=== PATIENT | female | born 1985 | race Caucasian/White ===

== ENCOUNTER 2021-10-07 12:15 | Inpatient (IN) | payer MEDICAID, SELFPAY ==
--- NOTE | ~2021-10-07 | CT_ITS ---
EXAMINATION: CT HEAD WITHOUT CONTRAST CLINICAL INFORMATION: Bilateral lower extremity weakness and paresthesias. COMPARISON: No relevant prior imaging. TECHNIQUE: Contiguous axial imaging was performed from the skull base to vertex without intravenous administration of contrast. This CT examination was performed using dose optimization techniques as appropriate, variously including the following: *Automated exposure control *Adjustment of mA and/or kV according to patient size (this includes techniques or standardized protocols for targeted exams where dose is matched to indication/reason for exam; i.e. extremities or head) *Use of iterative reconstruction technique DLP: 616 mGy-cm FINDINGS: There is no acute intracranial hemorrhage or abnormal extra-axial collection. No intracranial mass effect or midline shift. Lateral and third ventricles are normal. No hydrocephalus. Benson-white matter differentiation is preserved and there is no evidence of acute territorial infarct. The calvarium and skull base are intact. Mastoid air cells and middle ear cavities are well aerated. No active paranasal sinus disease. CT/CT head/brain wo con IMPRESSION: Normal CT scan of the head.
--- NOTE | ~2021-10-07 | MR_ITS ---
MR CERVICAL SPINE WITHOUT AND WITH CONTRAST CLINICAL INFORMATION: Paresthesia/weakness of the lower extremities. COMPARISON: None available. TECHNIQUE: Multiplanar multisequence MR imaging of the cervical spine obtained following the administration of 6.5 mL of Gadavist intravenous contrast without complication. FINDINGS: Partially imaged leftward convex scoliotic curvature of the thoracic spine. Straightening of the cervical lordosis. There is no bone marrow edema. There are no acute fractures. The craniocervical junction is unremarkable. Cervical arterial flow voids are maintained. There are no significant extraspinal soft tissue findings. No cord signal changes accounting for artifact. No enhancing cervical cord lesions. No enhancing intraosseous lesions. No pathologic intrathecal enhancement. C2-C3: Disc osteophyte without central canal stenosis. Bilateral facet arthropathy. No foraminal stenosis. C3-C4: Disc osteophyte without central canal stenosis. Bilateral facet arthropathy. No foraminal stenosis. C4-C5: Slight annular disc bulge and bilateral facet arthropathy. No central canal stenosis and no foraminal stenosis. C5-C6: There is a shallow central disc protrusion that results in mild central canal stenosis. No significant foraminal stenosis. C6-C7: Slight annular disc bulge without central canal stenosis. C7-T1: Bilateral facet arthropathy resulting in mild bilateral foraminal encroachment. No central canal stenosis. MR/MR cervical spine wo/w con IMPRESSION: Mild cervical spondylosis, greatest at C5-C6 where a shallow central disc protrusion mildly narrows the central canal. There is no severe central canal stenosis and there is no severe foraminal stenosis within the cervical spine. No pathologic enhancement.
--- NOTE | ~2021-10-07 | MR_ITS ---
EXAMINATION: MR BRAIN WITHOUT AND WITH CONTRAST CLINICAL INFORMATION: Paresthesia. Weakness. Demyelinating disease. COMPARISON: CT head from 10/07/2021. TECHNIQUE: MRI of the brain was obtained using routine sequences without and following the administration of 6.5 mL of Gadavist intravenous contrast. FINDINGS: No focal restricted diffusion is demonstrated to suggest acute or subacute cerebral ischemia. No evidence of acute or chronic hemorrhagic products on heme-sensitive imaging. Normal parenchymal signal characteristics. The ventricles are normal in morphology and size. No abnormal mass effect. No midline shift. Normal appearance of the pituitary gland. The suprasellar cistern remains widely patent. Normal positioning of the cerebellar tonsils. This Normal arterial and venous vascular flow voids are present. No abnormal contrast enhancement. Normal, homogeneous marrow signal. Mild mucosal thickening of the paranasal sinuses. Mild rightward nasal septal deviation. No signal abnormalities within the mastoids. MR/MR head/brain wo/w con IMPRESSION: 1. No acute intracranial abnormalities. No abnormal intracranial enhancement. 2. No MRI abnormalities to explain the patient's symptoms.
[2021-10-07 13:28] VITALS: BP 138/92; PULSE 105; RESP 18; TEMP 36.6; O2SAT 98; BMI 24.0
[2021-10-07 13:48] LABS: MANUAL DIFF FLAG NO
[2021-10-07 13:51] LABS: Basophils Percent Auto 0.5 % (0-2); Eosinophils Percent Auto 0.4 % (0-4); Hematocrit 39.6 % (37.0-47.0); Hemoglobin 13.9 g/dl (12.0-16.0); Imm Gran Abs Auto 0.03 X10*3/uL (0.00-0.03); Imm Gran Pct Auto 0.4 % (0.0-0.4); Lymphocytes Absolute Auto 2.8 X10*3/uL (1.2-4.9); Lymphocytes Percent Auto 34.2 % (20-40); Mean Corpuscular HGB Conc 35.1 g/dl (31.0-35.0); Mean Corpuscular Hemoglobin 36.6 pg (27.0-33.0); Mean Corpuscular Volume 104.2 fL (80.0-98.0); Mean Platelet Volume 10.5 fL (9.4-12.3); Monocytes Absolute Auto 0.8 X10*3/uL (0.1-1.2); Monocytes Percent Auto 9.2 % (2-11); Neutrophils Absolute Auto 4.6 x10*3/uL (2.0-8.3); Neutrophils Percent Auto 55.3 % (45-73); Platelet Count 281 X10*3/uL (160-400); White Blood Count 8.3 X10*3/uL (4.8-10.8)
[2021-10-07 14:10] LABS: Appearance Urine CLOUDY; Color Urine YELLOW; Glucose Urine UA NEG (NEG); Leukocyte Esterase Urine 2+ (NEG); Nitrite Urine POS (NEG); PH 5.5 (5.0-8.0); Specific Gravity - Urine >= 1.030 (1.005-1.025); UACC Culture Trigger YES; Urine Blood NEG (NEG); Urine Ketones 5 MG/DL (NEG); Urine Protein 1+ MG/DL (NEG-TRACE)
[2021-10-07 14:12] LABS: UPreg QC Valid YES; Urine Pregnancy NEGATIVE (NEGATIVE)
[2021-10-07 14:12] LABS: Alanine Aminotransferase 58 U/L (0-31); Albumin Level 3.3 g/dL (3.5-5.0); Alkaline Phosphatase 197 U/L (39-117); Anion Gap 17 (12-20); Aspartate Amino Transferase 86 U/L (5-31); Blood Urea Nitrogen 5 mg/dL (9-16); Calcium 9.7 mg/dL (8.4-10.2); Carbon Dioxide 34 mmol/L (22-29); Chloride 89 mmol/L (96-108); Creatinine Clr Calc Pharmacy 90.4; Estimated Glomerular Filt Rate > 60; Glucose Random 106 mg/dL (60-115); Potassium 4.1 mmol/L (3.3-5.1); Sodium 136 mmol/L (135-145); Total Protein 6.8 g/dL (6.5-8.0)
[2021-10-07 14:34] LABS: WBC Urine 50-75 /HPF (0-4)
[2021-10-07 14:35] LABS: Bacteria Urine 1+ /LPF; Squamous Epithelial Cell Urine 2+ /LPF
[2021-10-07 15:48] VITALS: BP 139/101; PULSE 98; RESP 16; TEMP 37.1; O2SAT 99
--- NOTE | 2021-10-07 16:02 | ED_ITS ---
HPI - General Adult General Chief complaint: General Medical Stated complaint: Vomiting/Numbness in legs Time Seen by Provider: 10/07/21 15:33 Source: patient Mode of arrival: ambulatory Limitations: no limitations History of Present Illness HPI narrative: Patient comes to the emergency room with multiple complaints including numbness and tingling in her hands and feet for a few days decreased p.o. tolerance over last 2-3 weeks, weight loss over the last few months, occasional lightheadedness. Patient's main concern today is the numbness and tingling in her hand and feet. Patient states the numbness and tingling started approximately 3 days ago, started on her feet and now it is up to her hips. Patient states that today she started having numbness and tingling in the fingertips of both hands. Patient states that her legs feel weaker than usual. Patient states that she has not had any viral infections over the last 2-3 weeks, patient states that she has multiple GI issues over several years, howev er it seems that the nausea/vomiting has gradually been getting worse over the last few weeks. Patient denies diarrhea. Denies fever chills Related Data Allergies Allergy/AdvReac Type Severity Reaction Status Date / Time amoxicillin [AMOXICILLIN] Allergy Unknown UNKNWON Unverified 05/10/20 15:36 Review of Systems Review of Systems: Constitutional : Complaining of 10 lb weight loss over 2 months, No Fever, No Chills, No Night Sweats, No Fatigue, No Malaise ENT/Mouth : No Hearing loss, No Ear Pain, No Nasal Congestion, No Sinus Pain, No Hoarseness, No sore throat, No Rhinorrhea, No Swallowing Difficulty Eyes: No Eye Pain, No Swelling, No Redness, No Foreign Body, No Discharge, No Vision Changes Cardiovascular : No Chest Pain, No SOB, No Dyspnea on Exertion, No Orthopnea, No Edema, No Palpitations Respiratory : No Cough, No Sputum, No Wheezing, No Smoke Exposure, No Dyspnea Gastrointestinal : Complaining of chronic GI issues including nausea vomiting and occasional diarrhea Genitourinary : no irregular bleeding, No Dysuria, No Urinary Frequency, No Hematuria, No Urinary Incontinence, No Urgency, No Flank Pain, No Urinary Flow Changes, No Hesitancy Musculoskeletal : Complaining of paresthesias in feet and palms, complaining of bilateral leg weakness Skin : No Skin Lesions, No rash Neuro : No Weakness, No Numbness, No Paresthesias, No Loss of Consciousness, No Dizziness, No Headache Psych : No Anxiety/Panic, No Depression, No SI/HI/AH/VH, No Social Issues, Heme/Lymph: No Bruising, No Bleeding,No Lymphadenopathy Endocrine : No Polyuria, No Polydipsia, No Temperature Intolerance [facility] Social History Social History Alcohol intake: unknown Patient Tobacco Use Status: Never used Tobacco Use of substances other than those prescribed or required for medical reasons: Unknown Advance Directives: No Advance Directives Information Provided: No Patient : No Physical Exam ED Vital Signs: Vital Signs - 24 hr 10/07/21 13:28 10/07/21 15:48 10/07/21 17:48 Temperature 97.8 F 98.8 F Pulse Rate 105 H 98 71 Respiratory Rate 18 16 16 Blood Pressure 138/92 H 139/101 H 123/77 Pulse Oximetry 98 99 96 10/07/21 20:10 Temperature 98.7 F Pulse Rate 91 Respiratory Rate 16 Blood Pressure 115/81 Pulse Oximetry 97 BMI result Body Mass Index 24.0 Const Other: Appearance: Alert. Oriented X3. No acute distress. Anxious Eyes: Pupils equal, round and reactive to light. ENT: Pharynx normal. Neck: Normal inspection. Neck supple. No lymph nodes noted. No crepitus CVS: Normal heart rate and rhythm. Pulses normal. Normal S1 and S2 Respiratory: No respiratory distress. Breath sounds normal. No Wheezing. No rales Abdomen: Soft and nontender. No rigidity. No distention. Skin: Skin warm and dry. Extremities: No lower extremity edema. absent patellar reflexes bilaterally, patient is ambulatory but her gate is unstable, complains of weakness Neuro: Oriented X 3. No motor deficit. No sensory deficit. Moving all extermities. No slurred speech. Course Course Course Narrative: I discussed with the patient that her history of having numbness and tingling in the feet traveling upwards and now having numbness and tingling in both hands is concerning for [place]. Patient is agreeable to have a lumbar puncture. Patient signed the consent, now in patient's chart. Head CT shows no acute abnormalities I discussed with the patient her MCV level and her LFTs elevations. Patient admits that she drinks quite a bit/binge drinks. Is possible that patient may have paresthesias secondary to folate/B12 deficiency. Also, this could be alcoholic neurophathy/myopathy. CSF within normal limits. Patient's gait is abnormal, patient needs to hold on to both sides of her th ighs, states that she feels that her legs feel very weak and about to give up. I discussed the patient with Dr. Mariscal, patient being admitted Medical Decision Making Lab Data Result diagrams: 10/07/21 13:41 10/07/21 13:41 Labs: Lab Results 10/07/21 10/07/21 10/07/21 Range/Units 13:41 13:41 13:57 WBC 8.3 (4.8-10.8) X10*3/uL RBC 3.80 L (4.20-5.50) X10*6/uL Hgb 13.9 (12.0-16.0) g/dl Hct 39.6 (37.0-47.0) % MCV 104.2 H (80.0-98.0) fL MCH 36.6 H (27.0-33.0) pg MCHC 35.1 H (31.0-35.0) g/dl RDW 12.0 (11.0-16.0) % Plt Count 281 (160-400) X10*3/uL MPV 10.5 (9.4-12.3) fL Immature Gran % (Auto) 0.4 (0.0-0.4) % Neut % (Auto) 55.3 (45-73) % Lymph % (Auto) 34.2 (20-40) % [place] % (Auto) 9.2 (2-11) % Eos % (Auto) 0.4 (0-4) % Baso % (Auto) 0.5 (0-2) % Lymph # (Auto) 2.8 (1.2-4.9) X10*3/uL [place] # (Auto) 0.8 (0.1-1.2) X10*3/uL Eos # (Auto) 0.0 (0.0-0.4) X10*3/uL Baso # (Auto) 0.0 (0.0-0.2) X10*3/uL Abs Immat Gran (auto) 0.03 (0.00-0.03) X10*3/uL Absolute Neuts (auto) 4.6 (2.0-8.3) x10*3/uL Absolute Nucleated RBC 0.000 (0.0-0.012) X10*3/uL Nucleated RBC % (auto) 0.0 (0.0-0.2) /100WBC Sodium 136 (135-145) mmol/L Potassium 4.1 (3.3-5.1) mmol/L Chloride 89 L (96-108) mmol/L Carbon Dioxide 34 H (22-29) mmol/L Anion Gap 17 (12-20) BUN 5 L (9-16) mg/dL Creatinine 0.75 (0.5-1.4) mg/dL Estim Creat Clear Calc 90.4 Estimated GFR > 60 Random Glucose 106 (60-115) mg/dL Calcium 9.7 (8.4-10.2) mg/dL Magnesium 2.1 (1.6-2.6) mg/dL Total Bilirubin 1.0 (0.0-1.0) mg/dL AST 86 H (5-31) U/L ALT 58 H (0-31) U/L Alkaline Phosphatase 197 H (39-117) U/L Total Protein 6.8 (6.5-8.0) g/dL Albumin 3.3 L (3.5-5.0) g/dL Urine Color YELLOW Urine Appearance CLOUDY Urine pH 5.5 (5.0-8.0) Ur Specific [place] >= 1.030 H (1.005-1.025) Urine Protein 1+ H (NEG-TRACE) MG/DL Urine Glucose (UA) NEG (NEG) MG/DL Urine Ketones 5 (NEG) MG/DL Urine Blood NEG (NEG) Urine Nitrite POS H (NEG) Ur Leukocyte Esterase 2+ H (NEG) Urine RBC 1-4 (0) /HPF Urine WBC 50-75 H (0-4) /HPF Ur Squamous Epith Cells 2+ /LPF Urine Bacteria 1+ /LPF Urine Test (NEGATIVE) CSF Tube Number CSF Volume ML CSF Appearance CSF Color CSF WBC MM*3 CSF RBC MM*3 CSF Neutrophils % CSF Lymphocytes % CSF Monocytes % % CSF Appearance (b) CSF Glucose mg/dL CSF Total Protein (15-45) mg/dL 10/07/21 10/07/21 10/07/21 Range/Units 13:57 18:00 18:00 WBC (4.8-10.8) X10*3/uL RBC (4.20-5.50) X10*6/uL Hgb (12.0-16.0) g/dl Hct (37.0-47.0) % MCV (80.0-98.0) fL MCH (27.0-33.0) pg MCHC (31.0-35.0) g/dl RDW (11.0-16.0) % Plt Count (160-400) X10*3/uL MPV (9.4-12.3) fL Immature Gran % (Auto) (0.0-0.4) % Neut % (Auto) (45-73) % Lymph % (Auto) (20-40) % [place] % (Auto) (2-11) % Eos % (Auto) (0-4) % Baso % (Auto) (0-2) % Lymph # (Auto) (1.2-4.9) X10*3/uL [place] # (Auto) (0.1-1.2) X10*3/uL Eos # (Auto) (0.0-0.4) X10*3/uL Baso # (Auto) (0.0-0.2) X10*3/uL Abs Immat Gran (auto) (0.00-0.03) X10*3/uL Absolute Neuts (auto) (2.0-8.3) x10*3/uL Absolute Nucleated RBC (0.0-0.012) X10*3/uL Nucleated RBC % (auto) (0.0-0.2) /100WBC Sodium (135-145) mmol/L Potassium (3.3-5.1) mmol/L Chloride (96-108) mmol/L Carbon Dioxide (22-29) mmol/L Anion Gap (12-20) BUN (9-16) mg/dL Creatinine (0.5-1.4) mg/dL Estim Creat Clear Calc Estimated GFR Random Glucose (60-115) mg/dL Calcium (8.4-10.2) mg/dL Magnesium (1.6-2.6) mg/dL Total Bilirubin (0.0-1.0) mg/dL AST (5-31) U/L ALT (0-31) U/L Alkaline Phosphatase (39-117) U/L Total Protein (6.5-8.0) g/dL Albumin (3.5-5.0) g/dL Urine Color Urine Appearance Urine pH (5.0-8.0) Ur Specific [place] (1.005-1.025) Urine Protein (NEG-TRACE) MG/DL Urine Glucose (UA) (NEG) MG/DL Urine Ketones (NEG) MG/DL Urine Blood (NEG) Urine Nitrite (NEG) Ur Leukocyte Esterase (NEG) Urine RBC (0) /HPF Urine WBC (0-4) /HPF Ur Squamous Epith Cells /LPF Urine Bacteria /LPF Urine Test NEGATIVE (NEGATIVE) CSF Tube Number 2 4 CSF Volume 1.5 ML CSF Appearance CLEAR CSF Color COLORLESS CSF WBC 0 MM*3 CSF RBC 1 MM*3 CSF Neutrophils 0 % CSF Lymphocytes 0 % CSF Monocytes % 0 % CSF Appearance (b) Clear, Colorless CSF Glucose 79 mg/dL CSF Total Protein 25.2 (15-45) mg/dL Imaging Data CT scan - head: Radiologist's impression: FINDINGS: There is no acute intracranial hemorrhage or abnormal extra-axial collection. No intracranial mass effect or midline shift. Lateral and third ventricles are normal. No hydrocephalus. Benson-white matter differentiation is preserved and there is no evidence of acute territorial infarct. The calvarium and skull base are intact. Mastoid air cells and middle ear cavities are well aerated. No active paranasal sinus disease. ? CT/CT head/brain wo con IMPRESSION: Normal CT scan of the head. Discharge Plan Discharge Clinical Impression: Paresthesias, Bilateral leg weakness Patient Disposition: Admitted As Inpatient
[2021-10-07 16:51] LABS: Magnesium 2.1 mg/dL (1.6-2.6)
--- NOTE | 2021-10-07 17:44 | PC.NURSE ---
iv established, right ac. currently getting lp
[2021-10-07 17:48] VITALS: BP 123/77; PULSE 71; RESP 16; O2SAT 96
[2021-10-07 18:06] LABS: CSF Appearance Clear, Colorless; CSF Tube # 2
[2021-10-07 18:29] LABS: Glucose CSF 79 mg/dL; Total Protein CSF 25.2 mg/dL (15-45)
[2021-10-07 19:20] LABS: Appearance CSF CLEAR
[2021-10-07 19:21] LABS: CSF Monos 0 %; CSF Tube # 4; CSF Volume 1.5 ML; Color CSF COLORLESS; Lymphocytes CSF 0 %; Neutrophils CSF 0 %; Red Blood Cell CSF 1 MM*3; White Blood Cell CSF 0 MM*3
[2021-10-07 20:10] VITALS: BP 115/81; PULSE 91; RESP 16; TEMP 37.1; O2SAT 97
--- NOTE | 2021-10-07 20:14 | PC.NURSE ---
This real estate underwriter assumed care of this patient from IWONA Winters at [id number].
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
[2021-10-07] MEDS: Cyanocobalamin (Vitamin B-12) 1,000 MCG TABLET 1000 MCG PO (20:48)
[2021-10-07] MEDS: Folic Acid 1 MG TABLET PO (20:48)
[2021-10-07] MEDS: Enoxaparin Sodium 40 MG/0.4 ML SYRINGE SUBCUT (20:50)
[2021-10-07] MEDS: 0.9 % Sodium Chloride 1,000 ML 999 ML IVCONT (20:50)
--- NOTE | 2021-10-07 20:54 | PHA.MEDREC ---
Pharmacy Consult ? Medication Reconciliation Pharmacy has completed the medication reconciliation.
[2021-10-07 21:25] LABS: Lactic Acid 4.4 mmol/L (0.5-2.0)
[2021-10-07 21:25] LABS: C Reactive Protein 0.19 mg/dL (< or = 0.50)
[2021-10-07] MEDS: levoFLOXacin/D5W 500 MG/100 ML PIGGYBACK 100 MG IV (21:38)
[2021-10-07 21:50] LABS: Erythrocyte Sedimentation Rate 16 MM/HR (0-20)
[2021-10-07 22:00] LABS: Folate 2.6 ng/mL (> or = 4.0); Vitamin B12 1533 pg/mL (200-900)
[2021-10-07 22:31] LABS: COVID-19 Test Negative (Negative); IDNOW Serial# 9DD0AD1C
[2021-10-07 23:07] LABS: Reflex Lactate? Lactic Acid Added
[2021-10-08 00:34] LABS: Amphetamine Screen Urine Not Detected (Not Detect); Barbiturates, Urine Not Detected (Not Detect); Benzodiazepines Screen Urine Not Detected (Not Detect); Cannabinoid Screen Urine POSITIVE (Not Detect); Cocaine Screen Urine Not Detected (Not Detect); Fentanyl, urine Not Detected (Not Detect); Opiate Screen Urine Not Detected (Not Detect); Phencyclidine Screen Urine Not Detected (Not Detect)
[2021-10-08 00:43] LABS: ~Lactic Acid-LAB USE ONLY 2.2 mmol/L (0.5-2.0)
[2021-10-08 00:47] VITALS: BP 120/81; PULSE 88; RESP 15; O2SAT 97
[2021-10-08 02:19] LABS: Reflex Lactate? 2 Y
[2021-10-08 02:44] LABS: ~Lactic Acid-LAB USE ONLY 3.9 mmol/L (0.5-2.0)
[2021-10-08] MEDS: Dextrose 5 % and 0.45 % NaCl 1,000 ML 100 ML IVCONT ×2 (04:39→15:26)
[2021-10-08 05:54] VITALS: BP 120/83; PULSE 70; RESP 13; O2SAT 97
--- NOTE | 2021-10-08 06:28 | PC.NURSE ---
IWONA Nguyen relayed to this RN that patient's Lactic Acid was elevated. Hospitalist made aware
[2021-10-08 07:06] LABS: MANUAL DIFF FLAG NO
[2021-10-08 07:09] LABS: Basophils Absolute Auto 0.1 X10*3/uL (0.0-0.2); Basophils Percent Auto 0.7 % (0-2); Eosinophils Absolute Auto 0.1 X10*3/uL (0.0-0.4); Hematocrit 36.2 % (37.0-47.0); Hemoglobin 12.3 g/dl (12.0-16.0); Imm Gran Abs Auto 0.02 X10*3/uL (0.00-0.03); Imm Gran Pct Auto 0.3 % (0.0-0.4); Lymphocytes Absolute Auto 2.9 X10*3/uL (1.2-4.9); Lymphocytes Percent Auto 42.7 % (20-40); Mean Corpuscular Hemoglobin 36.3 pg (27.0-33.0); Mean Corpuscular Volume 106.8 fL (80.0-98.0); Mean Platelet Volume 10.8 fL (9.4-12.3); Monocytes Absolute Auto 0.7 X10*3/uL (0.1-1.2); Monocytes Percent Auto 10.1 % (2-11); Neutrophils Percent Auto 45.2 % (45-73); Platelet Count 235 X10*3/uL (160-400); Red Blood Count 3.39 X10*6/uL (4.20-5.50); Red Cell Distribution Width 11.9 % (11.0-16.0); White Blood Count 6.7 X10*3/uL (4.8-10.8)
[2021-10-08 07:35] VITALS: BP 118/91; PULSE 91; RESP 12; TEMP 36.4; O2SAT 96
[2021-10-08 07:35] LABS: Anion Gap 13 (12-20); Blood Urea Nitrogen 3 mg/dL (9-16); Calcium 8.7 mg/dL (8.4-10.2); Carbon Dioxide 32 mmol/L (22-29); Chloride 96 mmol/L (96-108); Creatinine Clr Calc Pharmacy 92.8; Estimated Glomerular Filt Rate > 60; Glucose Random 98 mg/dL (60-115); Potassium 3.7 mmol/L (3.3-5.1); Sodium 137 mmol/L (135-145)
[2021-10-08 07:50] LABS: Thyroid Stimulating Hormone 1.36 uIU/mL (0.32-4.0)
[2021-10-08 07:56] LABS: Phosphorus 3.7 mg/dL (2.7-4.5)
[2021-10-08 08:29] LABS: Vitamin D 25-OH Total 11.8 ng/mL (>30)
--- NOTE | 2021-10-08 09:24 | MHC.CM.PN ---
PT REPORTS SHE LIVES AT HOME WITH HER PARENTS AND IS INDEPENDENT WITH CARE [PT HAS NO SERVICES AND NO DME PT HAS NO PCP, IMPORTANCE OF OBTAINING ONE DISCUSSED. PT COMPLETED A HCP TODAY NAMING HER MOTHER, JACQUELINE WIGGINS, HER AGENT. PT IS NOT VACCINATED AGAINST COVID-19 CURRENT DC PLAN IS HOME WITH NO SERVICES PT TO ARRANGE TRANSPORT
[2021-10-08] MEDS: Ibuprofen 600 MG TABLET PO (11:09)
--- NOTE | 2021-10-08 14:17 | HO.PM.IMPN ---
Subjective Subjective Date of Service: 10/08/21 Interval History: No acute issues....no changes overnight Review of Systems DeniesCP Denies SOB Denies N/V/D Physical Exam Vital Signs: Vital Signs: Last Vital Signs Temp 97.6 F 10/08/21 07:35 Pulse 91 10/08/21 07:35 Resp 12 10/08/21 07:35 BP 118/91 H 10/08/21 07:35 Pulse Ox 96 10/08/21 07:35 BMI result Body Mass Index 24.0 Const: Other: No acute distress Resp: Other: clear A/P ..no R/R/W Cardio: Other: -S4 +S1/S2 -S3 MRG Extrem: Other: no edema Objective Data Active Medications Enoxaparin Sodium (Enoxaparin Sodium 40 Mg/0.4 Ml Syringe) 40 mg SUBCUT Q24H [facility] Last Admin: 10/07/21 20:50 Dose: 40 mg Documented by: NAZARIO Dextrose/Sodium Chloride (D51/2ns) 1,000 mls @ 100 mls/hr IVCONT .Q10H [facility] Last Admin: 10/08/21 04:39 Dose: 100 mls/hr Documented by: CHARLES Ibuprofen (Ibuprofen 600 Mg Tablet) 600 mg PO Q6H PRN PRN Reason: Pain, Mild (Pain Scale 1-3) Last Admin: 10/08/21 11:09 Dose: 600 mg Documented by: DEMETRI Melatonin (Melatonin 3 Mg Tablet) 6 mg PO BEDTIME PRN PRN Reason: Insomnia Oxycodone HCl (Oxycodone Hcl Immed Release 5 Mg Tablet) 5 mg PO Q4H PRN PRN Reason: Pain, Moderate (Pain Scale 4-6 Senna (Sennosides 8.6 Mg Tablet) 17.2 mg PO BEDTIME PRN PRN Reason: Constipation Sodium Chloride (0.9 % Sodium Chloride Flush 3 Ml Syringe) 3 ml IVFLUSH QSHIFT [facility] Last Admin: 10/08/21 09:17 Dose: Not Given Documented by: DEMETRI Non-Admin Reason: Patient Refused Labs CBC & Chem 7: 10/08/21 06:59 10/08/21 06:59 Labs: Laboratory Results - last 24 hr 10/07/21 10/07/2122 13:41 13:57 13:57 MCV MCH MCHC RDW Plt Count MPV Immature Gran % (Auto) Neut % (Auto) Lymph % (Auto) [place] % (Auto) Eos % (Auto) Baso % (Auto) Lymph # (Auto) [place] # (Auto) Eos # (Auto) Baso # (Auto) Abs Immat Gran (auto) Absolute Neuts (auto) Absolute Nucleated RBC Nucleated RBC % (auto) ESR Anion Gap Estim Creat Clear Calc Estimated GFR Random Glucose Lactic Acid Lactic Acid F/U @ 2Hr Lactic Acid F/U @ 4Hr Calcium Phosphorus Magnesium 2.1 Total Creatine Kinase 26 C-Reactive Protein Vitamin B12 25-OH Vitamin D Total Folate TSH Urine RBC 1-4 Urine WBC 50-75 H Ur Squamous Epith Cells 2+ Urine Bacteria 1+ CSF Tube Number CSF Volume CSF Appearance CSF Color CSF WBC CSF RBC CSF Neutrophils CSF Lymphocytes CSF Monocytes % CSF Appearance (b) CSF Glucose CSF Total Protein Urine Opiates Screen Not Detected Urine Fentanyl Screen Not Detected Ur Barbiturates Screen Not Detected Ur Phencyclidine Scrn Not Detected Ur Amphetamines Screen Not Detected U Benzodiazepines Scrn Not Detected Urine Cocaine Screen Not Detected U Marijuana (THC) Screen POSITIVE H COVID-19 (JODI) COVID-19 Clin Com 10/07/21 10/07/21 10/07/21 18:00 18:00 21:03 MCV MCH MCHC RDW Plt Count MPV Immature Gran % (Auto) Neut % (Auto) Lymph % (Auto) [place] % (Auto) Eos % (Auto) Baso % (Auto) Lymph # (Auto) [place] # (Auto) Eos # (Auto) Baso # (Auto) Abs Immat Gran (auto) Absolute Neuts (auto) Absolute Nucleated RBC Nucleated RBC % (auto) ESR Anion Gap Estim Creat Clear Calc Estimated GFR Random Glucose Lactic Acid 4.4 H* Lactic Acid F/U @ 2Hr Lactic Acid F/U @ 4Hr Calcium Phosphorus Magnesium Total Creatine Kinase C-Reactive Protein Vitamin B12 25-OH Vitamin D Total Folate TSH Urine RBC Urine WBC Ur Squamous Epith Cells Urine Bacteria CSF Tube Number 2 4 CSF Volume 1.5 CSF Appearance CLEAR CSF Color COLORLESS CSF WBC 0 CSF RBC 1 CSF Neutrophils 0 CSF Lymphocytes 0 CSF Monocytes % 0 CSF Appearance (b) Clear, Colorless CSF Glucose 79 CSF Total Protein 25.2 Urine Opiates Screen Urine Fentanyl Screen Ur Barbiturates Screen Ur Phencyclidine Scrn Ur Amphetamines Screen U Benzodiazepines Scrn Urine Cocaine Screen U Marijuana (THC) Screen COVID-19 (JODI) COVID-19 [employer] 10/07/21 10/07/21 10/07/21 21:03 21:03 21:04 MCV MCH MCHC RDW Plt Count MPV Immature Gran % (Auto) Neut % (Auto) Lymph % (Auto) [place] % (Auto) Eos % (Auto) Baso % (Auto) Lymph # (Auto) [place] # (Auto) Eos # (Auto) Baso # (Auto) Abs Immat Gran (auto) Absolute Neuts (auto) Absolute Nucleated RBC Nucleated RBC % (auto) ESR 16 Anion Gap Estim Creat Clear Calc Estimated GFR Random Glucose Lactic Acid Lactic Acid F/U @ 2Hr Lactic Acid F/U @ 4Hr Calcium Phosphorus Magnesium Total Creatine Kinase C-Reactive Protein 0.19 Vitamin B12 1533 H 25-OH Vitamin D Total Folate 2.6 L TSH Urine RBC Urine WBC Ur Squamous Epith Cells Urine Bacteria CSF Tube Number CSF Volume CSF Appearance CSF Color CSF WBC CSF RBC CSF Neutrophils CSF Lymphocytes CSF Monocytes % CSF Appearance (b) CSF Glucose CSF Total Protein Urine Opiates Screen Urine Fentanyl Screen Ur Barbiturates Screen Ur Phencyclidine Scrn Ur Amphetamines Screen U Benzodiazepines Scrn Urine Cocaine Screen U Marijuana (THC) Screen COVID-19 (JODI) COVID-19 [employer] 10/07/21 10/08/21 10/08/21 22:09 00:16 02:21 MCV MCH MCHC RDW Plt Count MPV Immature Gran % (Auto) Neut % (Auto) Lymph % (Auto) [place] % (Auto) Eos % (Auto) Baso % (Auto) Lymph # (Auto) [place] # (Auto) Eos # (Auto) Baso # (Auto) Abs Immat Gran (auto) Absolute Neuts (auto) Absolute Nucleated RBC Nucleated RBC % (auto) ESR Anion Gap Estim Creat Clear Calc Estimated GFR Random Glucose Lactic Acid Lactic Acid F/U @ 2Hr 2.2 H* Lactic Acid F/U @ 4Hr 3.9 H* Calcium Phosphorus Magnesium Total Creatine Kinase C-Reactive Protein Vitamin B12 25-OH Vitamin D Total Folate TSH Urine RBC Urine WBC Ur Squamous Epith Cells Urine Bacteria CSF Tube Number CSF Volume CSF Appearance CSF Color CSF WBC CSF RBC CSF Neutrophils CSF Lymphocytes CSF Monocytes % CSF Appearance (b) CSF Glucose CSF Total Protein Urine Opiates Screen Urine Fentanyl Screen Ur Barbiturates Screen Ur Phencyclidine Scrn Ur Amphetamines Screen U Benzodiazepines Scrn Urine Cocaine Screen U Marijuana (THC) Screen COVID-19 (JODI) Negative COVID-19 Clin Com See Note 10/08/21 10/08/21 10/08/21 06:59 06:59 06:59 MCV 106.8 H MCH 36.3 H MCHC 34.0 RDW 11.9 Plt Count 235 MPV 10.8 Immature Gran % (Auto) 0.3 Neut % (Auto) 45.2 Lymph % (Auto) 42.7 H [place] % (Auto) 10.1 Eos % (Auto) 1.0 Baso % (Auto) 0.7 Lymph # (Auto) 2.9 [place] # (Auto) 0.7 Eos # (Auto) 0.1 Baso # (Auto) 0.1 Abs Immat Gran (auto) 0.02 Absolute Neuts (auto) 3.0 Absolute Nucleated RBC 0.000 Nucleated RBC % (auto) 0.0 ESR Anion Gap 13 Estim Creat Clear Calc 92.8 Estimated GFR > 60 Random Glucose 98 Lactic Acid Lactic Acid F/U @ 2Hr Lactic Acid F/U @ 4Hr Calcium 8.7 D Phosphorus 3.7 Magnesium Total Creatine Kinase C-Reactive Protein Vitamin B12 25-OH Vitamin D Total 11.8 Folate TSH 1.36 Urine RBC Urine WBC Ur Squamous Epith Cells Urine Bacteria CSF Tube Number CSF Volume CSF Appearance CSF Color CSF WBC CSF RBC CSF Neutrophils CSF Lymphocytes CSF Monocytes % CSF Appearance (b) CSF Glucose CSF Total Protein Urine Opiates Screen Urine Fentanyl Screen Ur Barbiturates Screen Ur Phencyclidine Scrn Ur Amphetamines Screen U Benzodiazepines Scrn Urine Cocaine Screen U Marijuana (THC) Screen COVID-19 (JODI) COVID-19 Clin Com Microbiology Microbiology Results: Microbiology 10/07/21 Unknown Urine Culture - Preliminary Urine clean catch - Urine medina top Gram negative chencho 10/07/21 18:00 Gram Stain - Final Cerebrospinal Fluid CSF Examination - Final Fluid Description - Final CSF Culture - Preliminary No growth. Assessment and Plan (1) Paresthesias: Status: Acute Plan 36-year-old female with no significant past medical history except for alcohol use presented to the hospital today with a chief complaint of bilateral lower extremity numbness/tingling/weakness and upper extremity hands tingling bilaterally.? 1.Parasthesia - Vit D 25-OH added... low @ 11.5. Will repleat and follow clinical response -check MRI r/out plaques -await Neuro input 2. UTI - empirical ABTX pending cultures Lovenox Full Code Quality Stroke Does the patient have a stroke diagnosis?: No VTE Prior VTE?: No VTE Risk Level:: Medical - moderate - high VTE Device Contraindication: Treatment Not Indicated VTE Drug Contraindication: N/A - Med Ordered
[2021-10-08] MEDS: oxyCODONE HCl Immed Release 5 MG TABLET PO ×2 (14:26→20:24)
[2021-10-08] MEDS: Ergocalciferol (Vitamin D2) 1,250 MCG CAPSULE 1250 MCG PO (14:49)
[2021-10-08 19:57] VITALS: BP 120/69; PULSE 88; RESP 14; TEMP 36.9; O2SAT 100
[2021-10-08 20:00] VITALS: BP 125/91; PULSE 88; RESP 18; TEMP 36.5; O2SAT 99
[2021-10-08] MEDS: Enoxaparin Sodium 40 MG/0.4 ML SYRINGE SUBCUT (20:25)
[2021-10-08] MEDS: Melatonin 3 MG TABLET 6 MG PO (20:25)
[2021-10-08 23:31] VITALS: BP 124/91; PULSE 93; RESP 16; TEMP 35.7; O2SAT 99
[2021-10-09] VITALS (7 sets, daily range): BP systolic 112–152; BP diastolic 60–97; PULSE 69–89; RESP 14–20; TEMP 35.9–36.8; O2SAT 96–100
[2021-10-09] MEDS: Dextrose 5 % and 0.45 % NaCl 1,000 ML 100 ML IVCONT (03:58)
[2021-10-09] MEDS: Folic Acid 1 MG TABLET PO (09:06)
[2021-10-09] MEDS: cefTRIAXone sodium 1 GM in 0.9 % Sodium Chloride 50 ML IV (09:06)
[2021-10-09] MEDS: oxyCODONE HCl Immed Release 5 MG TABLET PO ×2 (09:14→22:07)
--- NOTE | 2021-10-09 09:35 | P.CNNE_ITS ---
History of Present Illness Data of Consult Service Date: 10/09/21 Primary Care Provider: None Physician HPI Reason for consult: Paresthesias 36 years old woman who reported long heavy use of alcohol until about 2 weeks ago. She said that she was paying attention to her nutrition. About 6-10 days ago she noted that her feet were numb and tingly. In next few days this feeling started to come up to involve her for legs and then legs and then yesterday it involved her hands bringing her to hospital. There was no breathing or language difficulty but she had difficulty with balancing. She was having some stomach issue but no recent diarrhea cold or flu-like illness. Review of Systems Review of Systems: As in [facility] Social History Social History Household Members: Spouse, Family and Children Housing: House Unable to assess alcohol history related to: Unknown Alcohol intake: unknown Patient Tobacco Use Status: Never used Tobacco Substance Use Type: Marijuana service: No Current occupational status: unemployed Meds Allergies Allergy/AdvReac Type Severity Reaction Status Date / Time amoxicillin [AMOXICILLIN] Allergy Unknown UNKNWON Verified 10/07/21 23:14 Active Medications: Current Medications Enoxaparin Sodium (Enoxaparin Sodium 40 Mg/0.4 Ml Syringe) 40 mg SUBCUT Q24H [facility] Last Admin: 10/08/21 20:25 Dose: 40 mg Documented by: Folic Acid (Folic Acid 1 Mg Tablet) 1 mg PO DAILY [facility] Last Admin: 10/09/21 09:06 Dose: 1 mg Documented by: Ceftriaxone Sodium 1 gm/ (Sodium Chloride) 50 mls @ 100 mls/hr IV Q24H [facility] Last Admin: 10/09/21 09:06 Dose: 100 mls/hr Documented by: Ibuprofen (Ibuprofen 600 Mg Tablet) 600 mg PO Q6H PRN PRN Reason: Pain, Mild (Pain Scale 1-3) Last Admin: 10/08/21 11:09 Dose: 600 mg Documented by: Melatonin (Melatonin 3 Mg Tablet) 6 mg PO BEDTIME PRN PRN Reason: Insomnia Last Admin: 10/08/21 20:25 Dose: 6 mg Documented by: Oxycodone HCl (Oxycodone Hcl Immed Release 5 Mg Tablet) 5 mg PO Q4H PRN PRN Reason: Pain, Moderate (Pain Scale 4-6 Last Admin: 10/09/21 09:14 Dose: 5 mg Documented by: Senna (Sennosides 8.6 Mg Tablet) 17.2 mg PO BEDTIME PRN PRN Reason: Constipation Sodium Chloride (0.9 % Sodium Chloride Flush 3 Ml Syringe) 3 ml IVFLUSH QSHIFT [facility] Last Admin: 10/09/21 09:04 Dose: Not Given Documented by: Home Medications Medication Instructions Recorded Confirmed Last Taken Type No Known Home Meds 10/07/21 10/07/21 Unknown History Physical Exam Vital Signs: Vital Signs: Last Vital Signs Temp 97.1 F 10/09/21 08:00 Pulse 84 10/09/21 08:00 Resp 20 10/09/21 08:00 BP 144/95 H 10/09/21 08:00 Pulse Ox 100 10/09/21 08:00 BMI result Body Mass Index 24.0 Neuro: Other: She is alert and awake with normal spontaneity of speech fluency comprehension and affect. There is no sign of distress. Face is symmetrical. There is no facial weakness. Deep tendon reflexes are absent with flexor plantars. Tone is diminished. Pyfqhv-ns-eggy testing revealed mild ataxia bilaterally. She is able to get up on her own with some difficulty but could not stand on heels and toes. Speech was normal. Results Labs CBC & Chem 7: 10/08/21 06:59 10/08/21 06:59 Labs: Noncontrast head CT revealed [id number] cerebellar atrophy but no acute lesion. MRI of brain similarly did not reveal any new lesion or acute lesion. Microbiology Microbiology Results: Microbiology 10/07/21 Unknown Urine clean catch - Urine medina top Urine Culture - Final Escherichia coli 10/07/21 21:03 Blood - Venous Blood Culture - Preliminary No growth after 24 hours. 10/07/21 21:03 Blood - Venous Blood Culture - Preliminary No growth after 24 hours. 10/07/21 18:00 Cerebrospinal Fluid Gram Stain - Final 10/07/21 18:00 Cerebrospinal Fluid CSF Examination - Final 10/07/21 18:00 Cerebrospinal Fluid Fluid Description - Final 10/07/21 18:00 Cerebrospinal Fluid CSF Culture - Preliminary No growth after 1 day Assessment and Plan (1) Paresthesias: Status: Acute (2) Bilateral leg weakness: Status: Acute (3) Peripheral neuropathy: Status: Acute 36 years old woman with alcoholism who said that she stop drinking couple of weeks ago. During last few days she started to have numbness and tingling in her feet that extended to involve her for legs and then legs and then hands. She was also feeling weak and unsteady. There was no associated cold or flu- like illness. Her examination revealed findings of neuropathy and cerebellar dysfunction. Her head imaging revealed cerebellar atrophy related to alcohol use. As far as neuropathy is concerned, which is commonly seen in chronic alcoholism, it has flavor of acute nature during last few days. This would raise possibility of acute demyelinating polyneuropathy. At this time recommendations are to give her thiamine and folate and B complex vitamin supplementation, and obtain a lumbar puncture to see if we could corroborate diagnosis of AIDP. Any EMG nerve conduction study can also help but it could be difficult to interpret because of underlying alcoholic neuropathy. I would recommend ordering that test to. 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 I recommend starting her on IVIG on top of vitamins. IVIG dose is 400 milligram/kg per day for 5 days per Procedures Date of Service Date of Service: 10/09/21
[2021-10-09 11:42] LABS: HIV AB/AG Nonreactive (Nonreactive)
[2021-10-09 11:44] LABS: Syphilis Screen Nonreactive (Nonreactive)
--- NOTE | 2021-10-09 13:28 | P.PNIM_ITS ---
Subjective Subjective Date of Service: 10/09/21 Interval History: Ongoing foot and hand numbness/paresthesias and leg weakness. Denies recent viral infection or flu vaccination. Review of Systems Review of Systems: Yes all other systems are reviewed and are negative Physical Exam Vital Signs: Vital Signs: Last Vital Signs Temp 97.1 F 10/09/21 08:00 Pulse 84 10/09/21 08:00 Resp 20 10/09/21 08:00 BP 144/95 H 10/09/21 08:00 Pulse Ox 100 10/09/21 08:00 BMI result Body Mass Index 24.0 Gen: in no acute distress HEENT: sclera anicteric, moist mucus membranes Neck: supple Lungs: clear to auscultation bilaterally Heart: regular rate and rhythm, no murmurs Abd: soft, non-tender, non-distended Ext: no edema Skin: warm/well-perfused Neuro: decreased sensation to light touch bilateral legs, symmetric bilateral leg weakness Psych: appropriate affect Objective Data Active Medications Enoxaparin Sodium (Enoxaparin Sodium 40 Mg/0.4 Ml Syringe) 40 mg SUBCUT Q24H [facility] Last Admin: 10/08/21 20:25 Dose: 40 mg Documented by: CHARLES Folic Acid (Folic Acid 1 Mg Tablet) 1 mg PO DAILY [facility] Last Admin: 10/09/21 09:06 Dose: 1 mg Documented by: DUYEN Ceftriaxone Sodium 1 gm/ (Sodium Chloride) 50 mls @ 100 mls/hr IV Q24H [facility] Last Infusion: 10/09/21 09:41 Dose: 100 mls/hr Documented by: DUYEN Ibuprofen (Ibuprofen 600 Mg Tablet) 600 mg PO Q6H PRN PRN Reason: Pain, Mild (Pain Scale 1-3) Last Admin: 10/08/21 11:09 Dose: 600 mg Documented by: DEMETRI Melatonin (Melatonin 3 Mg Tablet) 6 mg PO BEDTIME PRN PRN Reason: Insomnia Last Admin: 10/08/21 20:25 Dose: 6 mg Documented by: CHARLES Multivitamins/Vitamin C (Multivitamin Tablet) 1 tab PO DAILY [facility] Oxycodone HCl (Oxycodone Hcl Immed Release 5 Mg Tablet) 5 mg PO Q4H PRN PRN Reason: Pain, Moderate (Pain Scale 4-6 Last Admin: 10/09/21 09:14 Dose: 5 mg Documented by: DUYEN Senna (Sennosides 8.6 Mg Tablet) 17.2 mg PO BEDTIME PRN PRN Reason: Constipation Sodium Chloride (0.9 % Sodium Chloride Flush 3 Ml Syringe) 3 ml IVFLUSH QSHIFT [facility] Last Admin: 10/09/21 09:04 Dose: Not Given Documented by: DUYEN Non-Admin Reason: IV Running Thiamine HCl (Thiamine Hcl 100 Mg Tablet) 100 mg PO DAILY [facility] Labs CBC & Chem 7: 10/08/21 06:59 10/08/21 06:59 Labs: Laboratory Results - last 24 hr 10/09/21 10/09/21 10:55 10:55 T.pallidum Ab (EIA) Nonreactive HIV 1&2 Ab/P24 Ag 4thGn Nonreactive Impressions Brain MRI 10/08/21 18:25 IMPRESSION: 1. No acute intracranial abnormalities. No abnormal intracranial enhancement. 2. No MRI abnormalities to explain the patient's symptoms. Microbiology Microbiology Results: Microbiology 10/07/21 18:00 Gram Stain - Final Cerebrospinal Fluid CSF Examination - Final Fluid Description - Final CSF Culture - Preliminary No growth after 2 days 10/07/21 Unknown Urine Culture - Final Urine clean catch - Urine medina top Escherichia coli 10/07/21 21:03 Blood Culture - Preliminary Blood - Venous No growth after 24 hours. 10/07/21 21:03 Blood Culture - Preliminary Blood - Venous No growth after 24 hours. 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
--- NOTE | 2021-10-09 13:39 | MHC.CM.PN ---
per rounds pt will be hre for 5 day treatment for guillian yesica
[2021-10-09] MEDS: Multivitamin TABLET 1 TAB PO (14:01)
[2021-10-09] MEDS: Thiamine HCL 100 MG TABLET PO (14:01)
[2021-10-09] MEDS: Acetaminophen 325 MG TABLET 650 MG PO (15:48)
[2021-10-09] MEDS: diphenhydrAMINE HCL 50 MG/ML VIAL 25 MG IVPUSH (15:50)
[2021-10-09] MEDS: 0.9 % Sodium Chloride 500 ML IV (16:17)
[2021-10-09] MEDS: 0.9 % Sodium Chloride Flush 3 ML SYRINGE IVFLUSH (16:17)
[2021-10-09] MEDS: Immun Glob G(IgG)/Gly/IGA Ov50 200 ML IV (19:00)
--- NOTE | 2021-10-09 20:31 | PC.RT ---
FVC 4.45L, NIF greater then -60cm, good effort
[2021-10-09] MEDS: Enoxaparin Sodium 40 MG/0.4 ML SYRINGE SUBCUT (22:08)
[2021-10-10] VITALS (8 sets, daily range): BP systolic 122–144; BP diastolic 55–104; PULSE 17–96; RESP 14–20; TEMP 36.1–36.8; O2SAT 98–100
--- NOTE | 2021-10-10 | EMG_ITS ---
Bilateral tibial and peroneal motor studies were performed, bilateral sural and superficial peroneal studies were performed, tibial H reflexes were obtained. In left upper extremity, ulnar and median motor and sensory studies were performed. Radial sensory study was performed and paraspinal muscles were tested with a needle. Bilateral lumbar paraspinals were also tested with a needle. IMPRESSION: Ewim-pz-waprgeje sensory motor chronic axonal type peripheral neuropathy with no evidence of demyelinating type polyneuropathy. There was also evidence of chronic bilateral lower lumbar radiculopathy. MD DENITA Mai/BRANDON / [phone]
--- NOTE | 2021-10-10 00:20 | PC.RT ---
VC 4.6 L, NIF greater then -60
[2021-10-10] MEDS: Multivitamin TABLET 1 TAB PO (08:43)
[2021-10-10] MEDS: Thiamine HCL 100 MG TABLET PO (08:43)
[2021-10-10] MEDS: Folic Acid 1 MG TABLET PO (08:43)
[2021-10-10] MEDS: 0.9 % Sodium Chloride Flush 3 ML SYRINGE IVFLUSH ×2 (08:44→15:32)
[2021-10-10] MEDS: oxyCODONE HCl Immed Release 5 MG TABLET PO ×3 (08:47→22:09)
--- NOTE | 2021-10-10 11:14 | P.CNNE_ITS ---
History of Present Illness Data of Consult Service Date: 10/10/21 Primary Care Provider: None Physician HPI Reason for consult: Neuropathy 36 years old woman with previous history of alcohol abuse presented with sub acute symptoms of bilateral leg numbness and weakness starting in feet and in few days extending up to involve her legs and then hands. 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 Her overall complaints have not much changed. Review of Systems Review of Systems: No breathing or swallowing difficulty or no speech changes. [facility] Social History Social History Household Members: Spouse, Family and Children Housing: House Unable to assess alcohol history related to: Unknown Alcohol intake: unknown Patient Tobacco Use Status: Never used Tobacco Substance Use Type: Marijuana service: No Current occupational status: unemployed Meds Allergies Allergy/AdvReac Type Severity Reaction Status Date / Time amoxicillin [AMOXICILLIN] Allergy Unknown UNKNWON Verified 10/07/21 23:14 Active Medications: Current Medications Acetaminophen (Acetaminophen 325 Mg Tablet) 650 mg PO DAILY@1530 [facility] Stop: 10/13/21 15:31 Last Admin: 10/09/21 15:48 Dose: 650 mg Documented by: Cefuroxime Axetil (Cefuroxime Axetil 500 Mg Tablet) 500 mg PO Q12H [facility] Stop: 10/14/21 20:01 Last Admin: 10/10/21 08:44 Dose: 500 mg Documented by: Diphenhydramine HCl (Diphenhydramine Hcl 50 Mg/Ml Vial) 25 mg IVPUSH DAILY@1530 [facility] Stop: 10/13/21 15:31 Last Admin: 10/09/21 15:50 Dose: 25 mg Documented by: Enoxaparin Sodium (Enoxaparin Sodium 40 Mg/0.4 Ml Syringe) 40 mg SUBCUT Q24H [facility] Last Admin: 10/09/21 22:08 Dose: 40 mg Documented by: Folic Acid (Folic Acid 1 Mg Tablet) 1 mg PO DAILY [facility] Last Admin: 10/10/21 08:43 Dose: 1 mg Documented by: Immune Globulin (Gammagard 10%) 50 mls @ 32 mls/hr IV DAILY@1600 [facility] Stop: 10/13/21 17:34 Last Infusion: 10/09/21 19:13 Dose: Infused Documented by: Immune Globulin (Gammagard 10%) 200 mls @ 32 mls/hr IV DAILY@1735 [facility] Stop: 10/13/21 23:49 Last Infusion: 10/10/21 01:24 Dose: Infused Documented by: Sodium Chloride (Ns) 500 mls @ 500 mls/hr IV DAILY@1500 [facility] Stop: 10/13/21 15:59 Last Infusion: 10/09/21 17:34 Dose: Infused Documented by: Ibuprofen (Ibuprofen 600 Mg Tablet) 600 mg PO Q6H PRN PRN Reason: Pain, Mild (Pain Scale 1-3) Last Admin: 10/08/21 11:09 Dose: 600 mg Documented by: Melatonin (Melatonin 3 Mg Tablet) 6 mg PO BEDTIME PRN PRN Reason: Insomnia Last Admin: 10/08/21 20:25 Dose: 6 mg Documented by: Multivitamins/Vitamin C (Multivitamin Tablet) 1 tab PO DAILY [facility] Last Admin: 10/10/21 08:43 Dose: 1 tab Documented by: Oxycodone HCl (Oxycodone Hcl Immed Release 5 Mg Tablet) 5 mg PO Q4H PRN PRN Reason: Pain, Moderate (Pain Scale 4-6 Last Admin: 10/10/21 08:47 Dose: 5 mg Documented by: Senna (Sennosides 8.6 Mg Tablet) 17.2 mg PO BEDTIME PRN PRN Reason: Constipation Sodium Chloride (0.9 % Sodium Chloride Flush 3 Ml Syringe) 3 ml IVFLUSH QSHIFT [facility] Last Admin: 10/10/21 08:44 Dose: 3 ml Documented by: Thiamine HCl (Thiamine Hcl 100 Mg Tablet) 100 mg PO DAILY [facility] Last Admin: 10/10/21 08:43 Dose: 100 mg Documented by: Home Medications Medication Instructions Recorded Confirmed Last Taken Type No Known Home Meds 10/07/21 10/07/21 Unknown History Physical Exam Vital Signs: Vital Signs: Last Vital Signs Temp 97.5 F 10/10/21 07:50 Pulse 89 10/10/21 07:50 Resp 20 10/10/21 07:50 BP 135/85 10/10/21 07:50 Pulse Ox 100 10/10/21 07:50 BMI result Body Mass Index 24.0 Neuro: Other: A reflexia of arms and legs with flat plantars. She was able to get up and take few steps. Speech was normal. Face was symmetrical Results Labs CBC & Chem 7: 10/08/21 06:59 10/08/21 06:59 Labs: EMG nerve conduction study of legs revealed [id number] Aczone type sensory motor peripheral neuropathy while left upper extremity study was normal. Late responses were normal. Spinal fluid analysis is not reveal any significant abnormality. Folate level was low. Microbiology Microbiology Results: Microbiology 10/07/21 18:00 Cerebrospinal Fluid Gram Stain - Final 10/07/21 18:00 Cerebrospinal Fluid CSF Examination - Final 10/07/21 18:00 Cerebrospinal Fluid Fluid Description - Final 10/07/21 18:00 Cerebrospinal Fluid CSF Culture - Final No growth after 3 days. 10/07/21 21:03 Blood - Venous Blood Culture - Preliminary No growth after 48 hours. 10/07/21 21:03 Blood - Venous Blood Culture - Preliminary No growth after 48 hours. 10/07/21 Unknown Urine clean catch - Urine medina top Urine Culture - Final Escherichia coli Assessment and Plan (1) Guillain-Encampment syndrome: Status: Acute I recommend finishing the course of IVIG. Because of atypical nature of the case I would also recommend obtaining a cervical spine MRI to rule out unlikely possibility of a spinal cord pathology causing her symptoms. Otherwise we should finish course of IVIG involve PT OT supplement folate level and planned discharge in next few days. (2) Alcoholism: Status: Acute (3) Folate deficiency: Status: Acute Procedures Date of Service Date of Service: 10/10/21
--- NOTE | 2021-10-10 13:13 | HO.PM.IMPN ---
Subjective Subjective Date of Service: 10/10/21 Interval History: No change in leg paresthesias or weakness. Review of Systems Review of Systems: Yes all other systems are reviewed and are negative Physical Exam Vital Signs: Vital Signs: Last Vital Signs Temp 97.8 F 10/10/21 12:00 Pulse 78 10/10/21 12:00 Resp 20 10/10/21 12:00 BP 130/55 L 10/10/21 12:00 Pulse Ox 100 10/10/21 12:00 BMI result Body Mass Index 24.0 Gen: in no acute distress HEENT: sclera anicteric, moist mucus membranes Neck: supple Lungs: clear to auscultation bilaterally Heart: regular rate and rhythm, no murmurs Abd: soft, non-tender, non-distended Ext: no edema Skin: warm/well-perfused Neuro: decreased sensation to light touch bilateral legs, symmetric bilateral leg weakness, patellar areflexia Psych: appropriate affect Objective Data Active Medications Acetaminophen (Acetaminophen 325 Mg Tablet) 650 mg PO DAILY@1530 [facility] Stop: 10/13/21 15:31 Last Admin: 10/09/21 15:48 Dose: 650 mg Documented by: WILLIS Cefuroxime Axetil (Cefuroxime Axetil 500 Mg Tablet) 500 mg PO Q12H [facility] Stop: 10/14/21 20:01 Last Admin: 10/10/21 08:44 Dose: 500 mg Documented by: DUYEN Diphenhydramine HCl (Diphenhydramine Hcl 50 Mg/Ml Vial) 25 mg IVPUSH DAILY@1530 [facility] Stop: 10/13/21 15:31 Last Admin: 10/09/21 15:50 Dose: 25 mg Documented by: WILLIS Enoxaparin Sodium (Enoxaparin Sodium 40 Mg/0.4 Ml Syringe) 40 mg SUBCUT Q24H [facility] Last Admin: 10/09/21 22:08 Dose: 40 mg Documented by: ASYA Folic Acid (Folic Acid 1 Mg Tablet) 1 mg PO DAILY [facility] Last Admin: 10/10/21 08:43 Dose: 1 mg Documented by: DUYEN Immune Globulin (Gammagard 10%) 50 mls @ 32 mls/hr IV DAILY@1600 [facility] Stop: 10/13/21 17:34 Last Infusion: 10/09/21 19:13 Dose: 0 mls/hr Documented by: ASYA Immune Globulin (Gammagard 10%) 200 mls @ 32 mls/hr IV DAILY@1735 [facility] Stop: 10/13/21 23:49 Last Infusion: 10/10/21 01:24 Dose: 0 mls/hr Documented by: ASYA Sodium Chloride (Ns) 500 mls @ 500 mls/hr IV DAILY@1500 [facility] Stop: 10/13/21 15:59 Last Infusion: 10/09/21 17:34 Dose: 0 mls/hr Documented by: WILLIS Ibuprofen (Ibuprofen 600 Mg Tablet) 600 mg PO Q6H PRN PRN Reason: Pain, Mild (Pain Scale 1-3) Last Admin: 10/08/21 11:09 Dose: 600 mg Documented by: DEMETRI Melatonin (Melatonin 3 Mg Tablet) 6 mg PO BEDTIME PRN PRN Reason: Insomnia Last Admin: 10/08/21 20:25 Dose: 6 mg Documented by: CHARLES Multivitamins/Vitamin C (Multivitamin Tablet) 1 tab PO DAILY [facility] Last Admin: 10/10/21 08:43 Dose: 1 tab Documented by: DUYEN Oxycodone HCl (Oxycodone Hcl Immed Release 5 Mg Tablet) 5 mg PO Q4H PRN PRN Reason: Pain, Moderate (Pain Scale 4-6 Last Admin: 10/10/21 08:47 Dose: 5 mg Documented by: DUYEN Senna (Sennosides 8.6 Mg Tablet) 17.2 mg PO BEDTIME PRN PRN Reason: Constipation Sodium Chloride (0.9 % Sodium Chloride Flush 3 Ml Syringe) 3 ml IVFLUSH QSHIFT [facility] Last Admin: 10/10/21 08:44 Dose: 3 ml Documented by: DUYEN Thiamine HCl (Thiamine Hcl 100 Mg Tablet) 100 mg PO DAILY [facility] Last Admin: 10/10/21 08:43 Dose: 100 mg Documented by: DUYEN Labs CBC & Chem 7: 10/08/21 06:59 10/08/21 06:59 Labs: NCS (10/10/21) [id number] sensory motor chronic axonal type peripheral neuropathy with no evidence of demyelinating type polyneuropathy.? There was also evidence of chronic bilateral lower lumbar radiculopathy. ? Microbiology Microbiology Results: Microbiology 10/07/21 18:00 Gram Stain - Final Cerebrospinal Fluid CSF Examination - Final Fluid Description - Final CSF Culture - Final No growth after 3 days. 10/07/21 21:03 Blood Culture - Preliminary Blood - Venous No growth after 48 hours. 10/07/21 21:03 Blood Culture - Preliminary Blood - Venous No growth after 48 hours. 10/07/21 Unknown Urine Culture - Final Urine clean catch - Urine medina top Escherichia coli Assessment and Plan (1) Paresthesias: Status: Acute Plan hospital d#4 36yo F with hx EtOH abuse presenting with bilateral leg weakness and paresthesias, concerning for GBS/AIDP # GBS/AIDP - still most likely dx per Neuro despite normal CSF + normal CSF. on d#2 of IVIg 400 mg/kg daily. Cervical spine MRI to r/o cord lesion though unlikeliy. - likely background of EtOH neuropathy- give B vitamin supplementation - PT/OT # UTI - laura-sensitive E.coli, ceftriaxone -> cefuroxime d#10/28 # VTE ppx - LMWH Quality Stroke Does the patient have a stroke diagnosis?: No VTE Prior VTE?: No VTE Risk Level:: Medical - moderate - high VTE Device Contraindication: Treatment Not Indicated VTE Drug Contraindication: N/A - Med Ordered
[2021-10-10 13:47] LABS: Anti Nuclear Antibody Screen NEGATIVE (NEGATIVE)
[2021-10-10] MEDS: 0.9 % Sodium Chloride 500 ML IV (15:24)
[2021-10-10] MEDS: diphenhydrAMINE HCL 50 MG/ML VIAL 25 MG IVPUSH (15:26)
[2021-10-10] MEDS: Acetaminophen 325 MG TABLET 650 MG PO (15:28)
[2021-10-10] MEDS: Immun Glob G(IgG)/Gly/IGA Ov50 200 ML IV (18:34)
[2021-10-10] MEDS: Enoxaparin Sodium 40 MG/0.4 ML SYRINGE SUBCUT (20:50)
[2021-10-11] VITALS (8 sets, daily range): BP systolic 137–149; BP diastolic 84–97; PULSE 70–89; RESP 16–18; TEMP 36.2–36.8; O2SAT 98–100
[2021-10-11 02:01] LABS: Lyme Abs Screen <0.90 index
--- NOTE | 2021-10-11 08:35 | PC.RT ---
NIF > -60 VC 4.05 Freat effort
[2021-10-11] MEDS: oxyCODONE HCl Immed Release 5 MG TABLET PO ×3 (08:49→21:05)
[2021-10-11] MEDS: Folic Acid 1 MG TABLET PO (08:49)
[2021-10-11] MEDS: Multivitamin TABLET 1 TAB PO (08:49)
[2021-10-11] MEDS: 0.9 % Sodium Chloride Flush 3 ML SYRINGE IVFLUSH (08:50)
[2021-10-11] MEDS: Thiamine HCL 100 MG TABLET PO (08:50)
[2021-10-11] MEDS: methylPREDNISolone Sod Succ 40 MG/ML VIAL IVPUSH (10:54)
--- NOTE | 2021-10-11 12:06 | P.PNIM_ITS ---
Subjective Subjective Date of Service: 10/11/21 Interval History: mild headache after IVIg yesterday ongoing lower extremity paresthesias, hand paresthesias improved leg weakness stable Review of Systems Review of Systems: Yes all other systems are reviewed and are negative Physical Exam 2 Vital Signs: Vital Signs: Last Vital Signs Temp 97.9 F 10/11/21 11:12 Pulse 83 10/11/21 11:12 Resp 18 10/11/21 11:12 BP 137/93 H 10/11/21 11:12 Pulse Ox 100 10/11/21 11:12 BMI result Body Mass Index 24.0 Gen: in no acute distress HEENT: sclera anicteric, moist mucus membranes Neck: supple Lungs: clear to auscultation bilaterally Heart: regular rate and rhythm, no murmurs Abd: soft, non-tender, non-distended Ext: no edema Skin: warm/well-perfused Neuro: decreased sensation to light touch bilateral legs, symmetric bilateral leg weakness, patellar areflexia Psych: appropriate affect Objective Data Active Medications Acetaminophen (Acetaminophen 325 Mg Tablet) 650 mg PO DAILY@1530 [facility] Stop: 10/13/21 15:31 Last Admin: 10/10/21 15:28 Dose: 650 mg Documented by: KELLY Cefuroxime Axetil (Cefuroxime Axetil 500 Mg Tablet) 500 mg PO Q12H [facility] Stop: 10/14/21 20:01 Last Admin: 10/11/21 08:50 Dose: 500 mg Documented by: DUYEN Diphenhydramine HCl (Diphenhydramine Hcl 50 Mg/Ml Vial) 25 mg IVPUSH DAILY@1530 [facility] Stop: 10/13/21 15:31 Last Admin: 10/10/21 15:26 Dose: 25 mg Documented by: KELLY Enoxaparin Sodium (Enoxaparin Sodium 40 Mg/0.4 Ml Syringe) 40 mg SUBCUT Q24H [facility] Last Admin: 10/10/21 20:50 Dose: 40 mg Documented by: KELLY Folic Acid (Folic Acid 1 Mg Tablet) 1 mg PO DAILY [facility] Last Admin: 10/11/21 08:49 Dose: 1 mg Documented by: DUYEN Immune Globulin (Gammagard 10%) 50 mls @ 32 mls/hr IV DAILY@1600 [facility] Stop: 10/13/21 17:34 Last Infusion: 10/10/21 18:34 Dose: 0 mls/hr Documented by: KELLY Immune Globulin (Gammagard 10%) 200 mls @ 32 mls/hr IV DAILY@1735 [facility] Stop: 10/13/21 23:49 Last Infusion: 10/11/21 00:52 Dose: 0 mls/hr Documented by: STEPHANIE Sodium Chloride (Ns) 500 mls @ 500 mls/hr IV DAILY@1500 [facility] Stop: 10/13/21 15:59 Last Infusion: 10/10/21 17:08 Dose: 0 mls/hr Documented by: KELLY Ibuprofen (Ibuprofen 600 Mg Tablet) 600 mg PO Q6H PRN PRN Reason: Pain, Mild (Pain Scale 1-3) Last Admin: 10/08/21 11:09 Dose: 600 mg Documented by: DEMETRI Melatonin (Melatonin 3 Mg Tablet) 6 mg PO BEDTIME PRN PRN Reason: Insomnia Last Admin: 10/08/21 20:25 Dose: 6 mg Documented by: CHARLES Methylprednisolone Sodium Succinate (Methylprednisolone Sod Succ 40 Mg/Ml Vial) 40 mg IVPUSH Q24H [facility] Stop: 10/13/21 15:31 Multivitamins/Vitamin C (Multivitamin Tablet) 1 tab PO DAILY [facility] Last Admin: 10/11/21 08:49 Dose: 1 tab Documented by: DUYEN Oxycodone HCl (Oxycodone Hcl Immed Release 5 Mg Tablet) 5 mg PO Q4H PRN PRN Reason: Pain, Moderate (Pain Scale 4-6 Last Admin: 10/11/21 08:49 Dose: 5 mg Documented by: DUYEN Senna (Sennosides 8.6 Mg Tablet) 17.2 mg PO BEDTIME PRN PRN Reason: Constipation Sodium Chloride (0.9 % Sodium Chloride Flush 3 Ml Syringe) 3 ml IVFLUSH QSHIFT [facility] Last Admin: 10/11/21 08:50 Dose: 3 ml Documented by: DUYEN Thiamine HCl (Thiamine Hcl 100 Mg Tablet) 100 mg PO DAILY [facility] Last Admin: 10/11/21 08:50 Dose: 100 mg Documented by: DUYEN Labs CBC & Chem 7: 10/08/21 06:59 10/08/21 06:59 Labs: Laboratory Results - last 24 hr 02/15/22 02/16/22 06:59 08:18 KIARRA Screen NEGATIVE Lyme Screen IgG & IgM <0.90 Impressions Cervical Spine MRI 10/10/21 13:36 IMPRESSION: Mild cervical spondylosis, greatest at C5-C6 where a shallow central disc protrusion mildly narrows the central canal. There is no severe central canal stenosis and there is no severe foraminal stenosis within the cervical spine. No pathologic enhancement. Microbiology Microbiology Results: Microbiology 10/07/21 18:00 Gram Stain - Final Cerebrospinal Fluid CSF Examination - Final Fluid Description - Final CSF Culture - Final No growth after 3 days. Assessment and Plan (1) Paresthesias: Status: Acute Plan hospital d#5 36yo F with hx EtOH abuse presenting with bilateral leg weakness and paresthesias, concerning for GBS/AIDP # GBS/AIDP - still most likely dx per Neuro despite normal CSF + normal CSF. on d#3/5 of IVIg 400 mg/kg daily; will premediacte with methylprednisolone - likely background of EtOH neuropathy- give B vitamin supplementation - continue PT/OT # UTI - laura-sensitive E.coli, ceftriaxone -> cefuroxime d#4/ # VTE ppx - LMWH # dispo - plan AIR Quality Stroke Does the patient have a stroke diagnosis?: No VTE Prior VTE?: No VTE Risk Level:: Medical - moderate - high VTE Device Contraindication: Treatment Not Indicated VTE Drug Contraindication: N/A - Med Ordered
--- NOTE | 2021-10-11 13:04 | MHC.CM.PN ---
PT is recommending acute rehab. per MD, pt willl be ready to DC by Thursday. Referrals made to all three area acute rehabs
[2021-10-11] MEDS: 0.9 % Sodium Chloride 500 ML IV (15:45)
[2021-10-11] MEDS: diphenhydrAMINE HCL 50 MG/ML VIAL 25 MG IVPUSH (16:51)
[2021-10-11] MEDS: Acetaminophen 325 MG TABLET 650 MG PO (16:53)
[2021-10-11] MEDS: Immun Glob G(IgG)/Gly/IGA Ov50 200 ML IV (18:38)
[2021-10-11] MEDS: Ibuprofen 600 MG TABLET PO (19:04)
[2021-10-11] MEDS: Melatonin 3 MG TABLET 6 MG PO (21:04)
[2021-10-11] MEDS: Enoxaparin Sodium 40 MG/0.4 ML SYRINGE SUBCUT (21:06)
[2021-10-12] MEDS: oxyCODONE HCl Immed Release 5 MG TABLET PO ×4 (01:17→20:22)
[2021-10-12 03:19] VITALS: BP 139/94; PULSE 89; RESP 17; TEMP 36.6; O2SAT 100
[2021-10-12 07:17] VITALS: BP 139/107; PULSE 93; O2SAT 99
[2021-10-12 08:00] VITALS: BP 139/107; PULSE 106; RESP 18; TEMP 36; O2SAT 99
--- NOTE | 2021-10-12 08:01 | PC.NURSE ---
Addendum entered by Kenzie Hunt 10/12/21 15:50: pt visited again at 15:50. fvc 5.0l, and nif >-60. pt very pleasant, family at bedside. Addendum entered by Kenzie Hunt 10/12/21 15:46: pt seen again at 11:45 am, pt sitting up in recliner. again, great effert and technique with FVC, and NIF. Fvt 4.8l, and >-60 on nif Original Note: pt seen at 08:00 this am, FVC done X 2, values on 4.6l, and 4.8 l. nif X 2 , values of >-55, >-60. pt church great effert,, and technique.
[2021-10-12] MEDS: Multivitamin TABLET 1 TAB PO (08:44)
[2021-10-12] MEDS: Folic Acid 1 MG TABLET PO (08:44)
[2021-10-12] MEDS: 0.9 % Sodium Chloride Flush 3 ML SYRINGE IVFLUSH ×2 (08:44→16:01)
[2021-10-12] MEDS: Thiamine HCL 100 MG TABLET PO (08:44)
[2021-10-12 12:00] VITALS: BP 143/88; PULSE 91; RESP 20; TEMP 36.1; O2SAT 97
--- NOTE | 2021-10-12 12:02 | P.PNIM_ITS ---
Subjective Subjective Date of Service: 10/12/21 Interval History: No change in weakness or numbness of legs; numbness in R hand improved. No headache after yesterday's IVIg Review of Systems Review of Systems: Yes all other systems are reviewed and are negative Physical Exam Vital Signs: Vital Signs: Last Vital Signs Temp 96.8 F 10/12/21 08:00 Pulse 106 H 10/12/21 08:00 Resp 18 10/12/21 08:00 BP 139/107 H 10/12/21 08:00 Pulse Ox 99 10/12/21 08:00 BMI result Body Mass Index 24.0 Gen: in no acute distress HEENT: sclera anicteric, moist mucus membranes Neck: supple Lungs: clear to auscultation bilaterally Heart: regular rate and rhythm, no murmurs Abd: soft, non-tender, non-distended Ext: no edema Skin: warm/well-perfused Neuro: decreased sensation to light touch bilateral legs, symmetric bilateral leg weakness, patellar areflexia Psych: appropriate affect Objective Data Active Medications Acetaminophen (Acetaminophen 325 Mg Tablet) 650 mg PO DAILY@1530 [facility] Stop: 10/13/21 15:31 Last Admin: 10/11/21 16:53 Dose: 650 mg Documented by: DUYEN Cefuroxime Axetil (Cefuroxime Axetil 500 Mg Tablet) 500 mg PO Q12H [facility] Stop: 10/14/21 20:01 Last Admin: 10/12/21 08:44 Dose: 500 mg Documented by: REJI Diphenhydramine HCl (Diphenhydramine Hcl 50 Mg/Ml Vial) 25 mg IVPUSH DAILY@1530 [facility] Stop: 10/13/21 15:31 Last Admin: 10/11/21 16:51 Dose: 25 mg Documented by: DUYEN Enoxaparin Sodium (Enoxaparin Sodium 40 Mg/0.4 Ml Syringe) 40 mg SUBCUT Q24H [facility] Last Admin: 10/11/21 21:06 Dose: 40 mg Documented by: RUDY Folic Acid (Folic Acid 1 Mg Tablet) 1 mg PO DAILY [facility] Last Admin: 10/12/21 08:44 Dose: 1 mg Documented by: REJI Immune Globulin (Gammagard 10%) 50 mls @ 32 mls/hr IV DAILY@1600 [facility] Stop: 10/13/21 17:34 Last Infusion: 10/11/21 19:49 Dose: 32 mls/hr Documented by: RUDY Immune Globulin (Gammagard 10%) 200 mls @ 32 mls/hr IV DAILY@1735 [facility] Stop: 10/13/21 23:49 Last Infusion: 10/12/21 01:20 Dose: 32 mls/hr Documented by: RUDY Sodium Chloride (Ns) 500 mls @ 500 mls/hr IV DAILY@1500 [facility] Stop: 10/13/21 15:59 Last Infusion: 10/11/21 16:51 Dose: 500 mls/hr Documented by: DUYEN Ibuprofen (Ibuprofen 600 Mg Tablet) 600 mg PO Q6H PRN PRN Reason: Pain, Mild (Pain Scale 1-3) Last Admin: 10/11/21 19:04 Dose: 600 mg Documented by: RUDY Melatonin (Melatonin 3 Mg Tablet) 6 mg PO BEDTIME PRN PRN Reason: Insomnia Last Admin: 10/11/21 21:04 Dose: 6 mg Documented by: RUDY Methylprednisolone Sodium Succinate (Methylprednisolone Sod Succ 40 Mg/Ml Vial) 40 mg IVPUSH Q24H [facility] Stop: 10/13/21 15:31 Multivitamins/Vitamin C (Multivitamin Tablet) 1 tab PO DAILY [facility] Last Admin: 10/12/21 08:44 Dose: 1 tab Documented by: REJI Oxycodone HCl (Oxycodone Hcl Immed Release 5 Mg Tablet) 5 mg PO Q4H PRN PRN Reason: Pain, Moderate (Pain Scale 4-6 Last Admin: 10/12/21 08:46 Dose: 5 mg Documented by: REJI Senna (Sennosides 8.6 Mg Tablet) 17.2 mg PO BEDTIME PRN PRN Reason: Constipation Sodium Chloride (0.9 % Sodium Chloride Flush 3 Ml Syringe) 3 ml IVFLUSH QSHIFT [facility] Last Admin: 10/12/21 08:44 Dose: 3 ml Documented by: REJI Thiamine HCl (Thiamine Hcl 100 Mg Tablet) 100 mg PO DAILY [facility] Last Admin: 10/12/21 08:44 Dose: 100 mg Documented by: REJI Labs CBC & Chem 7: 10/08/21 06:59 10/08/21 06:59 Labs: Laboratory Results - last 24 hr 10/08/21 10/09/21 06:59 08:18 KIARRA Titer TNP KIARRA Titer 2 TNP KIARRA Titer 3 TNP KI[facility]RA Pattern TNP KIARRA Pattern 2 TNP KI[facility]RA Pattern 3 TNP Lyme Progressive Test TNP Assessment and Plan (1) Paresthesias: Status: Acute Plan hospital d#6 36yo F with hx EtOH abuse presenting with bilateral leg weakness and paresthesias, concerning for GBS/AIDP # GBS/AIDP - still most likely dx per Neuro despite normal CSF + normal CSF. on d#4/5 of IVIg 400 mg/kg daily; premedicating with methylprednisolone due to headache with 1st 2 infusions - likely background of EtOH neuropathy- give B vitamin supplementation - continue PT/OT # UTI - laura-sensitive E.coli, ceftriaxone -> cefuroxime d#12/28 # VTE ppx - LMWH # dispo - plan AIR after IVIg done Quality Stroke Does the patient have a stroke diagnosis?: No VTE Prior VTE?: No VTE Risk Level:: Medical - moderate - high VTE Device Contraindication: Treatment Not Indicated VTE Drug Contraindication: N/A - Med Ordered
[2021-10-12] MEDS: Ibuprofen 600 MG TABLET PO (12:09)
[2021-10-12] MEDS: 0.9 % Sodium Chloride 500 ML IV (14:36)
[2021-10-12 16:00] VITALS: BP 144/94; PULSE 84; RESP 18; TEMP 36.2; O2SAT 99
[2021-10-12] MEDS: Acetaminophen 325 MG TABLET 650 MG PO (16:00)
[2021-10-12] MEDS: diphenhydrAMINE HCL 50 MG/ML VIAL 25 MG IVPUSH (16:00)
[2021-10-12] MEDS: methylPREDNISolone Sod Succ 40 MG/ML VIAL IVPUSH (16:00)
[2021-10-12] MEDS: Immun Glob G(IgG)/Gly/IGA Ov50 200 ML IV (18:12)
[2021-10-12 19:57] VITALS: BP 120/86; PULSE 78; RESP 18; TEMP 36.2; O2SAT 99
[2021-10-12] MEDS: Enoxaparin Sodium 40 MG/0.4 ML SYRINGE SUBCUT (20:22)
[2021-10-13] VITALS: BP 143/96; PULSE 99; RESP 14; TEMP 36.1; O2SAT 100
[2021-10-13] MEDS: oxyCODONE HCl Immed Release 5 MG TABLET PO ×4 (02:03→20:45)
[2021-10-13 03:46] VITALS: BP 116/87; PULSE 78; RESP 15; TEMP 36.1; O2SAT 100
[2021-10-13 08:00] VITALS: BP 136/94; PULSE 78; RESP 18; TEMP 36; O2SAT 100
[2021-10-13] MEDS: Thiamine HCL 100 MG TABLET PO (09:13)
[2021-10-13] MEDS: 0.9 % Sodium Chloride Flush 3 ML SYRINGE IVFLUSH ×3 (09:13→23:57)
[2021-10-13] MEDS: Multivitamin TABLET 1 TAB PO (09:13)
[2021-10-13] MEDS: Folic Acid 1 MG TABLET PO (09:13)
[2021-10-13] MEDS: Ibuprofen 600 MG TABLET PO (10:20)
[2021-10-13 11:41] VITALS: BP 142/87; PULSE 88; RESP 18; TEMP 36.6; O2SAT 100
--- NOTE | 2021-10-13 11:50 | P.PNIM_ITS ---
Subjective Subjective Date of Service: 10/13/21 Interval History: No change in weakness or numbness of legs; numbness in R hand improved. Now pain involving bilateral thenar eminences No headache after yesterday's IVIg Review of Systems DeniesCP Denies SOB Denies N/V/D Physical Exam Vital Signs: Vital Signs: Last Vital Signs Temp 97.9 F 10/13/21 11:41 Pulse 88 10/13/21 11:41 Resp 18 10/13/21 11:41 BP 142/87 H 10/13/21 11:41 Pulse Ox 100 10/13/21 11:41 BMI result Body Mass Index 24.0 Const: Other: No acute distress Resp: Other: clear A/P ..no R/R/W Cardio: Other: -S4 +S1/S2 -S3 MRG Neuro: Other: A reflexia of arms and legs. Speech was normal. Face was symmetrical Extrem: Other: no edema Objective Data Active Medications Acetaminophen (Acetaminophen 325 Mg Tablet) 650 mg PO DAILY@1530 [facility] Stop: 10/13/21 15:31 Last Admin: 10/12/21 16:00 Dose: 650 mg Documented by: REJI Cefuroxime Axetil (Cefuroxime Axetil 500 Mg Tablet) 500 mg PO Q12H [facility] Stop: 10/14/21 20:01 Last Admin: 10/13/21 09:13 Dose: 500 mg Documented by: REJI Diphenhydramine HCl (Diphenhydramine Hcl 50 Mg/Ml Vial) 25 mg IVPUSH DAILY@1530 [facility] Stop: 10/13/21 15:31 Last Admin: 10/12/21 16:00 Dose: 25 mg Documented by: REJI Enoxaparin Sodium (Enoxaparin Sodium 40 Mg/0.4 Ml Syringe) 40 mg SUBCUT Q24H [facility] Last Admin: 10/12/21 20:22 Dose: 40 mg Documented by: RUDY Folic Acid (Folic Acid 1 Mg Tablet) 1 mg PO DAILY [facility] Last Admin: 10/13/21 09:13 Dose: 1 mg Documented by: REJI Immune Globulin (Gammagard 10%) 50 mls @ 32 mls/hr IV DAILY@1600 [facility] Stop: 10/13/21 17:34 Last Infusion: 10/12/21 18:06 Dose: 0 mls/hr Documented by: REJI Immune Globulin (Gammagard 10%) 200 mls @ 32 mls/hr IV DAILY@1735 [facility] Stop: 10/13/21 23:49 Last Infusion: 10/13/21 01:24 Dose: 32 mls/hr Documented by: RUDY Sodium Chloride (Ns) 500 mls @ 500 mls/hr IV DAILY@1500 [facility] Stop: 10/13/21 15:59 Last Infusion: 10/12/21 16:10 Dose: 0 mls/hr Documented by: REJI Ibuprofen (Ibuprofen 600 Mg Tablet) 600 mg PO Q6H PRN PRN Reason: Pain, Mild (Pain Scale 1-3) Last Admin: 10/13/21 10:20 Dose: 600 mg Documented by: REJI Melatonin (Melatonin 3 Mg Tablet) 6 mg PO BEDTIME PRN PRN Reason: Insomnia Last Admin: 10/11/21 21:04 Dose: 6 mg Documented by: RUDY Methylprednisolone Sodium Succinate (Methylprednisolone Sod Succ 40 Mg/Ml Vial) 40 mg IVPUSH Q24H [facility] Stop: 10/13/21 15:31 Last Admin: 10/12/21 16:00 Dose: 40 mg Documented by: REJI Multivitamins/Vitamin C (Multivitamin Tablet) 1 tab PO DAILY [facility] Last Admin: 10/13/21 09:13 Dose: 1 tab Documented by: REJI Oxycodone HCl (Oxycodone Hcl Immed Release 5 Mg Tablet) 5 mg PO Q4H PRN PRN Reason: Pain, Moderate (Pain Scale 4-6 Last Admin: 10/13/21 09:19 Dose: 5 mg Documented by: REJI Senna (Sennosides 8.6 Mg Tablet) 17.2 mg PO BEDTIME PRN PRN Reason: Constipation Sodium Chloride (0.9 % Sodium Chloride Flush 3 Ml Syringe) 3 ml IVFLUSH QSHIFT [facility] Last Admin: 10/13/21 09:13 Dose: 3 ml Documented by: REJI Thiamine HCl (Thiamine Hcl 100 Mg Tablet) 100 mg PO DAILY [facility] Last Admin: 10/13/21 09:13 Dose: 100 mg Documented by: REJI Labs CBC & Chem 7: 10/08/21 06:59 10/08/21 06:59 Microbiology Microbiology Results: Microbiology 10/07/21 21:03 Blood Culture - Final Blood - Venous No growth after 5 days. 10/07/21 21:03 Blood Culture - Final Blood - Venous No growth after 5 days. 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 UTI - laura-sensitive E.coli;cefuroxime d#6/7 VTE ppx LMWH Quality Stroke Does the patient have a stroke diagnosis?: No VTE Prior VTE?: No VTE Risk Level:: Medical - moderate - high VTE Device Contraindication: Treatment Not Indicated VTE Drug Contraindication: N/A - Med Ordered
[2021-10-13] MEDS: 0.9 % Sodium Chloride 500 ML IV (14:34)
[2021-10-13] MEDS: Acetaminophen 325 MG TABLET 650 MG PO (15:37)
[2021-10-13] MEDS: methylPREDNISolone Sod Succ 40 MG/ML VIAL IVPUSH (15:39)
[2021-10-13] MEDS: diphenhydrAMINE HCL 50 MG/ML VIAL 25 MG IVPUSH (15:39)
[2021-10-13 16:00] VITALS: BP 138/95; PULSE 77; RESP 18; TEMP 21.7; O2SAT 100
[2021-10-13] MEDS: Immun Glob G(IgG)/Gly/IGA Ov50 200 ML IV (17:34)
[2021-10-13 19:34] VITALS: BP 151/93; PULSE 85; RESP 15; TEMP 36.4; O2SAT 99
[2021-10-13] MEDS: Enoxaparin Sodium 40 MG/0.4 ML SYRINGE SUBCUT (20:44)
[2021-10-14] VITALS: BP 148/97; PULSE 83; RESP 14; TEMP 36.2; O2SAT 98
[2021-10-14] MEDS: oxyCODONE HCl Immed Release 5 MG TABLET PO ×2 (02:07→09:19)
[2021-10-14 04:00] VITALS: BP 128/91; PULSE 81; RESP 16; TEMP 36.4; O2SAT 98
[2021-10-14 05:44] LABS: MANUAL DIFF FLAG NO
[2021-10-14 05:50] LABS: Basophils Percent Auto 0.7 % (0-2); Eosinophils Percent Auto 0.3 % (0-4); Hemoglobin 10.5 g/dl (12.0-16.0); Imm Gran Abs Auto 0.02 X10*3/uL (0.00-0.03); Imm Gran Pct Auto 0.3 % (0.0-0.4); Lymphocytes Absolute Auto 2.5 X10*3/uL (1.2-4.9); Lymphocytes Percent Auto 41.8 % (20-40); Mean Corpuscular HGB Conc 33.9 g/dl (31.0-35.0); Mean Corpuscular Hemoglobin 37.2 pg (27.0-33.0); Mean Corpuscular Volume 109.9 fL (80.0-98.0); Mean Platelet Volume 11.7 fL (9.4-12.3); Monocytes Absolute Auto 0.5 X10*3/uL (0.1-1.2); Monocytes Percent Auto 7.6 % (2-11); Neutrophils Percent Auto 49.3 % (45-73); Platelet Count 227 X10*3/uL (160-400); Red Blood Count 2.82 X10*6/uL (4.20-5.50); Red Cell Distribution Width 11.6 % (11.0-16.0)
[2021-10-14 06:27] LABS: Alanine Aminotransferase 30 U/L (0-31); Albumin Level 2.4 g/dL (3.5-5.0); Alkaline Phosphatase 84 U/L (39-117); Anion Gap 10 (12-20); Aspartate Amino Transferase 49 U/L (5-31); Bilirubin Total 0.5 mg/dL (0.0-1.0); Blood Urea Nitrogen 6 mg/dL (9-16); Calcium 8.3 mg/dL (8.4-10.2); Carbon Dioxide 23 mmol/L (22-29); Chloride 109 mmol/L (96-108); Creatinine Clr Calc Pharmacy 101.2; Estimated Glomerular Filt Rate > 60; Glucose Fasting 81 mg/dL (60-99); Potassium 4.1 mmol/L (3.3-5.1); Sodium 138 mmol/L (135-145); Total Protein 7.3 g/dL (6.5-8.0)
[2021-10-14 07:25] VITALS: BP 114/63; PULSE 80; RESP 16; TEMP 36.2; O2SAT 95
[2021-10-14] MEDS: Folic Acid 1 MG TABLET PO (09:19)
[2021-10-14] MEDS: 0.9 % Sodium Chloride Flush 3 ML SYRINGE IVFLUSH (09:19)
[2021-10-14] MEDS: Thiamine HCL 100 MG TABLET PO (09:19)
[2021-10-14] MEDS: Multivitamin TABLET 1 TAB PO (09:19)
[2021-10-14 12:00] VITALS: BP 147/96; PULSE 93; RESP 20; TEMP 36.5; O2SAT 99
--- NOTE | 2021-10-14 12:25 | MHC.CM.PN ---
Addendum entered by Ayala Shin 10/14/21 16:00: PT HAS DECIDED NOT TO GO TO REHAB AND WILL DC HOME TODAY Original Note: CM MET WITH PT TO DISCUSS DC PLANNING. CM INFORMED HER [facility] IS OFFERING A BED TODAY SHE REPORTS SHE IS UNSURE THAT SHE WANTS TO GO TO REHAB SHE REPORTS SHE REALLY WANTS TO GO HOME TO SEE HER CHILDREN SHE IS ASKING ABOUT HOME SERVICES CM EXPLAINED SHE WOULD GET MUCH LESS THERAPY AT HOME AND THAT AR IS TYPICALLY FOR A VERY SHORT TIME PT REQUESTED SOME TIME TO THINK ABOUT THIS [facility] IS PREPARED TO ACCEPT PT AT 1600 HOURS TODAY CM WILL REVISIT PT LATER THIS AFTERNOON TO DISCUSS DC PLAN FURTHER
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
== END 2021-10-14 16:54 | disposition home or self-care (01) | DRG 49 ==
LOC: HO.ED 20:27 → HO.EDOVER 20:40 → HO.S3 10-08 19:59
PROVIDERS: Family Medicine; Admitting Provider Hospitalist; Emergency Provider Emergency Medicine; Visit Provider Hospitalist
DX: G61.0 Guillain-Barre syndrome (principal); E53.8 Deficiency of other specified B group vitamins; B96.20 Unspecified Escherichia coli [E. coli] as the cause of diseases classified elsewhere; F10.20 Alcohol dependence, uncomplicated; N39.0 Urinary tract infection, site not specified; Z20.822 Contact with and (suspected) exposure to COVID-19; Z88.0 Allergy status to penicillin; Z79.899 Other long term (current) drug therapy
CPT/HCPCS: 36415; 70450; 70553; 72156; 80048; 80053; 80307; 81001; 81003; 81025; 82306; 82550; 82607; 82746; 82945; 83605; 83735; 84100; 84157; 84443; 85025; 85652; 86038; 86039; 86140; 86617; 86618; 86780; 87015; 87040; 87070; 87086; 87088; 87186; 87205; 87389; 87635; 89051; 94010; 95886; 95913; 96361; 96374; 97110; 97112; 97116; 97163; 97167; 99285; A9585; J0696; J1200; J1569; J1650; J1956; J2920

== ENCOUNTER 2021-11-08 17:48 | Emergency (ER) | payer MEDICAID, SELFPAY ==
[2021-11-08 18:07] VITALS: BP 146/93; PULSE 136; RESP 18; TEMP 37.1; O2SAT 98; BMI 24.0
--- NOTE | 2021-11-08 21:15 | ED.GENADULT ---
HPI - General Adult General Chief complaint: General Medical Stated complaint: swollen feet/lower back pain Time Seen by Provider: 11/08/21 19:20 Source: patient Mode of arrival: ambulatory Limitations: no limitations History of Present Illness HPI narrative: Patient is 36 years old alcoholic with peripheral neuropathy was admitted here on 10/09 for pain in the legs with areflexia LP was negative with question of GBS syndrome patient was treated with IV G infusions without any significant response also noticed to have low folic acid level patient discharged on folic acid tablets. Per neurologist patient does not have GBS syndrome now likely has peripheral neuropathy secondary to alcohol use. Patient complaining of leg like pain and difficulty in walking spoke to her visiting nurse who advised to go to hospital for physical therapy patient unable to get primary care physician and came to the ER for physical therapy as inpatient patient states she is not drinking anymore since last admission prior to that patient was thinking about a bottle of wine every day Related Data Previous Rx's Medication Instructions Recorded cefuroxime axetil 500 mg tablet 500 mg PO Q12H #10 tab 10/14/21 dexamethasone 4 mg tablet See Rx Instructions .ROUTE 10/14/21 (Decadron) .COMPLEX #18 tab folic acid 1 mg tablet 1 mg PO DAILY #14 tab 10/14/21 thiamine mononitrate (vit B1) 100 100 mg PO DAILY #14 tab 10/14/21 mg tablet folic acid 1 mg tablet 1 mg PO DAILY #90 tab 11/08/21 gabapentin 100 mg capsule 100 mg PO TID #90 cap 11/08/21 thiamine HCl (vitamin B1) 100 mg 100 mg PO DAILY #90 tab 11/08/21 tablet Allergies Allergy/AdvReac Type Severity Reaction Status Date / Time amoxicillin [AMOXICILLIN] Allergy Unknown UNKNWON Verified 10/07/21 23:14 Review of Systems Review of Systems: Yes all other systems are reviewed and are negative PMFSH Past Medical History Attestation statement: The following information was validated with the patient. Social History Social History Household Members: Spouse, Family and Children Housing: House Unable to assess alcohol history related to: Unknown Alcohol intake: unknown Patient Tobacco Use Status: Never used Tobacco Substance Use Type: Marijuana Advance Directives: No service: No Current occupational status: unemployed Physical Exam ED Vital Signs: Vital Signs - 24 hr 11/08/21 18:07 11/08/21 21:17 Temperature 98.7 F 98.3 F Pulse Rate 136 H 105 H Respiratory Rate 18 18 Blood Pressure 146/93 H 178/104 H Pulse Oximetry 98 99 BMI result Body Mass Index 24.0 Appearance: Alert. Oriented X3. No acute distress. very anxious and demanding Eyes: no pallor or icterus ENT: Pharynx normal. Oral Mucosa moist Neck: Normal inspection. Neck supple. CVS: Normal heart rate and rhythm. Pulses normal. Respiratory: No respiratory distress. Equal air entry bilateral, no wheezing/rales/rhonchi Abdomen: Soft and nontender. Bowel sounds are present, no mass palpable, no CVA tenderness Skin: Skin warm and dry. Normal skin color. Normal skin turgor. Extremities: No lower extremity edema. No calf tenderness Neuro: Oriented X 3. No motor deficit. No sensory deficit.No cerebellar signs , cranial nerves II-XII intact decreased reflexes bilateral normal tone normal sensations with hyperesthesia in the feet Medical Decision Making [facility] Narrative Medical decision making narrative: case discussed Dr. Garza neurologist advised after basic labs are normal patient can be discharged on gabapentin and folic acid to continue Lab Data Lab results reviewed: Yes I reviewed the patient's lab results. Result diagrams: 11/08/21 21:57 11/08/21 21:57 Labs: Lab Results 11/08/21 11/08/21 11/08/21 Range/Units 21:57 21:57 21:57 WBC 7.6 (4.8-10.8) X10*3/uL RBC 3.29 L (4.20-5.50) X10*6/uL Hgb 11.3 L (12.0-16.0) g/dl Hct 33.5 L (37.0-47.0) % MCV 101.8 H (80.0-98.0) fL MCH 34.3 H (27.0-33.0) pg MCHC 33.7 (31.0-35.0) g/dl RDW 12.3 (11.0-16.0) % Plt Count 303 D (160-400) X10*3/uL MPV 11.2 (9.4-12.3) fL Immature Gran % (Auto) 0.3 (0.0-0.4) % Neut % (Auto) 52.4 (45-73) % Lymph % (Auto) 37.3 (20-40) % [place] % (Auto) 7.9 (2-11) % Eos % (Auto) 1.7 (0-4) % Baso % (Auto) 0.4 (0-2) % Lymph # (Auto) 2.8 (1.2-4.9) X10*3/uL [place] # (Auto) 0.6 (0.1-1.2) X10*3/uL Eos # (Auto) 0.1 (0.0-0.4) X10*3/uL Baso # (Auto) 0.0 (0.0-0.2) X10*3/uL Abs Immat Gran (auto) 0.02 (0.00-0.03) X10*3/uL Absolute Neuts (auto) 4.0 (2.0-8.3) x10*3/uL Absolute Nucleated RBC 0.000 (0.0-0.012) X10*3/uL Nucleated RBC % (auto) 0.0 (0.0-0.2) /100WBC Sodium 140 (135-145) mmol/L Potassium 3.3 (3.3-5.1) mmol/L Chloride 109 H (96-108) mmol/L Carbon Dioxide 20 L (22-29) mmol/L Anion Gap 14 (12-20) BUN 13 D (9-16) mg/dL Creatinine 0.64 (0.5-1.4) mg/dL Estim Creat Clear Calc 105.9 Estimated GFR > 60 Random Glucose 94 (60-115) mg/dL Calcium 9.5 D (8.4-10.2) mg/dL Magnesium 2.0 (1.6-2.6) mg/dL Total Bilirubin 0.3 (0.0-1.0) mg/dL AST 19 D (5-31) U/L ALT 22 (0-31) U/L Alkaline Phosphatase 77 (39-117) U/L Total Creatine Kinase 23 L (26-140) U/L Total Protein 7.0 (6.5-8.0) g/dL Albumin 4.0 D (3.5-5.0) g/dL Ethyl Alcohol < 10 mg/dL Discharge Plan Discharge Clinical Impression: Peripheral neuropathy Patient Disposition: Home, Self-Care Instructions: Peripheral Neuropathy (ED) Additional Instructions: take folic acid and thiamine daily start on gabapentin follow with PCP/neurologist Prescriptions: New folic acid 1 mg tablet 1 mg PO DAILY Qty: 90 0RF thiamine HCl (vitamin B1) 100 mg tablet 100 mg PO DAILY Qty: 90 0RF gabapentin 100 mg capsule 100 mg PO TID Qty: 90 0RF No Action folic acid 1 mg Tablet 1 mg PO DAILY Qty: 14 0RF cefuroxime axetil 500 mg Tablet 500 mg PO Q12H Qty: 10 0RF thiamine mononitrate (vit B1) 100 mg Tablet 100 mg PO DAILY Qty: 14 0RF dexamethasone [Decadron] 4 mg tablet See Rx Instructions .Route .COMPLEX Qty: 18 0RF Rx Instructions: 4 mg orally; 1 p.o. t.i.d. x3 days, 1 p.o. b.i.d. x3 days, 1 p.o. daily x3 days Referrals: Richard Garza MD [Physician] - 2 weeks
[2021-11-08 21:17] VITALS: BP 178/104; PULSE 105; RESP 18; TEMP 36.8; O2SAT 99
[2021-11-08] MEDS: Gabapentin 300 MG CAPSULE PO (21:55)
[2021-11-08] MEDS: Thiamine HCL 100 MG TABLET PO (21:55)
[2021-11-08] MEDS: Folic Acid 1 MG TABLET PO (21:56)
[2021-11-08 22:00] LABS: MANUAL DIFF FLAG NO
[2021-11-08 22:01] LABS: Basophils Percent Auto 0.4 % (0-2); Eosinophils Absolute Auto 0.1 X10*3/uL (0.0-0.4); Eosinophils Percent Auto 1.7 % (0-4); Hematocrit 33.5 % (37.0-47.0); Hemoglobin 11.3 g/dl (12.0-16.0); Imm Gran Abs Auto 0.02 X10*3/uL (0.00-0.03); Imm Gran Pct Auto 0.3 % (0.0-0.4); Lymphocytes Absolute Auto 2.8 X10*3/uL (1.2-4.9); Lymphocytes Percent Auto 37.3 % (20-40); Mean Corpuscular HGB Conc 33.7 g/dl (31.0-35.0); Mean Corpuscular Hemoglobin 34.3 pg (27.0-33.0); Mean Corpuscular Volume 101.8 fL (80.0-98.0); Mean Platelet Volume 11.2 fL (9.4-12.3); Monocytes Absolute Auto 0.6 X10*3/uL (0.1-1.2); Monocytes Percent Auto 7.9 % (2-11); Neutrophils Percent Auto 52.4 % (45-73); Platelet Count 303 X10*3/uL (160-400); Red Blood Count 3.29 X10*6/uL (4.20-5.50); Red Cell Distribution Width 12.3 % (11.0-16.0); White Blood Count 7.6 X10*3/uL (4.8-10.8)
[2021-11-08 22:19] LABS: Ethanol < 10 mg/dL
[2021-11-08 22:22] LABS: Alanine Aminotransferase 22 U/L (0-31); Alkaline Phosphatase 77 U/L (39-117); Anion Gap 14 (12-20); Aspartate Amino Transferase 19 U/L (5-31); Bilirubin Total 0.3 mg/dL (0.0-1.0); Blood Urea Nitrogen 13 mg/dL (9-16); Calcium 9.5 mg/dL (8.4-10.2); Carbon Dioxide 20 mmol/L (22-29); Chloride 109 mmol/L (96-108); Creatinine Clr Calc Pharmacy 105.9; Estimated Glomerular Filt Rate > 60; Glucose Random 94 mg/dL (60-115); Potassium 3.3 mmol/L (3.3-5.1); Sodium 140 mmol/L (135-145)
--- NOTE | 2021-11-08 23:12 | PC.NURSE ---
PT complaining of numbness and burning pain in bilateral feet. PT stated that her feet are extremely swollen and she has been unable to walk without pain. This RN observed feet to have no pitting edema but PT states that they are much more swollen than usual.
== END 2021-11-08 23:28 | disposition home or self-care (01) ==
PROVIDERS: Emergency Provider Internal Medicine
DX: G62.9 Polyneuropathy, unspecified (principal); M79.605 Pain in left leg; M79.604 Pain in right leg
CPT/HCPCS: 36415; 80053; 82077; 82550; 83735; 85025; 99283; 99284

== ENCOUNTER 2021-11-14 10:08 | Inpatient (IN) | payer MEDICAID, SELFPAY ==
--- NOTE | ~2021-11-14 | MR_ITS ---
EXAMINATION: MR LUMBAR SPINE WITHOUT CONTRAST CLINICAL INFORMATION: Back pain, lower extremity weakness/atrophy. COMPARISON: Plain films of the lumbar spine 06/22/2011. TECHNIQUE: MRI of the lumbar spine was obtained using routine sequences without contrast. FINDINGS: VERTEBRAL BODIES AND PARASPINAL STRUCTURES: There is a transitional vertebra at the lumbosacral junction with partial sacralization of L5 on the left, demonstrated on prior imaging. There is a mild levoscoliosis. There is loss of intervertebral disc height at L5-S1. Intervertebral discs are desiccated at L3-L4, L4-L5 and L5-S1. Vertebral body heights are maintained and no fractures are demonstrated. Overall, marrow signal is homogenous. The visualized retroperitoneal and pelvic structures are unremarkable. CONUS MEDULLARIS AND CAUDA EQUINA: Normal, terminating at the level of L1. The lower thoracic spinal cord appears normal. The cauda equina nerve roots and filum terminale appear normal. SPINAL LEVELS: L1-L2: The facet joints appear normal bilaterally. Disc contour is normal. There is no central stenosis or foraminal narrowing. L2-L3: The facet joints appear normal bilaterally. Disc contour is normal. There is no central stenosis or foraminal narrowing. L3-L4: There is mild bilateral facet arthropathy with ligamenta flava hypertrophy and facet joint effusions. There is a synovial cyst posterior to the left facet joint. There is a broad-based posterior disc protrusion with an annular fissure which extends caudad behind the body of L4 centrally and to the right of midline with flattening of the ventral thecal sac. There is mild narrowing of the bilateral subarticular recesses. There is a right foraminal disc protrusion with mild impingement on the exiting right L3 nerve root. There is mild central stenosis. L4-L5: There is mild bilateral facet arthropathy. There is a broad-based posterior disc protrusion which is more prominent on the left. There is moderate central stenosis. There is a small extruded component on the left extending into the left subarticular recess with impingement on the traversing left L5 nerve root. There are bilateral foraminal disc protrusions with mild impingement on the exiting L4 nerve roots, more prominent on the right. L5-S1: There is mild bilateral facet arthropathy. There is a posterior disc protrusion with minimal distortion of the ventral thecal sac. There is no central stenosis, and the neural foramina are patent. MR/MR lumbar spine wo con IMPRESSION: 1. At L3-L4 there is a broad-based posterior disc protrusion with flattening of the ventral thecal sac. There is narrowing of the bilateral subarticular recesses. A right foraminal disc protrusion impinges on the exiting right L3 nerve root, and there is mild central stenosis. 2. At L4-L5 there is a broad-based posterior disc protrusion, more prominent on the left. There is a small extruded component extending into the subarticular recesses with impingement on the traversing left L5 nerve root. There are bilateral foraminal disc protrusions impinging on the exiting L4 nerve roots. There is moderate central stenosis.
--- NOTE | ~2021-11-14 | FL_ITS ---
EXAMINATION: XR LUMBAR PUNCTURE CLINICAL INFORMATION: Low back pain and radiating burning pain lumbar spine. COMPARISON: MRI lumbar spine 11/14/2021 TECHNIQUE: Following explaining fluoroscopy-guided lumbar puncture procedure, benefits and risk, a written consent was obtained. Patient was placed prone on fluoroscopy table and low back area was cleaned and draped in the usual sterile manner. 1% lidocaine was injected at the skin overlying the L3-L4 disc level. A 22-gauge short spinal needle was inserted from the skin intrathecally at the L3-L4 disc level. After observing fluid return, the patient was quickly placed in left lateral decubitus view and opening CSF pressure was obtained. Subsequently, fluid was collected in 4 test tubes. The stylet was reintroduced and needle withdrawn. Complete hemostasis was achieved at puncture site with sterile Band-Aid applied postprocedure. Patient tolerated the procedure extremely well. FINDINGS: On images obtained of the lumbar spine, the lumbar vertebral heights and alignment are normal. The disc heights are normal. A lumbar spinal canal needle is positioned intrathecally at the L3-L4 disc level. Due to very slow flow, opening CSF pressure was not obtained. Approximately 6 mL of CSF was collected in 4 test tubes. FLUOROSCOPY TIME: 1.6 minutes DOSE AREA PRODUCT: 8.365 uGy-m2 (microgray-meter squared) FL/FL guided lumbar puncture LP IMPRESSION: Successful fluoroscopy-guided L3-L4 lumbar puncture performed.
[2021-11-14 10:11] VITALS: BP 160/111; PULSE 134; RESP 18; TEMP 36.8; O2SAT 100; BMI 24.9
--- NOTE | 2021-11-14 11:46 | ED_ITS ---
HPI - General Adult General Chief complaint: General Medical Stated complaint: swollen feet Time Seen by Provider: 11/14/21 10:48 Source: patient and old records reviewed Mode of arrival: ambulatory Limitations: no limitations History of Present Illness HPI narrative: of note patient states she has had chronic back pain and no one has investigated her back as a source of her symptoms, does note since the IVIG her UE weakness and tingling have improved. She was recently seen in our ED due to increased LE weakness muscle weakness and given gabapentin and vitamins which she states are not helping. Came back due to inability to walk MD complaint: LE pain, weakness, inability to walk using bilateral canes that she bought Onset (ago): month(s) (admitted last month 10/07 to 10/14 completed IVIG with little improvement) Location: left, right and lower extremity Radiation: proximal Severity: severe Quality: burning and aching Pain Consistency: constant Relieving factors: none Exacerbating factors: movement Associated symptoms: malaise and weakness Treatments prior to arrival: other (admission for GBS) Related Data Home Medications Medication Instructions Recorded Confirmed acetaminophen 325 mg tablet 650 mg PO Q6H PRN 11/14/21 11/14/21 ibuprofen 200 mg tablet 400 mg PO Q6H PRN 11/14/21 11/14/21 multivitamin 1 tab PO DAILY 11/14/21 11/14/21 Previous Rx's Medication Instructions Recorded folic acid 1 mg tablet 1 mg PO DAILY #90 tab 11/08/21 gabapentin 100 mg capsule 100 mg PO TID #90 cap 11/08/21 thiamine HCl (vitamin B1) 100 mg 100 mg PO DAILY #90 tab 11/08/21 tablet Allergies Allergy/AdvReac Type Severity Reaction Status Date / Time amoxicillin [AMOXICILLIN] Allergy Unknown UNKNWON Verified 10/07/21 23:14 Review of Systems Review of Systems: Constitutional : No Weight loss, No Fever, No Chills, pos Fatigue, pos Malaise ENT/Mouth : No sore throat, No Rhinorrhea Eyes: No Eye Pain, No Swelling, No Redness Cardiovascular : No Chest Pain, No SOB, No Dyspnea on Exertion, No Orthopnea, No Edema, No Palpitations Respiratory : No Cough, No Sputum, No Wheezing Gastrointestinal : No Nausea, No Vomiting, No Diarrhea, No Constipation, No abdominal Pain, No Hematochezia, No Melena Genitourinary : No Dysuria, No Urinary Frequency, No Hematuria, Musculoskeletal : No joint pain, No Myalgias, No Joint Swelling, pos back pain Skin : No Skin Lesions, No rash Neuro : pos Weakness, pos Numbness, No Dizziness, No Headache Psych : No Anxiety/Panic, No Depression Heme/Lymph: No Bruising, No Bleeding,No Lymphadenopathy Endocrine : No Polyuria, No Polydipsia All other systems reviewed and are negative [facility] Past Medical History Attestation statement: The following information was validated with the patient. Source: old records reviewed Medical History Guillain-[place] syndrome Paresthesias Peripheral neuropathy Social History Social History Household Members: Spouse, Family and Children Housing: House Unable to assess alcohol history related to: Unknown Alcohol intake: unknown Patient Tobacco Use Status: Never used Tobacco Substance Use Type: Marijuana Advance Directives: No Advance Directives Information Provided: Yes service: No Current occupational status: unemployed Physical Exam ED Vital Signs: Vital Signs - 24 hr 11/14/21 10:11 11/14/21 12:00 Temperature 98.3 F Pulse Rate 134 H 98 Respiratory Rate 18 16 Blood Pressure 160/111 H 142/89 H Pulse Oximetry 100 98 BMI result Body Mass Index 24.9 Appearance: Alert. Oriented X3. No acute distress. Eyes: Pupils equal, round and reactive to light. ENT: Pharynx normal. Neck: Normal inspection. Neck supple. CVS: tachycardic heart rate and rhythm. Pulses normal. Respiratory: No respiratory distress. Breath sounds normal. Abdomen: Soft and nontender. Skin: Skin warm and dry. pale skin color. Normal skin turgor. Extremities: No lower extremity edema. Muscle wasting noted of quadriceps and hamstrings bilaterally Neuro: Oriented X 3. absent DTRs in bilateral patella and achilles, no clonus, hyperesthetic from the ankles down. when she stands she is only able to balance briefly alone putting pressure on the lateral aspects of her feet. she is at best in LE 3+/5 strength very weak with atrophy noted in bilateral thigh compartments. . Course Course Course Narrative: Updated hospitalist - MRI resulted this is chronic given 1+ month of symptoms, he will consult Neurology Medical Decision Making MDM Narrative Medical decision making narrative: 36 yo female with hx of ETOH abuse but has not been drinking since her admission, dx wth a peripheral neuropathy and underwent IVIG therapy for possible GBS - EMG + for neuropathy, spinal fluid negative for elevated protein, some improvement with IVIG. She notes that her legs are worsening and her muscles are weakening she has to use bilateral canes and on exam she almost walks as if she has cerebral palsy or muscular dystrophy. She did not go to [facility] due to her children. She also notes home PT is delayed due to prior auth orization issues. At this time will obtain labs, IV pain medications, MRI of lumbar spine given back pain and LE findings as well as EMG saw lumbar radiculopathy findings. Planned admit. Lab Data Result diagrams: 11/14/21 11:58 11/14/21 11:58 Labs: Lab Results 11/14/21 11/14/21 11/14/21 Range/Units 11:58 11:58 11:58 WBC 6.5 (4.8-10.8) X10*3/uL RBC 3.40 L (4.20-5.50) X10*6/uL Hgb 11.2 L (12.0-16.0) g/dl Hct 34.8 L (37.0-47.0) % MCV 102.4 H (80.0-98.0) fL MCH 32.9 (27.0-33.0) pg MCHC 32.2 (31.0-35.0) g/dl RDW 12.4 (11.0-16.0) % Plt Count 330 (160-400) X10*3/uL MPV 11.7 (9.4-12.3) fL Immature Gran % (Auto) 0.3 (0.0-0.4) % Neut % (Auto) 49.8 (45-73) % Lymph % (Auto) 36.4 (20-40) % [place] % (Auto) 10.5 (2-11) % Eos % (Auto) 2.2 (0-4) % Baso % (Auto) 0.8 (0-2) % Lymph # (Auto) 2.4 (1.2-4.9) X10*3/uL [place] # (Auto) 0.7 (0.1-1.2) X10*3/uL Eos # (Auto) 0.1 (0.0-0.4) X10*3/uL Baso # (Auto) 0.1 (0.0-0.2) X10*3/uL Abs Immat Gran (auto) 0.02 (0.00-0.03) X10*3/uL Absolute Neuts (auto) 3.2 (2.0-8.3) x10*3/uL Absolute Nucleated RBC 0.000 (0.0-0.012) X10*3/uL Nucleated RBC % (auto) 0.0 (0.0-0.2) /100WBC Sodium 142 (135-145) mmol/L Potassium 4.4 D (3.3-5.1) mmol/L Chloride 107 (96-108) mmol/L Carbon Dioxide 25 (22-29) mmol/L Anion Gap 14 (12-20) BUN 7 L (9-16) mg/dL Creatinine 0.65 (0.5-1.4) mg/dL Estim Creat Clear Calc 112.7 Estimated GFR > 60 Random Glucose 120 H (60-115) mg/dL Calcium 9.6 (8.4-10.2) mg/dL Magnesium 2.2 (1.6-2.6) mg/dL Total Bilirubin 0.3 (0.0-1.0) mg/dL Direct Bilirubin < 0.2 (0.0-0.5) mg/dL AST 41 H D (5-31) U/L ALT 19 (0-31) U/L Alkaline Phosphatase 70 (39-117) U/L Total Creatine Kinase 30 (26-140) U/L C-Reactive Protein 0.09 (< or = 0.50) mg/dL Total Protein 7.5 (6.5-8.0) g/dL Albumin 3.9 (3.5-5.0) g/dL Vitamin B12 332 (200-900) pg/mL Folate > 20.0 (> or = 4.0) ng/mL Beta HCG, Quant < 2 mIU/mL COVID-19 (JODI) (Negative) COVID-19 Clin Com 11/14/21 Range/Units 11:58 WBC (4.8-10.8) X10*3/uL RBC (4.20-5.50) X10*6/uL Hgb (12.0-16.0) g/dl Hct (37.0-47.0) % MCV (80.0-98.0) fL MCH (27.0-33.0) pg MCHC (31.0-35.0) g/dl RDW (11.0-16.0) % Plt Count (160-400) X10*3/uL MPV (9.4-12.3) fL Immature Gran % (Auto) (0.0-0.4) % Neut % (Auto) (45-73) % Lymph % (Auto) (20-40) % [place] % (Auto) (2-11) % Eos % (Auto) (0-4) % Baso % (Auto) (0-2) % Lymph # (Auto) (1.2-4.9) X10*3/uL [place] # (Auto) (0.1-1.2) X10*3/uL Eos # (Auto) (0.0-0.4) X10*3/uL Baso # (Auto) (0.0-0.2) X10*3/uL Abs Immat Gran (auto) (0.00-0.03) X10*3/uL Absolute Neuts (auto) (2.0-8.3) x10*3/uL Absolute Nucleated RBC (0.0-0.012) X10*3/uL Nucleated RBC % (auto) (0.0-0.2) /100WBC Sodium (135-145) mmol/L Potassium (3.3-5.1) mmol/L Chloride (96-108) mmol/L Carbon Dioxide (22-29) mmol/L Anion Gap (12-20) BUN (9-16) mg/dL Creatinine (0.5-1.4) mg/dL Estim Creat Clear Calc Estimated GFR Random Glucose (60-115) mg/dL Calcium (8.4-10.2) mg/dL Magnesium (1.6-2.6) mg/dL Total Bilirubin (0.0-1.0) mg/dL Direct Bilirubin (0.0-0.5) mg/dL AST (5-31) U/L ALT (0-31) U/L Alkaline Phosphatase (39-117) U/L Total Creatine Kinase (26-140) U/L C-Reactive Protein (< or = 0.50) mg/dL Total Protein (6.5-8.0) g/dL Albumin (3.5-5.0) g/dL Vitamin B12 (200-900) pg/mL Folate (> or = 4.0) ng/mL Beta HCG, Quant mIU/mL COVID-19 (JODI) Negative (Negative) COVID-19 Clin Com See Note Discharge Plan Discharge Clinical Impression: Paresthesias, Bilateral leg weakness, Chronic lumbar radiculopathy Peripheral neuropathy Qualifiers: Peripheral neuropathy type: polyneuropathy, unspecified Qualified Code(s): G62.9 - Polyneuropathy, unspecified Muscle atrophy Qualifiers: Muscle atrophy area: thigh Laterality: unspecified laterality Qualified Code(s): M62.559 - Muscle wasting and atrophy, not elsewhere classified, unspecified thigh Patient Disposition: Admitted As Inpatient
[2021-11-14 12:00] VITALS: BP 142/89; PULSE 98; RESP 16; O2SAT 98
[2021-11-14] MEDS: 0.9 % Sodium Chloride 500 ML IV (12:00)
[2021-11-14 12:04] LABS: MANUAL DIFF FLAG NO
[2021-11-14] MEDS: ondansetron HCL 4 MG/2 ML VIAL IVPUSH (12:05)
[2021-11-14] MEDS: HYDROmorphone HCl 0.5 MG/0.5 ML SYRINGE IVPUSH ×2 (12:05→16:47)
[2021-11-14 12:07] LABS: Basophils Absolute Auto 0.1 X10*3/uL (0.0-0.2); Basophils Percent Auto 0.8 % (0-2); Eosinophils Absolute Auto 0.1 X10*3/uL (0.0-0.4); Eosinophils Percent Auto 2.2 % (0-4); Hematocrit 34.8 % (37.0-47.0); Hemoglobin 11.2 g/dl (12.0-16.0); Imm Gran Abs Auto 0.02 X10*3/uL (0.00-0.03); Imm Gran Pct Auto 0.3 % (0.0-0.4); Lymphocytes Absolute Auto 2.4 X10*3/uL (1.2-4.9); Lymphocytes Percent Auto 36.4 % (20-40); Mean Corpuscular HGB Conc 32.2 g/dl (31.0-35.0); Mean Corpuscular Hemoglobin 32.9 pg (27.0-33.0); Mean Corpuscular Volume 102.4 fL (80.0-98.0); Mean Platelet Volume 11.7 fL (9.4-12.3); Monocytes Absolute Auto 0.7 X10*3/uL (0.1-1.2); Monocytes Percent Auto 10.5 % (2-11); Neutrophils Absolute Auto 3.2 x10*3/uL (2.0-8.3); Neutrophils Percent Auto 49.8 % (45-73); Platelet Count 330 X10*3/uL (160-400); Red Cell Distribution Width 12.4 % (11.0-16.0); White Blood Count 6.5 X10*3/uL (4.8-10.8)
--- NOTE | 2021-11-14 12:14 | PHA.MEDREC ---
Pharmacy Consult ? Medication Reconciliation Pharmacy has completed the medication reconciliation. There are no remarkable issues for provider's attention. Comfort Jackson, NoreenD
[2021-11-14 12:37] LABS: COVID-19 Test Negative (Negative); IDNOW Serial# 16C4AD1C
[2021-11-14 12:45] LABS: Alanine Aminotransferase 19 U/L (0-31); Albumin Level 3.9 g/dL (3.5-5.0); Alkaline Phosphatase 70 U/L (39-117); Anion Gap 14 (12-20); Aspartate Amino Transferase 41 U/L (5-31); Bilirubin Direct < 0.2 mg/dL (0.0-0.5); Bilirubin Total 0.3 mg/dL (0.0-1.0); Blood Urea Nitrogen 7 mg/dL (9-16); C Reactive Protein 0.09 mg/dL (< or = 0.50); Calcium 9.6 mg/dL (8.4-10.2); Carbon Dioxide 25 mmol/L (22-29); Chloride 107 mmol/L (96-108); Creatinine Clr Calc Pharmacy 112.7; Estimated Glomerular Filt Rate > 60; Glucose Random 120 mg/dL (60-115); Magnesium 2.2 mg/dL (1.6-2.6); Potassium 4.4 mmol/L (3.3-5.1); Sodium 142 mmol/L (135-145); Total Protein 7.5 g/dL (6.5-8.0)
[2021-11-14 13:26] LABS: Folate > 20.0 ng/mL (> or = 4.0); Vitamin B12 332 pg/mL (200-900)
--- NOTE | 2021-11-14 15:05 | PM.IMHP ---
History of Present Illness Date of Service: 11/14/21 Chief Complaint: bilateral leg weakness 36-year-old female with no significant past medical history presents with bilateral leg weakness it has worsened since last discharge 10/14/2021. She was admitted 10/07/2021 with complaints of distal tingling and weakness. She was seen by Neurology and after spinal tap in imaging thought to have possible Emani [place] for which she was treated with IVIG. She had some minimal improvement was offered acute rehab however due to 2 small children at home she declined and wanted to pursue therapy at home. She states over the 2 weeks it media past discharge she was doing fine and then her symptoms returned and now progressed to the point where she can barely walk. She also complains of severe foot pain impacting her ability to walk. ER workup Lab work failed to demonstrate a definitive cause for her symptoms; MRI of the LS spine demonstrated some changes at L3-L4 and L4-L5. She will be admitted; will ask Neurology to re-evaluate given new data Review of Systems Review of Systems: Denies chest pain Denies shortness of breath Denies nausea vomiting diarrhea PMFSH Medical History Guillain-[place] syndrome Paresthesias Peripheral neuropathy Social History Household Members: Spouse, Family and Children Housing: House Unable to assess alcohol history related to: Unknown Alcohol intake: unknown Patient Tobacco Use Status: Never used Tobacco Substance Use Type: Marijuana Advance Directives: No Advance Directives Information Provided: Yes service: No Current occupational status: unemployed Meds Allergies Allergy/AdvReac Type Severity Reaction Status Date / Time amoxicillin [AMOXICILLIN] Allergy Unknown UNKNWON Verified 10/07/21 23:14 Active Medications: Current Medications Acetaminophen (Acetaminophen 325 Mg Tablet) 650 mg PO Q6H PRN PRN Reason: Pain, Mild (Pain Scale 1-3) Enoxaparin Sodium (Enoxaparin Sodium 40 Mg/0.4 Ml Syringe) 40 mg SUBCUT Q24H [facility] Folic Acid (Folic Acid 1 Mg Tablet) 1 mg PO DAILY [facility] Gabapentin (Gabapentin 100 Mg Capsule) 100 mg PO TID [facility] Multivitamins/Vitamin C (Multivitamin Tablet) 1 tab PO DAILY [facility] Pharmacy Consult (Consult Rx Perform Med Rec) 1 each MISCELLANE ONCE PRN PRN Reason: Consult order Sodium Chloride (0.9 % Sodium Chloride Flush 3 Ml Syringe) 3 ml IVFLUSH QSHIFT [facility]YLA Thiamine HCl (Thiamine Hcl 100 Mg Tablet) 100 mg PO DAILY [facility] Home Medications Medication Instructions Recorded Confirmed Last Taken Type acetaminophen 325 mg tablet 650 mg PO Q6H PRN 11/14/21 11/14/21 Unknown History ibuprofen 200 mg tablet 400 mg PO Q6H PRN 11/14/21 11/14/21 Unknown History multivitamin 1 tab PO DAILY 11/14/21 11/14/21 11/14/21 History Physical Exam Vital Signs and Narrative: Vital Signs: Last Vital Signs Temp 98.3 F 11/14/21 10:11 Pulse 98 11/14/21 12:00 Resp 16 11/14/21 12:00 BP 142/89 H 11/14/21 12:00 Pulse Ox 98 11/14/21 12:00 BMI result Body Mass Index 24.9 Const: Other: Awake alert oriented x3 in no acute distress Resp: Other: Lungs clear to auscultation bilaterally no rales rhonchi wheezes Cardio: Other: No S4; positive S1-S2; no S3 murmurs rubs or gallops GI: Other: Soft nontender nondistended with normoactive bowel sounds Neuro: Other: Cranial nerves 2-12 grossly intact as tested; motor is 5/5 in upper extremities unable to assess gait secondary to pain. Extrem: Other: Diffuse atrophy bilaterally including hamstrings quadriceps and gastrocnemius muscles Results Labs CBC and Chem 7: 11/14/21 11:58 11/14/21 11:58 Labs: Laboratory Results - last 24 hr 11/14/21 11/14/21 11/14/21 11:58 11:58 11:58 MCV 102.4 H MCH 32.9 MCHC 32.2 RDW 12.4 Plt Count 330 MPV 11.7 Immature Gran % (Auto) 0.3 Neut % (Auto) 49.8 Lymph % (Auto) 36.4 Coffee % (Auto) 10.5 Eos % (Auto) 2.2 Baso % (Auto) 0.8 Lymph # (Auto) 2.4 Coffee # (Auto) 0.7 Eos # (Auto) 0.1 Baso # (Auto) 0.1 Abs Immat Gran (auto) 0.02 Absolute Neuts (auto) 3.2 Absolute Nucleated RBC 0.000 Nucleated RBC % (auto) 0.0 Anion Gap 14 Estim Creat Clear Calc 112.7 Estimated GFR > 60 Random Glucose 120 H Calcium 9.6 Magnesium 2.2 Total Bilirubin 0.3 Direct Bilirubin < 0.2 AST 41 H D ALT 19 Alkaline Phosphatase 70 Total Creatine Kinase 30 C-Reactive Protein 0.09 Total Protein 7.5 Albumin 3.9 Vitamin B12 332 Folate > 20.0 COVID-19 ([facility]I) COVID-19 Clin Com 11/14/21 11:58 MCV MCH MCHC RDW Plt Count MPV Immature Gran % (Auto) Neut % (Auto) Lymph % (Auto) Coffee % (Auto) Eos % (Auto) Baso % (Auto) Lymph # (Auto) Coffee # (Auto) Eos # (Auto) Baso # (Auto) Abs Immat Gran (auto) Absolute Neuts (auto) Absolute Nucleated RBC Nucleated RBC % (auto) Anion Gap Estim Creat Clear Calc Estimated GFR Random Glucose Calcium Magnesium Total Bilirubin Direct Bilirubin AST ALT Alkaline Phosphatase Total Creatine Kinase C-Reactive Protein Total Protein Albumin Vitamin B12 Folate COVID-19 (JODI) Negative COVID-19 Clin Com See Note Imaging Radiologist's Impressions: Impressions Lumbar Spine MRI 11/14/21 13:45 IMPRESSION: 1. At L3-L4 there is a broad-based posterior disc protrusion with flattening of the ventral thecal sac. There is narrowing of the bilateral subarticular recesses. A right foraminal disc protrusion impinges on the exiting right L3 nerve root, and there is mild central stenosis. 2. At L4-L5 there is a broad-based posterior disc protrusion, more prominent on the left. There is a small extruded component extending into the subarticular recesses with impingement on the traversing left L5 nerve root. There are bilateral foraminal disc protrusions impinging on the exiting L4 nerve roots. There is moderate central stenosis. Assessment and Plan (1) Bilateral leg weakness: Status: Acute Plan 36-year-old female with progressive lower extremity weakness recently admitted for IVIG secondary to the thought that this was related to Guillain-[place]. Has progressed at home inhibiting her ability to walk; pain has become severe 1. Bilateral lower extremity weakness (significant atrophy as stated) -admit to F -pain management -neurology consult (further workup at their recommendation) -PT OT eval; likely will need placement Will likely require 2 midnights for thorough investigation and cause of weakness and atrophy of lower extremities Quality Stroke Does the patient have a stroke diagnosis?: No VTE Prior VTE?: No VTE Risk Level:: Medical - moderate - high VTE Device Contraindication: Treatment Not Indicated VTE Drug Contraindication: N/A - Med Ordered
[2021-11-14] MEDS: Gabapentin 100 MG CAPSULE PO ×2 (15:07→20:43)
[2021-11-14] MEDS: Enoxaparin Sodium 40 MG/0.4 ML SYRINGE SUBCUT (15:07)
[2021-11-14 15:19] LABS: HCG Quantitative < 2 mIU/mL
[2021-11-14 16:00] VITALS: BP 142/84; PULSE 92; RESP 16; TEMP 36.7; O2SAT 98
[2021-11-14] MEDS: 0.9 % Sodium Chloride Flush 3 ML SYRINGE IVFLUSH (16:47)
[2021-11-14 20:00] VITALS: BP 146/70; PULSE 101; RESP 16; TEMP 37.1; O2SAT 100
[2021-11-14] MEDS: HYDROmorphone HCl 1 MG/ML SYRINGE IVPUSH (20:43)
[2021-11-15] MEDS: HYDROmorphone HCl 1 MG/ML SYRINGE IVPUSH ×4 (01:12→21:26)
[2021-11-15 07:23] LABS: MANUAL DIFF FLAG NO
[2021-11-15 07:30] LABS: Basophils Absolute Auto 0.1 X10*3/uL (0.0-0.2); Eosinophils Absolute Auto 0.2 X10*3/uL (0.0-0.4); Eosinophils Percent Auto 3.1 % (0-4); Hematocrit 31.5 % (37.0-47.0); Hemoglobin 10.3 g/dl (12.0-16.0); Imm Gran Abs Auto 0.01 X10*3/uL (0.00-0.03); Imm Gran Pct Auto 0.2 % (0.0-0.4); Lymphocytes Absolute Auto 2.7 X10*3/uL (1.2-4.9); Lymphocytes Percent Auto 46.9 % (20-40); Mean Corpuscular HGB Conc 32.7 g/dl (31.0-35.0); Mean Corpuscular Hemoglobin 33.1 pg (27.0-33.0); Mean Corpuscular Volume 101.3 fL (80.0-98.0); Mean Platelet Volume 11.5 fL (9.4-12.3); Monocytes Absolute Auto 0.6 X10*3/uL (0.1-1.2); Monocytes Percent Auto 10.1 % (2-11); Neutrophils Absolute Auto 2.2 x10*3/uL (2.0-8.3); Neutrophils Percent Auto 38.7 % (45-73); Platelet Count 311 X10*3/uL (160-400); Red Blood Count 3.11 X10*6/uL (4.20-5.50); Red Cell Distribution Width 12.3 % (11.0-16.0); White Blood Count 5.7 X10*3/uL (4.8-10.8)
[2021-11-15 07:54] LABS: Alanine Aminotransferase 20 U/L (0-31); Albumin Level 3.7 g/dL (3.5-5.0); Alkaline Phosphatase 65 U/L (39-117); Anion Gap 10 (12-20); Aspartate Amino Transferase 24 U/L (5-31); Bilirubin Total 0.5 mg/dL (0.0-1.0); Blood Urea Nitrogen 4 mg/dL (9-16); Calcium 9.3 mg/dL (8.4-10.2); Carbon Dioxide 29 mmol/L (22-29); Chloride 105 mmol/L (96-108); Creatinine Clr Calc Pharmacy 112.7; Estimated Glomerular Filt Rate > 60; Glucose Fasting 101 mg/dL (60-99); Sodium 140 mmol/L (135-145); Total Protein 6.3 g/dL (6.5-8.0)
[2021-11-15] MEDS: Multivitamin TABLET 1 TAB PO (08:39)
[2021-11-15] MEDS: Folic Acid 1 MG TABLET PO (08:39)
[2021-11-15] MEDS: Gabapentin 100 MG CAPSULE PO ×3 (08:39→21:26)
[2021-11-15] MEDS: Thiamine HCL 100 MG TABLET PO (08:39)
--- NOTE | 2021-11-15 09:46 | PC.NURSE ---
Pt resting in the hospital bed. Up independently with crutches. c/o pain to ble. medicated per oct. pt c/o chronic numbness and tingling to upper and lower extemities but states that she has had this for a while. nothing changed upon being in the hospital. all other neuros intact. belongings and callbell within reach.
--- NOTE | 2021-11-15 10:07 | MHC.CM.PN ---
PT RECENTLY DISCHARGED HOME AFTER DECLINING ACUTE REHAB PT REPORTS SHE HER SYMPTOMS OF WEAKNESS HAVE INCREASED AND SHE NOW REALIZES SHE NEEDS REHAB SHE REPORTS HER FIRST CHOICE WOULD BE [facility]LLOW[facility] BY [facility] PT LIVES WITH HER PARENTS AND TWO SMALL CHILDREN AND IS FULLY INDEPENDENT AT BASELINE PT HAS NO DME AND NO HOME SERVICES SHE HAS NO PCP PT HAS A HCP ON FILE SHE IS NOT COVID-19 VACCINATED CURRENT DC PLAN IS ACUTE REHAB PENDING BED OFFER BLS TRANSPORT
[2021-11-15 10:45] VITALS: BP 175/103; PULSE 87; RESP 18; TEMP 36.2; O2SAT 99
--- NOTE | 2021-11-15 12:31 | PM.NEUROCN ---
History of Present Illness Data of Consult Service Date: 11/15/21 Primary Care Provider: None Physician HPI Reason for consult: Difficulty walking 36 years old woman who I initially saw and mid September when she presented with few days history of numbness and tingling and weakness involving her feet and legs. 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 She had some improvement and then was discharged to home. Few days ago she came back to emergency room stating that she was getting worse. And now she was admitted again with same complaints that her leg weakness numbness tingling and pain has worsened. She has been using Russian crutches for ambulation. There was no change in her bowel bladder pattern. Review of Systems Review of Systems: No recent cold or flu-like illness or diarrhea. No recent surgical procedure. No recent drug abuse or use of illicit drugs. [facility] Past Medical History Medical History Guillain-[place] syndrome Paresthesias Peripheral neuropathy Social History Social History Household Members: Spouse, Family and Children Housing: House Unable to assess alcohol history related to: Unknown Alcohol intake: unknown Patient Tobacco Use Status: Never used Tobacco Substance Use Type: Marijuana Advance Directives: No Advance Directives Information Provided: Yes service: No Current occupational status: unemployed Meds Allergies Allergy/AdvReac Type Severity Reaction Status Date / Time amoxicillin [AMOXICILLIN] Allergy Unknown UNKNWON Verified 10/07/21 23:14 egg Allergy Unknown Verified 11/15/21 12:03 Active Medications: Current Medications Acetaminophen (Acetaminophen 325 Mg Tablet) 650 mg PO Q6H PRN PRN Reason: Pain, Mild (Pain Scale 1-3) Enoxaparin Sodium (Enoxaparin Sodium 40 Mg/0.4 Ml Syringe) 40 mg SUBCUT Q24H [facility] Last Admin: 11/14/21 15:07 Dose: 40 mg Documented by: Folic Acid (Folic Acid 1 Mg Tablet) 1 mg PO DAILY [facility] Last Admin: 11/15/21 08:39 Dose: 1 mg Documented by: Gabapentin (Gabapentin 100 Mg Capsule) 100 mg PO TID [facility] Last Admin: 11/15/21 08:39 Dose: 100 mg Documented by: Hydromorphone HCl (Hydromorphone Hcl 0.5 Mg/0.5 Ml Syringe) 0.5 mg IVPUSH Q6H PRN; Protocol PRN Reason: Pain, Severe (Pain Scale 7-10) Last Admin: 11/14/21 16:47 Dose: 0.5 mg Documented by: Hydromorphone HCl (Hydromorphone Hcl 1 Mg/Ml Syringe) 1 mg IVPUSH Q4H PRN; Protocol PRN Reason: Pain, Severe (Pain Scale 7-10) Last Admin: 11/15/21 10:45 Dose: 1 mg Documented by: Multivitamins/Vitamin C (Multivitamin Tablet) 1 tab PO DAILY [facility] Last Admin: 11/15/21 08:39 Dose: 1 tab Documented by: Oxycodone HCl (Oxycodone Hcl Immed Release 5 Mg Tablet) 10 mg PO Q4H PRN PRN Reason: Pain, Moderate (Pain Scale 4-6 Pharmacy Consult (Consult Rx Perform Med Rec) 1 each MISCELLANE ONCE PRN PRN Reason: Consult order Sodium Chloride (0.9 % Sodium Chloride Flush 3 Ml Syringe) 3 ml IVFLUSH QSHIFT [facility] Last Admin: 11/15/21 08:39 Dose: Not Given Documented by: Thiamine HCl (Thiamine Hcl 100 Mg Tablet) 100 mg PO DAILY [facility] Last Admin: 11/15/21 08:39 Dose: 100 mg Documented by: Home Medications Medication Instructions Recorded Confirmed Last Taken Type acetaminophen 325 mg tablet 650 mg PO Q6H PRN 11/14/21 11/14/21 Unknown History ibuprofen 200 mg tablet 400 mg PO Q6H PRN 11/14/21 11/14/21 Unknown History multivitamin 1 tab PO DAILY 11/14/21 11/14/21 11/14/21 History Physical Exam Vital Signs: Vital Signs: Last Vital Signs Temp 97.2 F 11/15/21 10:45 Pulse 87 11/15/21 10:45 Resp 18 11/15/21 10:45 BP 175/103 H 11/15/21 10:45 Pulse Ox 99 11/15/21 10:45 BMI result Body Mass Index 24.9 Neuro: Other: She is alert and awake with normal spontaneity of speech fluency comprehension and affect. Face was symmetrical. There was no obvious arm weakness. He was able to move her her legs around in the bed. When asked to move on command she was hesitant. Ultimately she was able to lift each leg against gravity. He was able to stand up holding my hands and then with Russian crutches. She could stand on her heels were not toes. Deep tendon reflexes were trace to absent. Plantars were flexors. Results Labs CBC & Chem 7: 11/15/21 07:14 11/15/21 07:14 Labs: Short CBC 11/15/21 Range/Units 07:14 WBC 5.7 (4.8-10.8) X10*3/uL Hgb 10.3 L (12.0-16.0) g/dl Hct 31.5 L (37.0-47.0) % Plt Count 311 (160-400) X10*3/uL BMP 11/14/21 11/15/21 11:58 07:14 Sodium 142 140 Potassium 4.4 D 4.0 Chloride 107 105 Carbon Dioxide 25 29 BUN 7 L 4 L Creatinine 0.65 0.65 Calcium 9.6 9.3 Cardiac Enzymes 11/14/21 Range/Units 11:58 Total Creatine Kinase 30 (26-140) U/L Liver Function 11/14/21 11/15/21 Range/Units 11:58 07:14 Total Bilirubin 0.3 0.5 (0.0-1.0) mg/dL Direct Bilirubin < 0.2 (0.0-0.5) mg/dL AST 41 H D 24 D (5-31) U/L ALT 19 20 (0-31) U/L Alkaline Phosphatase 70 65 (39-117) U/L Albumin 3.9 3.7 (3.5-5.0) g/dL She had an MRI of brain done in September that did not reveal any significant abnormality. MRI of cervical spine without contrast reveals straightening of cervical curvature but no cord lesion or significant radiculopathy. MRI of lumbosacral spine revealed L4-5 and L5-S1 levels spondylitic disease with foraminal stenosis but no significant pathology that could explain her symptoms more than back pain. A lumbar puncture was performed that revealed normal protein cells and glucose. EMG nerve conduction study of lower extremities revealed [id number] axonal type sensory motor peripheral neuropathy. Assessment and Plan (1) CIDP (chronic inflammatory demyelinating polyneuropathy): Status: Acute Though her presentation was somewhat vague and confusing, it could very well be chronic demyelinating polyneuropathy. There is an exertional type of Guillain-[place] syndrome too. At this time I recommend, starting her on prednisone 20 mg twice a day, give her another course of IVIG, and obtain repeat lumbar puncture. EMG nerve conduction study of legs should also be repeated to see if there are any further changes as there has been significant change in her clinical situation. Procedures Date of Service Date of Service: 11/15/21
--- NOTE | 2021-11-15 13:50 | HO.PM.IMPN ---
Subjective Subjective Date of Service: 11/15/21 Interval History: No acute issues overnight. Pain control adequate Review of Systems Denies chest pain Denies shortness of breath Denies nausea vomiting diarrhea Physical Exam Vital Signs: Vital Signs: Last Vital Signs Temp 97.2 F 11/15/21 10:45 Pulse 87 11/15/21 10:45 Resp 18 11/15/21 10:45 BP 175/103 H 11/15/21 10:45 Pulse Ox 99 11/15/21 10:45 BMI result Body Mass Index 24.9 Const: Other: Awake alert oriented x3 in no acute distress Resp: Other: Lungs clear to auscultation bilaterally no rales rhonchi wheezes Cardio: Other: No S4; positive S1-S2; no S3 murmurs rubs or gallops GI: Other: Soft nontender nondistended with normoactive bowel sounds Neuro: Other: Cranial nerves 2-12 grossly intact as tested; motor is 5/5 in upper extremities unable to assess gait secondary to pain. Extrem: Other: Diffuse atrophy bilaterally including hamstrings quadriceps and gastrocnemius muscles Objective Data Active Medications Acetaminophen (Acetaminophen 325 Mg Tablet) 650 mg PO Q6H PRN PRN Reason: Pain, Mild (Pain Scale 1-3) Enoxaparin Sodium (Enoxaparin Sodium 40 Mg/0.4 Ml Syringe) 40 mg SUBCUT Q24H [facility] Last Admin: 11/14/21 15:07 Dose: 40 mg Documented by: SHARI Folic Acid (Folic Acid 1 Mg Tablet) 1 mg PO DAILY [facility] Last Admin: 11/15/21 08:39 Dose: 1 mg Documented by: DEMETRI Gabapentin (Gabapentin 100 Mg Capsule) 100 mg PO TID [facility] Last Admin: 11/15/21 08:39 Dose: 100 mg Documented by: DEMETRI Hydromorphone HCl (Hydromorphone Hcl 0.5 Mg/0.5 Ml Syringe) 0.5 mg IVPUSH Q6H PRN; Protocol PRN Reason: Pain, Severe (Pain Scale 7-10) Last Admin: 11/14/21 16:47 Dose: 0.5 mg Documented by: SHERLY Hydromorphone HCl (Hydromorphone Hcl 1 Mg/Ml Syringe) 1 mg IVPUSH Q4H PRN; Protocol PRN Reason: Pain, Severe (Pain Scale 7-10) Last Admin: 11/15/21 10:45 Dose: 1 mg Documented by: DEMETRI Multivitamins/Vitamin C (Multivitamin Tablet) 1 tab PO DAILY [facility] Last Admin: 11/15/21 08:39 Dose: 1 tab Documented by: DEMETRI Oxycodone HCl (Oxycodone Hcl Immed Release 5 Mg Tablet) 10 mg PO Q4H PRN PRN Reason: Pain, Moderate (Pain Scale 4-6 Pharmacy Consult (Consult Rx Perform Med Rec) 1 each MISCELLANE ONCE PRN PRN Reason: Consult order Prednisone (Prednisone 20 Mg Tablet) 20 mg PO BIDWM [facility] Sodium Chloride (0.9 % Sodium Chloride Flush 3 Ml Syringe) 3 ml IVFLUSH QSHIFT [facility] Last Admin: 11/15/21 08:39 Dose: Not Given Documented by: DEMETRI Non-Admin Reason: Med Not Available Thiamine HCl (Thiamine Hcl 100 Mg Tablet) 100 mg PO DAILY [facility] Last Admin: 11/15/21 08:39 Dose: 100 mg Documented by: DEMETRI Labs CBC & Chem 7: 11/15/21 07:14 11/15/21 07:14 Labs: Laboratory Results - last 24 hr 11/14/21 11/15/21 11/15/21 11:58 07:14 07:14 MCV 101.3 H MCH 33.1 H MCHC 32.7 RDW 12.3 Plt Count 311 MPV 11.5 Immature Gran % (Auto) 0.2 Neut % (Auto) 38.7 L Lymph % (Auto) 46.9 H [place] % (Auto) 10.1 Eos % (Auto) 3.1 Baso % (Auto) 1.0 Lymph # (Auto) 2.7 [place] # (Auto) 0.6 Eos # (Auto) 0.2 Baso # (Auto) 0.1 Abs Immat Gran (auto) 0.01 Absolute Neuts (auto) 2.2 Absolute Nucleated RBC 0.000 Nucleated RBC % (auto) 0.0 Anion Gap 10 L Estim Creat Clear Calc 112.7 Estimated GFR > 60 Fasting Glucose 101 H Calcium 9.3 Total Bilirubin 0.5 AST 24 D ALT 20 Alkaline Phosphatase 65 Total Protein 6.3 L Albumin 3.7 Beta HCG, Quant < 2 Assessment and Plan (1) CIDP (chronic inflammatory demyelinating polyneuropathy): Status: Acute Plan 36-year-old female with progressive lower extremity weakness recently admitted for IVIG secondary to the thought that this was related to Guillain-[place]. Has progressed at home inhibiting her ability to walk; pain has become severe 1. Bilateral lower extremity weakness (significant atrophy as stated) -seen by Neurology; will order IVIG as recommended along with premedication and volume -prednisone 20 mg b.i.d. -will schedule EMG/lumbar puncture for 11/18/2021 Will likely require at minimum 4 additional midnights for IVIG infuse and further work up. Quality Stroke Does the patient have a stroke diagnosis?: No VTE Prior VTE?: No VTE Risk Level:: Medical - moderate - high VTE Device Contraindication: Treatment Not Indicated VTE Drug Contraindication: N/A - Med Ordered
[2021-11-15] MEDS: oxyCODONE HCl Immed Release 5 MG TABLET 10 MG PO ×2 (14:22→19:05)
[2021-11-15 15:45] VITALS: BP 115/95; PULSE 76; RESP 20; TEMP 37; O2SAT 96
[2021-11-15] MEDS: Acetaminophen 325 MG TABLET 650 MG PO (16:36)
[2021-11-15] MEDS: diphenhydrAMINE HCL 50 MG/ML VIAL 25 MG IVPUSH (16:37)
[2021-11-15] MEDS: methylPREDNISolone Sod Succ 40 MG/ML VIAL IVPUSH (16:37)
[2021-11-15] MEDS: Enoxaparin Sodium 40 MG/0.4 ML SYRINGE SUBCUT (16:38)
[2021-11-15] MEDS: HYDROmorphone HCl 0.5 MG/0.5 ML SYRINGE IVPUSH (16:39)
[2021-11-15] MEDS: 0.9 % Sodium Chloride Flush 3 ML SYRINGE IVFLUSH (17:21)
[2021-11-15] MEDS: 0.9 % Sodium Chloride 1,000 ML 125 ML IVCONT (17:32)
[2021-11-15] MEDS: Immun Glob G(IgG)/Gly/IGA Ov50 200 ML IV (18:09)
[2021-11-15 23:48] VITALS: BP 139/89; PULSE 96; RESP 18; TEMP 36.1; O2SAT 97
[2021-11-16] VITALS (8 sets, daily range): BP systolic 135–185; BP diastolic 84–105; PULSE 98–112; RESP 16–20; TEMP 36.1–36.9; O2SAT 97–99
[2021-11-16] MEDS: HYDROmorphone HCl 1 MG/ML SYRINGE IVPUSH ×5 (01:27→23:06)
[2021-11-16] MEDS: 0.9 % Sodium Chloride 1,000 ML 125 ML IVCONT ×2 (01:58→08:43)
[2021-11-16] MEDS: oxyCODONE HCl Immed Release 5 MG TABLET 10 MG PO ×3 (04:34→19:50)
[2021-11-16 06:39] LABS: MANUAL DIFF FLAG NO
[2021-11-16 06:46] LABS: Basophils Percent Auto 0.6 % (0-2); Eosinophils Percent Auto 0.2 % (0-4); Hematocrit 29.5 % (37.0-47.0); Hemoglobin 9.6 g/dl (12.0-16.0); Imm Gran Abs Auto 0.01 X10*3/uL (0.00-0.03); Imm Gran Pct Auto 0.2 % (0.0-0.4); Lymphocytes Absolute Auto 1.9 X10*3/uL (1.2-4.9); Lymphocytes Percent Auto 34.9 % (20-40); Mean Corpuscular HGB Conc 32.5 g/dl (31.0-35.0); Mean Corpuscular Hemoglobin 32.5 pg (27.0-33.0); Mean Platelet Volume 12.3 fL (9.4-12.3); Monocytes Absolute Auto 0.7 X10*3/uL (0.1-1.2); Monocytes Percent Auto 12.4 % (2-11); Neutrophils Absolute Auto 2.8 x10*3/uL (2.0-8.3); Neutrophils Percent Auto 51.7 % (45-73); Platelet Count 280 X10*3/uL (160-400); Red Blood Count 2.95 X10*6/uL (4.20-5.50); Red Cell Distribution Width 12.2 % (11.0-16.0); White Blood Count 5.4 X10*3/uL (4.8-10.8)
[2021-11-16 07:19] LABS: Alanine Aminotransferase 17 U/L (0-31); Albumin Level 3.3 g/dL (3.5-5.0); Alkaline Phosphatase 57 U/L (39-117); Anion Gap 13 (12-20); Aspartate Amino Transferase 20 U/L (5-31); Bilirubin Total 0.5 mg/dL (0.0-1.0); Blood Urea Nitrogen 5 mg/dL (9-16); Carbon Dioxide 23 mmol/L (22-29); Chloride 107 mmol/L (96-108); Creatinine Clr Calc Pharmacy 118.2; Estimated Glomerular Filt Rate > 60; Glucose Fasting 88 mg/dL (60-99); Potassium 4.2 mmol/L (3.3-5.1); Sodium 139 mmol/L (135-145); Total Protein 6.6 g/dL (6.5-8.0)
[2021-11-16] MEDS: predniSONE 20 MG TABLET PO ×2 (08:41→16:54)
[2021-11-16] MEDS: Gabapentin 100 MG CAPSULE PO ×3 (08:41→19:59)
[2021-11-16] MEDS: Folic Acid 1 MG TABLET PO (08:41)
[2021-11-16] MEDS: Multivitamin TABLET 1 TAB PO (08:41)
[2021-11-16] MEDS: Thiamine HCL 100 MG TABLET PO (08:41)
[2021-11-16] MEDS: 0.9 % Sodium Chloride Flush 3 ML SYRINGE IVFLUSH ×2 (08:42→15:06)
--- NOTE | 2021-11-16 11:42 | P.PNIM_ITS ---
Subjective Subjective Date of Service: 11/16/21 Interval History: No acute issues overnight. Pain control adequate; utilizing oral and IV Review of Systems Denies chest pain Denies shortness of breath Denies nausea vomiting diarrhea Physical Exam Vital Signs: Vital Signs: Last Vital Signs Temp 97.9 F 11/16/21 11:36 Pulse 104 H 11/16/21 11:36 Resp 18 11/16/21 11:36 BP 178/96 H 11/16/21 11:36 Pulse Ox 97 11/16/21 11:36 BMI result Body Mass Index 24.9 Const: Other: Awake alert oriented x3 in no acute distress Resp: Other: Lungs clear to auscultation bilaterally no rales rhonchi wheezes Cardio: Other: No S4; positive S1-S2; no S3 murmurs rubs or gallops GI: Other: Soft nontender nondistended with normoactive bowel sounds Neuro: Other: Cranial nerves 2-12 grossly intact as tested; motor is 5/5 in upper extremities unable to assess gait secondary to pain. Extrem: Other: Diffuse atrophy bilaterally including hamstrings quadriceps and gastrocnemius muscles Objective Data Active Medications Acetaminophen (Acetaminophen 325 Mg Tablet) 650 mg PO Q6H PRN PRN Reason: Pain, Mild (Pain Scale 1-3) Acetaminophen (Acetaminophen 325 Mg Tablet) 650 mg PO DAILY@1400 [facility] Stop: 11/19/21 14:01 Last Admin: 11/15/21 16:36 Dose: 650 mg Documented by: TARAH Diphenhydramine HCl (Diphenhydramine Hcl 50 Mg/Ml Vial) 25 mg IVPUSH DAILY@1400 [facility] Stop: 11/19/21 14:01 Last Admin: 11/15/21 16:37 Dose: 25 mg Documented by: TARAH Comments: Enoxaparin Sodium (Enoxaparin Sodium 40 Mg/0.4 Ml Syringe) 40 mg SUBCUT Q24H [facility] Last Admin: 11/15/21 16:38 Dose: 40 mg Documented by: TARAH Folic Acid (Folic Acid 1 Mg Tablet) 1 mg PO DAILY [facility] Last Admin: 11/16/21 08:41 Dose: 1 mg Documented by: RAGHU Gabapentin (Gabapentin 100 Mg Capsule) 100 mg PO TID [facility] Last Admin: 11/16/21 08:41 Dose: 100 mg Documented by: RAGHU Hydromorphone HCl (Hydromorphone Hcl 0.5 Mg/0.5 Ml Syringe) 0.5 mg IVPUSH Q6H PRN; Protocol PRN Reason: Pain, Severe (Pain Scale 7-10) Last Admin: 11/15/21 16:39 Dose: 0.5 mg Documented by: TARAH Hydromorphone HCl (Hydromorphone Hcl 1 Mg/Ml Syringe) 1 mg IVPUSH Q4H PRN; Protocol PRN Reason: Pain, Severe (Pain Scale 7-10) Last Admin: 11/16/21 08:41 Dose: 1 mg Documented by: RAGHU Immune Globulin (Gammagard 10%) 50 mls @ 32 mls/hr IV DAILY@1430 [facility] Stop: 11/19/21 16:04 Last Infusion: 11/15/21 20:37 Dose: 32 mls/hr Documented by: TARAH Immune Globulin (Gammagard 10%) 200 mls @ 32 mls/hr IV DAILY@1603 [facility] Stop: 11/19/21 22:17 Last Infusion: 11/16/21 01:12 Dose: 0 mls/hr Documented by: PABLITO Sodium Chloride (Ns) 1,000 mls @ 125 mls/hr IVCONT .Q8H [facility] Last Admin: 11/16/21 08:43 Dose: 125 mls/hr Documented by: RAGHU Methylprednisolone Sodium Succinate (Methylprednisolone Sod Succ 40 Mg/Ml Vial) 40 mg IVPUSH DAILY@1400 [facility] Stop: 11/19/21 14:01 Last Admin: 11/15/21 16:37 Dose: 40 mg Documented by: TARAH Multivitamins/Vitamin C (Multivitamin Tablet) 1 tab PO DAILY [facility] Last Admin: 11/16/21 08:41 Dose: 1 tab Documented by: RAGHU Oxycodone HCl (Oxycodone Hcl Immed Release 5 Mg Tablet) 10 mg PO Q4H PRN PRN Reason: Pain, Moderate (Pain Scale 4-6 Last Admin: 11/16/21 04:34 Dose: 10 mg Documented by: PABLITO Pharmacy Consult (Consult Rx Perform Med Rec) 1 each MISCELLANE ONCE PRN PRN Reason: Consult order Prednisone (Prednisone 20 Mg Tablet) 20 mg PO BIDWM [facility] Last Admin: 11/16/21 08:41 Dose: 20 mg Documented by: RAGHU Sodium Chloride (0.9 % Sodium Chloride Flush 3 Ml Syringe) 3 ml IVFLUSH QSHIFT [facility] Last Admin: 11/16/21 08:42 Dose: 3 ml Documented by: RAGHU Thiamine HCl (Thiamine Hcl 100 Mg Tablet) 100 mg PO DAILY [facility] Last Admin: 11/16/21 08:41 Dose: 100 mg Documented by: RAGHU Labs CBC & Chem 7: 11/16/21 06:14 11/16/21 06:14 Labs: Laboratory Results - last 24 hr 11/16/21 11/16/21 06:14 06:14 MCV 100.0 H MCH 32.5 MCHC 32.5 RDW 12.2 Plt Count 280 MPV 12.3 Immature Gran % (Auto) 0.2 Neut % (Auto) 51.7 Lymph % (Auto) 34.9 [place] % (Auto) 12.4 H Eos % (Auto) 0.2 Baso % (Auto) 0.6 Lymph # (Auto) 1.9 [place] # (Auto) 0.7 Eos # (Auto) 0.0 Baso # (Auto) 0.0 Abs Immat Gran (auto) 0.01 Absolute Neuts (auto) 2.8 Absolute Nucleated RBC 0.000 Nucleated RBC % (auto) 0.0 Anion Gap 13 Estim Creat Clear Calc 118.2 Estimated GFR > 60 Fasting Glucose 88 Calcium 9.0 Total Bilirubin 0.5 AST 20 ALT 17 Alkaline Phosphatase 57 Total Protein 6.6 Albumin 3.3 L Assessment and Plan (1) CIDP (chronic inflammatory demyelinating polyneuropathy): Status: Acute Plan 36-year-old female with progressive lower extremity weakness recently admitted for IVIG secondary to the thought that this was related to Guillain-[place]. Has progressed at home inhibiting her ability to walk; pain has become severe 1. Bilateral lower extremity weakness (significant atrophy as stated) -tolerating IVIG/methylprednisolone/fluids -prednisone 20 mg b.i.d. -will schedule EMG/lumbar puncture for 11/18/2021 Will likely require at minimum 3 additional midnights for IVIG infuse and further work up. Quality Stroke Does the patient have a stroke diagnosis?: No VTE Prior VTE?: No VTE Risk Level:: Medical - moderate - high VTE Device Contraindication: Treatment Not Indicated VTE Drug Contraindication: N/A - Med Ordered
[2021-11-16] MEDS: diphenhydrAMINE HCL 50 MG/ML VIAL 25 MG IVPUSH (15:04)
[2021-11-16] MEDS: methylPREDNISolone Sod Succ 40 MG/ML VIAL IVPUSH (15:06)
[2021-11-16] MEDS: Enoxaparin Sodium 40 MG/0.4 ML SYRINGE SUBCUT (15:06)
[2021-11-16] MEDS: Acetaminophen 325 MG TABLET 650 MG PO (15:07)
[2021-11-16] MEDS: Immun Glob G(IgG)/Gly/IGA Ov50 200 ML IV (16:54)
[2021-11-16] MEDS: hydrOXYzine HCL 25 MG TABLET PO (20:42)
[2021-11-17] MEDS: 0.9 % Sodium Chloride 1,000 ML 125 ML IVCONT ×3 (02:55→17:39)
[2021-11-17 03:10] VITALS: BP 133/75; PULSE 81; RESP 18; TEMP 36.5; O2SAT 98
[2021-11-17] MEDS: HYDROmorphone HCl 1 MG/ML SYRINGE IVPUSH ×6 (03:17→22:04)
--- NOTE | 2021-11-17 03:20 | PC.NURSE ---
After shift report, the securities underwriter was told that pt needed some pain medicine, When I went to the pt's room, I saw the day RN fixing the IVF and he left the room after he's done, I was about to give the prn pain med, pt was saying that air is going in through her RAC line and the pt was trying to stop it by kinking the tube,pt is growing anxious, weepy and worried, I went and stopped the IV pump machine and noticed almost a foot long of air in the tube reaching the IV connector, I immediately disconnected the tube and the connector and flushed out the air, IVF resumed, assured pt that she will be observed and was notified, Dr. Barajas came to see the pt, so far vitals are WNL, no SOB nor CP noted, slept at intervals.
[2021-11-17 05:56] LABS: MANUAL DIFF FLAG NO
[2021-11-17 06:03] LABS: Basophils Percent Auto 0.3 % (0-2); Hematocrit 29.6 % (37.0-47.0); Hemoglobin 9.6 g/dl (12.0-16.0); Imm Gran Abs Auto 0.02 X10*3/uL (0.00-0.03); Imm Gran Pct Auto 0.3 % (0.0-0.4); Lymphocytes Absolute Auto 2.3 X10*3/uL (1.2-4.9); Lymphocytes Percent Auto 39.6 % (20-40); Mean Corpuscular HGB Conc 32.4 g/dl (31.0-35.0); Mean Corpuscular Hemoglobin 32.2 pg (27.0-33.0); Mean Corpuscular Volume 99.3 fL (80.0-98.0); Mean Platelet Volume 11.9 fL (9.4-12.3); Monocytes Absolute Auto 0.7 X10*3/uL (0.1-1.2); Monocytes Percent Auto 11.5 % (2-11); Neutrophils Absolute Auto 2.8 x10*3/uL (2.0-8.3); Neutrophils Percent Auto 48.3 % (45-73); Platelet Count 272 X10*3/uL (160-400); Red Blood Count 2.98 X10*6/uL (4.20-5.50); Red Cell Distribution Width 12.4 % (11.0-16.0); White Blood Count 5.7 X10*3/uL (4.8-10.8)
[2021-11-17 06:23] LABS: Alanine Aminotransferase 17 U/L (0-31); Albumin Level 3.4 g/dL (3.5-5.0); Alkaline Phosphatase 50 U/L (39-117); Anion Gap 10 (12-20); Aspartate Amino Transferase 14 U/L (5-31); Bilirubin Total 0.4 mg/dL (0.0-1.0); Blood Urea Nitrogen 5 mg/dL (9-16); Carbon Dioxide 25 mmol/L (22-29); Chloride 108 mmol/L (96-108); Creatinine Clr Calc Pharmacy 114.5; Estimated Glomerular Filt Rate > 60; Glucose Fasting 99 mg/dL (60-99); Potassium 3.6 mmol/L (3.3-5.1); Sodium 139 mmol/L (135-145)
[2021-11-17] MEDS: oxyCODONE HCl Immed Release 5 MG TABLET 10 MG PO ×5 (06:34→23:45)
[2021-11-17 08:00] VITALS: BP 166/97; PULSE 105; RESP 18; TEMP 36.9; O2SAT 99
[2021-11-17] MEDS: 0.9 % Sodium Chloride Flush 3 ML SYRINGE IVFLUSH ×2 (08:27→14:57)
[2021-11-17] MEDS: predniSONE 20 MG TABLET PO ×2 (08:28→16:12)
[2021-11-17] MEDS: Thiamine HCL 100 MG TABLET PO (08:28)
[2021-11-17] MEDS: Gabapentin 100 MG CAPSULE PO ×3 (08:28→20:33)
[2021-11-17] MEDS: Folic Acid 1 MG TABLET PO (08:28)
[2021-11-17] MEDS: Multivitamin TABLET 1 TAB PO (08:28)
--- NOTE | 2021-11-17 09:31 | HO.PM.IMPN ---
Subjective Subjective Date of Service: 11/17/21 Interval History: No acute issues overnight. Pain control adequate; utilizing oral and IV Review of Systems Denies chest pain Denies shortness of breath Denies nausea vomiting diarrhea Physical Exam Vital Signs: Vital Signs: Last Vital Signs Temp 98.5 F 11/17/21 08:00 Pulse 105 H 11/17/21 08:00 Resp 18 11/17/21 08:00 BP 166/97 H 11/17/21 08:00 Pulse Ox 99 11/17/21 08:00 BMI result Body Mass Index 24.9 Const: Other: Awake alert oriented x3 in no acute distress Resp: Other: Lungs clear to auscultation bilaterally no rales rhonchi wheezes Cardio: Other: No S4; positive S1-S2; no S3 murmurs rubs or gallops GI: Other: Soft nontender nondistended with normoactive bowel sounds Neuro: Other: Cranial nerves 2-12 grossly intact as tested; motor is 5/5 in upper extremities unable to assess gait secondary to pain. Extrem: Other: Diffuse atrophy bilaterally including hamstrings quadriceps and gastrocnemius muscles Objective Data Active Medications Acetaminophen (Acetaminophen 325 Mg Tablet) 650 mg PO Q6H PRN PRN Reason: Pain, Mild (Pain Scale 1-3) Acetaminophen (Acetaminophen 325 Mg Tablet) 650 mg PO DAILY@1400 [facility] Stop: 11/19/21 14:01 Last Admin: 11/16/21 15:07 Dose: 650 mg Documented by: JYOTI Diphenhydramine HCl (Diphenhydramine Hcl 50 Mg/Ml Vial) 25 mg IVPUSH DAILY@1400 [facility] Stop: 11/19/21 14:01 Last Admin: 11/16/21 15:04 Dose: 25 mg Documented by: JYOTI Enoxaparin Sodium (Enoxaparin Sodium 40 Mg/0.4 Ml Syringe) 40 mg SUBCUT Q24H [facility] Last Admin: 11/16/21 15:06 Dose: 40 mg Documented by: JYOTI Folic Acid (Folic Acid 1 Mg Tablet) 1 mg PO DAILY [facility] Last Admin: 11/17/21 08:28 Dose: 1 mg Documented by: MOLLY Gabapentin (Gabapentin 100 Mg Capsule) 100 mg PO TID [facility] Last Admin: 11/17/21 08:28 Dose: 100 mg Documented by: MOLLY Hydromorphone HCl (Hydromorphone Hcl 0.5 Mg/0.5 Ml Syringe) 0.5 mg IVPUSH Q6H PRN; Protocol PRN Reason: Pain, Severe (Pain Scale 7-10) Last Admin: 11/15/21 16:39 Dose: 0.5 mg Documented by: TARAH Hydromorphone HCl (Hydromorphone Hcl 1 Mg/Ml Syringe) 1 mg IVPUSH Q4H PRN; Protocol PRN Reason: Pain, Severe (Pain Scale 7-10) Last Admin: 11/17/21 08:27 Dose: 1 mg Documented by: MOLLY Immune Globulin (Gammagard 10%) 50 mls @ 32 mls/hr IV DAILY@1430 [facility] Stop: 11/19/21 16:04 Last Infusion: 11/16/21 17:04 Dose: 0 mls/hr Documented by: JYOTI Immune Globulin (Gammagard 10%) 200 mls @ 32 mls/hr IV DAILY@1603 [facility] Stop: 11/19/21 22:17 Last Infusion: 11/16/21 23:32 Dose: 0 mls/hr Documented by: HARSHIL Sodium Chloride (Ns) 1,000 mls @ 125 mls/hr IVCONT .Q8H [facility] Last Admin: 11/17/21 02:55 Dose: 125 mls/hr Documented by: HARSHIL Methylprednisolone Sodium Succinate (Methylprednisolone Sod Succ 40 Mg/Ml Vial) 40 mg IVPUSH DAILY@1400 [facility] Stop: 11/19/21 14:01 Last Admin: 11/16/21 15:06 Dose: 40 mg Documented by: JYOTI Multivitamins/Vitamin C (Multivitamin Tablet) 1 tab PO DAILY [facility] Last Admin: 11/17/21 08:28 Dose: 1 tab Documented by: MOLLY Oxycodone HCl (Oxycodone Hcl Immed Release 5 Mg Tablet) 10 mg PO Q4H PRN PRN Reason: Pain, Moderate (Pain Scale 4-6 Last Admin: 11/17/21 06:34 Dose: 10 mg Documented by: HARSHIL Pharmacy Consult (Consult Rx Perform Med Rec) 1 each MISCELLANE ONCE PRN PRN Reason: Consult order Prednisone (Prednisone 20 Mg Tablet) 20 mg PO BIDWM [facility] Last Admin: 11/17/21 08:28 Dose: 20 mg Documented by: MOLLY Sodium Chloride (0.9 % Sodium Chloride Flush 3 Ml Syringe) 3 ml IVFLUSH QSHIFT [facility] Last Admin: 11/17/21 08:27 Dose: 3 ml Documented by: MOLLY Thiamine HCl (Thiamine Hcl 100 Mg Tablet) 100 mg PO DAILY [facility] Last Admin: 11/17/21 08:28 Dose: 100 mg Documented by: MOLLY Labs CBC & Chem 7: 11/17/21 05:17 11/17/21 05:17 Labs: Laboratory Results - last 24 hr 11/17/21 11/17/21 05:17 05:17 MCV 99.3 H MCH 32.2 MCHC 32.4 RDW 12.4 Plt Count 272 MPV 11.9 Immature Gran % (Auto) 0.3 Neut % (Auto) 48.3 Lymph % (Auto) 39.6 [place] % (Auto) 11.5 H Eos % (Auto) 0.0 Baso % (Auto) 0.3 Lymph # (Auto) 2.3 [place] # (Auto) 0.7 Eos # (Auto) 0.0 Baso # (Auto) 0.0 Abs Immat Gran (auto) 0.02 Absolute Neuts (auto) 2.8 Absolute Nucleated RBC 0.000 Nucleated RBC % (auto) 0.0 Anion Gap 10 L Estim Creat Clear Calc 114.5 Estimated GFR > 60 Fasting Glucose 99 Calcium 9.0 Total Bilirubin 0.4 AST 14 ALT 17 Alkaline Phosphatase 50 Total Protein 7.0 Albumin 3.4 L Assessment and Plan (1) CIDP (chronic inflammatory demyelinating polyneuropathy): Status: Acute Plan 36-year-old female with progressive lower extremity weakness recently admitted for 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 Has progressed at home inhibiting her ability to walk; pain has become severe 1. Bilateral lower extremity weakness (significant atrophy as stated) -tolerating IVIG/methylprednisolone/fluids -prednisone 20 mg b.i.d. -will schedule EMG/lumbar puncture for 11/18/2021 -pain controlled on current regimen Will likely require at minimum 3 additional midnights for IVIG infuse and further work up. Quality Stroke Does the patient have a stroke diagnosis?: No VTE Prior VTE?: No VTE Risk Level:: Medical - moderate - high VTE Device Contraindication: Treatment Not Indicated VTE Drug Contraindication: N/A - Med Ordered
[2021-11-17 11:53] VITALS: BP 161/96; PULSE 88; RESP 18; TEMP 36.9; O2SAT 98
[2021-11-17] MEDS: Acetaminophen 325 MG TABLET 650 MG PO (14:00)
[2021-11-17] MEDS: methylPREDNISolone Sod Succ 40 MG/ML VIAL IVPUSH (14:00)
[2021-11-17] MEDS: diphenhydrAMINE HCL 50 MG/ML VIAL 25 MG IVPUSH (14:00)
[2021-11-17] MEDS: Enoxaparin Sodium 40 MG/0.4 ML SYRINGE SUBCUT (14:57)
[2021-11-17 15:57] VITALS: BP 152/94; PULSE 105; RESP 17; TEMP 36.9; O2SAT 98
[2021-11-17] MEDS: Immun Glob G(IgG)/Gly/IGA Ov50 200 ML IV (16:08)
[2021-11-17 19:25] VITALS: BP 172/83; PULSE 100; RESP 18; TEMP 36.7; O2SAT 98
[2021-11-17 23:54] VITALS: BP 168/99; PULSE 103; RESP 17; TEMP 36.9; O2SAT 96
[2021-11-18] VITALS (8 sets, daily range): BP systolic 140–162; BP diastolic 84–97; PULSE 73–100; RESP 16–18; TEMP 36.4–37.1; O2SAT 95–100
[2021-11-18] MEDS: 0.9 % Sodium Chloride 1,000 ML 125 ML IVCONT ×2 (01:01→07:43)
[2021-11-18 05:56] LABS: MANUAL DIFF FLAG NO
[2021-11-18 06:02] LABS: Basophils Percent Auto 0.3 % (0-2); Eosinophils Absolute Auto 0.1 X10*3/uL (0.0-0.4); Eosinophils Percent Auto 1.6 % (0-4); Hematocrit 28.6 % (37.0-47.0); Hemoglobin 9.2 g/dl (12.0-16.0); Imm Gran Abs Auto 0.04 X10*3/uL (0.00-0.03); Imm Gran Pct Auto 0.6 % (0.0-0.4); Lymphocytes Absolute Auto 2.9 X10*3/uL (1.2-4.9); Lymphocytes Percent Auto 40.5 % (20-40); Mean Corpuscular HGB Conc 32.2 g/dl (31.0-35.0); Mean Corpuscular Hemoglobin 31.9 pg (27.0-33.0); Mean Corpuscular Volume 99.3 fL (80.0-98.0); Mean Platelet Volume 12.1 fL (9.4-12.3); Monocytes Absolute Auto 0.6 X10*3/uL (0.1-1.2); Monocytes Percent Auto 8.5 % (2-11); Neutrophils Absolute Auto 3.4 x10*3/uL (2.0-8.3); Neutrophils Percent Auto 48.5 % (45-73); Platelet Count 269 X10*3/uL (160-400); Red Blood Count 2.88 X10*6/uL (4.20-5.50); Red Cell Distribution Width 12.4 % (11.0-16.0)
[2021-11-18] MEDS: HYDROmorphone HCl 1 MG/ML SYRINGE IVPUSH ×5 (06:08→22:11)
[2021-11-18 06:11] LABS: INTERNATIONAL NORM RATIO 1.1 (0.9-1.1); Prothrombin Time 12.1 SEC (9.9-13.0)
[2021-11-18 06:18] LABS: Alanine Aminotransferase 15 U/L (0-31); Albumin Level 3.3 g/dL (3.5-5.0); Alkaline Phosphatase 46 U/L (39-117); Anion Gap 10 (12-20); Aspartate Amino Transferase 13 U/L (5-31); Bilirubin Total 0.4 mg/dL (0.0-1.0); Blood Urea Nitrogen 6 mg/dL (9-16); Carbon Dioxide 26 mmol/L (22-29); Chloride 108 mmol/L (96-108); Creatinine Clr Calc Pharmacy 116.3; Estimated Glomerular Filt Rate > 60; Glucose Fasting 93 mg/dL (60-99); Potassium 3.9 mmol/L (3.3-5.1); Sodium 140 mmol/L (135-145); Total Protein 7.3 g/dL (6.5-8.0)
[2021-11-18] MEDS: oxyCODONE HCl Immed Release 5 MG TABLET 10 MG PO ×4 (07:39→19:54)
[2021-11-18] MEDS: Gabapentin 100 MG CAPSULE PO ×3 (07:40→20:16)
[2021-11-18] MEDS: Folic Acid 1 MG TABLET PO (07:40)
[2021-11-18] MEDS: predniSONE 20 MG TABLET PO ×2 (07:40→17:06)
[2021-11-18] MEDS: Multivitamin TABLET 1 TAB PO (07:40)
[2021-11-18] MEDS: Thiamine HCL 100 MG TABLET PO (07:41)
--- NOTE | 2021-11-18 11:21 | MHC.CM.PN ---
PER MULTIDISCIPLINARY ROUNDS PT TO HAVE EMG AND LUMBAR PUNCTURE TODAY AND DEPENDING ON RESULTS MAY TXFR TO [facility], IF SHE DOES NOT NEED TXFR TO [facility] PT WILL NEED OT/PT EVALS FOR ACUTE REHAB AND PT PREFERS DOREEN GAYLE WILL CONT TO FOLLOW D/C NEEDS.
--- NOTE | 2021-11-18 13:05 | P.PNIM_ITS ---
Subjective Subjective Date of Service: 11/18/21 Interval History: No acute issues overnight. Pain control adequate; utilizing oral and IV.Notes improvement in sensation both hands Review of Systems Denies chest pain Denies shortness of breath Denies nausea vomiting diarrhea Physical Exam Vital Signs: Vital Signs: Last Vital Signs Temp 98.2 F 11/18/21 11:31 Pulse 100 11/18/21 11:31 Resp 18 11/18/21 11:31 BP 162/90 H 11/18/21 11:31 Pulse Ox 98 11/18/21 11:31 BMI result Body Mass Index 24.9 Const: Other: Awake alert oriented x3 in no acute distress Resp: Other: Lungs clear to auscultation bilaterally no rales rhonchi wheezes Cardio: Other: No S4; positive S1-S2; no S3 murmurs rubs or gallops GI: Other: Soft nontender nondistended with normoactive bowel sounds Neuro: Other: Cranial nerves 2-12 grossly intact as tested; motor is 5/5 in upper extremities unable to assess gait secondary to pain. Extrem: Other: Diffuse atrophy bilaterally including hamstrings quadriceps and gastrocnemius muscles Objective Data Active Medications Acetaminophen (Acetaminophen 325 Mg Tablet) 650 mg PO Q6H PRN PRN Reason: Pain, Mild (Pain Scale 1-3) Acetaminophen (Acetaminophen 325 Mg Tablet) 650 mg PO DAILY@1400 [facility] Stop: 11/19/21 14:01 Last Admin: 11/17/21 14:00 Dose: 650 mg Documented by: MOLLY Diphenhydramine HCl (Diphenhydramine Hcl 50 Mg/Ml Vial) 25 mg IVPUSH DAILY@1400 [facility] Stop: 11/19/21 14:01 Last Admin: 11/17/21 14:00 Dose: 25 mg Documented by: MOLLY Enoxaparin Sodium (Enoxaparin Sodium 40 Mg/0.4 Ml Syringe) 40 mg SUBCUT Q24H [facility] Last Admin: 11/17/21 14:57 Dose: 40 mg Documented by: MOLLY Folic Acid (Folic Acid 1 Mg Tablet) 1 mg PO DAILY [facility] Last Admin: 11/18/21 07:40 Dose: 1 mg Documented by: ASIA Gabapentin (Gabapentin 100 Mg Capsule) 100 mg PO TID [facility] Last Admin: 11/18/21 07:40 Dose: 100 mg Documented by: ASIA Hydromorphone HCl (Hydromorphone Hcl 0.5 Mg/0.5 Ml Syringe) 0.5 mg IVPUSH Q6H PRN; Protocol PRN Reason: Pain, Severe (Pain Scale 7-10) Last Admin: 11/15/21 16:39 Dose: 0.5 mg Documented by: TARAH Hydromorphone HCl (Hydromorphone Hcl 1 Mg/Ml Syringe) 1 mg IVPUSH Q3H PRN; Protocol PRN Reason: Pain, Severe (Pain Scale 7-10) Last Admin: 11/18/21 09:40 Dose: 1 mg Documented by: ASIA Immune Globulin (Gammagard 10%) 50 mls @ 32 mls/hr IV DAILY@1430 [facility] Stop: 11/19/21 16:04 Last Infusion: 11/17/21 16:16 Dose: 0 mls/hr Documented by: MOLLY Immune Globulin (Gammagard 10%) 200 mls @ 32 mls/hr IV DAILY@1603 [facility] Stop: 11/19/21 22:17 Last Infusion: 11/17/21 22:37 Dose: 0 mls/hr Documented by: NICOLE Sodium Chloride (Ns) 1,000 mls @ 125 mls/hr IVCONT .Q8H [facility] Last Admin: 11/18/21 07:43 Dose: 125 mls/hr Documented by: ASIA Methylprednisolone Sodium Succinate (Methylprednisolone Sod Succ 40 Mg/Ml Vial) 40 mg IVPUSH DAILY@1400 [facility] Stop: 11/19/21 14:01 Last Admin: 11/17/21 14:00 Dose: 40 mg Documented by: MOLLY Multivitamins/Vitamin C (Multivitamin Tablet) 1 tab PO DAILY [facility] Last Admin: 11/18/21 07:40 Dose: 1 tab Documented by: ASIA Oxycodone HCl (Oxycodone Hcl Immed Release 5 Mg Tablet) 10 mg PO Q4H PRN PRN Reason: Pain, Moderate (Pain Scale 4-6 Last Admin: 11/18/21 11:28 Dose: 10 mg Documented by: ASIA Pharmacy Consult (Consult Rx Perform Med Rec) 1 each MISCELLANE ONCE PRN PRN Reason: Consult order Prednisone (Prednisone 20 Mg Tablet) 20 mg PO BIDWM [facility] Last Admin: 11/18/21 07:40 Dose: 20 mg Documented by: ASIA Sodium Chloride (0.9 % Sodium Chloride Flush 3 Ml Syringe) 3 ml IVFLUSH QSHIFT [facility] Last Admin: 11/18/21 07:41 Dose: Not Given Documented by: ASIA Non-Admin Reason: IV Running Thiamine HCl (Thiamine Hcl 100 Mg Tablet) 100 mg PO DAILY [facility] Last Admin: 11/18/21 07:41 Dose: 100 mg Documented by: ASIA Labs CBC & Chem 7: 11/18/21 05:25 11/18/21 05:25 Labs: Laboratory Results - last 24 hr 11/18/21 11/18/21 11/18/21 05:25 05:25 05:25 MCV 99.3 H MCH 31.9 MCHC 32.2 RDW 12.4 Plt Count 269 MPV 12.1 Immature Gran % (Auto) 0.6 H Neut % (Auto) 48.5 Lymph % (Auto) 40.5 H [place] % (Auto) 8.5 Eos % (Auto) 1.6 Baso % (Auto) 0.3 Lymph # (Auto) 2.9 [place] # (Auto) 0.6 Eos # (Auto) 0.1 Baso # (Auto) 0.0 Abs Immat Gran (auto) 0.04 H Absolute Neuts (auto) 3.4 Absolute Nucleated RBC 0.000 Nucleated RBC % (auto) 0.0 PT 12.1 INR 1.1 Anion Gap 10 L Estim Creat Clear Calc 116.3 Estimated GFR > 60 Fasting Glucose 93 Calcium 9.0 Total Bilirubin 0.4 AST 13 ALT 15 Alkaline Phosphatase 46 Total Protein 7.3 Albumin 3.3 L Assessment and Plan (1) CIDP (chronic inflammatory demyelinating polyneuropathy): Status: Acute Plan 36-year-old female with progressive lower extremity weakness recently admitted for IVIG 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 Has progressed at home inhibiting her ability to walk; pain has become severe 1. Bilateral lower extremity weakness (significant atrophy as stated) -tolerating IVIG/methylprednisolone/fluids -prednisone 20 mg b.i.d. -LP/EMG today....Dr Greg rose results -pain controlled on current regimen Will likely require at minimum 3 additional midnights for IVIG infuse and further work up. Quality Stroke Does the patient have a stroke diagnosis?: No VTE Prior VTE?: No VTE Risk Level:: Medical - moderate - high VTE Device Contraindication: Treatment Not Indicated VTE Drug Contraindication: N/A - Med Ordered
[2021-11-18 13:47] LABS: Glucose CSF 63 mg/dL; Total Protein CSF 31.1 mg/dL (15-45)
[2021-11-18 13:59] LABS: Appearance CSF CLEAR; CSF Tube # 1; Color CSF COLORLESS; Red Blood Cell CSF 0 MM*3; White Blood Cell CSF 3 MM*3
[2021-11-18 14:00] LABS: Lymphocytes CSF 100 %
[2021-11-18 14:16] LABS: CSF Appearance Clear, Colorless; CSF Tube # 2
[2021-11-18] MEDS: diphenhydrAMINE HCL 50 MG/ML VIAL 25 MG IVPUSH (14:22)
[2021-11-18] MEDS: Acetaminophen 325 MG TABLET 650 MG PO (14:23)
[2021-11-18] MEDS: methylPREDNISolone Sod Succ 40 MG/ML VIAL IVPUSH (14:24)
[2021-11-18] MEDS: Enoxaparin Sodium 40 MG/0.4 ML SYRINGE SUBCUT (14:24)
[2021-11-18] MEDS: 0.9 % Sodium Chloride 1,000 ML 100 ML IVCONT (17:07)
[2021-11-18] MEDS: Immun Glob G(IgG)/Gly/IGA Ov50 200 ML IV (17:08)
[2021-11-19] MEDS: oxyCODONE HCl Immed Release 5 MG TABLET 10 MG PO ×5 (00:03→23:29)
[2021-11-19] MEDS: 0.9 % Sodium Chloride 1,000 ML 100 ML IVCONT ×3 (03:09→23:33)
[2021-11-19] MEDS: HYDROmorphone HCl 1 MG/ML SYRINGE IVPUSH ×5 (03:12→21:16)
[2021-11-19 04:00] VITALS: BP 130/77; PULSE 80; RESP 17; TEMP 36.1; O2SAT 98
[2021-11-19 06:17] LABS: MANUAL DIFF FLAG NO
[2021-11-19 06:23] LABS: Basophils Percent Auto 0.4 % (0-2); Eosinophils Percent Auto 0.1 % (0-4); Hematocrit 28.7 % (37.0-47.0); Hemoglobin 9.3 g/dl (12.0-16.0); Imm Gran Abs Auto 0.03 X10*3/uL (0.00-0.03); Imm Gran Pct Auto 0.4 % (0.0-0.4); Lymphocytes Absolute Auto 3.2 X10*3/uL (1.2-4.9); Lymphocytes Percent Auto 43.9 % (20-40); Mean Corpuscular HGB Conc 32.4 g/dl (31.0-35.0); Mean Corpuscular Hemoglobin 31.7 pg (27.0-33.0); Mean Platelet Volume 11.8 fL (9.4-12.3); Monocytes Absolute Auto 0.8 X10*3/uL (0.1-1.2); Monocytes Percent Auto 10.4 % (2-11); Neutrophils Absolute Auto 3.3 x10*3/uL (2.0-8.3); Neutrophils Percent Auto 44.8 % (45-73); Platelet Count 253 X10*3/uL (160-400); Red Blood Count 2.93 X10*6/uL (4.20-5.50); Red Cell Distribution Width 12.7 % (11.0-16.0); White Blood Count 7.3 X10*3/uL (4.8-10.8)
[2021-11-19 06:40] LABS: Alanine Aminotransferase 14 U/L (0-31); Albumin Level 3.3 g/dL (3.5-5.0); Alkaline Phosphatase 43 U/L (39-117); Anion Gap 10 (12-20); Aspartate Amino Transferase 15 U/L (5-31); Bilirubin Total 0.3 mg/dL (0.0-1.0); Blood Urea Nitrogen 6 mg/dL (9-16); Carbon Dioxide 26 mmol/L (22-29); Chloride 107 mmol/L (96-108); Creatinine Clr Calc Pharmacy 116.3; Estimated Glomerular Filt Rate > 60; Glucose Fasting 78 mg/dL (60-99); Potassium 3.5 mmol/L (3.3-5.1); Sodium 139 mmol/L (135-145); Total Protein 7.5 g/dL (6.5-8.0)
[2021-11-19] MEDS: predniSONE 20 MG TABLET PO ×2 (07:58→16:44)
[2021-11-19 08:00] VITALS: BP 163/98; PULSE 91; RESP 18; TEMP 36.6; O2SAT 97
[2021-11-19] MEDS: Gabapentin 100 MG CAPSULE PO ×3 (08:33→21:16)
[2021-11-19] MEDS: Multivitamin TABLET 1 TAB PO (08:33)
[2021-11-19] MEDS: Folic Acid 1 MG TABLET PO (08:33)
[2021-11-19] MEDS: Thiamine HCL 100 MG TABLET PO (08:33)
[2021-11-19 09:03] LABS: Oligoclonal Serum Yes
[2021-11-19 10:58] VITALS: BP 168/99; PULSE 85; TEMP 36.6; O2SAT 97
--- NOTE | 2021-11-19 12:05 | P.PNIM_ITS ---
Subjective Subjective Date of Service: 11/19/21 Interval History: Hand paresthesias resolved, strength restored Still has lower extremity weakness + paresthesias/numbness to level of hip, s hooting pains. Review of Systems Review of Systems: Yes all other systems are reviewed and are negative Physical Exam Vital Signs: Vital Signs: Last Vital Signs Temp 98 F 11/19/21 10:58 Pulse 85 11/19/21 10:58 Resp 18 11/19/21 08:00 BP 168/99 H 11/19/21 10:58 Pulse Ox 97 11/19/21 10:58 BMI result Body Mass Index 24.9 Gen: in no acute distress HEENT: sclera anicteric, moist mucus membranes Neck: supple Lungs: clear to auscultation bilaterally Heart: regular rate and rhythm, no murmurs Abd: soft, non-tender, non-distended Ext: no edema, leg muscles atrophied Skin: warm/well-perfused Neuro: alert and oriented x3, symmetrical lower extremity weakness + numbness, unable to elicit DTRs Psych: appropriate affect Objective Data Active Medications Acetaminophen (Acetaminophen 325 Mg Tablet) 650 mg PO Q6H PRN PRN Reason: Pain, Mild (Pain Scale 1-3) Acetaminophen (Acetaminophen 325 Mg Tablet) 650 mg PO DAILY@1400 [facility] Stop: 11/19/21 14:01 Last Admin: 11/18/21 14:23 Dose: 650 mg Documented by: ASIA Diphenhydramine HCl (Diphenhydramine Hcl 50 Mg/Ml Vial) 25 mg IVPUSH DAILY@1400 [facility] Stop: 11/19/21 14:01 Last Admin: 11/18/21 14:22 Dose: 25 mg Documented by: ASIA Enoxaparin Sodium (Enoxaparin Sodium 40 Mg/0.4 Ml Syringe) 40 mg SUBCUT Q24H [facility] Last Admin: 11/18/21 14:24 Dose: 40 mg Documented by: ASIA Folic Acid (Folic Acid 1 Mg Tablet) 1 mg PO DAILY [facility] Last Admin: 11/19/21 08:33 Dose: 1 mg Documented by: ASIA Gabapentin (Gabapentin 100 Mg Capsule) 100 mg PO TID [facility] Last Admin: 11/19/21 08:33 Dose: 100 mg Documented by: ASIA Hydromorphone HCl (Hydromorphone Hcl 0.5 Mg/0.5 Ml Syringe) 0.5 mg IVPUSH Q6H PRN; Protocol PRN Reason: Pain, Severe (Pain Scale 7-10) Last Admin: 11/15/21 16:39 Dose: 0.5 mg Documented by: TARAH Hydromorphone HCl (Hydromorphone Hcl 1 Mg/Ml Syringe) 1 mg IVPUSH Q3H PRN; Protocol PRN Reason: Pain, Severe (Pain Scale 7-10) Last Admin: 11/19/21 08:30 Dose: 1 mg Documented by: ASIA Immune Globulin (Gammagard 10%) 50 mls @ 32 mls/hr IV DAILY@1430 [facility] Stop: 11/19/21 16:04 Last Infusion: 11/18/21 16:09 Dose: 0 mls/hr Documented by: ASIA Immune Globulin (Gammagard 10%) 200 mls @ 32 mls/hr IV DAILY@1603 [facility] Stop: 11/19/21 22:17 Last Infusion: 11/18/21 23:38 Dose: 0 mls/hr Documented by: NICOLE Sodium Chloride (Ns) 1,000 mls @ 100 mls/hr IVCONT .Q10H [facility] Last Admin: 11/19/21 03:09 Dose: 100 mls/hr Documented by: NICOLE Methylprednisolone Sodium Succinate (Methylprednisolone Sod Succ 40 Mg/Ml Vial) 40 mg IVPUSH DAILY@1400 [facility] Stop: 11/19/21 14:01 Last Admin: 11/18/21 14:24 Dose: 40 mg Documented by: ASIA Multivitamins/Vitamin C (Multivitamin Tablet) 1 tab PO DAILY [facility] Last Admin: 11/19/21 08:33 Dose: 1 tab Documented by: ASIA Oxycodone HCl (Oxycodone Hcl Immed Release 5 Mg Tablet) 10 mg PO Q4H PRN PRN Reason: Pain, Moderate (Pain Scale 4-6 Last Admin: 11/19/21 10:04 Dose: 10 mg Documented by: VERONICA Pharmacy Consult (Consult Rx Perform Med Rec) 1 each MISCELLANE ONCE PRN PRN Reason: Consult order Prednisone (Prednisone 20 Mg Tablet) 20 mg PO BIDWM [facility] Last Admin: 11/19/21 07:58 Dose: 20 mg Documented by: VERONICA Sodium Chloride (0.9 % Sodium Chloride Flush 3 Ml Syringe) 3 ml IVFLUSH QSHIFT [facility] Last Admin: 11/19/21 08:33 Dose: Not Given Documented by: ASIA Non-Admin Reason: IV Running Thiamine HCl (Thiamine Hcl 100 Mg Tablet) 100 mg PO DAILY [facility] Last Admin: 11/19/21 08:33 Dose: 100 mg Documented by: ASIA Labs CBC & Chem 7: 11/19/21 06:09 11/19/21 06:09 Labs: Laboratory Results - last 24 hr 11/18/21 11/18/21 11/19/21 Unknown Unknown 06:09 MCV 98.0 MCH 31.7 MCHC 32.4 RDW 12.7 Plt Count 253 MPV 11.8 Immature Gran % (Auto) 0.4 Neut % (Auto) 44.8 L Lymph % (Auto) 43.9 H [place] % (Auto) 10.4 Eos % (Auto) 0.1 Baso % (Auto) 0.4 Lymph # (Auto) 3.2 [place] # (Auto) 0.8 Eos # (Auto) 0.0 Baso # (Auto) 0.0 Abs Immat Gran (auto) 0.03 Absolute Neuts (auto) 3.3 Absolute Nucleated RBC 0.000 Nucleated RBC % (auto) 0.0 Anion Gap Estim Creat Clear Calc Estimated GFR Fasting Glucose Calcium Total Bilirubin AST ALT Alkaline Phosphatase Total Protein Albumin CSF Tube Number 2 1 CSF Volume 2.0 CSF Appearance CLEAR CSF Color COLORLESS CSF WBC 3 CSF RBC 0 CSF Lymphocytes 100 CSF Appearance (b) Clear, Colorless CSF Glucose 63 CSF Total Protein 31.1 11/19/21 06:09 MCV MCH MCHC RDW Plt Count MPV Immature Gran % (Auto) Neut % (Auto) Lymph % (Auto) [place] % (Auto) Eos % (Auto) Baso % (Auto) Lymph # (Auto) [place] # (Auto) Eos # (Auto) Baso # (Auto) Abs Immat Gran (auto) Absolute Neuts (auto) Absolute Nucleated RBC Nucleated RBC % (auto) Anion Gap 10 L Estim Creat Clear Calc 116.3 Estimated GFR > 60 Fasting Glucose 78 Calcium 9.0 Total Bilirubin 0.3 AST 15 ALT 14 Alkaline Phosphatase 43 Total Protein 7.5 Albumin 3.3 L CSF Tube Number CSF Volume CSF Appearance CSF Color CSF WBC CSF RBC CSF Lymphocytes CSF Appearance (b) CSF Glucose CSF Total Protein Microbiology Microbiology Results: Microbiology 11/18/21 Unknown Gram Stain - Final Cerebrospinal Fluid CSF Examination - Final Fluid Description - Final CSF Culture - Preliminary No growth after 1 day Assessment and Plan (1) CIDP (chronic inflammatory demyelinating polyneuropathy): Status: Acute Plan hospital d#5 36yo F admitted 10/07-10/14/21 for 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
--- NOTE | 2021-11-19 14:35 | MHC.CM.PN ---
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 patient is not yet readuy for discharge , will need pt/ot to be ordered
[2021-11-19] MEDS: Acetaminophen 325 MG TABLET 650 MG PO (14:40)
[2021-11-19] MEDS: Enoxaparin Sodium 40 MG/0.4 ML SYRINGE SUBCUT (14:42)
[2021-11-19] MEDS: methylPREDNISolone Sod Succ 40 MG/ML VIAL IVPUSH (14:42)
[2021-11-19] MEDS: diphenhydrAMINE HCL 50 MG/ML VIAL 25 MG IVPUSH (14:42)
[2021-11-19 15:38] VITALS: BP 158/90; PULSE 88; RESP 18; TEMP 36.7; O2SAT 99
[2021-11-19] MEDS: Immun Glob G(IgG)/Gly/IGA Ov50 200 ML IV (16:44)
[2021-11-19 19:45] VITALS: BP 157/97; PULSE 93; RESP 18; TEMP 36.9; O2SAT 98
[2021-11-20] VITALS (7 sets, daily range): BP systolic 150–176; BP diastolic 75–103; PULSE 78–92; RESP 17–18; TEMP 36.2–37.2; O2SAT 96–99
[2021-11-20] MEDS: HYDROmorphone HCl 1 MG/ML SYRINGE IVPUSH ×5 (04:46→21:55)
[2021-11-20 06:24] LABS: MANUAL DIFF FLAG NO
[2021-11-20 06:29] LABS: Basophils Percent Auto 0.4 % (0-2); Hematocrit 27.2 % (37.0-47.0); Hemoglobin 9.2 g/dl (12.0-16.0); Imm Gran Abs Auto 0.02 X10*3/uL (0.00-0.03); Imm Gran Pct Auto 0.2 % (0.0-0.4); Lymphocytes Absolute Auto 3.5 X10*3/uL (1.2-4.9); Lymphocytes Percent Auto 42.3 % (20-40); Mean Corpuscular HGB Conc 33.8 g/dl (31.0-35.0); Mean Corpuscular Hemoglobin 32.5 pg (27.0-33.0); Mean Corpuscular Volume 96.1 fL (80.0-98.0); Mean Platelet Volume 12.4 fL (9.4-12.3); Monocytes Absolute Auto 0.9 X10*3/uL (0.1-1.2); Monocytes Percent Auto 11.2 % (2-11); Neutrophils Absolute Auto 3.8 x10*3/uL (2.0-8.3); Neutrophils Percent Auto 45.9 % (45-73); Platelet Count 269 X10*3/uL (160-400); Red Blood Count 2.83 X10*6/uL (4.20-5.50); Red Cell Distribution Width 12.8 % (11.0-16.0); White Blood Count 8.2 X10*3/uL (4.8-10.8)
[2021-11-20] MEDS: oxyCODONE HCl Immed Release 5 MG TABLET 10 MG PO ×4 (06:39→23:53)
[2021-11-20 06:46] LABS: Alanine Aminotransferase 16 U/L (0-31); Albumin Level 3.3 g/dL (3.5-5.0); Alkaline Phosphatase 39 U/L (39-117); Anion Gap 10 (12-20); Aspartate Amino Transferase 16 U/L (5-31); Bilirubin Total 0.4 mg/dL (0.0-1.0); Blood Urea Nitrogen 6 mg/dL (9-16); Carbon Dioxide 25 mmol/L (22-29); Chloride 107 mmol/L (96-108); Creatinine Clr Calc Pharmacy 112.7; Estimated Glomerular Filt Rate > 60; Glucose Fasting 86 mg/dL (60-99); Potassium 3.4 mmol/L (3.3-5.1); Sodium 139 mmol/L (135-145); Total Protein 7.8 g/dL (6.5-8.0)
[2021-11-20] MEDS: 0.9 % Sodium Chloride 1,000 ML 100 ML IVCONT (08:49)
[2021-11-20] MEDS: Folic Acid 1 MG TABLET PO (08:49)
[2021-11-20] MEDS: predniSONE 20 MG TABLET PO ×2 (08:49→17:20)
[2021-11-20] MEDS: Multivitamin TABLET 1 TAB PO (08:49)
[2021-11-20] MEDS: Thiamine HCL 100 MG TABLET PO (08:49)
[2021-11-20] MEDS: Gabapentin 100 MG CAPSULE PO ×3 (08:49→21:52)
--- NOTE | 2021-11-20 09:57 | HO.PM.IMPN ---
Subjective Subjective Date of Service: 11/20/21 Interval History: Numb from knees down. Legs weak. Finished 5d of IVIg last night. Review of Systems Review of Systems: Yes all other systems are reviewed and are negative Physical Exam Vital Signs: Vital Signs: Last Vital Signs Temp 97.6 F 11/20/21 07:31 Pulse 89 11/20/21 07:31 Resp 17 11/20/21 07:31 BP 168/90 H 11/20/21 07:31 Pulse Ox 98 11/20/21 07:31 BMI result Body Mass Index 24.9 Gen: in no acute distress HEENT: sclera anicteric, moist mucus membranes Neck: supple Lungs: clear to auscultation bilaterally Heart: regular rate and rhythm, no murmurs Abd: soft, non-tender, non-distended Ext: no edema, leg muscles atrophied Skin: warm/well-perfused Neuro: alert and oriented x3, symmetrical lower extremity weakness + numbness, absent patellar + Achilles DTRs Psych: appropriate affect Objective Data Active Medications Acetaminophen (Acetaminophen 325 Mg Tablet) 650 mg PO Q6H PRN PRN Reason: Pain, Mild (Pain Scale 1-3) Enoxaparin Sodium (Enoxaparin Sodium 40 Mg/0.4 Ml Syringe) 40 mg SUBCUT Q24H [facility] Last Admin: 11/19/21 14:42 Dose: 40 mg Documented by: ASIA Folic Acid (Folic Acid 1 Mg Tablet) 1 mg PO DAILY [facility] Last Admin: 11/20/21 08:49 Dose: 1 mg Documented by: REJI Gabapentin (Gabapentin 100 Mg Capsule) 100 mg PO TID [facility] Last Admin: 11/20/21 08:49 Dose: 100 mg Documented by: REJI Hydromorphone HCl (Hydromorphone Hcl 1 Mg/Ml Syringe) 1 mg IVPUSH Q3H PRN; Protocol PRN Reason: Pain, Severe (Pain Scale 7-10) Last Admin: 11/20/21 08:50 Dose: 1 mg Documented by: REJI Sodium Chloride (Ns) 1,000 mls @ 100 mls/hr IVCONT .Q10H [facility] Last Admin: 11/20/21 08:49 Dose: 100 mls/hr Documented by: REJI Multivitamins/Vitamin C (Multivitamin Tablet) 1 tab PO DAILY [facility] Last Admin: 11/20/21 08:49 Dose: 1 tab Documented by: REJI Oxycodone HCl (Oxycodone Hcl Immed Release 5 Mg Tablet) 10 mg PO Q4H PRN PRN Reason: Pain, Moderate (Pain Scale 4-6 Last Admin: 11/20/21 06:39 Dose: 10 mg Documented by: LATRICE Pharmacy Consult (Consult Rx Perform Med Rec) 1 each MISCELLANE ONCE PRN PRN Reason: Consult order Prednisone (Prednisone 20 Mg Tablet) 20 mg PO BIDWM [facility] Last Admin: 11/20/21 08:49 Dose: 20 mg Documented by: REJI Sodium Chloride (0.9 % Sodium Chloride Flush 3 Ml Syringe) 3 ml IVFLUSH QSHIFT [facility] Last Admin: 11/20/21 07:11 Dose: Not Given Documented by: REJI Non-Admin Reason: IV Running Thiamine HCl (Thiamine Hcl 100 Mg Tablet) 100 mg PO DAILY [facility] Last Admin: 11/20/21 08:49 Dose: 100 mg Documented by: REJI Labs CBC & Chem 7: 11/20/21 06:04 11/20/21 06:04 Labs: Laboratory Results - last 24 hr 11/20/21 11/20/21 06:04 06:04 MCV 96.1 MCH 32.5 MCHC 33.8 RDW 12.8 Plt Count 269 MPV 12.4 H Immature Gran % (Auto) 0.2 Neut % (Auto) 45.9 Lymph % (Auto) 42.3 H [place] % (Auto) 11.2 H Eos % (Auto) 0.0 Baso % (Auto) 0.4 Lymph # (Auto) 3.5 [place] # (Auto) 0.9 Eos # (Auto) 0.0 Baso # (Auto) 0.0 Abs Immat Gran (auto) 0.02 Absolute Neuts (auto) 3.8 Absolute Nucleated RBC 0.000 Nucleated RBC % (auto) 0.0 Anion Gap 10 L Estim Creat Clear Calc 112.7 Estimated GFR > 60 Fasting Glucose 86 Calcium 9.0 Total Bilirubin 0.4 AST 16 ALT 16 Alkaline Phosphatase 39 Total Protein 7.8 Albumin 3.3 L Microbiology Microbiology Results: Microbiology 11/18/21 Unknown Gram Stain - Final Cerebrospinal Fluid CSF Examination - Final Fluid Description - Final CSF Culture - Preliminary No growth after 2 days Assessment and Plan (1) CIDP (chronic inflammatory demyelinating polyneuropathy): Status: Acute Plan hospital d#6 36yo F admitted 10/07-10/14/21 for 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 presenting with worsening LE weakness/numbness + pain # possible CIDP - s/p 5d of IVIg - continue prednisone 20mg bid - LP with normal CSF; oligoclonal bands pending - EMG per Neuro # pain control - gabapentin, oxycodone, hydromorphone # hx EtOH abuse - thiamine, folate # VTE ppx - LMWH # dispo - AIR In my clinical judgment, the patient requires continued hospitalization for the following reasons: EMG/NCS, then AIR placement Quality Stroke Does the patient have a stroke diagnosis?: No VTE Prior VTE?: No VTE Risk Level:: Medical - moderate - high VTE Device Contraindication: Treatment Not Indicated VTE Drug Contraindication: N/A - Med Ordered
--- NOTE | 2021-11-20 11:21 | MHC.CM.PN ---
Per ROUNDS discussion, Patient is not yet medically cleared for dc (needs EMG, required IV Dilaudid today);[facility] is the goal and CM will follow for possible need to adjust the dc plan.
[2021-11-20] MEDS: Enoxaparin Sodium 40 MG/0.4 ML SYRINGE SUBCUT (13:59)
[2021-11-20 15:56] LABS: VDRL Qualitative CSF Nonreactive (Nonreactive)
--- NOTE | 2021-11-21 | EMG_ITS ---
Right tibial and peroneal motor studies were performed. Right sural and superficial sensory studies were performed. Tibial H-reflex was obtained and needle examination was performed in paraspinal muscles. 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 There was progression in comparison to her previous study performed few weeks ago. MD DENITA Mai/BRANDON / [id number]
[2021-11-21 04:00] VITALS: BP 151/94; PULSE 89; RESP 18; TEMP 36.6; O2SAT 98
[2021-11-21] MEDS: 0.9 % Sodium Chloride 1,000 ML 100 ML IVCONT (04:18)
[2021-11-21] MEDS: oxyCODONE HCl Immed Release 5 MG TABLET 10 MG PO ×4 (04:18→18:12)
[2021-11-21] MEDS: HYDROmorphone HCl 1 MG/ML SYRINGE IVPUSH ×4 (06:42→16:50)
[2021-11-21 07:20] VITALS: BP 166/98; PULSE 86; RESP 20; TEMP 36.6; O2SAT 97
[2021-11-21] MEDS: Thiamine HCL 100 MG TABLET PO (07:53)
[2021-11-21] MEDS: Multivitamin TABLET 1 TAB PO (07:53)
[2021-11-21] MEDS: predniSONE 20 MG TABLET PO ×2 (07:53→16:50)
[2021-11-21] MEDS: Gabapentin 100 MG CAPSULE PO ×2 (07:53→16:50)
[2021-11-21] MEDS: Folic Acid 1 MG TABLET PO (07:53)
[2021-11-21] MEDS: 0.9 % Sodium Chloride Flush 3 ML SYRINGE IVFLUSH (07:54)
[2021-11-21 09:22] LABS: COVID-19 Test Negative (Negative); IDNOW Serial# 16C4AD1C
--- NOTE | 2021-11-21 11:35 | P.DS_ITS ---
DS: Providers Provider Date of Service: 11/21/21 Date of admission: 11/14/21 14:01 Date of discharge: 11/21/21 Primary care physician: None Physician Consults: 11/14/21 14:06 Consult to Neurology Routine Consulting Provider: [facility] Reason for consultation: Leg weakness Has provider been notified: No DS: Diagnosis Discharge Diagnosis (1) CIDP (chronic inflammatory demyelinating polyneuropathy): Status: Acute DS: Summary Hospital Course Hospital Course: from admission H+P by hospitalist Chico Sosa DO, 11/14/21: 36-year-old female with no significant past medical history presents with bilateral leg weakness it has worsened since last discharge 10/14/2021.? She was admitted 10/07/2021 with complaints of distal tingling and weakness.? She was see n by Neurology and after spinal tap in imaging thought to have possible Emani Allen for which she was treated with IVIG.? She had some minimal improvement was offered acute rehab however due to 2 small children at home she declined and wanted to pursue therapy at home.? She states over the 2 weeks it media past discharge she was doing fine and then her symptoms returned and now progressed to the point where she can barely walk.? She also complains of severe foot pain impacting her ability to walk. ER workup Lab work failed to demonstrate a definitive cause for her symptoms; MRI of the LS spine demonstrated some changes at L3-L4 and L4-L5.? She will be admitted; will ask Neurology to re-evaluate given new data This 36 year-old woman who had been?admitted here 10/07-10/14/21 for 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 presented with worsening lg weakness/numbness and pain and was admitted for suspected axonal-type CIDP. She was given 5 days of IVIg and started on prednisone 20 mg bid. LP showed normal CSF: oligoclonal bands are pending at the time of discharge. EMG/NCS showed worsening chronic axonal type peripheral neuropathy. She was discharged to acute inpatient rehabilitation with instructions to follow up with [facility] in 1 week, where steroids will be tapered. Time Spent with Patient Time attestation: Total time spent providing and/or coordinating discharge services: Discharge coordination time: Greater than 30 minutes Quality: Stroke Does the patient have a stroke diagnosis?: No Physical Exam Vital Signs: Vital Signs: Last Vital Signs Temp 97.9 F 11/21/21 07:20 Pulse 86 11/21/21 07:20 Resp 20 11/21/21 07:20 BP 166/98 H 11/21/21 07:20 Pulse Ox 97 11/21/21 07:20 BMI result Body Mass Index 24.9 Gen: in no acute distress HEENT: sclera anicteric, moist mucus membranes Neck: supple Lungs: clear to auscultation bilaterally Heart: regular rate and rhythm, no murmurs Abd: soft, non-tender, non-distended Ext: no edema, leg muscles atrophied Skin: warm/well-perfused Neuro: alert and oriented x3, symmetrical lower extremity weakness + numbness, absent patellar + Achilles DTRs Psych: appropriate affect DS: Data Data Completed and Pending Completed studies during hospitalization [Text1]: Laboratory Results WBC 8.2 X10*3/uL (4.8-10.8) 11/20/21 06:04 RBC 2.83 X10*6/uL (4.20-5.50) L 11/20/21 06:04 Hgb 9.2 g/dl (12.0-16.0) L 11/20/21 06:04 Hct 27.2 % (37.0-47.0) L 11/20/21 06:04 MCV 96.1 fL (80.0-98.0) 11/20/21 06:04 MCH 32.5 pg (27.0-33.0) 11/20/21 06:04 MCHC 33.8 g/dl (31.0-35.0) 11/20/21 06:04 RDW 12.8 % (11.0-16.0) 11/20/21 06:04 Plt Count 269 X10*3/uL (160-400) 11/20/21 06:04 MPV 12.4 fL (9.4-12.3) H 11/20/21 06:04 Immature Gran % (Auto) 0.2 % (0.0-0.4) 11/20/21 06:04 Neut % (Auto) 45.9 % (45-73) 11/20/21 06:04 Lymph % (Auto) 42.3 % (20-40) H 11/20/21 06:04 Collier % (Auto) 11.2 % (2-11) H 11/20/21 06:04 Eos % (Auto) 0.0 % (0-4) 11/20/21 06:04 Baso % (Auto) 0.4 % (0-2) 11/20/21 06:04 Lymph # (Auto) 3.5 X10*3/uL (1.2-4.9) 11/20/21 06:04 Collier # (Auto) 0.9 X10*3/uL (0.1-1.2) 11/20/21 06:04 Eos # (Auto) 0.0 X10*3/uL (0.0-0.4) 11/20/21 06:04 Baso # (Auto) 0.0 X10*3/uL (0.0-0.2) 11/20/21 06:04 Abs Immat Gran (auto) 0.02 X10*3/uL (0.00-0.03) 11/20/21 06:04 Absolute Neuts (auto) 3.8 x10*3/uL (2.0-8.3) 11/20/21 06:04 Absolute Nucleated RBC 0.000 X10*3/uL (0.0-0.012) 11/20/21 06:04 Nucleated RBC % (auto) 0.0 /100WBC (0.0-0.2) 11/20/21 06:04 PT 12.1 SEC (9.9-13.0) 11/18/21 05:25 INR 1.1 (0.9-1.1) 11/18/21 05:25 Sodium 139 mmol/L (135-145) 11/20/21 06:04 Potassium 3.4 mmol/L (3.3-5.1) 11/20/21 06:04 Chloride 107 mmol/L (96-108) 11/20/21 06:04 Carbon Dioxide 25 mmol/L (22-29) 11/20/21 06:04 Anion Gap 10 (12-20) L 11/20/21 06:04 BUN 6 mg/dL (9-16) L 11/20/21 06:04 Creatinine 0.65 mg/dL (0.5-1.4) 11/20/21 06:04 Estim Creat Clear Calc 112.7 11/20/21 06:04 Estimated GFR > 60 11/20/21 06:04 Random Glucose 120 mg/dL (60-115) H 11/14/21 11:58 Fasting Glucose 86 mg/dL (60-99) 11/20/21 06:04 Calcium 9.0 mg/dL (8.4-10.2) 11/20/21 06:04 Magnesium 2.2 mg/dL (1.6-2.6) 11/14/21 11:58 Total Bilirubin 0.4 mg/dL (0.0-1.0) 11/20/21 06:04 Direct Bilirubin < 0.2 mg/dL (0.0-0.5) 11/14/21 11:58 AST 16 U/L (5-31) 11/20/21 06:04 ALT 16 U/L (0-31) 11/20/21 06:04 Alkaline Phosphatase 39 U/L (39-117) 11/20/21 06:04 Total Creatine Kinase 30 U/L (26-140) 11/14/21 11:58 C-Reactive Protein 0.09 mg/dL (< or = 0.50) 11/14/21 11:58 Total Protein 7.8 g/dL (6.5-8.0) 11/20/21 06:04 Albumin 3.3 g/dL (3.5-5.0) L 11/20/21 06:04 Vitamin B12 332 pg/mL (200-900) 11/14/21 11:58 Folate > 20.0 ng/mL (> or = 4.0) 11/14/21 11:58 Beta HCG, Quant < 2 mIU/mL 11/14/21 11:58 CSF Tube Number 1 11/18/21 Unknown CSF Tube Number 2 11/18/21 Unknown CSF Volume 2.0 ML 11/18/21 Unknown CSF Appearance CLEAR 11/18/21 Unknown CSF Color COLORLESS 11/18/21 Unknown CSF WBC 3 MM*3 11/18/21 Unknown CSF RBC 0 MM*3 11/18/21 Unknown CSF Lymphocytes 100 % 11/18/21 Unknown CSF Appearance (b) Clear, Colorless 11/18/21 Unknown CSF Glucose 63 mg/dL 11/18/21 Unknown CSF Total Protein 31.1 mg/dL (15-45) 11/18/21 Unknown CSF VDRL Nonreactive (Nonreactive) 11/18/21 Unknown COVID-19 (JODI) Negative (Negative) 11/21/21 08:56 COVID-19 Clin Com See Note 11/21/21 08:56 Impressions Lumbar Spine MRI 11/14/21 13:45 IMPRESSION: 1. At L3-L4 there is a broad-based posterior disc protrusion with flattening of the ventral thecal sac. There is narrowing of the bilateral subarticular recesses. A right foraminal disc protrusion impinges on the exiting right L3 nerve root, and there is mild central stenosis. 2. At L4-L5 there is a broad-based posterior disc protrusion, more prominent on the left. There is a small extruded component extending into the subarticular recesses with impingement on the traversing left L5 nerve root. There are bilateral foraminal disc protrusions impinging on the exiting L4 nerve roots. There is moderate central stenosis. Lumbar Puncture Fluoroscopy 11/18/21 12:50 IMPRESSION: Successful fluoroscopy-guided L3-L4 lumbar puncture performed. Labs on day of discharge: Laboratory Results - last 24 hr 11/18/21 11/21/21 Unknown 08:56 CSF VDRL Nonreactive COVID-19 (JODI) Negative COVID-19 Clin Com See Note Discharge Plan Discharge Patient Disposition: Xfer Inpatient Rehab Fac Discharge Diagnosis: CIDP Referrals: [facility] [Outside] - 1 Week Richard Garza MD [Physician] - 1 Week Physician,None [Primary Care Provider] - 1 Week Discharge Medications: New prednisone 20 mg Tablet 20 mg PO BIDWM Qty: 14 0RF oxycodone 5 mg Tablet 10 mg PO Q4H PRN (Reason: severe pain) Qty: 18 0RF Continued folic acid 1 mg tablet 1 mg PO DAILY Qty: 90 0RF thiamine HCl (vitamin B1) 100 mg tablet 100 mg PO DAILY Qty: 90 0RF gabapentin 100 mg capsule 100 mg PO TID Qty: 90 0RF acetaminophen 325 mg Tablet 650 mg PO Q6H PRN (Reason: Pain) 0RF ibuprofen 200 mg Tablet 400 mg PO Q6H PRN (Reason: Pain) 0RF multivitamin Tablet 1 tab PO DAILY 0RF Discharge Orders: Discharge Order (Routine); Ordered 11/21/21 Ordered By: Luisa Ayala Diet: advance to usual diet Activity on Discharge: As tolerated Stand Alone Forms: Patient Portal Discharge page Care Plan Goals: neurologic recovery Health Concerns: CIDP Plan of Treatment: continue prednisone 20 mg twice daily until seen by Neurology [Dr Garza], to be tapered by neurologist acute inpatient rehabilitation with anticipated length of stay <30d Assessment: see Discharge Summary Patient Instructions: Guillain-Allen Syndrome (DC)
[2021-11-21 11:54] VITALS: BP 141/89; PULSE 76; RESP 17; TEMP 36.2; O2SAT 98
--- NOTE | 2021-11-21 13:51 | MHC.CM.PN ---
Patient has been medically cleared for dc to Acute Rehab today. Patient will dc to [facility] today at 6PM, via [facility].
[2021-11-21 15:22] VITALS: BP 148/74; PULSE 85; RESP 18; TEMP 36.3; O2SAT 96
[2021-11-21] MEDS: Enoxaparin Sodium 40 MG/0.4 ML SYRINGE SUBCUT (16:50)
[2021-11-21] MEDS: Acetaminophen 325 MG TABLET 650 MG PO (18:11)
== END 2021-11-21 18:30 | DRG 43 ==
LOC: HO.ED 12:09 → HO.EDOVER 14:08 → HO.IMC 11-15 14:15 → HO.S3 11-16 07:48
PROVIDERS: Radiology Diagnostic Radiology; Admitting Provider Hospitalist; Emergency Provider Emergency Medicine; Visit Provider Family Medicine
PROC: 009U3ZZ Drainage of Spinal Canal, Percutaneous Approach (ICD-10-PCS; CPT 62270; principal; 2021-11-18 12:30)
DX: G61.81 Chronic inflammatory demyelinating polyneuritis (principal); G61.0 Guillain-Barre syndrome; F10.11 Alcohol abuse, in remission; Z20.822 Contact with and (suspected) exposure to COVID-19; Z79.1 Long term (current) use of non-steroidal anti-inflammatories (NSAID); Z88.0 Allergy status to penicillin; Z79.899 Other long term (current) drug therapy
CPT/HCPCS: 36415; 62328; 72148; 80048; 80053; 80076; 82550; 82607; 82746; 82945; 83735; 83916; 84157; 84702; 85025; 85610; 86140; 86592; 87015; 87070; 87205; 87635; 89051; 95886; 95910; 96361; 96374; 96375; 97110; 97163; 97167; 97530; 99285; J1170; J1200; J1569; J1650; J2405; J2920

== ENCOUNTER 2021-12-28 08:21 | Outpatient (REF) | payer MEDICAID, SELFPAY ==
[2021-12-30 22:36] LABS: Gliadin Deamidated IgA Ab <1.0 U/mL; Gliadin Deamidated IgG Ab 3.4 U/mL; Transglutaminase Ab IgG <1.0 U/mL; Transglutaminase IgA <1.0 U/mL
[2021-12-31 14:42] LABS: Immunoglobulin A 173 mg/dL (47-310)
[2022-01-02 13:47] LABS: Endomysial IgA Antibody Negative (Negative)
== END 2021-12-28 08:22 | disposition home or self-care (01) ==
LOC: HO.LAB 08:21
PROVIDERS: PCP Internal Medicine; Visit Provider Internal Medicine
DX: R19.7 Diarrhea, unspecified (principal); R63.4 Abnormal weight loss; Z83.79 Family history of other diseases of the digestive system
CPT/HCPCS: 36415; 82784; 86231; 86258; 86364

== ENCOUNTER 2022-01-13 11:29 | Day surgery (SDC) | payer MEDICAID, SELFPAY ==
[2022-01-08 13:36] VITALS: BMI 25.2
--- NOTE | 2022-01-10 13:30 | P.CONAN_ITS ---
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 Follows neurology [facility] admit 09/2021 and 10/2021 with leg weakness. Improved with IVIG, steroids hx ETOH abuse - ? [facility] Active Problems Active Problems: All Active Problems (Updated 01/08/22 @ 13:41 by Stacey Romero RN) Paresthesias (Acute) Peripheral neuropathy (Acute) Bilateral leg weakness (Acute) Muscle atrophy (Acute) Chronic lumbar radiculopathy (Acute) CIDP (chronic inflammatory demyelinating polyneuropathy) (Acute) Past Medical History Medical History Back pain Guillain-Buchanan syndrome HTN (hypertension) IBS (irritable bowel syndrome) Leg pain, bilateral Paresthesias Peripheral neuropathy Surgical History Surgical History No pertinent past surgical history Social History Social History Household Members: Family Housing: House Are you a primary home care assistant to a significant other at home: No Do you presently have visiting nurse or other home services: No Unable to assess alcohol history related to: Unknown Alcohol intake: unknown Patient Tobacco Use Status: Never used Tobacco Use of substances other than those prescribed or required for medical reasons: Yes Substance Use Type: Marijuana Substance Use Frequency: Occasionally Are you DNR?: No Advance Directives: No Advance Directives Information Provided: No Advance Directives on File: No service: No Current occupational status: unemployed Meds Allergies Allergy/AdvReac Type Severity Reaction Status Date / Time amoxicillin [AMOXICILLIN] Allergy Unknown UNKNWON Verified 01/13/22 12:59 gluten AdvReac Intermediate Stomach Verified 01/13/22 12:59 Upset Home Medications Medication Instructions Recorded Confirmed Last Taken Type acetaminophen 325 mg tablet 650 mg PO Q6H PRN 11/14/21 01/08/22 Unknown History ibuprofen 200 mg tablet 400 mg PO Q6H PRN 11/14/21 01/08/22 Unknown History multivitamin 1 tab PO DAILY 11/14/21 01/08/22 11/14/21 History morphine 15 mg tablet,extended 1 tab PO Q12H 01/08/22 01/08/22 01/13/22 07:45 History release prednisone 10 mg tablet 1 tab PO BID 01/08/22 01/08/22 01/13/22 07:45 History Exam Exam Date and Time: January 10, 2022 1330 Height,Weight and Vital Signs: Height 5 ft 5 in Weight 68.946 kg Pertinent Lab Results Pertinent Lab Results: Laboratory Tests 11/20/21 11/20/21 06:04 06:04 WBC 8.2 Hgb 9.2 L Hct 27.2 L Plt Count 269 Sodium 139 Potassium 3.4 Chloride 107 Carbon Dioxide 25 BUN 6 L Creatinine 0.65 Assessment and Plan Assessment Anesthesia Assessment: Chart Reviewed Documented by User: Dejuan Espinoza MD 01/13/22 16:19 HPI - Anesthesia Eval Consult details Narrative: 36yo F for Upper Endoscopy and Colonoscopy daily prednisone - 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 Follows neurology [facility] admit 09/2021 and 10/2021 with leg weakness. Improved with IVIG, steroids hx ETOH abuse - ? last used numbness and tingling from T10/T11 bellow , LE Weakness , UE tingling numbness . [facility] Past Medical History Medical History Back pain Guillain-Buchanan syndrome HTN (hypertension) IBS (irritable bowel syndrome) Leg pain, bilateral Paresthesias Peripheral neuropathy Functional capacity: uses cane/walker (Some times wheel chair ) Family History Family history of problems with anesthesia: No Surgical History Surgical History No pertinent past surgical history History of Problems with Anesthesia: No Social History Social History Household Members: Family Housing: House Are you a primary home care assistant to a significant other at home: No Do you presently have visiting nurse or other home services: No Unable to assess alcohol history related to: Unknown Alcohol intake: unknown Patient Tobacco Use Status: Never used Tobacco Use of substances other than those prescribed or required for medical reasons: Yes Substance Use Type: Marijuana Substance Use Frequency: Occasionally Are you DNR?: No Advance Directives: No Advance Directives Information Provided: No Advance Directives on File: No service: No Current occupational status: unemployed Meds Allergies Allergy/AdvReac Type Severity Reaction Status Date / Time amoxicillin [AMOXICILLIN] Allergy Unknown UNKNWON Verified 01/13/22 12:59 gluten AdvReac Intermediate Stomach Verified 01/13/22 12:59 Upset Home Medications Medication Instructions Recorded Confirmed Last Taken Type acetaminophen 325 mg tablet 650 mg PO Q6H PRN 11/14/21 01/08/22 Unknown History ibuprofen 200 mg tablet 400 mg PO Q6H PRN 11/14/21 01/08/22 Unknown History multivitamin 1 tab PO DAILY 11/14/21 01/08/22 11/14/21 History morphine 15 mg tablet,extended 1 tab PO Q12H 01/08/22 01/08/22 01/13/22 07:45 History release prednisone 10 mg tablet 1 tab PO BID 01/08/22 01/08/22 01/13/22 07:45 History Exam Airway Mallampati Class: II TM Dist: >3cm Neck ROM: Full Loose/Missing/Broken Teeth: Yes (Cracked teeth ) Heart: S1, S2 Lungs: b/l breath sounds Assessment and Plan Final Anesthetic Review Family History of Problems with Anesthesia: No History of Problems with Anesthesia: No NPO: Yes ASA Class: III Final Preanesthetic Review: Meds/Allgs Chart Reviewed, Consent Obtained/Reviewed and Anes Risks/Benef Reviewed Patient Risk: Intermediate Procedure Risk: Intermediate Anesthetic Plan Anesthetic Plan: MAC: Disposition: Standard PACU
[2022-01-13 12:51] VITALS: BP 132/85; PULSE 68; RESP 15; TEMP 36.8; O2SAT 96
[2022-01-13] MEDS: Lactated Ringers 1,000 ML 100 ML IVCONT (12:58)
[2022-01-13 13:28] LABS: UPreg QC Valid YES; Urine Pregnancy NEGATIVE (NEGATIVE)
[2022-01-13 15:17] VITALS: BP 98/56; PULSE 76; RESP 16; TEMP 36.1; O2SAT 98
--- NOTE | 2022-01-13 15:21 | PM.OP ---
Brief Operative Note Date of Service: 01/13/22 Pre-op diagnosis: Anemia, Rectal bleeding, Diarrhea Post-op diagnosis: other (Colon polyp, R/O microscopic colitis, R/O celiac disease, Gastritis) Procedure: EGD with biopsies, Colonoscopy to the cecum and TI with biopsies and cold snare polypectomy Surgeon: Zachariah Otero Anesthesia: MAC Was an [employer] used for this Procedure?: No Estimated blood loss (mL): 2.0 Pathology: other (A. Descending duodenum B. Gastric antrum C. Asc. colon D. Terminal ileum E. Hepatic flexure polyp F. Desc. colon) Condition: stable Disposition: PACU
[2022-01-13 15:32] VITALS: BP 115/85; PULSE 65; RESP 16; TEMP 36.1; O2SAT 99
--- NOTE | 2022-01-14 03:21 | OP_ITS ---
SURGEON: Zachariah Otero MD INDICATIONS: The patient presents for evaluation of anemia, diarrhea, rectal bleeding, weight loss, and abdominal discomfort. Full consent was obtained from her for both procedures, including risks of bleeding and perforation. PREOPERATIVE DIAGNOSIS: POSTOPERATIVE DIAGNOSIS: PROCEDURE PERFORMED: Esophagogastroduodenoscopy with biopsies, and colonoscopy to the cecum and terminal ileum with biopsies, and cold snare polypectomy. ESTIMATED BLOOD LOSS: COMPLICATIONS: ANESTHESIA: Medications used, monitored anesthesia care. ASSISTANTS: SPECIMENS: PREOPERATIVE DIAGNOSES: Anemia, diarrhea, rectal bleeding, weight loss, and abdominal pain. POSTOPERATIVE DIAGNOSES: Anemia, diarrhea, rectal bleeding, weight loss, and abdominal pain, mild gastritis, rule out celiac disease, minimal hiatal hernia, colon polyp, rule out microscopic colitis, internal hemorrhoids. DESCRIPTION OF PROCEDURE: The patient was placed in the left lateral decubitus position. The Olympus video gastroscope was passed in the posterior oropharynx and upper esophagus under direct vision. The scope was passed slowly to the distal esophagus. The gastroesophageal junction appeared normal at 38 cm. There was no sign of any esophagitis nor any Petit's esophagus. The scope entered the stomach. There was a minimal hiatal hernia. The scope was advanced to the pylorus and the duodenum was cannulated to the descending portion. The duodenum including the bulb appeared normal without mass or ulceration. Biopsies were obtained from the 2nd and 3rd portions of duodenum. The scope was withdrawn back to the stomach. The gastric antrum had some mild areas of erythema and edema, but no erosions or ulceration. There was good peristalsis. Antral biopsies were obtained. The scope was retroflexed visualizing the proximal stomach carefully, which appeared normal, without any sign of mass or ulceration. The scope was straightened and withdrawn back to the esophagus. The esophageal mucosa appeared normal. The scope was withdrawn from the patient. She was turned around for the colonoscopy. The digital rectal exam revealed no abnormalities. The Olympus video pediatric colonoscope was entered into the rectum and advanced easily to the cecum. Once in the cecum, I did identify normal-appearing cecal pouch with appendiceal orifice and a normal-appearing ileocecal valve. The terminal ileum was cannulated and appeared normal. Biopsies were obtained. The scope was withdrawn back in the colon. The entire cecum and ileocecal valve appeared normal. The scope was then slowly withdrawn assessing all mucosal surfaces carefully. Preparation was excellent. I did not visualize any sign of colitis nor angiodysplasia. In the region of the hepatic flexure, there was an approximately 6 mm polyp, which was removed with cold snare polypectomy and recovered by suction. The polypectomy site appeared clean, without any sign of residual polyp nor bleeding. I did obtain random biopsies in the ascending and descending colon. I did not visualize any other polyps. In the rectum, scope was retroflexed visualizing some small internal hemorrhoids, but no other pathology. The rectal mucosa appeared normal. The scope was straightened and withdrawn from the patient. She tolerated the procedure well and was returned to recovery area in stable condition. IMPRESSION: 1. Colon polyp. 2. Rule out microscopic colitis. 3. Rule out celiac disease. 4. Rule out gastritis. 5. Internal hemorrhoids. PLAN: The results of the pathology will be checked. If the polyp is a tubular adenoma, I would recommend a followup colonoscopy in 3 years. If it is only hyperplastic, I would recommend a followup colonoscopy in 10 years. She was advised not to use any aspirin and NSAIDs for at least 1 week. Laboratories for celiac disease were recently negative as well. I will plan to see her in followup and she will also continue to follow up with her neurologist as well. MD KHURRAM Gee/BRANDON / [id number] KENAN
== END 2022-01-13 16:03 | disposition home or self-care (01) ==
PROVIDERS: Nurse Practitioner; Visit Provider Internal Medicine
PROC: (CPT 45385; principal; 2022-01-13 12:40)
DX: K62.5 Hemorrhage of anus and rectum (principal); D64.9 Anemia, unspecified; D12.3 Benign neoplasm of transverse colon; K64.8 Other hemorrhoids; K58.9 Irritable bowel syndrome, unspecified; R63.4 Abnormal weight loss; K29.50 Unspecified chronic gastritis without bleeding; I10 Essential (primary) hypertension; G61.0 Guillain-Barre syndrome; G61.81 Chronic inflammatory demyelinating polyneuritis; Z83.79 Family history of other diseases of the digestive system; Z79.899 Other long term (current) drug therapy; Z88.0 Allergy status to penicillin
CPT/HCPCS: 45385; 45380; 43239; 81025; 88305; 88342; J2250

== ENCOUNTER 2022-02-04 15:58 | Outpatient (REF) | payer MEDICAID, SELFPAY ==
[2022-02-11 02:13] LABS: HPV mRNA E6/E7 rflx Not Detected (Not Detected)
== END 2022-02-04 15:59 | disposition home or self-care (01) ==
LOC: HO.LAB 15:58
PROVIDERS: Visit Provider Obstetrics & Gynecology
DX: Z01.419 Encounter for gynecological examination (general) (routine) without abnormal findings (principal); Z11.51 Encounter for screening for human papillomavirus (HPV)
CPT/HCPCS: 87624; 88142

== ENCOUNTER 2023-03-17 16:07 | Outpatient (REF) | payer MEDICAID, SELFPAY ==
[2023-03-17 20:41] LABS: Thyroid Stimulating Hormone 1.22 uIU/mL (0.32-4.0)
[2023-03-20 01:52] LABS: Thyroglobulin Antibodies <1 IU/mL (< or = 1); Thyroid Peroxidase Antibodies 1 IU/mL (<9)
== END 2023-03-17 16:08 | disposition home or self-care (01) ==
LOC: HO.HHCL 16:07
PROVIDERS: Visit Provider Nurse Practitioner Family
DX: G61.81 Chronic inflammatory demyelinating polyneuritis (principal)
CPT/HCPCS: 36415; 84443; 86376; 86800

== ENCOUNTER 2023-04-21 11:40 | Outpatient (REF) | payer MEDICAID, SELFPAY ==
[2023-04-21 13:06] LABS: Influenza A PCR NEGATIVE (Negative); Influenza B PCR NEGATIVE (Negative); Resp Syncy Virus RNA Qual PCR NEGATIVE (Negative); SARS COV2 PCR INHOUSE NEGATIVE (Negative)
== END 2023-04-21 11:41 | disposition home or self-care (01) ==
LOC: HO.HHCLNP 11:40
PROVIDERS: Visit Provider Registered Nurse
DX: N30.00 Acute cystitis without hematuria (principal); R52 Pain, unspecified; Z20.822 Contact with and (suspected) exposure to COVID-19
CPT/HCPCS: 0241U; 87086; 87088; 87186

== ENCOUNTER 2023-05-08 11:08 | Inpatient (IN) | payer MEDICAID, SELFPAY ==
[2023-05-08] VITALS (7 sets, daily range): BP systolic 107–139; BP diastolic 70–87; PULSE 94–116; RESP 14–18; TEMP 36.2–37.1; O2SAT 99–100; BMI 27.4
--- NOTE | ~2023-05-08 | CT_ITS ---
EXAMINATION: CT ABDOMEN AND PELVIS WITHOUT CONTRAST CLINICAL INFORMATION: Flank pain, abdominal pain COMPARISON: None available. TECHNIQUE: Multidetector volumetric imaging was performed from the superior aspect of the liver through the pubic symphysis. Sagittal and coronal reformatted images were obtained on the technologist's workstation. This CT examination was performed using dose optimization techniques as appropriate, variously including the following: *Automated exposure control *Adjustment of mA and/or kV according to patient size (this includes techniques or standardized protocols for targeted exams where dose is matched to indication/reason for exam; i.e. extremities or head) *Use of iterative reconstruction technique DLP: 453 mGy-cm FINDINGS: LUNG BASES: The visualized lung bases are unremarkable. LIVER, GALLBLADDER, AND BILIARY TREE: Low-attenuation liver suggesting fatty steatosis. Areas of fatty sparing present. No suspicious liver lesions. No biliary ductal dilatation no evidence of of radiopaque gallstones, gallbladder wall thickening, or obvious pericholecystic inflammatory changes. PANCREAS: Unremarkable. SPLEEN: Unremarkable. ADRENAL GLANDS: Unremarkable. KIDNEYS AND URETERS: No evidence of renal or ureteral calculi. No hydronephrosis. 1.4 cm hypodense lesion in the upper pole right kidney, Hounsfield measurements 11, compatible with a cyst. No follow-up is indicated. BLADDER: Nondistended limiting evaluation. GASTROINTESTINAL TRACT: Stomach is nondistended. No small or large bowel obstruction.. The large bowel is nondistended. No biliary colonic inflammatory changes. No ascites. No free air. The appendix is unremarkable. ABDOMINAL WALL: No significant hernia is appreciated. LYMPH NODES: No adenopathy seen. VASCULAR: Normal caliber aorta. PELVIC VISCERA: Unremarkable. OSSEOUS STRUCTURES: No acute or suspicious osseous abnormality. CT/CT abdomen pelvis wo IV con IMPRESSION: 1. No renal or ureteral calculi seen. No hydronephrosis. 2. Hepatic steatosis. 3. No acute intra-abdominal findings otherwise identified. Fleischner guidelines were followed.
--- NOTE | 2023-05-08 11:14 | ECG_ITS ---
Test Reason : chest tightness Blood Pressure : / mmHG Vent. Rate : 109 BPM Atrial Rate : 109 BPM P-R Int : 126 ms QRS Dur : 072 ms QT Int : 326 ms P-R-T Axes : 043 022 046 degrees QTc Int : 439 ms Sinus tachycardia Otherwise normal ECG When compared with ECG of 24-NOV-2019 10:55, No significant change was found Referred By: Generic ED Physician Electronically Signed By:SILVIA BREWSTER
--- NOTE | 2023-05-08 11:39 | ED_ITS ---
HPI - General Adult General Chief complaint: Urogenital-Female Stated complaint: kidney issues Time Seen by Provider: 05/08/23 16:24 Related Data Home Medications Medication Instructions Recorded Confirmed multivitamin 1 tab PO DAILY 11/14/21 05/08/23 cholecalciferol (vitamin D3) 25 25 mcg PO DAILY 05/08/23 05/08/23 mcg (1,000 unit) tablet gabapentin 100 mg capsule 200 mg PO BEDTIME 05/08/23 05/08/23 morphine 15 mg tablet,extended 15 mg PO BEDTIME 05/08/23 05/08/23 release Previous Rx's Medication Instructions Recorded folic acid 1 mg tablet 1 mg PO DAILY #90 tabs 11/08/21 thiamine HCl (vitamin B1) 100 mg 100 mg PO DAILY #90 tabs 11/08/21 tablet Allergies Allergy/AdvReac Type Severity Reaction Status Date / Time amoxicillin [AMOXICILLIN] Allergy Unknown UNKNWON Verified 05/08/23 11:39 gluten AdvReac Intermediate Stomach Verified 05/08/23 11:39 Upset PMFSH Past Medical History Medical History Leg pain, bilateral Back pain IBS (irritable bowel syndrome) HTN (hypertension) Guillain-[place] syndrome Peripheral neuropathy Paresthesias Surgical History No pertinent past surgical history Social History Social History Household Members: Family Housing: House Are you a primary child care sitter to a significant other at home: No Do you presently have visiting nurse or other home services: No Unable to assess alcohol history related to: Unknown Alcohol intake: unknown Patient Tobacco Use Status: Current someday Tobacco user Substance Use Type: Marijuana Advance Directives: No service: No Current occupational status: unemployed Physical Exam ED Vital Signs: Vital Signs - 24 hr 05/08/23 11:39 05/08/23 16:58 05/08/23 18:00 Temperature 97.2 F 98.3 F 98.3 F Pulse Rate 116 H 110 H 108 H Respiratory Rate 18 17 17 Blood Pressure 129/82 139/81 133/87 Pulse Oximetry 100 99 99 Oxygen Delivery Method Room Air Room Air Room Air 05/08/23 19:19 Temperature 98.1 F Pulse Rate 114 H Respiratory Rate 18 Blood Pressure 114/78 Pulse Oximetry 100 Oxygen Delivery Method Room Air BMI result Body Mass Index 27.4 Course Course Course Narrative: This is a rapid medical exam: Additional HPI, ROS, PE not included below will be deferred to primary provider. Patient is a 38-year-old female with history of peripheral neuropathy, CIDP presenting to the ED stating that several weeks ago she was treated for a UTI. States she felt better for approximately 5 days, then has begun to feel worse since. Reports feeling week, nauseated, palpitations, bilateral lower back pain. States she woke with a subjective fever last night. States urine is dark, foul smelling, has urgency and is only urinating small amounts. Suprapubic discomfort. Plan: UA, labs, EKG Medications Administered Discontinued Medications Generic Name Dose Route Start Last Admin Trade Name Freq PRN Reason Stop Dose Admin Sodium Chloride 1,000 mls @ 999 mls/hr 05/08/23 17:15 05/08/23 18:13 Ns IV 05/08/23 18:15 999 mls/hr .Q1H1M CAYLA Administration Sodium Chloride 1,000 mls @ 999 mls/hr 05/08/23 17:15 05/08/23 18:14 Ns IV 05/08/23 18:15 999 mls/hr .Q1H1M CAYLA Administration Ceftriaxone Sodium 1 gm/ 50 mls @ 100 mls/hr 05/08/23 17:03 05/08/23 18:43 Sodium Chloride IV 05/08/23 17:32 Infused ONCE ONE Infusion Sodium Chloride 100 mls @ 100 mls/hr 05/08/23 17:05 05/08/23 20:35 Ns IV 05/08/23 18:04 Infused ONCE ONE Infusion Sodium Chloride 2,244 mls @ 2,244 mls/hr 05/08/23 18:31 05/08/23 18:46 Ns 30 ml/kg infuse over 1 hr (2244 ml) 05/08/23 19:30 Not Given IV .Q1H STA Ondansetron HCl 4 mg 05/08/23 17:01 05/08/23 18:13 Ondansetron Hcl 4 Mg/2 Ml Vial IVPUSH 05/08/23 17:02 4 mg ONCE ONE Administration Pantoprazole Sodium 40 mg 05/08/23 17:00 05/08/23 18:13 Pantoprazole Sodium 40 Mg/10 Ml Vial IVPUSH 05/08/23 17:01 40 mg ONCE ONE Administration Pantoprazole Sodium 40 mg 05/08/23 19:41 05/08/23 20:11 Pantoprazole Sodium 40 Mg/10 Ml Vial IVPUSH 05/08/23 19:42 40 mg ONCE ONE Administration Medical Decision Making Lab Data 05/08/23 15:40 05/08/23 15:40 Labs: Lab Results 05/08/23 05/08/23 05/08/23 Range/Units 13:54 15:40 17:03 WBC 7.3 (4.8-10.8) X10*3/uL RBC 2.99 L (4.20-5.50) X10*6/uL Hgb 6.0 L* D (12.0-16.0) g/dl Hct 23.7 L (37.0-47.0) % MCV 79.3 L (80.0-98.0) fL MCH 20.1 L (27.0-33.0) pg MCHC 25.3 L (31.0-35.0) g/dl RDW 19.9 H (11.0-16.0) % Plt Count 326 (160-400) X10*3/uL MPV 10.9 (9.4-12.3) fL Immature Gran % (Auto) 0.5 H (0.0-0.4) % Neut % (Auto) 62.6 (45-73) % Lymph % (Auto) 26.9 (20-40) % [place] % (Auto) 9.2 (2-11) % Eos % (Auto) 0.3 (0-4) % Baso % (Auto) 0.5 (0-2) % Lymph # (Auto) 2.0 (1.2-4.9) X10*3/uL [place] # (Auto) 0.7 (0.1-1.2) X10*3/uL Eos # (Auto) 0.0 (0.0-0.4) X10*3/uL Baso # (Auto) 0.0 (0.0-0.2) X10*3/uL Abs Immat Gran (auto) 0.04 H (0.00-0.03) X10*3/uL Absolute Neuts (auto) 4.6 (2.0-8.3) x10*3/uL Absolute Nucleated RBC 0.020 H (0.0-0.012) X10*3/uL Nucleated RBC % (auto) 0.3 H (0.0-0.2) /100WBC Sodium 135 (135-145) mmol/L Potassium 3.9 (3.3-5.1) mmol/L Chloride 96 (96-108) mmol/L Carbon Dioxide 25 (22-29) mmol/L Anion Gap 18 (12-20) BUN 3 L (9-16) mg/dL Creatinine 0.77 (0.5-1.4) mg/dL Estim Creat Clear Calc 101.2 Estimated GFR > 60 Random Glucose 114 (60-115) mg/dL Lactic Acid (0.5-2.0) mmol/L Calcium 8.9 (8.4-10.2) mg/dL Total Bilirubin 2.3 H (0.0-1.0) mg/dL AST 89 H (5-31) U/L ALT 69 H (0-31) U/L Alkaline Phosphatase 205 H (39-117) U/L Total Protein 6.7 (6.5-8.0) g/dL Albumin 3.2 L (3.5-5.0) g/dL Beta HCG, Quant < 2 mIU/mL Urine Color [place] Urine Appearance Cloudy Urine pH 6.0 (5.0-9.0) Ur Specific [place] 1.020 (1.005-1.025) Urine Protein 30 (1+) H (Neg-Trace) mg/dL Urine Glucose (UA) Negative (Negative) mg/dL Urine Ketones Trace (Negative) mg/dL Urine Blood Trace (Negative) Urine Nitrite See Note (Negative) Ur Leukocyte Esterase Large (3+) H (Negative) Urine RBC >20 H (0-2) /HPF Urine WBC >50 H (0-5) /HPF Ur Squamous Epith Cells 0-2 (0-2) /HPF Urine Bacteria 4+ (None Seen) Hyaline Casts 11-20 (0-2) /LPF Stool Occult Blood NEGATIVE (NEGATIVE) Ethyl Alcohol < 10 mg/dL Blood Type Antibody Screen Crossmatch 05/08/23 Range/Units 17:58 WBC (4.8-10.8) X10*3/uL RBC (4.20-5.50) X10*6/uL Hgb (12.0-16.0) g/dl Hct (37.0-47.0) % MCV (80.0-98.0) fL MCH (27.0-33.0) pg MCHC (31.0-35.0) g/dl RDW (11.0-16.0) % Plt Count (160-400) X10*3/uL MPV (9.4-12.3) fL Immature Gran % (Auto) (0.0-0.4) % Neut % (Auto) (45-73) % Lymph % (Auto) (20-40) % [place] % (Auto) (2-11) % Eos % (Auto) (0-4) % Baso % (Auto) (0-2) % Lymph # (Auto) (1.2-4.9) X10*3/uL [place] # (Auto) (0.1-1.2) X10*3/uL Eos # (Auto) (0.0-0.4) X10*3/uL Baso # (Auto) (0.0-0.2) X10*3/uL Abs Immat Gran (auto) (0.00-0.03) X10*3/uL Absolute Neuts (auto) (2.0-8.3) x10*3/uL Absolute Nucleated RBC (0.0-0.012) X10*3/uL Nucleated RBC % (auto) (0.0-0.2) /100WBC Sodium (135-145) mmol/L Potassium (3.3-5.1) mmol/L Chloride (96-108) mmol/L Carbon Dioxide (22-29) mmol/L Anion Gap (12-20) BUN (9-16) mg/dL Creatinine (0.5-1.4) mg/dL Estim Creat Clear Calc Estimated GFR Random Glucose (60-115) mg/dL Lactic Acid 6.8 H* (0.5-2.0) mmol/L Calcium (8.4-10.2) mg/dL Total Bilirubin (0.0-1.0) mg/dL AST (5-31) U/L ALT (0-31) U/L Alkaline Phosphatase (39-117) U/L Total Protein (6.5-8.0) g/dL Albumin (3.5-5.0) g/dL Beta HCG, Quant mIU/mL Urine Color Urine Appearance Urine pH (5.0-9.0) Ur Specific [place] (1.005-1.025) Urine Protein (Neg-Trace) mg/dL Urine Glucose (UA) (Negative) mg/dL Urine Ketones (Negative) mg/dL Urine Blood (Negative) Urine Nitrite (Negative) Ur Leukocyte Esterase (Negative) Urine RBC (0-2) /HPF Urine WBC (0-5) /HPF Ur Squamous Epith Cells (0-2) /HPF Urine Bacteria (None Seen) Hyaline Casts (0-2) /LPF Stool Occult Blood (NEGATIVE) Ethyl Alcohol mg/dL Blood Type A Positive Antibody Screen NEGATIVE Crossmatch See Detail Discharge Plan Discharge Clinical Impression: Anemia, Pyelonephritis Patient Disposition: Admitted As Inpatient
[2023-05-08 14:05] LABS: Appearance Urine Cloudy; Color Urine Orange; Glucose Urine UA Negative (Negative); Leukocyte Esterase Urine Large (3+) (Negative); UMIC TRIGGER UACC YES; Urine Blood Trace (Negative); Urine Ketones Trace mg/dL (Negative); Urine Protein 30 (1+) mg/dL (Neg-Trace)
[2023-05-08 14:15] LABS: Bacteria Urine 4+ (None Seen); RBC Urine >20 /HPF (0-2); Squamous Epithelial Cell Urine 0-2 /HPF (0-2); UACC Culture Trigger YES; WBC Urine >50 /HPF (0-5)
[2023-05-08 15:54] LABS: Basophils Percent Auto 0.5 % (0-2); Eosinophils Percent Auto 0.3 % (0-4); Hematocrit 23.7 % (37.0-47.0); Imm Gran Abs Auto 0.04 X10*3/uL (0.00-0.03); Imm Gran Pct Auto 0.5 % (0.0-0.4); Lymphocytes Percent Auto 26.9 % (20-40); Mean Corpuscular HGB Conc 25.3 g/dl (31.0-35.0); Mean Corpuscular Hemoglobin 20.1 pg (27.0-33.0); Mean Corpuscular Volume 79.3 fL (80.0-98.0); Mean Platelet Volume 10.9 fL (9.4-12.3); Monocytes Absolute Auto 0.7 X10*3/uL (0.1-1.2); Monocytes Percent Auto 9.2 % (2-11); NRBC Pct Auto 0.3 /100WBC (0.0-0.2); Neutrophils Absolute Auto 4.6 x10*3/uL (2.0-8.3); Neutrophils Percent Auto 62.6 % (45-73); Platelet Count 326 X10*3/uL (160-400); Red Blood Count 2.99 X10*6/uL (4.20-5.50); Red Cell Distribution Width 19.9 % (11.0-16.0); White Blood Count 7.3 X10*3/uL (4.8-10.8)
[2023-05-08 16:02] LABS: Alanine Aminotransferase 69 U/L (0-31); Albumin Level 3.2 g/dL (3.5-5.0); Alkaline Phosphatase 205 U/L (39-117); Anion Gap 18 (12-20); Aspartate Amino Transferase 89 U/L (5-31); Bilirubin Total 2.3 mg/dL (0.0-1.0); Blood Urea Nitrogen 3 mg/dL (9-16); Calcium 8.9 mg/dL (8.4-10.2); Carbon Dioxide 25 mmol/L (22-29); Chloride 96 mmol/L (96-108); Creatinine Clr Calc Pharmacy 101.2; Estimated Glomerular Filt Rate > 60; Glucose Random 114 mg/dL (60-115); Potassium 3.9 mmol/L (3.3-5.1); Sodium 135 mmol/L (135-145); Total Protein 6.7 g/dL (6.5-8.0)
[2023-05-08 16:10] LABS: HCG Quantitative < 2 mIU/mL
--- NOTE | 2023-05-08 17:06 | ED_ITS ---
HPI - Female Genitourinary General Chief complaint: Urogenital-Female Stated complaint: kidney issues Time Seen by Provider: 05/08/23 16:24 History of Present Illness HPI Narrative: Patient is a 38-year-old female presented today with having bilateral flank pain. The pain is dull. It is associated with nausea. No fever. Patient claims she has been having rectal bleeding. It was bright red. Patient has a history of drinking alcohol. He drinks about 4 times a week. Also complaining of history of using aspirin. No NSAID use for the last 2 weeks. Last aspirin use was about 2-3 days ago. Patient complaining of generalized malaise weakness getting worse. Has a history of chronic inflammatory demyelinating polyneuropathy. Denies any chest pain. There is no diaphoresis. Feels generalized malaise. She is from home. No coughing or congestion or upper respiratory symptoms. No travel history. No leg swelling. Related Data Home Medications Medication Instructions Recorded Confirmed acetaminophen 325 mg tablet 650 mg PO Q6H PRN Pain 11/14/21 01/08/22 ibuprofen 200 mg tablet 400 mg PO Q6H PRN Pain 11/14/21 01/08/22 multivitamin 1 tab PO DAILY 11/14/21 01/08/22 morphine 15 mg tablet,extended 1 tab PO Q12H 01/08/22 01/08/22 release prednisone 10 mg tablet 1 tab PO BID 01/08/22 01/08/22 Previous Rx's Medication Instructions Recorded folic acid 1 mg tablet 1 mg PO DAILY #90 tabs 11/08/21 gabapentin 100 mg capsule 100 mg PO TID #90 caps 11/08/21 thiamine HCl (vitamin B1) 100 mg 100 mg PO DAILY #90 tabs 11/08/21 tablet Allergies Allergy/AdvReac Type Severity Reaction Status Date / Time amoxicillin [AMOXICILLIN] Allergy Unknown UNKNWON Verified 05/08/23 11:39 gluten AdvReac Intermediate Stomach Verified 05/08/23 11:39 Upset Review of Systems 2 Review of Systems: Positive flank pain positive nausea Yes all other systems are reviewed and are negative [facility] Past Medical History Medical History Back pain Guillain-[place] syndrome HTN (hypertension) IBS (irritable bowel syndrome) Leg pain, bilateral Paresthesias Peripheral neuropathy Surgical History No pertinent past surgical history Social History Social History Household Members: Family Housing: House Are you a primary youth care specialist to a significant other at home: No Do you presently have visiting nurse or other home services: No Unable to assess alcohol history related to: Unknown Alcohol intake: unknown Patient Tobacco Use Status: Current someday Tobacco user Substance Use Type: Marijuana Advance Directives: No service: No Current occupational status: unemployed Physical Exam 2 Vital Signs: Vital Signs: Last Vital Signs Temp 98.3 F 05/08/23 18:00 Pulse 108 H 05/08/23 18:00 Resp 17 05/08/23 18:00 BP 133/87 05/08/23 18:00 Pulse Ox 99 05/08/23 18:00 O2 Del Method Room Air 05/08/23 18:00 BMI result Body Mass Index 27.4 Appearance: Alert. Oriented X3. No acute distress. Eyes: Pupils equal, round and reactive to light. ENT: Pharynx normal. Neck: Normal inspection. Neck supple. No lymph nodes noted. No crepitus CVS: Normal heart rate and rhythm. Pulses normal. Normal S1 and S2 Respiratory: No respiratory distress. Breath sounds normal. No Wheezing. No rales Abdomen: Soft and nontender. No rigidity. No distention. good BS x4 Skin: Skin warm and dry. Normal skin color. Normal skin turgor. Extremities: No lower extremity edema. Neurovascular intact to all extremities. No Lacerations. No Rash Neuro: Oriented X 3. No motor deficit. No sensory deficit. Moving all extermities. No slurred speech Medications Administered Generic Name Dose Route Start Last Admin Trade Name Freq PRN Reason Stop Dose Admin Sodium Chloride 2,244 mls @ 2,244 mls/hr 05/08/23 18:31 05/08/23 18:46 Ns 30 ml/kg infuse over 1 hr (2244 ml) 05/08/23 19:30 Not Given IV .Q1H STA Discontinued Medications Generic Name Dose Route Start Last Admin Trade Name Freq PRN Reason Stop Dose Admin Sodium Chloride 1,000 mls @ 999 mls/hr 05/08/23 17:15 05/08/23 18:13 Ns IV 05/08/23 18:15 999 mls/hr .Q1H1M CAYLA Administration Sodium Chloride 1,000 mls @ 999 mls/hr 05/08/23 17:15 05/08/23 18:14 Ns IV 05/08/23 18:15 999 mls/hr .Q1H1M CAYLA Administration Ceftriaxone Sodium 1 gm/ 50 mls @ 100 mls/hr 05/08/23 17:03 05/08/23 18:13 Sodium Chloride IV 05/08/23 17:32 100 mls/hr ONCE ONE Administration Sodium Chloride 100 mls @ 100 mls/hr 05/08/23 17:05 05/08/23 18:14 Ns IV 05/08/23 18:04 100 mls/hr ONCE ONE Administration Ondansetron HCl 4 mg 05/08/23 17:01 05/08/23 18:13 Ondansetron Hcl 4 Mg/2 Ml Vial IVPUSH 05/08/23 17:02 4 mg ONCE ONE Administration Pantoprazole Sodium 40 mg 05/08/23 17:00 05/08/23 18:13 Pantoprazole Sodium 40 Mg/10 Ml Vial IVPUSH 05/08/23 17:01 40 mg ONCE ONE Administration Medical Decision Making Medical Decision Making MDM Narrative: Patient presents today with generalized malaise weakness. Having bilateral flank pain. She had a long history of alcohol use. Also a history of noticing bright red blood per rectum. Her hemoglobin came back at 6.0. This is much lower than baseline of approximately 10. Patient's LFTs are elevated including elevated bilirubin. Elevated AST greater than ALT consistent with liver disease. Most likely secondary to ETOH. 30 cc/kilos of IV fluid was started because patient has tachycardia flank pain and urinary tract infection consistent with pyelonephritis. Rocephin was used. Patient's previous cultures were reviewed. No culture was present. Patient's previous hospital record was reviewed. Patient's previous lab was reviewed. CT scan of the abdomen showed no acute evidence of kidney stone. No evidence of obstruction abscess perforation. Patient will require admission. Lactate to be repeated after 30 cc/kilos of IV fluids. At this point patient has finished approximately 1.5-2 L of fluid. 18:51 focal repeat exam for sepsis was done. Patient well appearing no distress. Given patient's low hemoglobin. Risk and benefit of transfusion explained to patient. Will transfuse patient with 1 unit of blood. Patient understood risks agreed to plan of transfusion. Patient's alcohol was negative. No acute intoxication noted. test was negative there is no -related issues. Differential Diagnosis Differential Diagnoses: The differential diagnosis associated with the presentation includes Admission/Observation Consideration of admission/observation: Escalation of care including admission/observation considered Will need admission Consult Healthcare Provider Management of the patient was discussed with: Hospitalist Lab Data MDM Lab Attestation statement: I reviewed the patient's lab results. 05/08/23 15:40 05/08/23 15:40 Labs: Lab Results 05/08/23 05/08/23 05/08/23 Range/Units 13:54 15:40 17:03 WBC 7.3 (4.8-10.8) X10*3/uL RBC 2.99 L (4.20-5.50) X10*6/uL Hgb 6.0 L* D (12.0-16.0) g/dl Hct 23.7 L (37.0-47.0) % MCV 79.3 L (80.0-98.0) fL MCH 20.1 L (27.0-33.0) pg MCHC 25.3 L (31.0-35.0) g/dl RDW 19.9 H (11.0-16.0) % Plt Count 326 (160-400) X10*3/uL MPV 10.9 (9.4-12.3) fL Immature Gran % (Auto) 0.5 H (0.0-0.4) % Neut % (Auto) 62.6 (45-73) % Lymph % (Auto) 26.9 (20-40) % [place] % (Auto) 9.2 (2-11) % Eos % (Auto) 0.3 (0-4) % Baso % (Auto) 0.5 (0-2) % Lymph # (Auto) 2.0 (1.2-4.9) X10*3/uL [place] # (Auto) 0.7 (0.1-1.2) X10*3/uL Eos # (Auto) 0.0 (0.0-0.4) X10*3/uL Baso # (Auto) 0.0 (0.0-0.2) X10*3/uL Abs Immat Gran (auto) 0.04 H (0.00-0.03) X10*3/uL Absolute Neuts (auto) 4.6 (2.0-8.3) x10*3/uL Absolute Nucleated RBC 0.020 H (0.0-0.012) X10*3/uL Nucleated RBC % (auto) 0.3 H (0.0-0.2) /100WBC Sodium 135 (135-145) mmol/L Potassium 3.9 (3.3-5.1) mmol/L Chloride 96 (96-108) mmol/L Carbon Dioxide 25 (22-29) mmol/L Anion Gap 18 (12-20) BUN 3 L (9-16) mg/dL Creatinine 0.77 (0.5-1.4) mg/dL Estim Creat Clear Calc 101.2 Estimated GFR > 60 Random Glucose 114 (60-115) mg/dL Lactic Acid (0.5-2.0) mmol/L Calcium 8.9 (8.4-10.2) mg/dL Total Bilirubin 2.3 H (0.0-1.0) mg/dL AST 89 H (5-31) U/L ALT 69 H (0-31) U/L Alkaline Phosphatase 205 H (39-117) U/L Total Protein 6.7 (6.5-8.0) g/dL Albumin 3.2 L (3.5-5.0) g/dL Beta HCG, Quant < 2 mIU/mL Urine Color [place] Urine Appearance Cloudy Urine pH 6.0 (5.0-9.0) Ur Specific [place] 1.020 (1.005-1.025) Urine Protein 30 (1+) H (Neg-Trace) mg/dL Urine Glucose (UA) Negative (Negative) mg/dL Urine Ketones Trace (Negative) mg/dL Urine Blood Trace (Negative) Urine Nitrite See Note (Negative) Ur Leukocyte Esterase Large (3+) H (Negative) Urine RBC >20 H (0-2) /HPF Urine WBC >50 H (0-5) /HPF Ur Squamous Epith Cells 0-2 (0-2) /HPF Urine Bacteria 4+ (None Seen) Hyaline Casts 11-20 (0-2) /LPF Stool Occult Blood NEGATIVE (NEGATIVE) Ethyl Alcohol < 10 mg/dL Crossmatch 05/08/23 Range/Units 17:58 WBC (4.8-10.8) X10*3/uL RBC (4.20-5.50) X10*6/uL Hgb (12.0-16.0) g/dl Hct (37.0-47.0) % MCV (80.0-98.0) fL MCH (27.0-33.0) pg MCHC (31.0-35.0) g/dl RDW (11.0-16.0) % Plt Count (160-400) X10*3/uL MPV (9.4-12.3) fL Immature Gran % (Auto) (0.0-0.4) % Neut % (Auto) (45-73) % Lymph % (Auto) (20-40) % [place] % (Auto) (2-11) % Eos % (Auto) (0-4) % Baso % (Auto) (0-2) % Lymph # (Auto) (1.2-4.9) X10*3/uL [place] # (Auto) (0.1-1.2) X10*3/uL Eos # (Auto) (0.0-0.4) X10*3/uL Baso # (Auto) (0.0-0.2) X10*3/uL Abs Immat Gran (auto) (0.00-0.03) X10*3/uL Absolute Neuts (auto) (2.0-8.3) x10*3/uL Absolute Nucleated RBC (0.0-0.012) X10*3/uL Nucleated RBC % (auto) (0.0-0.2) /100WBC Sodium (135-145) mmol/L Potassium (3.3-5.1) mmol/L Chloride (96-108) mmol/L Carbon Dioxide (22-29) mmol/L Anion Gap (12-20) BUN (9-16) mg/dL Creatinine (0.5-1.4) mg/dL Estim Creat Clear Calc Estimated GFR Random Glucose (60-115) mg/dL Lactic Acid 6.8 H* (0.5-2.0) mmol/L Calcium (8.4-10.2) mg/dL Total Bilirubin (0.0-1.0) mg/dL AST (5-31) U/L ALT (0-31) U/L Alkaline Phosphatase (39-117) U/L Total Protein (6.5-8.0) g/dL Albumin (3.5-5.0) g/dL Beta HCG, Quant mIU/mL Urine Color Urine Appearance Urine pH (5.0-9.0) Ur Specific [place] (1.005-1.025) Urine Protein (Neg-Trace) mg/dL Urine Glucose (UA) (Negative) mg/dL Urine Ketones (Negative) mg/dL Urine Blood (Negative) Urine Nitrite (Negative) Ur Leukocyte Esterase (Negative) Urine RBC (0-2) /HPF Urine WBC (0-5) /HPF Ur Squamous Epith Cells (0-2) /HPF Urine Bacteria (None Seen) Hyaline Casts (0-2) /LPF Stool Occult Blood (NEGATIVE) Ethyl Alcohol mg/dL Crossmatch See Detail Independent Interpretation I performed an independent interpretation of an: CT Scan Interpretation: My interpretation patient's CT scan of the abdomen was grossly negative for any acute evidence of obstruction abscess perforation Radiology Impression Discussion of test interpretation with radiology: I have reviewed the radiologist's reading. External Record Review External record reviewed: Inpatient record Critical Care Time Critical Care Time Critical Care Time: Yes Total Critical Care Time: 40 Attestation: I have personally provided 40 minutes of critical care time exclusive of time spent on separately billable procedures. Time includes review of lab data, radiology results, discussion with consultants, and monitoring for potential decompensation. Interventions were performed as documented above Discharge Plan Discharge Clinical Impression: Anemia, Pyelonephritis Patient Disposition: Admitted As Inpatient Prescriptions: No Action folic acid 1 mg tablet 1 mg PO DAILY Qty: 90 0RF thiamine HCl (vitamin B1) 100 mg tablet 100 mg PO DAILY Qty: 90 0RF gabapentin 100 mg capsule 100 mg PO TID Qty: 90 0RF acetaminophen 325 mg Tablet 650 mg PO Q6H PRN (Reason: Pain) ibuprofen 200 mg Tablet 400 mg PO Q6H PRN (Reason: Pain) multivitamin Tablet 1 tab PO DAILY prednisone 10 mg tablet 1 tab PO BID morphine 15 mg tablet extended release 1 tab PO Q12H
[2023-05-08 17:35] LABS: Ethanol < 10 mg/dL
--- NOTE | 2023-05-08 17:35 | PC.NURSE ---
IV ATTEMPTED X2 ASKED Nicol nichole to attempt
[2023-05-08 17:37] LABS: OBS Int Ctl Valid YES; OBS1 NEGATIVE (NEGATIVE)
[2023-05-08] MEDS: Pantoprazole Sodium 40 MG/10 ML VIAL IVPUSH ×2 (18:13→20:11)
[2023-05-08] MEDS: cefTRIAXone sodium 1 GM in 0.9 % Sodium Chloride 50 ML IV (18:13)
[2023-05-08] MEDS: ondansetron HCL 4 MG/2 ML VIAL IVPUSH (18:13)
[2023-05-08] MEDS: 0.9 % Sodium Chloride 1,000 ML 999 ML IV ×2 (18:13→18:14)
[2023-05-08 18:28] LABS: Lactic Acid 6.8 mmol/L (0.5-2.0)
--- NOTE | 2023-05-08 18:47 | PC.NURSE ---
pt received a total of 2244 ivf
--- NOTE | 2023-05-08 19:34 | PM.IMHP ---
History of Present Illness Date of Service: 05/08/23 Chief Complaint: Flank pain This is a 38-year-old female with pertinent history of CIDP, alcohol use disorder, history of GI bleed who presents to the emergency department for evaluation of flank pain. Patient states that about 1 week prior to presentation she was having burning micturition and urinary urgency. She was diagnosed with UTI by her PCP and completed 5 day course of antibiotics. Does not know the name of antibiotics. Patient states her symptoms returned and she is now having bilateral flank pain (right greater than left). It is associated with nausea and generalized fatigability. Also complains of intermittent bright red blood per rectum which is painless. Occasional dark stools with diarrhea. Patient admits chills but denies fever, chest discomfort, palpitations, shortness of breath. Admits to drinking 2-3 drinks of vodka 4-5 times per week. Never had history of alcohol withdrawal. In the emergency department, hemoglobin found to be 6 and urine consistent with UTI Review of Systems Constitutional: Constitutional: Reports chills, Reports fatigue, Reports lethargy and Reports malaise Cardiovascular: Cardiovascular: Reports no additional cardiovascular complaints Respiratory: Respiratory: Reports no additional respiratory complaints Gastrointestinal: Gastrointestinal: Reports melena, Reports hematochezia and Reports nausea Genitourinary: Genitourinary: Reports urinary urgency Endocrine: Endocrine: Reports fatigue [facility] Medical History Leg pain, bilateral Back pain IBS (irritable bowel syndrome) HTN (hypertension) Guillain-[place] syndrome Peripheral neuropathy Paresthesias Pertinent family history: No family history of early CAD Surgical History No pertinent past surgical history Social History Household Members: Family Housing: House Are you a primary respiratory care program director to a significant other at home: No Do you presently have visiting nurse or other home services: No Unable to assess alcohol history related to: Unknown Alcohol intake: unknown Patient Tobacco Use Status: Current someday Tobacco user Substance Use Type: Marijuana Advance Directives: No service: No Current occupational status: unemployed Meds Allergies Allergy/AdvReac Type Severity Reaction Status Date / Time amoxicillin [AMOXICILLIN] Allergy Unknown [place]ON Verified 05/08/23 11:39 gluten AdvReac Intermediate Stomach Verified 05/08/23 11:39 Upset Home Medications Medication Instructions Recorded Confirmed Last Taken Type acetaminophen 325 mg tablet 650 mg PO Q6H PRN Pain 11/14/21 01/08/22 Unknown History ibuprofen 200 mg tablet 400 mg PO Q6H PRN Pain 11/14/21 01/08/22 Unknown History multivitamin 1 tab PO DAILY 11/14/21 01/08/22 11/14/21 History morphine 15 mg tablet,extended 1 tab PO Q12H 01/08/22 01/08/22 01/13/22 07:45 History release prednisone 10 mg tablet 1 tab PO BID 01/08/22 01/08/22 01/13/22 07:45 History Physical Exam Vital Signs and Narrative: Vital Signs: Last Vital Signs Temp 98.1 F 05/08/23 19:19 Pulse 114 H 05/08/23 19:19 Resp 18 05/08/23 19:19 BP 114/78 05/08/23 19:19 Pulse Ox 100 05/08/23 19:19 O2 Del Method Room Air 05/08/23 19:19 BMI result Body Mass Index 27.4 Middle-aged female lying in bed in no distress Neck supple, no JVD Tachycardic with regular, S1-S2 heard Regular breath sounds bilaterally, no wheezing or crackles appreciated Abdomen with right-sided CVA tenderness Patient is awake, alert and oriented to self, place, time and person ; no focal motor deficit Psych: Normal mood No pedal edema Results Labs 05/08/23 15:40 05/08/23 15:40 Labs: Laboratory Results - last 24 hr 05/08/23 05/08/23 05/08/23 13:54 15:40 17:03 MCV 79.3 L MCH 20.1 L MCHC 25.3 L RDW 19.9 H Plt Count 326 MPV 10.9 Immature Gran % (Auto) 0.5 H Neut % (Auto) 62.6 Lymph % (Auto) 26.9 [place] % (Auto) 9.2 Eos % (Auto) 0.3 Baso % (Auto) 0.5 Lymph # (Auto) 2.0 [place] # (Auto) 0.7 Eos # (Auto) 0.0 Baso # (Auto) 0.0 Abs Immat Gran (auto) 0.04 H Absolute Neuts (auto) 4.6 Absolute Nucleated RBC 0.020 H Nucleated RBC % (auto) 0.3 H Anion Gap 18 Estim Creat Clear Calc 101.2 Estimated GFR > 60 Random Glucose 114 Lactic Acid Calcium 8.9 Total Bilirubin 2.3 H AST 89 H ALT 69 H Alkaline Phosphatase 205 H Total Protein 6.7 Albumin 3.2 L Beta HCG, Quant < 2 Urine Color [place] Urine Appearance Cloudy Urine pH 6.0 Ur Specific [place] 1.020 Urine Protein 30 (1+) H Urine Glucose (UA) Negative Urine Ketones Trace Urine Blood Trace Urine Nitrite See Note Ur Leukocyte Esterase Large (3+) H Urine RBC >20 H Urine WBC >50 H Ur Squamous Epith Cells 0-2 Urine Bacteria 4+ Hyaline Casts 11-20 Stool Occult Blood NEGATIVE Ethyl Alcohol < 10 Blood Type Antibody Screen Crossmatch 05/08/23 17:58 MCV MCH MCHC RDW Plt Count MPV Immature Gran % (Auto) Neut % (Auto) Lymph % (Auto) [place] % (Auto) Eos % (Auto) Baso % (Auto) Lymph # (Auto) [place] # (Auto) Eos # (Auto) Baso # (Auto) Abs Immat Gran (auto) Absolute Neuts (auto) Absolute Nucleated RBC Nucleated RBC % (auto) Anion Gap Estim Creat Clear Calc Estimated GFR Random Glucose Lactic Acid 6.8 H* Calcium Total Bilirubin AST ALT Alkaline Phosphatase Total Protein Albumin Beta HCG, Quant Urine Color Urine Appearance Urine pH Ur Specific [place] Urine Protein Urine Glucose (UA) Urine Ketones Urine Blood Urine Nitrite Ur Leukocyte Esterase Urine RBC Urine WBC Ur Squamous Epith Cells Urine Bacteria Hyaline Casts Stool Occult Blood Ethyl Alcohol Blood Type A Positive Antibody Screen NEGATIVE Crossmatch See Detail Imaging Radiologist's Impressions: Impressions Abdomen/Pelvis CT 05/08/23 17:17 IMPRESSION: 1. No renal or ureteral calculi seen. No hydronephrosis. 2. Hepatic steatosis. 3. No acute intra-abdominal findings otherwise identified. Fleischner guidelines were followed. Assessment and Plan (1) Pyelonephritis: Status: Acute (2) Anemia: Status: Acute Plan This is a 38-year-old female with pertinent history of CIDP, alcohol use disorder, history of GI bleed who presents to the emergency department for evaluation of flank pain. #. Clinical pyelonephritis. Will admit patient and initiate empiric IV antibiotics as she failed p.o. antibiotics for UTI. Follow blood culture and urine culture. No sepsis #. Acute GI bleed. Patient states she has a history of GI bleed and has had a colonoscopy in the past. Given IV Protonix in the ER. Resuscitated with IV crystalloids. Will keep NPO after midnight. Consulted Gastroenterology, appreciate assistance #. Acute blood loss anemia in the setting of above. 1 unit PRBC ordered in the ER. Continue to monitor #. Acute lactic acidosis. Resuscitated with IV crystalloids. Worsened in the setting of fatty liver #. Alcohol use disorder. Continue folic acid and thiamine. Monitor CIWA #. CIDP. Continue home prescription medications Med rec pending DVT prophylaxis: Mechanical Full code Admit as inpatient and will require two night minimum hospital stay for IV antibiotics. Specialist consult pending Time Spent With Patient Time: Total time managing care of this patient today ____ minutes. Quality Stroke Does the patient have a stroke diagnosis?: No VTE Prior VTE?: No VTE Risk Level:: Medical - moderate - high VTE Device Contraindication: N/A - Device Ordered VTE Drug Contraindication: Treatment Not Indicated
[2023-05-08 20:07] LABS: Reflex Lactate? Lactic Acid Added
--- NOTE | 2023-05-08 20:37 | PHA.MEDREC ---
Pharmacy Consult ? Medication Reconciliation Pharmacy has completed the medication reconciliation.
[2023-05-08 20:45] LABS: ~Lactic Acid-LAB USE ONLY 3.4 mmol/L (0.5-2.0)
--- NOTE | 2023-05-08 20:50 | PC.NURSE ---
Critical lab result received of lactic acid 3.4 [place] text sent to Dr. Pena with this information. No new orders at this time.
[2023-05-08] MEDS: Morphine Sulfate ER 15 MG TABLET.ER PO (21:57)
[2023-05-08] MEDS: Gabapentin 100 MG CAPSULE 200 MG PO (21:57)
[2023-05-08 22:32] LABS: Reflex Lactate? 2 Y
[2023-05-08 23:26] LABS: ~Lactic Acid-LAB USE ONLY 3.1 mmol/L (0.5-2.0)
[2023-05-09] VITALS (9 sets, daily range): BP systolic 117–147; BP diastolic 76–88; PULSE 80–93; RESP 18–20; TEMP 36.1–37.1; O2SAT 98–100; BMI 27.5
--- NOTE | 2023-05-09 01:07 | PC.NURSE ---
Pt aox4 resting at the bedside. No apparent distress noted. VSS. One unit of RBC's completed with no complication or reaction. Pt tolerated well. Attempt made to provide nursing report. Nurse will call the ED when ready. Pt aware of plan of care.
--- NOTE | 2023-05-09 02:05 | PC.NURSE ---
Nursing report given to med surg nurse. Pt going to room 387 and aware of plan of care.
[2023-05-09 05:47] LABS: MANUAL DIFF FLAG NO
[2023-05-09 05:52] LABS: Basophils Percent Auto 0.6 % (0-2); Eosinophils Absolute Auto 0.1 X10*3/uL (0.0-0.4); Eosinophils Percent Auto 1.4 % (0-4); Hematocrit 23.4 % (37.0-47.0); Imm Gran Abs Auto 0.05 X10*3/uL (0.00-0.03); Imm Gran Pct Auto 0.8 % (0.0-0.4); Lymphocytes Absolute Auto 2.5 X10*3/uL (1.2-4.9); Lymphocytes Percent Auto 38.6 % (20-40); Mean Corpuscular HGB Conc 26.5 g/dl (31.0-35.0); Mean Corpuscular Hemoglobin 22.1 pg (27.0-33.0); Mean Corpuscular Volume 83.6 fL (80.0-98.0); Mean Platelet Volume 11.3 fL (9.4-12.3); Monocytes Absolute Auto 0.6 X10*3/uL (0.1-1.2); NRBC Pct Auto 0.8 /100WBC (0.0-0.2); Neutrophils Absolute Auto 3.1 x10*3/uL (2.0-8.3); Neutrophils Percent Auto 49.6 % (45-73); Platelet Count 259 X10*3/uL (160-400); Red Cell Distribution Width 19.2 % (11.0-16.0); White Blood Count 6.3 X10*3/uL (4.8-10.8)
[2023-05-09 06:03] LABS: Hemoglobin 6.2 g/dl (12.0-16.0)
[2023-05-09 06:08] LABS: Anion Gap 12 (12-20); Blood Urea Nitrogen 3 mg/dL (9-16); Calcium 7.8 mg/dL (8.4-10.2); Carbon Dioxide 25 mmol/L (22-29); Chloride 106 mmol/L (96-108); Creatinine Clr Calc Pharmacy 113.1; Estimated Glomerular Filt Rate > 60; Glucose Random 93 mg/dL (60-115); Potassium 3.8 mmol/L (3.3-5.1); Sodium 139 mmol/L (135-145)
--- NOTE | 2023-05-09 08:45 | HO.PM.IMPN ---
Subjective Subjective Date of Service: 05/09/23 Interval History: f/u anemia, pyleonephritis no active bleed, feels more energetic, Physical Exam Vital Signs: Vital Signs: Last Vital Signs Temp 97 F 05/09/23 07:53 Pulse 91 05/09/23 07:53 Resp 18 05/09/23 07:53 BP 147/79 H 05/09/23 07:53 Pulse Ox 100 05/09/23 07:53 O2 Del Method Room Air 05/09/23 07:53 BMI result Body Mass Index 27.5 Const: Other: General: AO X 3, no acute distress Resp: CTA bilateral CVS: S1,S2,RRR GI: +BS, NT, no distention Skin: No rash Neuro: motor grossly intact Psych: appropriate affect Objective Data Active Medications Acetaminophen (Acetaminophen 325 Mg Tablet) 650 mg PO Q6H PRN PRN Reason: Pain, Mild (Pain Scale 1-3) Folic Acid (Folic Acid 1 Mg Tablet) 1 mg PO DAILY [facility] Gabapentin (Gabapentin 100 Mg Capsule) 200 mg PO BEDTIME [facility] Last Admin: 05/08/23 21:57 Dose: 200 mg Documented By: MITZI Ceftriaxone Sodium 1 gm/ (Sodium Chloride) 50 mls @ 100 mls/hr IV Q24H [facility] Melatonin (Melatonin 3 Mg Tablet) 6 mg PO BEDTIME PRN PRN Reason: Insomnia Morphine Sulfate (Morphine Sulfate Er 15 Mg Tablet.Er) 15 mg PO BEDTIME [facility] Last Admin: 05/08/23 21:57 Dose: 15 mg Documented By: MITZI Multivitamins/Vitamin C (Multivitamin Tablet) 1 tab PO DAILY [facility] Ondansetron HCl (Ondansetron Hcl 4 Mg/2 Ml Vial) 4 mg IVPUSH Q8H PRN PRN Reason: Nausea and Vomiting Sodium Chloride (0.9 % Sodium Chloride Flush 3 Ml Syringe) 3 ml IVFLUSH QSHIFT [facility] Last Admin: 05/09/23 01:09 Dose: Not Given Documented By: MITZI Non-Admin Reason: IV Running Thiamine HCl (Thiamine Hcl 100 Mg Tablet) 100 mg PO DAILY [facility] Vitamin D (Cholecalciferol (Vitamin D3) 25 Mcg Tablet) 25 mcg PO DAILY [facility] Labs 05/09/23 05:21 05/09/23 05:21 Labs: Laboratory Results - last 24 hr 05/08/23 05/08/23 05/08/23 13:54 15:40 17:03 MCV 79.3 L MCH 20.1 L MCHC 25.3 L RDW 19.9 H Plt Count 326 MPV 10.9 Immature Gran % (Auto) 0.5 H Neut % (Auto) 62.6 Lymph % (Auto) 26.9 [place] % (Auto) 9.2 Eos % (Auto) 0.3 Baso % (Auto) 0.5 Lymph # (Auto) 2.0 [place] # (Auto) 0.7 Eos # (Auto) 0.0 Baso # (Auto) 0.0 Abs Immat Gran (auto) 0.04 H Absolute Neuts (auto) 4.6 Absolute Nucleated RBC 0.020 H Nucleated RBC % (auto) 0.3 H Anion Gap 18 Estim Creat Clear Calc 101.2 Estimated GFR > 60 Random Glucose 114 Lactic Acid Lactic Acid F/U @ 2Hr Lactic Acid F/U @ 4Hr Calcium 8.9 Total Bilirubin 2.3 H AST 89 H ALT 69 H Alkaline Phosphatase 205 H Total Protein 6.7 Albumin 3.2 L Beta HCG, Quant < 2 Urine Color [place] Urine Appearance Cloudy Urine pH 6.0 Ur Specific [place] 1.020 Urine Protein 30 (1+) H Urine Glucose (UA) Negative Urine Ketones Trace Urine Blood Trace Urine Nitrite See Note Ur Leukocyte Esterase Large (3+) H Urine RBC >20 H Urine WBC >50 H Ur Squamous Epith Cells 0-2 Urine Bacteria 4+ Hyaline Casts 11-20 Stool Occult Blood NEGATIVE Ethyl Alcohol < 10 Blood Type Antibody Screen Crossmatch 05/08/23 05/08/23 05/08/23 17:58 20:27 23:01 MCV MCH MCHC RDW Plt Count MPV Immature Gran % (Auto) Neut % (Auto) Lymph % (Auto) [place] % (Auto) Eos % (Auto) Baso % (Auto) Lymph # (Auto) [place] # (Auto) Eos # (Auto) Baso # (Auto) Abs Immat Gran (auto) Absolute Neuts (auto) Absolute Nucleated RBC Nucleated RBC % (auto) Anion Gap Estim Creat Clear Calc Estimated GFR Random Glucose Lactic Acid 6.8 H* Lactic Acid F/U @ 2Hr 3.4 H* Lactic Acid F/U @ 4Hr 3.1 H* Calcium Total Bilirubin AST ALT Alkaline Phosphatase Total Protein Albumin Beta HCG, Quant Urine Color Urine Appearance Urine pH Ur Specific [place] Urine Protein Urine Glucose (UA) Urine Ketones Urine Blood Urine Nitrite Ur Leukocyte Esterase Urine RBC Urine WBC Ur Squamous Epith Cells Urine Bacteria Hyaline Casts Stool Occult Blood Ethyl Alcohol Blood Type A Positive Antibody Screen NEGATIVE Crossmatch See Detail 05/09/23 05:21 MCV 83.6 MCH 22.1 L MCHC 26.5 L RDW 19.2 H Plt Count 259 MPV 11.3 Immature Gran % (Auto) 0.8 H Neut % (Auto) 49.6 Lymph % (Auto) 38.6 [place] % (Auto) 9.0 Eos % (Auto) 1.4 Baso % (Auto) 0.6 Lymph # (Auto) 2.5 [place] # (Auto) 0.6 Eos # (Auto) 0.1 Baso # (Auto) 0.0 Abs Immat Gran (auto) 0.05 H Absolute Neuts (auto) 3.1 Absolute Nucleated RBC 0.050 H Nucleated RBC % (auto) 0.8 H Anion Gap 12 Estim Creat Clear Calc 113.1 Estimated GFR > 60 Random Glucose 93 Lactic Acid Lactic Acid F/U @ 2Hr Lactic Acid F/U @ 4Hr Calcium 7.8 L D Total Bilirubin AST ALT Alkaline Phosphatase Total Protein Albumin Beta HCG, Quant Urine Color Urine Appearance Urine pH Ur Specific [place] Urine Protein Urine Glucose (UA) Urine Ketones Urine Blood Urine Nitrite Ur Leukocyte Esterase Urine RBC Urine WBC Ur Squamous Epith Cells Urine Bacteria Hyaline Casts Stool Occult Blood Ethyl Alcohol Blood Type Antibody Screen Crossmatch Assessment and Plan (1) Acute blood loss anemia: Status: Acute (2) Pyelonephritis: Status: Acute (3) GI bleed: Status: Acute Plan This is a 38-year-old female with pertinent history of CIDP, alcohol use disorder, history of GI bleed who presents to the emergency department for evaluation of flank pain. #. Acuet pyelonephritis. Culture pending. Continue IV Ceftriaxone #. Acute GI bleed with acute on chronic blood loss anemia. Hemoglobin of 6 went up to 6.2 with 1 units, transfuse 1 more unit, gi consult, IV PPI, monitor h/h #. Acute lactic acidosis, NOT due sepsis. went down with IVF, likely from low oxgyen state from anemia #. Alcohol use disorder. Not withdrawing. Continue folic acid and thiamine. Monitor CIWA #. Chronic inflammatory demyelinating polyneuropathy ( CIDP). Continue home meds DVT prophylaxis: Mechanical Full code Admit as inpatient and will require two night minimum hospital stay for IV antibiotics. Specialist consult pending Time Spent With Patient Time: Total time managing care of this patient today ____ minutes. Quality Stroke Does the patient have a stroke diagnosis?: No VTE Prior VTE?: No VTE Risk Level:: Medical - moderate - high VTE Device Contraindication: N/A - Device Ordered VTE Drug Contraindication: Treatment Not Indicated
[2023-05-09] MEDS: Cholecalciferol (Vitamin D3) 25 MCG TABLET PO (09:27)
[2023-05-09] MEDS: Folic Acid 1 MG TABLET PO (09:27)
[2023-05-09] MEDS: Thiamine HCL 100 MG TABLET PO (09:27)
[2023-05-09] MEDS: Multivitamin TABLET 1 TAB PO (09:27)
[2023-05-09] MEDS: 0.9 % Sodium Chloride Flush 3 ML SYRINGE IVFLUSH ×3 (09:28→19:05)
--- NOTE | 2023-05-09 11:49 | PM.GICN ---
History of Present Illness Data of Consult Service Date: 05/09/23 Requesting physician: Diamond Pena Primary Care Provider: Kenan Cali MD HPI Reason for consult: Acute on chronic anemai 38-year-old female with past medical history of CIDP, alcohol use disorder, anemia, who presented to the hospital for flank pain and was found to have acute on chronic anemia for which Gastroenterology has been consulted. Patient reports having 2 days of lower abd pain with N/V and diarrhea. Reports passing brown/yelllow stools with red blood around it in the toilet bowel as well as clots on wiping. On arrival to the hospital, she was noted to be tachycardic with normal blood pressure. Labs were significant for hemoglobin of 6.0 down from her previous baseline of 9.2 with microcytosis. Initial lactic acid was 6.8 which has since decreased. LFTs elevated in AST greater than ALT ratio. Followed by Dr. Otero as outpatient, and had an upper endoscopy and colonoscopy last year for anemia. No H pylori. No celiac. No microscopic colitis. 8 mm tubular adenoma. Small internal hemorrhoids. On bedside eval today, only complaint is that she is starving and really wants to eat solid food. Also reports heavy etOH use over the past few months consuming 2-3 drinks of vodka most of the days of week. Vapes, no tobacco smoking. No IVDU reported. Review of Systems Review of Systems: Yes all other systems are reviewed and are negative PMFSH Past Medical History Medical History Leg pain, bilateral Back pain IBS (irritable bowel syndrome) HTN (hypertension) Guillain-Keshena syndrome Peripheral neuropathy Paresthesias Surgical History Surgical History No pertinent past surgical history Social History Social History Household Members: Family Housing: House Are you a primary day care provider to a significant other at home: No Do you presently have visiting nurse or other home services: No Unable to assess alcohol history related to: Unknown Alcohol intake: current Alcohol intake frequency: a few times a week Alcohol type: hard liquor Patient Tobacco Use Status: Current everyday Tobacco user Smoked in Last 30 Days: Yes e-Cigarette/Vaping Use: Currently Using Patient Interested in Nicotine Replacement: No Use of substances other than those prescribed or required for medical reasons: Yes Substance Use Type: Marijuana Substance Use Frequency: Occasionally Last Used Substance: Days (ago) Currently Displaying Signs/Symptoms of Drug Intoxication Withdrawal: No Any prior treatment program specific to substance use: No Have you been hit, kicked, punched, or otherwise hurt by someone within the past year? If so, by whom?: No Do you feel safe in your current relationship?: Yes Is there a partner from a previous relationship who is making you feel unsafe now?: No Are you made to feel afraid or neglected: No Advance Directives: No Do you have thoughts of harming others: None Do you have a plan to hurt others: No Plan Recently lost weight without trying: No Nutrition Risks: No Nutritional Risk Patient : No : No Poor oral hygiene: No service: No Current occupational status: unemployed Meds Allergies Allergy/AdvReac Type Severity Reaction Status Date / Time amoxicillin [AMOXICILLIN] Allergy Unknown [place] Verified 05/08/23 11:39 gluten AdvReac Intermediate Stomach Verified 05/08/23 11:39 Upset Active Medications: Current Medications Acetaminophen (Acetaminophen 325 Mg Tablet) 650 mg PO Q6H PRN PRN Reason: Pain, Mild (Pain Scale 1-3) Folic Acid (Folic Acid 1 Mg Tablet) 1 mg PO DAILY [facility] Last Admin: 05/09/23 09:27 Dose: 1 mg Gabapentin (Gabapentin 100 Mg Capsule) 200 mg PO BEDTIME [facility] Last Admin: 05/08/23 21:57 Dose: 200 mg Ceftriaxone Sodium 1 gm/ (Sodium Chloride) 50 mls @ 100 mls/hr IV Q24H [facility] Melatonin (Melatonin 3 Mg Tablet) 6 mg PO BEDTIME PRN PRN Reason: Insomnia Morphine Sulfate (Morphine Sulfate Er 15 Mg Tablet.Er) 15 mg PO BEDTIME [facility] Last Admin: 05/08/23 21:57 Dose: 15 mg Multivitamins/Vitamin C (Multivitamin Tablet) 1 tab PO DAILY [facility] Last Admin: 05/09/23 09:27 Dose: 1 tab Ondansetron HCl (Ondansetron Hcl 4 Mg/2 Ml Vial) 4 mg IVPUSH Q8H PRN PRN Reason: Nausea and Vomiting Sodium Chloride (0.9 % Sodium Chloride Flush 3 Ml Syringe) 3 ml IVFLUSH QSHIFT [facility] Last Admin: 05/09/23 09:28 Dose: 3 ml Thiamine HCl (Thiamine Hcl 100 Mg Tablet) 100 mg PO DAILY [facility] Last Admin: 05/09/23 09:27 Dose: 100 mg Vitamin D (Cholecalciferol (Vitamin D3) 25 Mcg Tablet) 25 mcg PO DAILY [facility] Last Admin: 05/09/23 09:27 Dose: 25 mcg Home Medications Medication Instructions Recorded Confirmed Last Taken Type multivitamin 1 tab PO DAILY 11/14/21 05/08/23 2 Days Ago History ~05/06/23 cholecalciferol (vitamin D3) 25 25 mcg PO DAILY 05/08/23 05/08/23 2 Days Ago History mcg (1,000 unit) tablet ~05/06/23 gabapentin 100 mg capsule 200 mg PO BEDTIME 05/08/23 05/08/23 2 Days Ago History ~05/06/23 morphine 15 mg tablet,extended 15 mg PO BEDTIME 05/08/23 05/08/23 2 Days Ago History release ~05/06/23 Physical Exam Vital Signs: Vital Signs: Last Vital Signs Temp 97 F 05/09/23 11:39 Pulse 80 05/09/23 11:39 Resp 18 05/09/23 11:39 BP 127/87 05/09/23 11:39 Pulse Ox 100 05/09/23 07:53 O2 Del Method Room Air 05/09/23 07:53 BMI result Body Mass Index 27.5 Gen appear: No acute distress, well nourished HEENT: no icterus, no cervical lymphadenopathy Chest: No overt resp distress CVS: S1/S2, regular Abd: soft, nontender, nondistended Psych: Stable affect, answering questions appropriately Neuro: A/Ox3 noted to move all extremities spontaneously Ext: no peripheral edema Results Labs 05/09/23 05:21 05/09/23 05:21 Labs: Short CBC 05/08/23 05/09/23 Range/Units 15:40 05:21 WBC 7.3 6.3 (4.8-10.8) X10*3/uL Hgb 6.0 L* D 6.2 L* (12.0-16.0) g/dl Hct 23.7 L 23.4 L (37.0-47.0) % Plt Count 326 259 (160-400) X10*3/uL BMP 05/08/23 05/09/23 15:40 05:21 Sodium 135 139 Potassium 3.9 3.8 Chloride 96 106 Carbon Dioxide 25 25 BUN 3 L 3 L Creatinine 0.77 0.69 Calcium 8.9 7.8 L D Liver Function 05/08/23 Range/Units 15:40 Total Bilirubin 2.3 H (0.0-1.0) mg/dL AST 89 H (5-31) U/L ALT 69 H (0-31) U/L Alkaline Phosphatase 205 H (39-117) U/L Albumin 3.2 L (3.5-5.0) g/dL Urine 05/08/23 Range/Units 13:54 Urine Color [place] Urine Appearance Cloudy Urine pH 6.0 (5.0-9.0) Ur Specific [place] 1.020 (1.005-1.025) Urine Protein 30 (1+) H (Neg-Trace) mg/dL Urine Glucose (UA) Negative (Negative) mg/dL Assessment and Plan (1) Acute on chronic anemia: Status: Acute (2) Elevated LFTs: Status: Acute (3) Alcohol use: Status: Acute Plan Had bidirectional endoscopy last year however given ongoing worsening anemia requiring PRBC transfusion will set her up for EGD/flex sig. If that is negative, low threshold to proceed with small bowel evaluation. In terms of LFTs, pattern suggestive of etOH use related hepatocellular injury. Non-con CT with etOH related fatty liver but otherwise no gross abnormalities. Recommendations: - Maintain x2 peripheral IVs at all times - Transfuse for goal Hb at least 7 - Iron studies added on - Can have regular diet today. Clears tomorrow - NPO after MN thursday night for EGD and flex sig 05/11 tentatively - Monitor for etOH withdrawal and CIWA protocol as needed Thank you for allowing me to participate in her care. Please do not hesitate to reach out for any questions or concerns. Time Spent With Patient Time: Total time managing care of this patient today ____ minutes. Procedures Date of Service Date of Service: 05/09/23
[2023-05-09 12:33] LABS: Iron 18 mcg/dL (30-160); Percent Iron Saturation 7 % (15-50); Total Iron Binding Capacity 242 mcg/dL (228-428); Unsaturated Iron Binding 224 ug/dL
[2023-05-09 12:46] LABS: Ferritin 22 ng/mL (10-122)
[2023-05-09] MEDS: cefTRIAXone sodium 1 GM in 0.9 % Sodium Chloride 50 ML IV (18:24)
[2023-05-09] MEDS: Gabapentin 100 MG CAPSULE 200 MG PO (20:05)
[2023-05-09] MEDS: Morphine Sulfate ER 15 MG TABLET.ER PO (20:06)
[2023-05-10] VITALS (7 sets, daily range): BP systolic 122–149; BP diastolic 77–93; PULSE 73–84; RESP 17–20; TEMP 36–36.7; O2SAT 95–100
[2023-05-10 07:47] LABS: Hematocrit 37.6 % (37.0-47.0); Mean Corpuscular HGB Conc 29.3 g/dl (31.0-35.0); Mean Corpuscular Hemoglobin 25.9 pg (27.0-33.0); Mean Corpuscular Volume 88.7 fL (80.0-98.0); Mean Platelet Volume 11.2 fL (9.4-12.3); NRBC Pct Auto 0.3 /100WBC (0.0-0.2); Platelet Count 230 X10*3/uL (160-400); Red Blood Count 4.24 X10*6/uL (4.20-5.50); Red Cell Distribution Width 18.6 % (11.0-16.0); White Blood Count 6.1 X10*3/uL (4.8-10.8)
--- NOTE | 2023-05-10 08:46 | MHC.CM.PN ---
PT REPORTS SHE LIVES WITH HER PARENTS AND HER CHILDREN SHE REPORTS SHE IS INDEPENDENT WITH CARE SHE USES A CANE TO AMBULATE AND NO HOME SERVICES SHE HAS A HCP ON FILE PCP: SUPA GUZMAN DCP: HOME NO SERVICES VIA FAMILY TRANSPORT
[2023-05-10] MEDS: 0.9 % Sodium Chloride Flush 3 ML SYRINGE IVFLUSH ×3 (08:50→21:43)
[2023-05-10] MEDS: Cholecalciferol (Vitamin D3) 25 MCG TABLET PO (08:50)
[2023-05-10] MEDS: Multivitamin TABLET 1 TAB PO (08:50)
[2023-05-10] MEDS: Folic Acid 1 MG TABLET PO (08:50)
[2023-05-10] MEDS: Thiamine HCL 100 MG TABLET PO (08:50)
--- NOTE | 2023-05-10 08:58 | P.PNIM_ITS ---
Subjective Subjective Date of Service: 05/10/23 Interval History: f/u on gib, anemia and acute pyelonephritis, no fever, no flank pain, h/h improved Physical Exam 2 Vital Signs: Vital Signs: Last Vital Signs Temp 97.2 F 05/10/23 07:40 Pulse 84 05/10/23 07:40 Resp 18 05/10/23 07:40 BP 149/90 H 05/10/23 07:40 Pulse Ox 98 05/10/23 07:40 O2 Del Method Room Air 05/10/23 07:40 BMI result Body Mass Index 27.5 Const: Other: General: AO X 3, no acute distress Resp: CTA bilateral CVS: S1,S2,RRR GI: +BS, NT, no distention, no flank tenderness Skin: No rash Neuro: motor grossly intact Psych: appropriate affect Objective Data Active Medications Acetaminophen (Acetaminophen 325 Mg Tablet) 650 mg PO Q6H PRN PRN Reason: Pain, Mild (Pain Scale 1-3) Folic Acid (Folic Acid 1 Mg Tablet) 1 mg PO DAILY [facility] Last Admin: 05/10/23 08:50 Dose: 1 mg Documented By: JOLYNN Gabapentin (Gabapentin 100 Mg Capsule) 200 mg PO BEDTIME [facility] Last Admin: 05/09/23 20:05 Dose: 200 mg Documented By: JUANJO Ceftriaxone Sodium 1 gm/ (Sodium Chloride) 50 mls @ 100 mls/hr IV Q24H [facility] Last Infusion: 05/09/23 18:59 Dose: Infused Documented By: JUANJO Melatonin (Melatonin 3 Mg Tablet) 6 mg PO BEDTIME PRN PRN Reason: Insomnia Morphine Sulfate (Morphine Sulfate Er 15 Mg Tablet.Er) 15 mg PO BEDTIME [facility] Last Admin: 05/09/23 20:06 Dose: 15 mg Documented By: JUANJO Multivitamins/Vitamin C (Multivitamin Tablet) 1 tab PO DAILY [facility] Last Admin: 05/10/23 08:50 Dose: 1 tab Documented By: JOLYNN Ondansetron HCl (Ondansetron Hcl 4 Mg/2 Ml Vial) 4 mg IVPUSH Q8H PRN PRN Reason: Nausea and Vomiting Sodium Chloride (0.9 % Sodium Chloride Flush 3 Ml Syringe) 3 ml IVFLUSH QSHIFT [facility] Last Admin: 05/10/23 08:50 Dose: 3 ml Documented By: JOLYNN Thiamine HCl (Thiamine Hcl 100 Mg Tablet) 100 mg PO DAILY [facility] Last Admin: 05/10/23 08:50 Dose: 100 mg Documented By: JOLYNN Vitamin D (Cholecalciferol (Vitamin D3) 25 Mcg Tablet) 25 mcg PO DAILY [facility] Last Admin: 05/10/23 08:50 Dose: 25 mcg Documented By: JOLYNN Labs 05/10/23 07:37 05/09/23 05:21 Labs: Laboratory Results - last 24 hr 05/08/23 05/09/23 05/10/23 17:58 05:21 07:37 MCV 88.7 D MCH 25.9 L MCHC 29.3 L RDW 18.6 H Plt Count 230 MPV 11.2 Absolute Nucleated RBC 0.020 H Nucleated RBC % (auto) 0.3 H Iron 18 L TIBC 242 % Saturation 7 L Unsat Iron Binding 224 Ferritin 22 Blood Type A Positive Antibody Screen NEGATIVE Crossmatch See Detail Microbiology Microbiology Results: Microbiology 05/08/23 Unknown Urine Culture - Final Urine clean catch - Urine medina top Escherichia coli 05/08/23 17:58 Blood Culture - Preliminary Blood - Venous No growth after 24 hours. 05/08/23 17:58 Blood Culture - Preliminary Blood - Venous No growth after 24 hours. Assessment and Plan (1) Acute blood loss anemia: Status: Acute (2) Pyelonephritis: Status: Acute (3) GI bleed: Status: Acute Plan This is a 38-year-old female with pertinent history of CIDP, alcohol use disorder, history of GI bleed who presents to the emergency department for evaluation of flank pain. # Acuet pyelonephritis, culture = e.coli, sensitive to ceftriaxone, at discharge change to Ceftin or Cefadroxi for total 10 daysl # Acute GI bleed with acute on chronic blood loss anemia. Hemoglobin of 6 went up to 11 after 2 units, no active bleed, for EGD and Flex sig tomorrow, clear liquid diet + Enema today, NPO after midnigh #Acute lactic acidosis, NOT due sepsis. went down with IVF, likely from low oxgyen state from anemia # Alcohol use disorder. Not withdrawing. Continue folic acid and thiamine. Monitor CIWA # Chronic inflammatory demyelinating polyneuropathy ( CIDP). Continue home meds DVT prophylaxis: Mechanical Full code Admit as inpatient and will require two night minimum hospital stay for IV antibiotics. Specialist consult pending Time Spent With Patient Time: Total time managing care of this patient today ____ minutes. Quality Stroke Does the patient have a stroke diagnosis?: No VTE Prior VTE?: No VTE Risk Level:: Medical - moderate - high VTE Device Contraindication: N/A - Device Ordered VTE Drug Contraindication: Treatment Not Indicated
[2023-05-10] MEDS: cefTRIAXone sodium 1 GM in 0.9 % Sodium Chloride 50 ML IV (17:31)
[2023-05-10] MEDS: Sodium Phosphate,Mono-Dibasic 133 ML ENEMA PR (18:37)
[2023-05-10] MEDS: Gabapentin 100 MG CAPSULE 200 MG PO (21:43)
[2023-05-10] MEDS: Morphine Sulfate ER 15 MG TABLET.ER PO (21:43)
[2023-05-11 04:00] VITALS: BP 123/82; PULSE 76; RESP 18; TEMP 36.1; O2SAT 100
[2023-05-11 07:43] VITALS: BP 145/93; PULSE 73; RESP 18; TEMP 36.4; O2SAT 100
[2023-05-11 08:57] LABS: Hematocrit 36.6 % (37.0-47.0); Hemoglobin 10.5 g/dl (12.0-16.0); Mean Corpuscular HGB Conc 28.7 g/dl (31.0-35.0); Mean Corpuscular Hemoglobin 24.9 pg (27.0-33.0); Mean Corpuscular Volume 86.9 fL (80.0-98.0); Mean Platelet Volume 11.3 fL (9.4-12.3); Platelet Count 241 X10*3/uL (160-400); Red Blood Count 4.21 X10*6/uL (4.20-5.50); Red Cell Distribution Width 18.7 % (11.0-16.0); White Blood Count 4.6 X10*3/uL (4.8-10.8)
[2023-05-11] MEDS: 0.9 % Sodium Chloride Flush 3 ML SYRINGE IVFLUSH ×2 (09:23→15:06)
--- NOTE | 2023-05-11 11:38 | P.DS_ITS ---
DS: Providers Provider Date of Service: 05/11/23 Date of admission: 05/08/23 19:33 Primary care physician: Kenan Cali MD Consults: 05/08/23 19:33 Consult to Gastroenterology Routine Consulting Provider: Silvia Puga Reason for consultation: ?GI bleed DS: Diagnosis Discharge Diagnosis (1) Acute blood loss anemia: Status: Resolved (2) Pyelonephritis: Status: Resolved (3) GI bleed: Status: Resolved DS: Summary Hospital Course Hospital Course: Chief Complaint: Flank pain This is a 38-year-old female with pertinent history of CIDP, alcohol use disorder, history of GI bleed who presents to the emergency department for evaluation of flank pain. Patient states that about 1 week prior to presentat ion she was having burning micturition and urinary urgency. She was diagnosed with UTI by her PCP and completed 5 day course of antibiotics. Does not know the name of antibiotics. Patient states her symptoms returned and she is now having bilateral flank pain (right greater than left). It is associated with nausea and generalized fatigability. Also complains of intermittent bright red blood per rectum which is painless. Occasional dark stools with diarrhea. Patient admits chills but denies fever, chest discomfort, palpitations, shortness of breath. Admits to drinking 2-3 drinks of vodka 4-5 times per week. Never had history of alcohol withdrawal. In the emergency department, hemoglobin found to be 6 and urine consistent with UTI Hospital course: # Acuet pyelonephritis, culture = e.coli, sensitive to ceftriaxone, she was treated with Ceftriaxone but developped a rash likely related to it and therefore changing Abx to Levquin for total of 10 days # Acute GI bleed with acute on chronic blood loss anemia. Hemoglobin of 6 on presenation went up to 11 after 3 units, 10 today 05/11; no active bleed. She was evaluated by Dr. Puga and is had EGD and Flex by Dr. Christiansen with the following findings and recommendations: Endoscopy Findings: gastritis esophagitis Sigmoidoscopy Findings: internal hemorrhoids diverticulosis Plan: Await Pathology results High fiber diet leaflet avoid straining at stool, epsom salts and sitz bath, anusol supps or cream surgical consult if needed avoid alcohol #Acute lactic acidosis, NOT due sepsis. went down with IVF from 6.8 to 3.1 likely from low oxgyen state from anemia # Alcohol use disorder. Not withdrawing. Continue folic acid and thiamine. Monitor CIWA, alcohol cessation discussed with pt # Chronic inflammatory demyelinating polyneuropathy ( CIDP). Continue home meds Time Spent with Patient Time attestation: Total time managing care of this patient today ____ minutes. Discharge coordination time: Greater than 30 minutes Quality: Safe Use of Opioids Does Pt have an Active Cancer Diagnosis on the Problem List?: No Quality: Stroke Does the patient have a stroke diagnosis?: No Physical Exam Vital Signs: Vital Signs: Last Vital Signs Temp 97.5 F 05/11/23 07:43 Pulse 73 05/11/23 07:43 Resp 18 05/11/23 07:43 BP 145/93 H 05/11/23 07:43 Pulse Ox 100 05/11/23 07:43 O2 Del Method Room Air 05/11/23 07:43 BMI result Body Mass Index 27.5 DS: Data Data Completed and Pending Completed studies during hospitalization [Text1]: Procedures Drainage of Spinal Canal, Percutaneous Approach, Diagnostic (11/14/21) Fluoroscopy of Spinal Cord (11/14/21) Labs on day of discharge: Laboratory Results - last 24 hr 05/11/23 08:20 WBC 4.6 L RBC 4.21 Hgb 10.5 L Hct 36.6 L MCV 86.9 MCH 24.9 L MCHC 28.7 L RDW 18.7 H Plt Count 241 MPV 11.3 Absolute Nucleated RBC 0.000 Nucleated RBC % (auto) 0.0 Preliminary micro results at discharge 05/08/23 17:58 Blood Culture - Preliminary Blood - Venous No growth after 48 hours. 05/08/23 17:58 Blood Culture - Preliminary Blood - Venous No growth after 48 hours. Discharge Plan Discharge Anticipated Discharge Date/Time: 05/11/23 11:42 Patient Disposition: Home, Self-Care Discharge Diagnosis: acute pyelonephritis, anemia Referrals: Kenan Cali MD [Primary Care Provider] - 1 Week Discharge Medications: New levofloxacin 500 mg tablet 500 mg PO DAILY 6 Days Qty: 6 0RF hydrocortisone acetate [Anusol-HC] 25 mg suppository 25 mg [place] BEDTIME Qty: 24 0RF Continued folic acid 1 mg tablet 1 mg PO DAILY Qty: 90 0RF thiamine HCl (vitamin B1) 100 mg tablet 100 mg PO DAILY Qty: 90 0RF multivitamin Tablet 1 tab PO DAILY morphine 15 mg tablet extended release 15 mg PO BEDTIME gabapentin 100 mg capsule 200 mg PO BEDTIME cholecalciferol (vitamin D3) 25 mcg (1,000 unit) tablet 25 mcg PO DAILY Discharge Orders: Discharge Order (Routine); Ordered 05/11/23 Ordered By: Alli Norwood Diet: Advance to usual diet Activity on Discharge: As tolerated Stand Alone Forms: Patient Portal Discharge page Care Plan Goals: recovery from pyelonephritis Health Concerns: acute pyelonephritis anemia gi bleed gastritis hemorrhoid Plan of Treatment: take levaquin for UTI and Pyelonephritis Endoscopy Findings: gastritis esophagitis Sigmoidoscopy Findings: internal hemorrhoids diverticulosis Plan: Await Pathology results High fiber diet leaflet avoid straining at stool, epsom salts and sitz bath, anusol supps or cream surgical consult if needed in the future if needed avoid alcohol Assessment: as above Discharge Date/Time: 05/11/23 18:41
[2023-05-11 12:26] VITALS: BP 134/92; PULSE 62; RESP 20; TEMP 36.8; O2SAT 98
--- NOTE | 2023-05-11 12:50 | MHC.SHP ---
Pre-Procedural Eval Section A Date of Service: 05/11/23 The patient is an INPATIENT: Yes The History & Physical has been completed within 30 days and I have reviewed it.: Yes Section B Chief Complaint: Flank pain Allergies: Allergies Allergy/AdvReac Type Severity Reaction Status Date / Time amoxicillin [AMOXICILLIN] Allergy Unknown UNKNWON Verified 05/08/23 11:39 gluten AdvReac Intermediate Stomach Verified 05/08/23 11:39 Upset Plan Diagnosis/Plan: Unchanged I have reviewed the history and physical and performed a pertinent physical examination on my patient. No changes have occurred unless specified. Time Spent With Patient Time: Total time managing care of this patient today ____ minutes.
--- NOTE | 2023-05-11 12:51 | W.PM.OPN ---
Operative Note Operative Note Date of Service: 05/11/23 Narrative: Operative Information Procedure Description: EGD, Sigmoidoscopy Indication: rectal bleeding, anemia Anesthesia: MAC FLEXIBLE TRANSORAL UPPER GASTROINTESTINAL ENDOSCOPY AND COLONOSCOPY PROCEDURE NOTE UPPER ENDOSCOPY Consent: Indications for the procedure and potential complications of bleeding, perforation, reaction to medications and missed diagnosis were discussed with the patient and informed consent was obtained. Instrument: Olympus GIF H 190 J mid size upper endoscope Monitoring: Vital signs and clinical assessment, continuous EKG monitoring, Pulse oximetry, Carbon Dioxide monitoring and blood pressure monitoring were done throughout the procedure. Procedure: The patient was placed in the left lateral decubitis position and pre-procedure medications were administered and a bite block was placed. The endoscope was inserted into the mouth and advanced under direct vision to the third part of duodenum. A careful inspection was made as the upper endoscope was withdrawn including a retroflexed examination of the proximal stomach; Findings and interventions are described below. Findings: Larynx:normal Esophagus: GE junction at 38 cm, diaphragm hiatus at 38 cm, midl esophagitis, bx taken from GEJ and distal esophagus Stomach: Patchy erythema with scarring. Biopsies were obtained. Grade 2 flap valve on retroflexed examination of the cardia. Duodenum: Normal bulb and descending duodenum, bx taken Intervention: Biopsies as noted above Patient was then turned for sigmoidoscopy with same scope as above Mild diverticulosis noted in sigmoid Large inflammed internal hemorrhoids, grade II noted on retroflexion No active bleeding seen Impression and Post Procedure Diagnosis: Endoscopy Findings: gastritis esophagitis Sigmoidoscopy Findings: internal hemorrhoids diverticulosis Plan: Await Pathology results High fiber diet leaflet avoid straining at stool, epsom salts and sitz bath, anusol supps or cream surgical consult if needed avoid alcohol Above findings were reviewed with the patient and relevant handouts were provided if indicated.
--- NOTE | 2023-05-11 13:09 | P.CONAN_ITS ---
HPI - Anesthesia Eval Consult details Narrative: for upper endo and sigmoidoscopy PMFSH Active Problems Active Problems: All Active Problems (Updated 05/09/23 @ 13:13 by Silvia Puga MD) Alcohol use (Acute) Elevated LFTs (Acute) Acute on chronic anemia (Acute) GI bleed (Acute) Acute blood loss anemia (Acute) Pyelonephritis (Acute) Anemia (Acute) Well woman exam (Acute) Paresthesias (Acute) Peripheral neuropathy (Acute) Bilateral leg weakness (Acute) Muscle atrophy (Acute) Chronic lumbar radiculopathy (Acute) CIDP (chronic inflammatory demyelinating polyneuropathy) (Acute) Past Medical History Medical History Leg pain, bilateral Back pain IBS (irritable bowel syndrome) HTN (hypertension) Guillain-Ajo syndrome Peripheral neuropathy Paresthesias Family History Family history of problems with anesthesia: No Surgical History Surgical History No pertinent past surgical history History of Problems with Anesthesia: No Social History Social History Household Members: Family Housing: House Are you a primary day care aide to a significant other at home: No Do you presently have visiting nurse or other home services: No Unable to assess alcohol history related to: Unknown Alcohol intake: current Alcohol intake frequency: holidays/special occasions only Alcohol type: hard liquor Patient Tobacco Use Status: Former Tobacco user Smoked in Last 30 Days: Yes e-Cigarette/Vaping Use: Currently Using Patient Interested in Nicotine Replacement: No Use of substances other than those prescribed or required for medical reasons: Yes Substance Use Type: Marijuana Substance Use Frequency: Occasionally Last Used Substance: Days (ago) Currently Displaying Signs/Symptoms of Drug Intoxication Withdrawal: No Any prior treatment program specific to substance use: No Have you been hit, kicked, punched, or otherwise hurt by someone within the past year? If so, by whom?: No Do you feel safe in your current relationship?: Yes Is there a partner from a previous relationship who is making you feel unsafe now?: No Are you made to feel afraid or neglected: No Are you DNR?: No Advance Directives: No Do you have thoughts of harming others: None Do you have a plan to hurt others: No Plan Recently lost weight without trying: No Nutrition Risks: No Nutritional Risk Patient : No : No Poor oral hygiene: No service: No Current occupational status: unemployed Meds Allergies Allergy/AdvReac Type Severity Reaction Status Date / Time amoxicillin [AMOXICILLIN] Allergy Unknown UNKNWON Verified 05/08/23 11:39 gluten AdvReac Intermediate Stomach Verified 05/08/23 11:39 Upset Active Medications: Current Medications Acetaminophen (Acetaminophen 325 Mg Tablet) 650 mg PO Q6H PRN PRN Reason: Pain, Mild (Pain Scale 1-3) Folic Acid (Folic Acid 1 Mg Tablet) 1 mg PO DAILY [facility] Last Admin: 05/11/23 08:42 Dose: Not Given Gabapentin (Gabapentin 100 Mg Capsule) 200 mg PO BEDTIME [facility] Last Admin: 05/10/23 21:43 Dose: 200 mg Melatonin (Melatonin 3 Mg Tablet) 6 mg PO BEDTIME PRN PRN Reason: Insomnia Morphine Sulfate (Morphine Sulfate Er 15 Mg Tablet.Er) 15 mg PO BEDTIME [facility] Last Admin: 05/10/23 21:43 Dose: 15 mg Multivitamins/Vitamin C (Multivitamin Tablet) 1 tab PO DAILY [facility] Last Admin: 05/11/23 08:42 Dose: Not Given Ondansetron HCl (Ondansetron Hcl 4 Mg/2 Ml Vial) 4 mg IVPUSH Q8H PRN PRN Reason: Nausea and Vomiting Sodium Chloride (0.9 % Sodium Chloride Flush 3 Ml Syringe) 3 ml IVFLUSH QSHIFT [facility] Last Admin: 05/11/23 09:23 Dose: 3 ml Thiamine HCl (Thiamine Hcl 100 Mg Tablet) 100 mg PO DAILY [facility] Last Admin: 05/11/23 08:42 Dose: Not Given Vitamin D (Cholecalciferol (Vitamin D3) 25 Mcg Tablet) 25 mcg PO DAILY [facility] Last Admin: 05/11/23 08:42 Dose: Not Given Home Medications Medication Instructions Recorded Confirmed Last Taken Type multivitamin 1 tab PO DAILY 11/14/21 05/08/23 2 Days Ago History ~05/06/23 cholecalciferol (vitamin D3) 25 25 mcg PO DAILY 05/08/23 05/08/23 2 Days Ago History mcg (1,000 unit) tablet ~05/06/23 gabapentin 100 mg capsule 200 mg PO BEDTIME 05/08/23 05/08/23 2 Days Ago History ~05/06/23 morphine 15 mg tablet,extended 15 mg PO BEDTIME 05/08/23 05/08/23 2 Days Ago History release ~05/06/23 Exam Exam Date and Time: May 11, 2023 1309 Height,Weight and Vital Signs: Height 5 ft 5 in Weight 75 kg Last Vital Signs Temp 98.3 F 05/11/23 12:26 Pulse 62 05/11/23 12:26 Resp 20 05/11/23 12:26 BP 134/92 H 05/11/23 12:26 Pulse Ox 98 05/11/23 12:26 O2 Del Method Room Air 05/11/23 12:26 Pertinent Lab Results Pertinent Lab Results: Laboratory Tests 05/08/23 05/08/23 05/08/23 13:54 15:40 17:03 WBC 7.3 RBC 2.99 L Hgb 6.0 L* D Hct 23.7 L MCV 79.3 L MCH 20.1 L MCHC 25.3 L RDW 19.9 H Plt Count 326 MPV 10.9 Immature Gran % (Auto) 0.5 H Neut % (Auto) 62.6 Lymph % (Auto) 26.9 [place] % (Auto) 9.2 Eos % (Auto) 0.3 Baso % (Auto) 0.5 Lymph # (Auto) 2.0 [place] # (Auto) 0.7 Eos # (Auto) 0.0 Baso # (Auto) 0.0 Abs Immat Gran (auto) 0.04 H Absolute Neuts (auto) 4.6 Absolute Nucleated RBC 0.020 H Nucleated RBC % (auto) 0.3 H Sodium 135 Potassium 3.9 Chloride 96 Carbon Dioxide 25 Anion Gap 18 BUN 3 L Creatinine 0.77 Estim Creat Clear Calc 101.2 Estimated GFR > 60 Random Glucose 114 Lactic Acid Lactic Acid F/U @ 2Hr Lactic Acid F/U @ 4Hr Calcium 8.9 Iron TIBC % Saturation Unsat Iron Binding Ferritin Total Bilirubin 2.3 H AST 89 H ALT 69 H Alkaline Phosphatase 205 H Total Protein 6.7 Albumin 3.2 L Beta HCG, Quant < 2 Urine Color Blount Urine Appearance Cloudy Urine pH 6.0 Ur Specific Donner 1.020 Urine Protein 30 (1+) H Urine Glucose (UA) Negative Urine Ketones Trace Urine Blood Trace Urine Nitrite See Note Ur Leukocyte Esterase Large (3+) H Urine RBC >20 H Urine WBC >50 H Ur Squamous Epith Cells 0-2 Urine Bacteria 4+ Hyaline Casts 11-20 Stool Occult Blood NEGATIVE Ethyl Alcohol < 10 Blood Type Antibody Screen Crossmatch 05/08/23 05/08/23 05/08/23 17:58 20:27 23:01 WBC RBC Hgb Hct MCV MCH MCHC RDW Plt Count MPV Immature Gran % (Auto) Neut % (Auto) Lymph % (Auto) [place] % (Auto) Eos % (Auto) Baso % (Auto) Lymph # (Auto) [place] # (Auto) Eos # (Auto) Baso # (Auto) Abs Immat Gran (auto) Absolute Neuts (auto) Absolute Nucleated RBC Nucleated RBC % (auto) Sodium Potassium Chloride Carbon Dioxide Anion Gap BUN Creatinine Estim Creat Clear Calc Estimated GFR Random Glucose Lactic Acid 6.8 H* Lactic Acid F/U @ 2Hr 3.4 H* Lactic Acid F/U @ 4Hr 3.1 H* Calcium Iron TIBC % Saturation Unsat Iron Binding Ferritin Total Bilirubin AST ALT Alkaline Phosphatase Total Protein Albumin Beta HCG, Quant Urine Color Urine Appearance Urine pH Ur Specific Donner Urine Protein Urine Glucose (UA) Urine Ketones Urine Blood Urine Nitrite Ur Leukocyte Esterase Urine RBC Urine WBC Ur Squamous Epith Cells Urine Bacteria Hyaline Casts Stool Occult Blood Ethyl Alcohol Blood Type A Positive Antibody Screen NEGATIVE Crossmatch See Detail 05/09/23 05/10/23 05/11/23 05:21 07:37 08:20 WBC 6.3 6.1 4.6 L RBC 2.80 L 4.24 D 4.21 Hgb 6.2 L* 11.0 L D 10.5 L Hct 23.4 L 37.6 D 36.6 L MCV 83.6 88.7 D 86.9 MCH 22.1 L 25.9 L 24.9 L MCHC 26.5 L 29.3 L 28.7 L RDW 19.2 H 18.6 H 18.7 H Plt Count 259 230 241 MPV 11.3 11.2 11.3 Immature Gran % (Auto) 0.8 H Neut % (Auto) 49.6 Lymph % (Auto) 38.6 [place] % (Auto) 9.0 Eos % (Auto) 1.4 Baso % (Auto) 0.6 Lymph # (Auto) 2.5 [place] # (Auto) 0.6 Eos # (Auto) 0.1 Baso # (Auto) 0.0 Abs Immat Gran (auto) 0.05 H Absolute Neuts (auto) 3.1 Absolute Nucleated RBC 0.050 H 0.020 H 0.000 Nucleated RBC % (auto) 0.8 H 0.3 H 0.0 Sodium 139 Potassium 3.8 Chloride 106 Carbon Dioxide 25 Anion Gap 12 BUN 3 L Creatinine 0.69 Estim Creat Clear Calc 113.1 Estimated GFR > 60 Random Glucose 93 Lactic Acid Lactic Acid F/U @ 2Hr Lactic Acid F/U @ 4Hr Calcium 7.8 L D Iron 18 L TIBC 242 % Saturation 7 L Unsat Iron Binding 224 Ferritin 22 Total Bilirubin AST ALT Alkaline Phosphatase Total Protein Albumin Beta HCG, Quant Urine Color Urine Appearance Urine pH Ur Specific Donner Urine Protein Urine Glucose (UA) Urine Ketones Urine Blood Urine Nitrite Ur Leukocyte Esterase Urine RBC Urine WBC Ur Squamous Epith Cells Urine Bacteria Hyaline Casts Stool Occult Blood Ethyl Alcohol Blood Type Antibody Screen Crossmatch Airway Mallampati Class: II TM Dist: >3cm Neck ROM: Full Heart: rrr Lungs: cta Assessment and Plan Assessment Anesthesia Assessment: Anesthesia Plan Discussed and Chart Reviewed Final Anesthetic Review Family History of Problems with Anesthesia: No History of Problems with Anesthesia: No NPO: Yes ASA Class: III and Emergency Final Preanesthetic Review: No Changes in Pt Med Stat, Meds/Allgs Chart Reviewed, Consent Obtained/Reviewed and Anes Risks/Benef Reviewed Patient Risk: Intermediate Procedure Risk: Low Anesthetic Plan Anesthetic Plan: MAC: Disposition: Standard PACU
--- NOTE | 2023-05-11 13:24 | HO.ANESEVENT ---
Anesthesia Event Note Date of Service: 05/12/23 Time Spent With Patient Time: Total time managing care of this patient today ____ minutes.
[2023-05-11 13:25] VITALS: BP 152/96; PULSE 74; RESP 12; TEMP 36.7; O2SAT 98
[2023-05-11 13:40] VITALS: BP 147/98; PULSE 66; RESP 16; TEMP 36.7; O2SAT 99
--- NOTE | 2023-05-11 13:50 | MHC.CM.PN ---
PER MD ROUNDS, PT NOT READY TO DC TODAY DCP REMAINS HOME WITH NO SERVICES VIA FAMILY TRANSPORT
--- NOTE | 2023-05-11 14:22 | MHC.CM.PN ---
PT WILL DC HOME TODAY WITH NO SERVICES VIA FAMILY TRANSPORT
[2023-05-11] MEDS: levoFLOXacin 500 MG TABLET PO (15:05)
[2023-05-11 16:00] VITALS: BP 134/97; PULSE 83; RESP 16; TEMP 36.1; O2SAT 100
[2023-05-11 18:58] LABS: Transferrin 261 mg/dL (188-341)
== END 2023-05-11 18:41 | disposition home or self-care (01) | DRG 244 ==
LOC: HO.ED 18:55 → HO.EDOVER 20:02 → HO.S3 21:19
PROVIDERS: Internal Medicine; Internal Medicine Gastroenterology; Registered Nurse Emergency; Admitting Provider Student in an Organized Health Care Education/Training Program; Emergency Provider Emergency Medicine Emergency Medical Services; PCP Internal Medicine; Visit Provider Internal Medicine
PROC: 0DJ08ZZ Inspection of Upper Intestinal Tract, Via Natural or Artificial Opening Endoscopic (ICD-10-PCS; CPT 43235; principal; 2023-05-11 12:50)
DX: K57.31 Diverticulosis of large intestine without perforation or abscess with bleeding (principal); E87.21 Acute metabolic acidosis; K20.91 Esophagitis, unspecified with bleeding; D62 Acute posthemorrhagic anemia; G61.81 Chronic inflammatory demyelinating polyneuritis; K70.0 Alcoholic fatty liver; K29.71 Gastritis, unspecified, with bleeding; L27.0 Generalized skin eruption due to drugs and medicaments taken internally; T36.1X5A Adverse effect of cephalosporins and other beta-lactam antibiotics, initial encounter; F10.90 Alcohol use, unspecified, uncomplicated; I10 Essential (primary) hypertension; K64.8 Other hemorrhoids; B96.20 Unspecified Escherichia coli [E. coli] as the cause of diseases classified elsewhere; N10 Acute pyelonephritis; Z87.891 Personal history of nicotine dependence; Z79.899 Other long term (current) drug therapy
CPT/HCPCS: 43239; 45330; 36415; 74176; 80048; 80053; 80307; 81001; 82272; 82728; 83540; 83605; 84466; 84702; 85025; 85027; 86850; 86900; 86901; 86923; 87040; 87086; 87088; 87186; 88305; 88342; 93005; 99221; 99285; 99499; J0696; J2250; J2405; P9016

== ENCOUNTER → 2023-05-08 12:08 | Outpatient (BNV) | payer MEDICAID, SELFPAY | PROVIDERS: Emergency Provider Emergency Medicine Emergency Medical Services; PCP Internal Medicine; Visit Provider Student in an Organized Health Care Education/Training Program | DX: D62 Acute posthemorrhagic anemia (principal); N12 Tubulo-interstitial nephritis, not specified as acute or chronic; K92.2 Gastrointestinal hemorrhage, unspecified | CPT/HCPCS: 99223; 99232; 99239 ==

== ENCOUNTER → 2023-05-08 19:33 | Outpatient (BNV) | payer MEDICAID, SELFPAY | PROVIDERS: Admitting Provider Student in an Organized Health Care Education/Training Program; Emergency Provider Emergency Medicine Emergency Medical Services; PCP Internal Medicine; Visit Provider Internal Medicine | DX: K20.90 Esophagitis, unspecified without bleeding (principal); K29.70 Gastritis, unspecified, without bleeding; D62 Acute posthemorrhagic anemia; K62.5 Hemorrhage of anus and rectum; K57.30 Diverticulosis of large intestine without perforation or abscess without bleeding; K64.1 Second degree hemorrhoids | CPT/HCPCS: 43239; 45330; 99222 ==

== ENCOUNTER 2023-05-26 10:48 | Outpatient (REF) | payer MEDICAID, SELFPAY ==
[2023-05-26 11:28] LABS: Appearance Urine Clear; Color Urine Dark Yellow; Glucose Urine UA Negative (Negative); Leukocyte Esterase Urine Negative (Negative); Nitrite Urine Negative (Negative); Specific Gravity - Urine 1.015 (1.005-1.025); Urine Blood Negative (Negative); Urine Ketones Negative (Negative); Urine Protein Negative (Neg-Trace)
[2023-05-26 11:29] LABS: MANUAL DIFF FLAG NO
[2023-05-26 11:46] LABS: Basophils Absolute Auto 0.1 X10*3/uL (0.0-0.2); Basophils Percent Auto 0.8 % (0-2); Eosinophils Absolute Auto 0.1 X10*3/uL (0.0-0.4); Eosinophils Percent Auto 1.3 % (0-4); Hematocrit 34.2 % (37.0-47.0); Hemoglobin 9.8 g/dl (12.0-16.0); Imm Gran Abs Auto 0.04 X10*3/uL (0.00-0.03); Imm Gran Pct Auto 0.5 % (0.0-0.4); Lymphocytes Absolute Auto 2.2 X10*3/uL (1.2-4.9); Lymphocytes Percent Auto 28.1 % (20-40); Mean Corpuscular HGB Conc 28.7 g/dl (31.0-35.0); Mean Corpuscular Hemoglobin 25.9 pg (27.0-33.0); Mean Corpuscular Volume 90.5 fL (80.0-98.0); Mean Platelet Volume 11.7 fL (9.4-12.3); Monocytes Absolute Auto 0.5 X10*3/uL (0.1-1.2); Monocytes Percent Auto 6.8 % (2-11); Neutrophils Absolute Auto 4.9 x10*3/uL (2.0-8.3); Neutrophils Percent Auto 62.5 % (45-73); Platelet Count 478 X10*3/uL (160-400); Red Blood Count 3.78 X10*6/uL (4.20-5.50); Red Cell Distribution Width 18.7 % (11.0-16.0); White Blood Count 7.8 X10*3/uL (4.8-10.8)
[2023-05-26 12:40] LABS: Alanine Aminotransferase 30 U/L (0-31); Albumin Level 3.3 g/dL (3.5-5.0); Alkaline Phosphatase 112 U/L (39-117); Aspartate Amino Transferase 53 U/L (5-31); Bilirubin Direct 0.4 mg/dL (0.0-0.5); Bilirubin Total 0.8 mg/dL (0.0-1.0); Total Protein 6.7 g/dL (6.5-8.0)
== END 2023-05-26 10:49 | disposition home or self-care (01) ==
LOC: HO.HHCL 10:48
PROVIDERS: Visit Provider Internal Medicine
DX: D50.9 Iron deficiency anemia, unspecified (principal)
CPT/HCPCS: 36415; 80076; 81003; 85025

== ENCOUNTER 2023-06-26 14:55 | Outpatient (REF) | payer MEDICAID, SELFPAY ==
--- NOTE | 2023-06-26 15:03 | EMG_ITS ---
Chief complaint: Patient diagnosed GBS 2020, treated with IVIG. Diagnosed CIDP. Legs remain weak, only 80% strength per patient. In April 2023, she was hospitalized for pyelonephritis and GI bleeding. She felt weak. After this hospitalization, she had regained back her usual baseline strength. Reason for referral: monitoring CIDP Referred by: Carri Cardona CNP Procedure done: Bilateral lower extremities, right upper extremity Precautions and/or limitations: None The limb temperature was monitored continuously and remained between 32-36 degrees C during the performance of the NCS. Nerve Conduction Studies Anti Sensory Summary Table ?Stim Site NR Onset (ms) Norm Onset (ms) Peak (ms) Norm Peak (ms) O-P Amp (?V) Norm O-P Amp Site1 Site2 Delta-0 (ms) Dist (cm) Oneil (m/s) Norm Oneil (m/s) Right Median Anti Sensory (2nd Digit) Wrist ? 1.7 3.2 <3.6 11.3 >10 Wrist 2nd Digit 1.7 14.0 82 Left Sural Anti Sensory (Lat Mall) Calf ? 3.3 3.8 <4.0 2.7 >5.0 Calf Lat Mall 3.3 14.0 42 Right Sural Anti Sensory (Lat Mall) Calf ? 3.7 4.0 <4.0 4.7 >5.0 Calf Lat Mall 3.7 14.0 38 Motor Summary Table ?Stim Site NR Onset (ms) Norm Onset (ms) O-P Amp (mV) Norm O-P Amp iAmp (mV) Amp (1st) (%) Site1 Site2 Delta-0 (ms) Dist (cm) Oneil (m/s) Norm Oneil (m/s) Right Median Motor (Abd Poll Brev) Wrist ? 2.9 <3.9 10.4 >4.5 11.8 100.0 Elbow Wrist 3.7 21.0 57 >45 Elbow ? 6.6 9.8 11.1 94.2 Right Peroneal Motor (Ext Dig Brev) Ankle ? 3.6 <4.0 4.9 >2.5 5.6 100.0 Ankle Ext Dig Brev 3.6 0.0 B Fib ? 10.2 3.7 4.3 75.5 B Fib Ankle 6.6 31.0 47 >40 Poplt ? 10.9 3.6 4.3 73.5 Poplt B Fib 0.7 5.0 71 >40 Right Tibial Motor (Abd Crandall Brev) Ankle ? 4.0 <5 7.8 >2.5 9.5 100.0 Ankle Abd Crandall Brev 4.0 0.0 Knee ? 11.7 8.7 10.7 111.5 Knee Ankle 7.7 37.0 48 >40 H Reflex Studies ?NR H-Lat (ms) L-R H-Lat (ms) L-R Lat Norm Left Tibial (Gastroc) NR <2.0 Right Tibial (Gastroc) NR <2.0 EMG ?Side Muscle Nerve Root Ins Act Fibs Psw Amp Dur Poly Recrt Int Pat Comment Right AbdHallucis MedPlantar S1-2 Nml Nml Nml Nml Nml 0 Nml Complete Right AntTibialis Dp Br Peron L4-5 Nml Nml Nml Nml Nml 0 Nml Complete Right MedGastroc Tibial S1-2 Nml Nml Nml Nml Nml 0 Nml Complete Right VastusMed Femoral L2-4 Nml Nml Nml Nml Nml 0 Nml Complete Left AntTibialis Dp Br Peron L4-5 Nml Nml Nml Nml Nml 0 Nml Complete Left MedGastroc Tibial S1-2 Nml Nml Nml Nml Nml 0 Nml Complete Left VastusMed Femoral L2-4 Nml Nml Nml Nml Nml 0 Nml Complete Left AbdHallucis MedPlantar S1-2 Nml Nml Nml Nml Nml 0 Nml Complete Paraspinal EMG ?Side Muscle Nerve Root Ins Act Fibs Psw Comment Right Lumbar Upper Rami Nml Nml Nml Right Lumbar Mid Rami Nml Nml Nml Right Lumbar Lower Rami Nml Nml Nml Left Lumbar Upper Rami Nml Nml Nml Left Lumbar Mid Rami Nml Nml Nml Left Lumbar Lower Rami Nml Nml Nml FINDINGS: H reflexes absent bilateral. Bilateral sural nerves are preset but small amplitudes. All other nerves tested were within normal. Concentric needle EMG was performed in selected muscles of the bilateral lower extremities and lumbar paraspinals. Study did not reveal signs of electric abnormalities as shown in the table below. IMPRESSION: In comparison to study done by Dr. Garza 10/2021, today's study shows improvement of right peroneal and tibial nerves that are now within normal. No conduction block seen. H reflexes remained absent. Bilateral sural nerves remain small in amplitude. These are consistent with results from studies dated 10/07/2021 and 11/14/2021. 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 CLINICAL COMMENT: Patient says she had a more recent EMG done 6 months ago but this was not available for my review. Thank you for your kind referral. Gosia Jones MD, SAM Board Certified, [place] [employer] and [employer] (ABPMR) Board Certified, [place] [employer] Electro[employer] (ABEM) CODIN 10420 x 2 MTDD
== END 2023-06-26 14:56 | disposition home or self-care (01) ==
LOC: HO.NEURO 14:55
PROVIDERS: PCP Internal Medicine; Visit Provider Nurse Practitioner Family
DX: G61.81 Chronic inflammatory demyelinating polyneuritis (principal)
CPT/HCPCS: 95886; 95910

== ENCOUNTER → 2023-06-26 15:03 | Outpatient (BNV) | payer MEDICAID, SELFPAY | PROVIDERS: PCP Internal Medicine; Visit Provider Physical Medicine & Rehabilitation | DX: G62.89 Other specified polyneuropathies (principal) | CPT/HCPCS: 95886; 95910 ==

== ENCOUNTER 2023-12-10 13:35 | Outpatient (REF) | payer MEDICAID, SELFPAY ==
[2023-12-10 16:02] LABS: MANUAL DIFF FLAG NO
[2023-12-10 16:32] LABS: Basophils Absolute Auto 0.1 X10*3/uL (0.0-0.2); Basophils Percent Auto 1.1 % (0-2); Eosinophils Absolute Auto 0.1 X10*3/uL (0.0-0.4); Eosinophils Percent Auto 1.6 % (0-4); Hematocrit 32.4 % (37.0-47.0); Hemoglobin 9.1 g/dl (12.0-16.0); Imm Gran Abs Auto 0.02 X10*3/uL (0.00-0.03); Imm Gran Pct Auto 0.3 % (0.0-0.4); Lymphocytes Absolute Auto 2.5 X10*3/uL (1.2-4.9); Mean Corpuscular HGB Conc 28.1 g/dl (31.0-35.0); Mean Corpuscular Hemoglobin 25.8 pg (27.0-33.0); Mean Corpuscular Volume 91.8 fL (80.0-98.0); Mean Platelet Volume 11.3 fL (9.4-12.3); Monocytes Absolute Auto 0.5 X10*3/uL (0.1-1.2); Monocytes Percent Auto 8.1 % (2-11); Neutrophils Percent Auto 48.9 % (45-73); Platelet Count 520 X10*3/uL (160-400); Red Blood Count 3.53 X10*6/uL (4.20-5.50); Red Cell Distribution Width 15.8 % (11.0-16.0); White Blood Count 6.2 X10*3/uL (4.8-10.8)
[2023-12-10 16:37] LABS: Alanine Aminotransferase 22 U/L (0-31); Albumin Level 3.3 g/dL (3.5-5.0); Alkaline Phosphatase 100 U/L (39-117); Anion Gap 12 (12-20); Aspartate Amino Transferase 34 U/L (5-31); Bilirubin Total 0.3 mg/dL (0.0-1.0); Blood Urea Nitrogen 8 mg/dL (9-16); Calcium 8.8 mg/dL (8.4-10.2); Carbon Dioxide 25 mmol/L (22-29); Chloride 108 mmol/L (96-108); Estimated Glomerular Filt Rate > 60; Glucose Random 84 mg/dL (60-115); Potassium 4.3 mmol/L (3.3-5.1); Sodium 141 mmol/L (135-145); Total Protein 6.8 g/dL (6.5-8.0)
[2023-12-10 16:41] LABS: Appearance Urine Clear; Color Urine Dark Yellow; Glucose Urine UA Negative (Negative); Leukocyte Esterase Urine Trace (Negative); Nitrite Urine Negative (Negative); Specific Gravity - Urine >= 1.030 (1.005-1.025); UMIC TRIGGER UACC YES; Urine Blood Negative (Negative); Urine Ketones Trace mg/dL (Negative); Urine Protein Trace mg/dL (Neg-Trace)
[2023-12-10 16:42] LABS: Bacteria Urine Trace (None Seen); Hyaline Casts Urine 0-2 /LPF (0-2); RBC Urine 0-2 /HPF (0-2); WBC Urine 0-5 /HPF (0-5)
== END 2023-12-10 13:36 | disposition home or self-care (01) ==
LOC: HO.HHCL 13:35
PROVIDERS: Visit Provider Internal Medicine
DX: J01.00 Acute maxillary sinusitis, unspecified (principal); D50.9 Iron deficiency anemia, unspecified; R39.15 Urgency of urination
CPT/HCPCS: 36415; 80053; 81001; 85025

== ENCOUNTER 2024-04-07 12:19 | Outpatient (REF) | payer MEDICAID, SELFPAY ==
[2024-04-07 13:02] LABS: MANUAL DIFF FLAG NO
[2024-04-07 13:12] LABS: Basophils Percent Auto 0.6 % (0-2); Eosinophils Percent Auto 0.6 % (0-4); Hematocrit 33.6 % (37.0-47.0); Hemoglobin 9.8 g/dl (12.0-16.0); Imm Gran Abs Auto 0.04 X10*3/uL (0.00-0.03); Imm Gran Pct Auto 0.6 % (0.0-0.4); Lymphocytes Absolute Auto 1.9 X10*3/uL (1.2-4.9); Lymphocytes Percent Auto 29.9 % (20-40); Mean Corpuscular HGB Conc 29.2 g/dl (31.0-35.0); Mean Corpuscular Hemoglobin 27.3 pg (27.0-33.0); Mean Corpuscular Volume 93.6 fL (80.0-98.0); Mean Platelet Volume 10.7 fL (9.4-12.3); Monocytes Absolute Auto 0.4 X10*3/uL (0.1-1.2); Monocytes Percent Auto 7.1 % (2-11); Neutrophils Absolute Auto 3.8 x10*3/uL (2.0-8.3); Neutrophils Percent Auto 61.2 % (45-73); Platelet Count 390 X10*3/uL (160-400); Red Blood Count 3.59 X10*6/uL (4.20-5.50); White Blood Count 6.2 X10*3/uL (4.8-10.8)
[2024-04-07 13:54] LABS: TSH reflex Free T4 0.66 uIU/mL (0.32-4.0)
== END 2024-04-07 12:20 | disposition home or self-care (01) ==
LOC: HO.HHCL 12:19
PROVIDERS: Visit Provider Internal Medicine
DX: R63.4 Abnormal weight loss (principal); D50.9 Iron deficiency anemia, unspecified
CPT/HCPCS: 36415; 84443; 85025

== ENCOUNTER 2024-05-02 11:19 | Inpatient (IN) | payer MEDICAID, SELFPAY ==
--- NOTE | ~2024-05-02 | MR_ITS ---
EXAMINATION: MR BRAIN WITHOUT AND WITH CONTRAST CLINICAL INFORMATION: Lower and upper extremity weakness. Numbness. COMPARISON: CT head 05/12/2024. TECHNIQUE: Multiplanar MR imaging of the brain was performed without and with contrast. A total of 6 mL Gadavist was utilized for this examination. FINDINGS: Patient motion degrades image quality of the diagnostic accuracy of this examination is limited. Postcontrast images reveal no abnormal mass or enhancement. There is no intracranial mass effect or midline shift. No abnormal extra-axial collection. Lateral and third ventricles are normal. No hydrocephalus. Midline structures including the cervicomedullary junction are normal. No acute bone marrow signal changes. There is no acute territorial infarct. No pathological magnetic susceptibility artifact. Intracranial vascular flow voids are grossly maintained. There is no mastoid or middle ear effusion. No active paranasal sinus disease. Globes and orbits are symmetric. MR/MR head/brain wo/w con IMPRESSION: Patient motion degrades image quality therefore the diagnostic accuracy of this examination is limited. Grossly no evidence of acute territorial infarct or hemorrhage. No abnormal intracranial mass or enhancement. Electronically signed by: Zachariah Galvez MD 05/03/2024 10:54 AM EDT
--- NOTE | ~2024-05-02 | CT_ITS ---
EXAMINATION: CT HEAD WITHOUT CONTRAST CLINICAL INFORMATION: Tongue numbness and muscle weakness. COMPARISON: Brain MRI dated 10/08/2021. TECHNIQUE: Contiguous axial imaging was performed from the skullbase to vertex without intravenous administration of contrast. This CT examination was performed using dose optimization techniques as appropriate, variously including the following: *Automated exposure control *Adjustment of mA and/or kV according to patient size (this includes techniques or standardized protocols for targeted exams where dose is matched to indication/reason for exam; i.e. extremities or head) *Use of iterative reconstruction technique DLP: 608 mGy-cm. FINDINGS: There is no evidence of acute intracranial hemorrhage or territorial infarction. No abnormal mass effect or midline shift is seen. Benson to white matter differentiation is well preserved. No extra-axial fluid collections are identified. Mild generalized brain parenchymal volume loss noted for patient age. The ventricles are normal in size. There is no abnormal attenuation within the brain parenchyma. The osseous structures and soft tissues are normal. The mastoid air cells and visualized portions of the paranasal sinuses are well aerated. CT/CT head/brain wo IV con IMPRESSION: No acute intracranial pathology. Electronically signed by: Hung Squires MD 05/02/2024 04:41 PM EDT
[2024-05-02 11:36] VITALS: BP 144/110; PULSE 118; RESP 18; TEMP 36.9; O2SAT 100; BMI 21.5
--- NOTE | 2024-05-02 11:38 | ED.GENADULT ---
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 Has been too weak to ambulate for the past two days. States symptoms began around one month ago with IBS symptoms, then get her menstrual period which lasted longer than normal, around ten days. Menses ended 5 days ago. Reports nausea and vomiting during period, denies vomiting for past 4-[address] Garza for neurology. Has not seen a bander operator. MD complaint: weakness Onset (ago): week(s) Related Data Home Medications ?Medication ?Instructions ?Recorded ?Confirmed multivitamin 1 tab PO DAILY 11/14/21 05/08/23 cholecalciferol (vitamin D3) 25 25 mcg PO DAILY 05/08/23 05/08/23 mcg (1,000 unit) tablet gabapentin 100 mg capsule 200 mg PO BEDTIME 05/08/23 05/08/23 morphine 15 mg tablet,extended 15 mg PO BEDTIME 05/08/23 05/08/23 release Previous Rx's ?Medication ?Instructions ?Recorded folic acid 1 mg tablet 1 mg PO DAILY #90 tabs 11/08/21 thiamine HCl (vitamin B1) 100 mg 100 mg PO DAILY #90 tabs 11/08/21 tablet hydrocortisone acetate 25 mg 25 mg MA BEDTIME #24 ea 05/11/23 rectal suppository (Anusol-HC) levofloxacin 500 mg tablet 500 mg PO DAILY 6 days #6 tabs 05/11/23 Allergies Allergy/AdvReac Type Severity Reaction Status Date / Time ceftriaxone Allergy Intermediate Rash Verified 05/02/24 11:39 amoxicillin [AMOXICILLIN] Allergy Unknown UNKNWON Verified 05/02/24 11:39 Review of Systems Review of Systems: As per HPI. Yes all other systems are reviewed and are negative Constitutional: Constitutional: Reports as per HPI Neurologic: Reports Abnormal speech present [facility] Past Medical History Medical History Leg pain, bilateral Back pain IBS (irritable bowel syndrome) HTN (hypertension) Guillain-[place] syndrome Peripheral neuropathy Paresthesias Surgical History No pertinent past surgical history Social History Social History Household Members: Family Housing: House Are you a primary respiratory care instructor to a significant other at home: No Do you presently have visiting nurse or other home services: No Unable to assess alcohol history related to: Unknown Alcohol intake: current Alcohol intake frequency: holidays/special occasions only Alcohol type: hard liquor Comment: Bilateral leg weakness Patient Tobacco Use Status: Former Tobacco user e-Cigarette/Vaping Use: Currently Using Substance Use Type: Marijuana Advance Directives: Yes Advance Directives on File: Yes Advance Directives Date on File: 10/08/21 Do you have a plan to hurt others: No Plan service: No Current occupational status: unemployed Physical Exam ED Vital Signs: Vital Signs - 24 hr 05/02/24 11:36 05/02/24 16:00 Temperature 98.4 F 97.8 F Pulse Rate 118 H 86 Respiratory Rate 18 18 Blood Pressure 144/110 H 128/99 H Pulse Oximetry 100 99 Oxygen Delivery Method Room Air Room Air BMI result Body Mass Index 21.5 Vital signs have been reviewed and appear to be correct. Blood pressure elevated. Heart rate tachycardic. Respiratory rate normal. Temperature normal. Oxygen saturation normal. Const General: cooperative, healthy appearing and no acute distress Orientation/consciousness: oriented to person, oriented to place, oriented to time and patient oriented x3 Limitations: no limitations HENMT Head: Yes normocephalic and Yes atraumatic Ears: external ears normal General nose exam: Normal external nose present Face and sinus: Yes face symmetric Mouth: oropharynx normal and moist mucous membranes Throat: Yes uvula midline Eyes Pupils: Equal, round and reactive pupils present Neck Neck: Yes normal visual inspection and Yes supple Resp Effort & Inspection: normal respiratory effort and able to speak in complete sentences Auscultation: clear to auscultation bilaterally Cardio Rate: regular rate Rhythm: regular rhythm Heart sounds: S1 normal heart sound present and S2 normal heart sound present GI Palpation (GI): Soft to palpation and nontender Auscultation: normoactive bowel sounds General: Yes no CVA tenderness Back/Spine/Pelvis Back: no CVA tenderness Skin General skin exam: elasticity normal and turgor normal Neuro General: oriented to person, oriented to place, oriented to time, patient oriented x3, moves all extremities, no focal motor deficits and CN's II-XI intact bilaterally Cranial nerves: Yes Equal, round and reactive pupils present Cognition (Neuro): normal cognition Speech: Abnormal speech present slurred (intermittently) Motor exam (neuro): Abnormal motor strength present (4/5 all extremities) bilateral Deep tendon reflexes (DTR's): Right triceps reflex intensity grade: 1+, Left triceps reflex intensity grade: 1+, Right patellar reflex intensity grade: 0, Left patellar reflex intensity grade: 0, Right ankle reflex intensity grade: 1+ and Left ankle reflex intensity grade: 1+ Extrem General: Yes full ROM, Yes no pedal edema and Yes no calf tenderness Psych Mental Status: mental status grossly normal Affect: normal affect Thought process: Normal thought process present NIH Stroke Scale Internal: Initial- Upon Arrival Time: 12:17 Level of Consciousness: Alert Level of Consciousness Questions: Answers both questions correctly Level of Consciousness Commands: Performs both tasks correctly Best Gaze: Normal Visual: No visual loss Facial Palsy: Normal Motor Arm (Right): No drift Motor Arm (Left): No drift Motor Leg (Right): No drift Motor Leg (Left): No drift Limb Ataxia: Absent Sensory: Mild to moderate sensory loss Best Language: No aphasia Dysarthia: Normal Extinction and Inattention: No abnormality Score: 1 Course Course Course Narrative: This is an RME: Additional HPI, ROS, PE not included below will be deferred to primary provider. RME assessment and note performed by: Gaby Sanford PA-C This is a 38-year-old female with pertinent history of CIDP, alcohol use disorder, history of GI bleed, who presents to the ER with complaints of progressive weakness, muscle spasms and muscle cramping x 3 days. Reporting poor p.o. intake with nausea and vomiting. Unable to ambulate without assistance. History of Guillain[place]. Plan: Labs, EKG, further ER eval needed. Procedures Lumbar Puncture Time Out Performed: Yes Patient Position: upright Skin Prep: Povidone-Iodine 1% Local Anesthetic: lidocaine 1% Amount of anesthesia used (mL): 5 Spinal Needle Gauge: 20G Interspace Used: L4-L5 Opening Pressure (cmH20): 37 Fluid Initially Obtained: clear Complications: none Medical Decision Making Medical Decision Making [facility] Narrative: Patient is a 39-year-old female with history of Guillain-[place] syndrome of unknown etiology treated with IVIG, paresthesias, peripheral neuropathy, CIDP (chronic inflammatory demyelinating polyneuropathy), anemia presenting to the emergency department with complaint of progressive weakness for the past month, as well as muscle twitching, tongue numbness, involuntary facial movements. On exam patient is awake, A+Ox3, BP elevated, initially tachycardic which improved while in the ED, afebrile, normal neurological exam without focal deficits, physical exam findings as above. Given reported symptoms and physical exam findings, initial differential includes acute exacerbation of CIDP, other demyelinating neuropathy, electrolyte abnormality, anemia. Labs notable for chronic anemia not at transfusion level, no leukocytosis, normal ESR and CRP, no significant electrolyte abnormalities, no evidence of BEKAH, mildly elevated transaminases, negative troponin. CT head notable for no acute abnormalities. My interpretation is in agreement with the radiologist's interpretation. Case discussed with Dr. Garza who states that he last saw patient in December, she was stable at that time. He recommends lumbar puncture to assess CSF pressure. Lumbar puncture performed by Dr. Stephen, results pending. Admission to Medicine accepted by Dr. Hopkins. Differential Diagnosis Differential Diagnoses: The differential diagnosis associated with the presentation includes as per [facility] Consult Healthcare Provider Management of the patient was discussed with: Hospitalist and Manager Business [employer]ing (Dr. Garza, neurology) Lab Data [facility] Lab Attestation statement: I reviewed the patient's lab results. as per [facility] 05/02/24 11:51 05/02/24 11:51 Labs: Lab Results 05/02/24 05/02/24 05/02/24 Range/Units 11:51 11:59 12:26 WBC 5.7 (4.8-10.8) X10*3/uL RBC 3.77 L (4.20-5.50) X10*6/uL Hgb 10.9 L (12.0-16.0) g/dl Hct 34.5 L (37.0-47.0) % MCV 91.5 (80.0-98.0) fL MCH 28.9 (27.0-33.0) pg MCHC 31.6 (31.0-35.0) g/dl RDW 15.6 (11.0-16.0) % Plt Count 363 (160-400) X10*3/uL MPV 10.8 (9.4-12.3) fL Immature Gran % (Auto) 0.2 (0.0-0.4) % Neut % (Auto) 52.6 (45-73) % Lymph % (Auto) 37.9 (20-40) % [place] % (Auto) 7.2 (2-11) % Eos % (Auto) 0.9 (0-4) % Baso % (Auto) 1.2 (0-2) % Lymph # (Auto) 2.2 (1.2-4.9) X10*3/uL [place] # (Auto) 0.4 (0.1-1.2) X10*3/uL Eos # (Auto) 0.1 (0.0-0.4) X10*3/uL Baso # (Auto) 0.1 (0.0-0.2) X10*3/uL Abs Immat Gran (auto) 0.01 (0.00-0.03) X10*3/uL Absolute Neuts (auto) 3.0 (2.0-8.3) x10*3/uL Absolute Nucleated RBC 0.000 (0.0-0.012) X10*3/uL Nucleated RBC % (auto) 0.0 (0.0-0.2) /100WBC ESR 17 (0-20) MM/HR PT (11.1-13.3) SEC INR (0.9-1.1) Sodium 140 (135-145) mmol/L Potassium 4.0 (3.3-5.1) mmol/L Chloride 103 (96-108) mmol/L Carbon Dioxide 25 (22-29) mmol/L Anion Gap 16 (12-20) BUN 7 L (9-16) mg/dL Creatinine 0.70 (0.5-1.4) mg/dL Estim Creat Clear Calc 94.1 Estimated GFR > 60 Random Glucose 107 (60-115) mg/dL Calcium 9.5 D (8.4-10.2) mg/dL Magnesium 2.0 (1.6-2.6) mg/dL Total Bilirubin 0.5 (0.0-1.0) mg/dL Direct Bilirubin 0.3 (0.0-0.5) mg/dL AST 47 H (5-31) U/L ALT 36 H (0-31) U/L Alkaline Phosphatase 121 H (39-117) U/L Total Creatine Kinase 13 L (26-140) U/L Troponin I High Sens < 2.7 (<3.5-17.0) ng/L C-Reactive Protein 0.10 (< or = 0.50) mg/dL Total Protein 6.8 (6.5-8.0) g/dL Albumin 3.3 L (3.5-5.0) g/dL Vitamin B12 755 (200-900) pg/mL Folate 18.7 (> or = 4.0) ng/mL Beta HCG, Quant < 2 mIU/mL Urine Color Dark Yellow Urine Appearance Cloudy Urine pH 6.5 (5.0-9.0) Ur Specific [place] 1.020 (1.005-1.025) Urine Protein Negative (Neg-Trace) mg/dL Urine Glucose (UA) Negative (Negative) mg/dL Urine Ketones Trace (Negative) mg/dL Urine Blood Negative (Negative) Urine Nitrite Negative (Negative) Ur Leukocyte Esterase Small (1+) H (Negative) Urine RBC 0-2 (0-2) /HPF Urine WBC 6-10 H (0-5) /HPF Ur Squamous Epith Cells 3-5 (0-2) /HPF Urine Bacteria 4+ (None Seen) Hyaline Casts 3-5 (0-2) /LPF Ethyl Alcohol < 10 mg/dL 05/02/24 Range/Units 13:31 WBC (4.8-10.8) X10*3/uL RBC (4.20-5.50) X10*6/uL Hgb (12.0-16.0) g/dl Hct (37.0-47.0) % MCV (80.0-98.0) fL MCH (27.0-33.0) pg MCHC (31.0-35.0) g/dl RDW (11.0-16.0) % Plt Count (160-400) X10*3/uL MPV (9.4-12.3) fL Immature Gran % (Auto) (0.0-0.4) % Neut % (Auto) (45-73) % Lymph % (Auto) (20-40) % [place] % (Auto) (2-11) % Eos % (Auto) (0-4) % Baso % (Auto) (0-2) % Lymph # (Auto) (1.2-4.9) X10*3/uL [place] # (Auto) (0.1-1.2) X10*3/uL Eos # (Auto) (0.0-0.4) X10*3/uL Baso # (Auto) (0.0-0.2) X10*3/uL Abs Immat Gran (auto) (0.00-0.03) X10*3/uL Absolute Neuts (auto) (2.0-8.3) x10*3/uL Absolute Nucleated RBC (0.0-0.012) X10*3/uL Nucleated RBC % (auto) (0.0-0.2) /100WBC ESR (0-20) MM/HR PT 11.5 (11.1-13.3) SEC INR 0.9 (0.9-1.1) Sodium (135-145) mmol/L Potassium (3.3-5.1) mmol/L Chloride (96-108) mmol/L Carbon Dioxide (22-29) mmol/L Anion Gap (12-20) BUN (9-16) mg/dL Creatinine (0.5-1.4) mg/dL Estim Creat Clear Calc Estimated GFR Random Glucose (60-115) mg/dL Calcium (8.4-10.2) mg/dL Magnesium (1.6-2.6) mg/dL Total Bilirubin (0.0-1.0) mg/dL Direct Bilirubin (0.0-0.5) mg/dL AST (5-31) U/L ALT (0-31) U/L Alkaline Phosphatase (39-117) U/L Total Creatine Kinase (26-140) U/L Troponin I High Sens (<3.5-17.0) ng/L C-Reactive Protein (< or = 0.50) mg/dL Total Protein (6.5-8.0) g/dL Albumin (3.5-5.0) g/dL Vitamin B12 (200-900) pg/mL Folate (> or = 4.0) ng/mL Beta HCG, Quant mIU/mL Urine Color Urine Appearance Urine pH (5.0-9.0) Ur Specific [place] (1.005-1.025) Urine Protein (Neg-Trace) mg/dL Urine Glucose (UA) (Negative) mg/dL Urine Ketones (Negative) mg/dL Urine Blood (Negative) Urine Nitrite (Negative) Ur Leukocyte Esterase (Negative) Urine RBC (0-2) /HPF Urine WBC (0-5) /HPF Ur Squamous Epith Cells (0-2) /HPF Urine Bacteria (None Seen) Hyaline Casts (0-2) /LPF Ethyl Alcohol mg/dL Independent Interpretation I performed an independent interpretation of an: CT Scan Interpretation: CT head notable for no acute abnormalities. Radiology Impression Discussion of test interpretation with radiology: I have reviewed the radiologist's reading. Radiologist Impression: CT/CT head/brain wo IV con IMPRESSION: No acute intracranial pathology. External Record Review External record reviewed: Inpatient record, Office record and Outpatient record Critical Care Time Critical Care Time Critical Care Time: Yes Total Critical Care Time: 65 Attestation: I have personally provided critical care time exclusive of time spent on separately billable procedures. Time includes review of lab data, radiology results, discussion with consultants, and monitoring for potential decompensation. Intervention performed as documented. Discharge Plan Discharge Patient Disposition: Admitted As Inpatient Prescriptions: No Action folic acid 1 mg tablet 1 mg PO DAILY Qty: 90 0RF thiamine HCl (vitamin B1) 100 mg tablet 100 mg PO DAILY Qty: 90 0RF multivitamin Tablet 1 tab PO DAILY morphine 15 mg tablet extended release 15 mg PO BEDTIME gabapentin 100 mg capsule 200 mg PO BEDTIME cholecalciferol (vitamin D3) 25 mcg (1,000 unit) tablet 25 mcg PO DAILY levofloxacin 500 mg tablet 500 mg PO DAILY 6 Days Qty: 6 0RF hydrocortisone acetate [Anusol-HC] 25 mg suppository 25 mg MA BEDTIME Qty: 24 0RF Print Language: Somali
--- NOTE | 2024-05-02 11:39 | ECG_ITS ---
Test Reason : weakness Blood Pressure : / mmHG Vent. Rate : 101 BPM Atrial Rate : 101 BPM P-R Int : 122 ms QRS Dur : 072 ms QT Int : 338 ms P-R-T Axes : 077 022 061 degrees QTc Int : 438 ms Sinus tachycardia Cannot rule out Anterior infarct , age undetermined Abnormal ECG When compared with ECG of 08-MAY-2023 11:52, No significant change was found Referred By: Gaby Sanford Electronically Signed By:SILVIA BREWSTER
[2024-05-02 12:02] LABS: MANUAL DIFF FLAG NO
[2024-05-02 12:06] LABS: Basophils Absolute Auto 0.1 X10*3/uL (0.0-0.2); Basophils Percent Auto 1.2 % (0-2); Eosinophils Absolute Auto 0.1 X10*3/uL (0.0-0.4); Eosinophils Percent Auto 0.9 % (0-4); Hematocrit 34.5 % (37.0-47.0); Hemoglobin 10.9 g/dl (12.0-16.0); Imm Gran Abs Auto 0.01 X10*3/uL (0.00-0.03); Imm Gran Pct Auto 0.2 % (0.0-0.4); Lymphocytes Absolute Auto 2.2 X10*3/uL (1.2-4.9); Lymphocytes Percent Auto 37.9 % (20-40); Mean Corpuscular HGB Conc 31.6 g/dl (31.0-35.0); Mean Corpuscular Hemoglobin 28.9 pg (27.0-33.0); Mean Corpuscular Volume 91.5 fL (80.0-98.0); Mean Platelet Volume 10.8 fL (9.4-12.3); Monocytes Absolute Auto 0.4 X10*3/uL (0.1-1.2); Monocytes Percent Auto 7.2 % (2-11); Neutrophils Percent Auto 52.6 % (45-73); Platelet Count 363 X10*3/uL (160-400); Red Blood Count 3.77 X10*6/uL (4.20-5.50); Red Cell Distribution Width 15.6 % (11.0-16.0); White Blood Count 5.7 X10*3/uL (4.8-10.8)
[2024-05-02 12:12] LABS: Appearance Urine Cloudy; Color Urine Dark Yellow; Glucose Urine UA Negative (Negative); Leukocyte Esterase Urine Small (1+) (Negative); Nitrite Urine Negative (Negative); PH 6.5 (5.0-9.0); UMIC TRIGGER UACC YES; Urine Blood Negative (Negative); Urine Ketones Trace mg/dL (Negative); Urine Protein Negative (Neg-Trace)
[2024-05-02 12:17] LABS: Bacteria Urine 4+ (None Seen); RBC Urine 0-2 /HPF (0-2); UACC Culture Trigger YES
[2024-05-02 12:30] LABS: Troponin-I High Sensitivity < 2.7 ng/L (<3.5-17.0)
[2024-05-02 12:34] LABS: Alanine Aminotransferase 36 U/L (0-31); Albumin Level 3.3 g/dL (3.5-5.0); Alkaline Phosphatase 121 U/L (39-117); Anion Gap 16 (12-20); Aspartate Amino Transferase 47 U/L (5-31); Bilirubin Direct 0.3 mg/dL (0.0-0.5); Bilirubin Total 0.5 mg/dL (0.0-1.0); Blood Urea Nitrogen 7 mg/dL (9-16); Calcium 9.5 mg/dL (8.4-10.2); Carbon Dioxide 25 mmol/L (22-29); Chloride 103 mmol/L (96-108); Creatinine Clr Calc Pharmacy 94.1; Estimated Glomerular Filt Rate > 60; Glucose Random 107 mg/dL (60-115); HCG Quantitative < 2 mIU/mL; Sodium 140 mmol/L (135-145); Total Protein 6.8 g/dL (6.5-8.0)
[2024-05-02 12:45] LABS: Erythrocyte Sedimentation Rate 17 MM/HR (0-20)
[2024-05-02 12:48] LABS: Ethanol < 10 mg/dL
[2024-05-02 13:29] LABS: Folate 18.7 ng/mL (> or = 4.0); Vitamin B12 755 pg/mL (200-900)
--- NOTE | 2024-05-02 13:53 | PC.NURSE ---
patient assisted into standing position, patient took unsteady shuffle with assistance of staff. patient placed back in ED stretcher, patient not able to ambulate safely
[2024-05-02 13:54] LABS: INTERNATIONAL NORM RATIO 0.9 (0.9-1.1); Prothrombin Time 11.5 SEC (11.1-13.3)
[2024-05-02 16:00] VITALS: BP 128/99; PULSE 86; RESP 18; TEMP 36.6; O2SAT 99
--- NOTE | 2024-05-02 17:13 | PC.NURSE ---
ED attending at [facility] for LP. patient alert and oriented x4, respirations equal and unlabored, skin dry and intact
--- NOTE | 2024-05-02 17:30 | PC.NURSE ---
LP finished, pressure applied into site. placed bandage at needle site. patient resting flat on back. patient remains alert and oriented x4. LP sample collected and walked to lab
[2024-05-02 18:27] LABS: Appearance CSF CLEAR; CSF Tube # 1; Color CSF COLORLESS; Lymphocytes CSF 100 %; Red Blood Cell CSF 247 MM*3; White Blood Cell CSF 1 MM*3
[2024-05-02 18:29] VITALS: BP 148/100; PULSE 75; RESP 18; TEMP 36.7; O2SAT 98
[2024-05-02 18:31] LABS: CSF Appearance Clear, Colorless
[2024-05-02 18:32] LABS: CSF Tube # 2; Glucose CSF 58 mg/dL; Total Protein CSF 26.9 mg/dL (15-45)
[2024-05-02] MEDS: ondansetron HCL 4 MG/2 ML VIAL IVPUSH (18:34)
[2024-05-02] MEDS: Morphine Sulfate 2 MG/ML CARTRIDGE IVPUSH (18:34)
[2024-05-02] MEDS: LORazepam 2 MG/ML VIAL 1 MG IVPUSH (18:34)
--- NOTE | 2024-05-02 18:53 | PM.IMHP ---
History of Present Illness Date of Service: 05/02/24 Chief Complaint: Weakness, numbness, fasciculations A 39 years old lady with PMH of CIDP, Alcohol use among others presenting the hospital with worsening bilateral lower extremity numbness/weakness and upper extremity weakness with jaw and tongue numbness. The patient reports that she was doing around her baseline walking and talking until last Thursday when she started to feel too weak to ambulate and walk. This morning she was not able to get up from the chair. She had longer than expeted period of 10 days and got sick to her stomach last week with chills, nausea and diarrhea that resolved but her weakness started directly after that. In ED CT head and CSF fluids did not show any acute findings. Admitted for further work up and treatment. Review of Systems Review of Systems: No fever, chills but has lower and upper extremities weakness with numbness No chest pain, palpitation No shortness of breath or coughing No abdominal pain, nausea or vomiting No urinary symptoms No rash PMFSH Medical History Leg pain, bilateral Back pain IBS (irritable bowel syndrome) HTN (hypertension) Guillain-[place] syndrome Peripheral neuropathy Paresthesias Surgical History No pertinent past surgical history Social History Household Members: Family Housing: House Are you a primary healthcare consulting manager to a significant other at home: No Do you presently have visiting nurse or other home services: No Unable to assess alcohol history related to: Unknown Alcohol intake: current Alcohol intake frequency: holidays/special occasions only Alcohol type: hard liquor Comment: Bilateral leg weakness Patient Tobacco Use Status: Former Tobacco user e-Cigarette/Vaping Use: Currently Using Substance Use Type: Marijuana Advance Directives: Yes Advance Directives on File: Yes Advance Directives Date on File: 10/08/21 Do you have a plan to hurt others: No Plan service: No Current occupational status: unemployed Meds Allergies Allergy/AdvReac Type Severity Reaction Status Date / Time ceftriaxone Allergy Intermediate Rash Verified 05/02/24 11:39 amoxicillin [AMOXICILLIN] Allergy Unknown UNKNWON Verified 05/02/24 11:39 Active Medications: Current Medications Acetaminophen (Acetaminophen 325 Mg Tablet) 650 mg PO Q6H PRN PRN Reason: Pain, Mild (Pain Scale 1-3), fever or headache Heparin Sodium (Porcine) (Heparin Sodium,Porcine 5,000 Unit/Ml Vial) 5,000 unit SUBCUT Q8H CAYLA Ondansetron HCl (Ondansetron Hcl 4 Mg/2 Ml Vial) 4 mg IVPUSH Q8H PRN PRN Reason: Nausea and Vomiting Home Medications ?Medication ?Instructions ?Recorded ?Confirmed ?Last Taken ?Type multivitamin 1 tab PO DAILY 11/14/21 05/08/23 2 Days Ago History ~05/06/23 cholecalciferol (vitamin D3) 25 25 mcg PO DAILY 05/08/23 05/08/23 2 Days Ago History mcg (1,000 unit) tablet ~05/06/23 gabapentin 100 mg capsule 200 mg PO BEDTIME 05/08/23 05/08/23 2 Days Ago History ~05/06/23 morphine 15 mg tablet,extended 15 mg PO BEDTIME 05/08/23 05/08/23 2 Days Ago History release ~05/06/23 Physical Exam Vital Signs and Narrative: Vital Signs: Last Vital Signs Temp 98.1 F 05/02/24 18:29 Pulse 75 05/02/24 18:29 Resp 18 05/02/24 18:29 BP 148/100 H 05/02/24 18:29 Pulse Ox 98 05/02/24 18:29 O2 Del Method Room Air 05/02/24 18:29 BMI result Body Mass Index 21.5 Const: Other: Constitutional : Awake, interactive, not in distress Neck : Normal inspection, Supple Cardiovascular : RRR, no JVP, no lower extremity edema Respiratory : good bilateral air entry, no crackles, wheezes or rhonchi Gastrointestinal: soft, lax, Normal bowel sounds, Non tender Skin : Warm, Dry Neurological : Alert & oriented x3, No focal deficit , CN 2-12 showing weakness in facial sensation around the jaw, also decreased to above her knees and almost elbows bilaterally, can get legs off the bed but can not tolerate a push. numbness around the mouth and the katie, upper neck, noticed facial and UE fasciculation Results Labs 05/02/24 11:51 05/02/24 11:51 Labs: Laboratory Results - last 24 hr 05/02/24 05/02/24 05/02/24 11:51 11:59 12:26 MCV 91.5 MCH 28.9 MCHC 31.6 RDW 15.6 Plt Count 363 MPV 10.8 Immature Gran % (Auto) 0.2 Neut % (Auto) 52.6 Lymph % (Auto) 37.9 [place] % (Auto) 7.2 Eos % (Auto) 0.9 Baso % (Auto) 1.2 Lymph # (Auto) 2.2 [place] # (Auto) 0.4 Eos # (Auto) 0.1 Baso # (Auto) 0.1 Abs Immat Gran (auto) 0.01 Absolute Neuts (auto) 3.0 Absolute Nucleated RBC 0.000 Nucleated RBC % (auto) 0.0 ESR 17 PT INR Anion Gap 16 Estim Creat Clear Calc 94.1 Estimated GFR > 60 Random Glucose 107 Calcium 9.5 D Magnesium 2.0 Total Bilirubin 0.5 Direct Bilirubin 0.3 AST 47 H ALT 36 H Alkaline Phosphatase 121 H Total Creatine Kinase 13 L Troponin I High Sens < 2.7 C-Reactive Protein 0.10 Total Protein 6.8 Albumin 3.3 L Vitamin B12 755 Folate 18.7 Beta HCG, Quant < 2 Urine Color Dark Yellow Urine Appearance Cloudy Urine pH 6.5 Ur Specific [place] 1.020 Urine Protein Negative Urine Glucose (UA) Negative Urine Ketones Trace Urine Blood Negative Urine Nitrite Negative Ur Leukocyte Esterase Small (1+) H Urine RBC 0-2 Urine WBC 6-10 H Ur Squamous Epith Cells 3-5 Urine Bacteria 4+ Hyaline Casts 3-5 CSF Tube Number CSF Volume CSF Appearance CSF Color CSF WBC CSF RBC CSF Lymphocytes CSF Appearance (b) CSF Glucose CSF Total Protein Ethyl Alcohol < 10 05/02/24 05/02/24 05/02/24 13:31 17:29 17:29 MCV MCH MCHC RDW Plt Count MPV Immature Gran % (Auto) Neut % (Auto) Lymph % (Auto) [place] % (Auto) Eos % (Auto) Baso % (Auto) Lymph # (Auto) [place] # (Auto) Eos # (Auto) Baso # (Auto) Abs Immat Gran (auto) Absolute Neuts (auto) Absolute Nucleated RBC Nucleated RBC % (auto) ESR PT 11.5 INR 0.9 Anion Gap Estim Creat Clear Calc Estimated GFR Random Glucose Calcium Magnesium Total Bilirubin Direct Bilirubin AST ALT Alkaline Phosphatase Total Creatine Kinase Troponin I High Sens C-Reactive Protein Total Protein Albumin Vitamin B12 Folate Beta HCG, Quant Urine Color Urine Appearance Urine pH Ur Specific [place] Urine Protein Urine Glucose (UA) Urine Ketones Urine Blood Urine Nitrite Ur Leukocyte Esterase Urine RBC Urine WBC Ur Squamous Epith Cells Urine Bacteria Hyaline Casts CSF Tube Number 2 1 CSF Volume 2.0 CSF Appearance CLEAR CSF Color COLORLESS CSF WBC 1 CSF RBC 247 CSF Lymphocytes 100 CSF Appearance (b) Clear, Colorless CSF Glucose 58 CSF Total Protein 26.9 Ethyl Alcohol Imaging Radiologist's Impressions: Impressions Head CT 05/02/24 16:10 IMPRESSION: No acute intracranial pathology. Electronically signed by: Hung Squires MD 05/02/2024 04:41 PM EDT RP Assessment and Plan (1) Elevated LFTs: Status: Acute (2) Bilateral leg weakness: Status: Acute (3) CIDP (chronic inflammatory demyelinating polyneuropathy): Status: Acute (4) Peripheral neuropathy: Qualifiers: Peripheral neuropathy type: polyneuropathy, unspecified Qualified Code(s): G62.9 - Polyneuropathy, unspecified Status: Acute (5) Paresthesias: Status: Acute Plan A 39 years old lady with PMH of CIDP, Alcohol use among others presenting the hospital with worsening bilateral lower extremity numbness/weakness and upper extremity weakness with jaw and tongue numbness. Weakness and numbness in UE and LE Likely related to her prev hx of CIDP with exacerbation post viral illness CSF within normal CT Head no acute findings Start IV Solumedrol 500 mg now MRI brain w\wo contrast Neurology consult PT\OT aspiration precautions Transaminities could be related to recent viral illness, medications or alcohol follow LFT DVT PPx Heparin Quality Stroke Does the patient have a stroke diagnosis?: No VTE Prior VTE?: No VTE Risk Level:: Medical - moderate - high VTE Device Contraindication: Treatment Not Indicated VTE Drug Contraindication: N/A - Med Ordered
--- NOTE | 2024-05-02 19:58 | PHA.MEDREC ---
Addendum entered by Melisa Claros RPh 05/02/24 20:05: Med rec was reviewed by vianey. Original Note: Pharmacy Consult ? Medication Reconciliation Pharmacy has completed the medication reconciliation. Spoke to patient to confirm med list. Patient states she is no longer taking Vitamin D3, and vitamin B1. Patient says she takes Vitamin B-12 drops , however she could only confirm she take 10 drops but couldn't say what strength it is.
[2024-05-02] MEDS: methylPREDNISolone Sod Succ 500 MG in 0.9 % Sodium Chloride 50 ML 50 MG IV (20:02)
[2024-05-02 20:29] VITALS: BP 133/96; PULSE 76; RESP 15; TEMP 36.4; O2SAT 95
--- NOTE | 2024-05-02 21:00 | PC.NURSE ---
Report taken from Jennifer BUSTILLO assumed care of pt at 1900. A&Ox3 skin pwd respirations even unlabored. Reports continued difficulty using hands and numbness to BLE. Medicated per MAR with scheduled meds. Plan for admission, aware of plan of care. Dinner brought by spouse, 100% consumed without difficulty. Assisted in wheelchair to bathroom. Awaiting bed assignment, will continue to monitor.
[2024-05-02] MEDS: Heparin Sodium,Porcine 5,000 UNIT/ML VIAL 5000 UNIT SUBCUT (21:25)
[2024-05-02] MEDS: Gabapentin 300 MG CAPSULE PO (21:25)
[2024-05-02] MEDS: Morphine Sulfate ER 15 MG TABLET.ER PO (21:25)
[2024-05-03] VITALS (7 sets, daily range): BP systolic 116–149; BP diastolic 84–112; PULSE 82–114; RESP 16–20; TEMP 36.4–37.1; O2SAT 92–99
--- NOTE | 2024-05-03 01:24 | MHC.EDTECH ---
vitals done, pt placed on pvc monitor per order. pt resting comfortably at this time awaiting bed assignment.
[2024-05-03 04:51] LABS: MANUAL DIFF FLAG NO
[2024-05-03 04:52] LABS: Basophils Percent Auto 0.3 % (0-2); Hematocrit 29.8 % (37.0-47.0); Hemoglobin 9.1 g/dl (12.0-16.0); Imm Gran Abs Auto 0.01 X10*3/uL (0.00-0.03); Imm Gran Pct Auto 0.3 % (0.0-0.4); Lymphocytes Absolute Auto 0.7 X10*3/uL (1.2-4.9); Lymphocytes Percent Auto 20.9 % (20-40); Mean Corpuscular HGB Conc 30.5 g/dl (31.0-35.0); Mean Corpuscular Hemoglobin 28.1 pg (27.0-33.0); Mean Platelet Volume 11.1 fL (9.4-12.3); Monocytes Percent Auto 0.9 % (2-11); Neutrophils Absolute Auto 2.5 x10*3/uL (2.0-8.3); Neutrophils Percent Auto 77.6 % (45-73); Platelet Count 327 X10*3/uL (160-400); Red Blood Count 3.24 X10*6/uL (4.20-5.50); Red Cell Distribution Width 15.7 % (11.0-16.0); White Blood Count 3.3 X10*3/uL (4.8-10.8)
[2024-05-03 05:21] LABS: Alanine Aminotransferase 28 U/L (0-31); Albumin Level 2.9 g/dL (3.5-5.0); Anion Gap 13 (12-20); Aspartate Amino Transferase 38 U/L (5-31); Bilirubin Total 0.5 mg/dL (0.0-1.0); Blood Urea Nitrogen 8 mg/dL (9-16); Calcium 8.8 mg/dL (8.4-10.2); Carbon Dioxide 23 mmol/L (22-29); Chloride 105 mmol/L (96-108); Creatinine Clr Calc Pharmacy 98.3; Estimated Glomerular Filt Rate > 60; Glucose Random 147 mg/dL (60-115); Magnesium 1.9 mg/dL (1.6-2.6); Potassium 3.9 mmol/L (3.3-5.1); Sodium 137 mmol/L (135-145)
[2024-05-03 05:32] LABS: Alkaline Phosphatase 106 U/L (39-117)
[2024-05-03] MEDS: Heparin Sodium,Porcine 5,000 UNIT/ML VIAL 5000 UNIT SUBCUT ×3 (06:35→22:52)
--- NOTE | 2024-05-03 07:13 | PC.NURSE ---
report recieved from previous RN, patient resting comfortably on stretcher, complaining of generalized chronic aches and pains, MRI screening completed and faxed by this RN, offering no new or further complaints at this time
[2024-05-03] MEDS: Acetaminophen 325 MG TABLET 650 MG PO (08:19)
[2024-05-03] MEDS: Folic Acid 1 MG TABLET PO (08:19)
[2024-05-03] MEDS: Multivitamin TABLET 1 TAB PO (08:19)
[2024-05-03] MEDS: Gabapentin 300 MG CAPSULE PO ×2 (08:19→20:41)
[2024-05-03] MEDS: Magnesium Oxide 400 MG TABLET PO (08:19)
--- NOTE | 2024-05-03 08:33 | PC.NURSE ---
patient medicated per OCT and provided with breakfast tray
[2024-05-03] MEDS: ALPRAZolam 0.25 MG TABLET PO (09:30)
--- NOTE | 2024-05-03 09:57 | PC.NURSE ---
patient to MRI at this time
[2024-05-03] MEDS: gadobutroL 7.5 ML VIAL IVPUSH (10:16)
--- NOTE | 2024-05-03 10:19 | PC.NURSE ---
delay in levaquin administration r/t patient being off the floor
[2024-05-03] MEDS: levoFLOXacin/D5W 500 MG/100 ML PIGGYBACK 100 MG IV (10:30)
--- NOTE | 2024-05-03 10:37 | PC.NURSE ---
patient returned from MRI, medicated per MAR. offering no new complaints at this time, plan of care ongoing
--- NOTE | 2024-05-03 10:38 | MHC.CM.PN ---
Pt lives with ly and 2 children, she does not have home care services. She has DME if arm canes and a w/c, which she has been using the past few days, but prior to that she was not using. She is able to arrange a ride home at [place]. PT and OT are rec, acute rehab, referrals to be placed. CM to follow and assist with DC plan.
--- NOTE | 2024-05-03 10:56 | PM.NEUROCN ---
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 ( No evdence of CIDP or GBS) probably related to alcohol use, presented again with worsening bilateral lower extremity numbness/weakness and upper extremity weakness with jaw and tongue numbness. The patient reports that she was doing around her baseline walking and talking until last Thursday when she started to feel too weak to ambulate and walk. This morning she was not able to get up from the chair. Last week , she had stomach upset with chills, nausea and diarrhea that resolved but her weakness started directly after that. Her Brain MRI is negative except for some vermian atrophy for age ( ? ETOH related) and normal CSF, with nothing to suggest GBS. Her primary complaint at this point is severe diffuse pain in all of her joints. She is crying in pain and is wondering if she should get IVIG. [facility] Past Medical History Medical History (Updated 05/03/24 @ 15:54 by Rossana Moreira MD) UTI (urinary tract infection) Leg pain, bilateral Back pain IBS (irritable bowel syndrome) HTN (hypertension) Guillain-Radisson syndrome Peripheral neuropathy Paresthesias Surgical History Surgical History No pertinent past surgical history Social History Social History Household Members: Family Housing: House Are you a primary multi care technician to a significant other at home: No Do you presently have visiting nurse or other home services: No Unable to assess alcohol history related to: Unknown Alcohol intake: current Alcohol intake frequency: holidays/special occasions only Alcohol type: hard liquor Comment: Bilateral leg weakness Patient Tobacco Use Status: Former Tobacco user e-Cigarette/Vaping Use: Currently Using Substance Use Type: Marijuana Advance Directives: Yes Advance Directives on File: Yes Advance Directives Date on File: 10/08/21 Do you have a plan to hurt others: No Plan Nutrition Risks: No Nutritional Risk service: No Current occupational status: unemployed Meds Allergies Allergy/AdvReac Type Severity Reaction Status Date / Time ceftriaxone Allergy Intermediate Rash Verified 05/02/24 11:39 amoxicillin [AMOXICILLIN] Allergy Unknown [place]KNWON Verified 05/02/24 11:39 Active Medications: Current Medications Acetaminophen (Acetaminophen 325 Mg Tablet) 650 mg PO Q6H PRN PRN Reason: Pain, Mild (Pain Scale 1-3), fever or headache Last Admin: 05/03/24 08:19 Dose: 650 mg Diazepam (Diazepam 2 Mg Tablet) 2 mg PO TID PRN PRN Reason: Anxiety Folic Acid (Folic Acid 1 Mg Tablet) 1 mg PO DAILY [facility] Last Admin: 05/03/24 08:19 Dose: 1 mg Gabapentin (Gabapentin 300 Mg Capsule) 300 mg PO BID [facility] Last Admin: 05/03/24 08:19 Dose: 300 mg Heparin Sodium (Porcine) (Heparin Sodium,Porcine 5,000 Unit/Ml Vial) 5,000 unit SUBCUT Q8H [facility] Last Admin: 05/03/24 06:35 Dose: 5,000 unit Levofloxacin (Levaquin) 500 mg in 100 mls @ 100 mls/hr IV Q24H [facility] Last Admin: 05/03/24 10:30 Dose: 100 mls/hr Magnesium Oxide (Magnesium Oxide 400 Mg Tablet) 400 mg PO DAILY [facility] Last Admin: 05/03/24 08:19 Dose: 400 mg Morphine Sulfate (Morphine Sulfate Er 15 Mg Tablet.Er) 15 mg PO BEDTIME [facility] Last Admin: 05/02/24 21:25 Dose: 15 mg Multivitamins/Vitamin C (Multivitamin Tablet) 1 tab PO DAILY [facility] Last Admin: 05/03/24 08:19 Dose: 1 tab Ondansetron HCl (Ondansetron Hcl 4 Mg/2 Ml Vial) 4 mg IVPUSH Q8H PRN PRN Reason: Nausea and Vomiting Home Medications ?Medication ?Instructions ?Recorded ?Confirmed ?Last Taken ?Type multivitamin 1 tab PO DAILY 11/14/21 05/02/24 05/01/24 History morphine 15 mg tablet,extended 15 mg PO BEDTIME 05/08/23 05/02/24 05/01/24 History release gabapentin 300 mg capsule 300 mg PO BID 05/02/24 05/02/24 05/02/24 History hydrocortisone acetate 25 mg 25 mg [place] BEDTIME PRN Hemorrhoids 05/02/24 05/02/2405/01/24 History rectal suppository (Anusol-HC) magnesium oxide 400 mg PO DAILY 05/02/24 05/02/24 05/01/24 History Physical Exam Vital Signs: Vital Signs: Last Vital Signs Temp 97.8 F 05/03/24 08:27 Pulse 106 H 05/03/24 08:27 Resp 20 05/03/24 08:27 BP 149/112 H 05/03/24 08:27 Pulse Ox 98 05/03/24 08:27 O2 Del Method Room Air 05/03/24 08:27 BMI result Body Mass Index 21.5 Neuro: Other: She is crying constantly saying she is in severe pain all over her body and she can't take it and it's mostly in her joints diffusely. Cranial nerves are normal. Mentally, she seems clearer. He can move all 4 extremities against gravity. She is areflexic related to neuropathy. Plantar response are flexor. Any passive movement of any joint increases her pain. Results Labs 05/03/24 04:38 05/03/24 04:38 Labs: Short CBC 05/02/24 05/03/24 Range/Units 11:51 04:38 WBC 5.7 3.3 L (4.8-10.8) X10*3/uL Hgb 10.9 L 9.1 L (12.0-16.0) g/dl Hct 34.5 L 29.8 L (37.0-47.0) % Plt Count 363 327 (160-400) X10*3/uL BMP 05/02/24 05/03/24 11:51 04:38 Sodium 140 137 Potassium 4.0 3.9 Chloride 103 105 Carbon Dioxide 25 23 BUN 7 L 8 L Creatinine 0.70 0.67 Calcium 9.5 D 8.8 D Cardiac Enzymes 05/02/24 Range/Units 11:51 Total Creatine Kinase 13 L (26-140) U/L Liver Function 05/02/24 05/03/24 Range/Units 11:51 04:38 Total Bilirubin 0.5 0.5 (0.0-1.0) mg/dL Direct Bilirubin 0.3 (0.0-0.5) mg/dL AST 47 H 38 H (5-31) U/L ALT 36 H 28 (0-31) U/L Alkaline Phosphatase 121 H 106 (39-117) U/L Albumin 3.3 L 2.9 L (3.5-5.0) g/dL Urine 05/02/24 Range/Units 11:59 Urine Color Dark Yellow Urine Appearance Cloudy Urine pH 6.5 (5.0-9.0) Ur Specific [place] 1.020 (1.005-1.025) Urine Protein Negative (Neg-Trace) mg/dL Urine Glucose (UA) Negative (Negative) mg/dL Microbiology Microbiology Results: Microbiology 05/02/24 12:26 Urine clean catch - Clean Catch Midstream Urine Culture - Preliminary Staphylococcus species 05/02/24 17:29 Cerebrospinal Fluid Gram Stain - Final 05/02/24 17:29 Cerebrospinal Fluid CSF Examination - Final 05/02/24 17:29 Cerebrospinal Fluid Fluid Description - Final 05/02/24 17:29 Cerebrospinal Fluid CSF Culture - Preliminary No growth to date. Assessment and Plan (1) Peripheral neuropathy: Qualifiers: Peripheral neuropathy type: polyneuropathy, unspecified Qualified Code(s): G62.9 - Polyneuropathy, unspecified Status: Acute She is had a stable peripheral neuropathy, mostly axonal without evidence of CIDP on multiple nerve testing study. The most recent one was in June 2023. There is no clear clinical evidence that she has an acute neuropathy superimposed on the pre-existing. No evidence of Guillain-Armendariz? syndrome and spinal fluid analysis. No elevated proteins to suggest that she has polyradiculopathy. (2) Arthralgia: Status: Acute Her biggest complaint right now is severe, diffuse arthralgias. Recommendation: Short course of steroids. Check sedimentation rate, CRP, CPK, TSH and T4. KIARRA and rheumatoid factor. PTOT for ambulation and muscle strengthening Procedures Date of Service Date of Service: 05/03/24
[2024-05-03] MEDS: diazePAM 2 MG TABLET PO (12:45)
--- NOTE | 2024-05-03 12:51 | PC.NURSE ---
patient transferred onto hospital stretcher for comfort, still endorsing some anxiety and generally feeling unwell, medicated per MAR with PRNs. also requesting IV fluids at this time, admitting MD made aware of patient request, states he will put in an order for pt. patient fiance provided patinet with lunch tray. plan of care remains ongoing
--- NOTE | 2024-05-03 12:53 | P.PNIM_ITS ---
Subjective Subjective Date of Service: 05/03/24 Interval History: seen and evaluated feeling anxious, not eating much and still weak no reported overnight events Review of Systems lower and upper extremities weakness with numbness No chest pain, palpitation No shortness of breath or coughing No abdominal pain, nausea or vomiting No urinary symptoms No rash Physical Exam 2 Vital Signs: Vital Signs: Last Vital Signs Temp 97.8 F 05/03/24 08:27 Pulse 106 H 05/03/24 08:27 Resp 20 05/03/24 08:27 BP 149/112 H 05/03/24 08:27 Pulse Ox 98 05/03/24 08:27 O2 Del Method Room Air 05/03/24 08:27 BMI result Body Mass Index 21.5 Const: Other: Constitutional : Awake, interactive, not in distress Neck : Normal inspection, Supple Cardiovascular : RRR, no JVP, no lower extremity edema Respiratory : good bilateral air entry, no crackles, wheezes or rhonchi Gastrointestinal: soft, lax, Normal bowel sounds, Non tender Skin : Warm, Dry Neurological : Alert & oriented x3, No focal deficit , CN 2-12 showing weakness in facial sensation around the jaw, also decreased to above her knees and almost elbows bilaterally. numbness around the mouth and the jaw, upper neck, noticed facial and UE fasciculation Objective Data Active Medications Acetaminophen (Acetaminophen 325 Mg Tablet) 650 mg PO Q6H PRN PRN Reason: Pain, Mild (Pain Scale 1-3), fever or headache Last Admin: 05/03/24 08:19 Dose: 650 mg Documented By: PEDRO PABLO Diazepam (Diazepam 2 Mg Tablet) 2 mg PO TID PRN PRN Reason: Anxiety Last Admin: 05/03/24 12:45 Dose: 2 mg Documented By: PEDRO PABLO Folic Acid (Folic Acid 1 Mg Tablet) 1 mg PO DAILY [facility] Last Admin: 05/03/24 08:19 Dose: 1 mg Documented By: PEDRO PABLO Gabapentin (Gabapentin 300 Mg Capsule) 300 mg PO BID [facility] Last Admin: 05/03/24 08:19 Dose: 300 mg Documented By: PEDRO PABLO Heparin Sodium (Porcine) (Heparin Sodium,Porcine 5,000 Unit/Ml Vial) 5,000 unit SUBCUT Q8H [facility] Last Admin: 05/03/24 06:35 Dose: 5,000 unit Documented By: LINDA Levofloxacin (Levaquin) 500 mg in 100 mls @ 100 mls/hr IV Q24H [facility] Last Infusion: 05/03/24 11:41 Dose: Infused Documented By: PEDRO PABLO Dextrose/Lactated Ringer's (D5lr) 1,000 mls @ 80 mls/hr IVCONT .[id number] [facility] Magnesium Oxide (Magnesium Oxide 400 Mg Tablet) 400 mg PO DAILY [facility] Last Admin: 05/03/24 08:19 Dose: 400 mg Documented By: PEDRO PABLO Morphine Sulfate (Morphine Sulfate Er 15 Mg Tablet.Er) 15 mg PO BEDTIME [facility] Last Admin: 05/02/24 21:25 Dose: 15 mg Documented By: GEORGE Multivitamins/Vitamin C (Multivitamin Tablet) 1 tab PO DAILY [facility] Last Admin: 05/03/24 08:19 Dose: 1 tab Documented By: PEDRO PABLO Ondansetron HCl (Ondansetron Hcl 4 Mg/2 Ml Vial) 4 mg IVPUSH Q8H PRN PRN Reason: Nausea and Vomiting Labs 05/03/24 04:38 05/03/24 04:38 Labs: Laboratory Results - last 24 hr 05/02/24 05/02/24 05/02/24 12:26 13:31 17:29 MCV MCH MCHC RDW Plt Count MPV Immature Gran % (Auto) Neut % (Auto) Lymph % (Auto) Will % (Auto) Eos % (Auto) Baso % (Auto) Lymph # (Auto) Will # (Auto) Eos # (Auto) Baso # (Auto) Abs Immat Gran (auto) Absolute Neuts (auto) Absolute Nucleated RBC Nucleated RBC % (auto) PT 11.5 INR 0.9 Anion Gap Estim Creat Clear Calc Estimated GFR Random Glucose Calcium Magnesium Total Bilirubin AST ALT Alkaline Phosphatase Total Protein Albumin Vitamin B12 755 Folate 18.7 CSF Tube Number 2 CSF Volume CSF Appearance CSF Color CSF WBC CSF RBC CSF Lymphocytes CSF Appearance (b) CSF Glucose CSF Total Protein 05/02/24 05/03/24 17:29 04:38 MCV 92.0 MCH 28.1 MCHC 30.5 L RDW 15.7 Plt Count 327 MPV 11.1 Immature Gran % (Auto) 0.3 Neut % (Auto) 77.6 H Lymph % (Auto) 20.9 Will % (Auto) 0.9 L Eos % (Auto) 0.0 Baso % (Auto) 0.3 Lymph # (Auto) 0.7 L Will # (Auto) 0.0 L Eos # (Auto) 0.0 Baso # (Auto) 0.0 Abs Immat Gran (auto) 0.01 Absolute Neuts (auto) 2.5 Absolute Nucleated RBC 0.000 Nucleated RBC % (auto) 0.0 PT INR Anion Gap 13 Estim Creat Clear Calc 98.3 Estimated GFR > 60 Random Glucose 147 H Calcium 8.8 D Magnesium 1.9 Total Bilirubin 0.5 AST 38 H ALT 28 Alkaline Phosphatase 106 Total Protein 6.0 L Albumin 2.9 L Vitamin B12 Folate CSF Tube Number 1 CSF Volume 2.0 CSF Appearance CLEAR CSF Color COLORLESS CSF WBC 1 CSF RBC 247 CSF Lymphocytes 100 CSF Appearance (b) Clear, Colorless CSF Glucose 58 CSF Total Protein 26.9 Microbiology Microbiology Results: Microbiology 05/02/24 12:26 Urine Culture - Preliminary Urine clean catch - Clean Catch Midstream Staphylococcus species 05/02/24 17:29 Gram Stain - Final Cerebrospinal Fluid CSF Examination - Final Fluid Description - Final CSF Culture - Preliminary No growth to date. Assessment and Plan (1) Elevated LFTs: Status: Acute (2) Paresthesias: Status: Acute (3) UTI (urinary tract infection): Status: Acute Plan A 39 years old lady with PMH of CIDP, Alcohol use among others presenting the hospital with worsening bilateral lower extremity numbness/weakness and upper extremity weakness with jaw and tongue numbness. Weakness and numbness in UE and LE Likely related to her prev hx of CIDP with exacerbation post viral illness or UTI, previously improved on IVIG CSF within normal, CT Head no acute findings received one dose of IV Solumedrol 500 mg MRI brain w\wo contrast with no acute findings Neurology consult pending PT\OT aspiration precautions Gentle hydration UTI No evidence of sepsis Urine growing Staph species Start Ceftriaxone pending final cultures Transaminities could be related to recent viral illness, medications or alcohol improving follow LFT Anxiety Xanax prn DVT PPx Heparin The patient will need overnight hospital stay pending neurology evaluation and final urine culture. Quality Stroke Does the patient have a stroke diagnosis?: No VTE Prior VTE?: No VTE Risk Level:: Medical - moderate - high VTE Device Contraindication: Treatment Not Indicated VTE Drug Contraindication: N/A - Med Ordered
[2024-05-03] MEDS: Dextrose 5 % and Lactated Ring 1,000 ML 80 ML IVCONT (13:24)
[2024-05-03] MEDS: methylPREDNISolone Sod Succ 40 MG/ML VIAL IVPUSH (16:16)
[2024-05-03] MEDS: Ketorolac Tromethamine 15 MG/ML VIAL IVPUSH (16:16)
[2024-05-03 18:31] LABS: TSH reflex Free T4 0.31 uIU/mL (0.32-4.0)
[2024-05-03 19:36] LABS: Free T4 (Free Thyroxine) 0.71 ng/dL (0.71-1.85)
[2024-05-03] MEDS: Morphine Sulfate ER 15 MG TABLET.ER PO (20:40)
[2024-05-04] VITALS (8 sets, daily range): BP systolic 82–155; BP diastolic 54–96; PULSE 75–106; RESP 16–20; TEMP 36.1–36.8; O2SAT 99–100
[2024-05-04 01:08] LABS: A. Phagocytphilium DNA,RT-PCR NOT DETECTED (NOT DETECTED); Babesia Microti DNA, RT-PCR NOT DETECTED (NOT DETECTED); Borrelia Miyamotoi,DNA RT-PCR NOT DETECTED (NOT DETECTED); E.Chaffeensis DNA RT-PCR NOT DETECTED (NOT DETECTED); Lyme(Borrelia ssp)DNA RT-PCR NOT DETECTED (NOT DETECTED)
[2024-05-04] MEDS: Dextrose 5 % and Lactated Ring 1,000 ML 80 ML IVCONT ×3 (03:26→22:22)
[2024-05-04] MEDS: Heparin Sodium,Porcine 5,000 UNIT/ML VIAL 5000 UNIT SUBCUT ×3 (05:49→23:02)
[2024-05-04 06:56] LABS: Hematocrit 30.9 % (37.0-47.0); Hemoglobin 9.2 g/dl (12.0-16.0); Mean Corpuscular HGB Conc 29.8 g/dl (31.0-35.0); Mean Corpuscular Hemoglobin 27.7 pg (27.0-33.0); Mean Corpuscular Volume 93.1 fL (80.0-98.0); Mean Platelet Volume 11.7 fL (9.4-12.3); Platelet Count 338 X10*3/uL (160-400); Red Blood Count 3.32 X10*6/uL (4.20-5.50); Red Cell Distribution Width 15.7 % (11.0-16.0); White Blood Count 7.7 X10*3/uL (4.8-10.8)
[2024-05-04 07:15] LABS: Anion Gap 14 (12-20); Blood Urea Nitrogen 7 mg/dL (9-16); Calcium 9.1 mg/dL (8.4-10.2); Carbon Dioxide 26 mmol/L (22-29); Chloride 107 mmol/L (96-108); Creatinine Clr Calc Pharmacy 99.8; Estimated Glomerular Filt Rate > 60; Glucose Random 95 mg/dL (60-115); Potassium 3.8 mmol/L (3.3-5.1); Sodium 143 mmol/L (135-145)
--- NOTE | 2024-05-04 08:14 | HO.PM.IMPN ---
Subjective Subjective Date of Service: 05/04/24 Interval History: Seen in follow up for neuropathy, weakness Interval history: Tearful, complaining of pain in the BUE and BLE. Complaining of muscle cramping in the BUE Review of Systems Review of Systems: Yes all other systems are reviewed and are negative Physical Exam Vital Signs: Vital Signs: Last Vital Signs Temp 96.9 F 05/04/24 03:14 Pulse 95 05/04/24 03:14 Resp 20 05/04/24 03:14 BP 155/96 H 05/04/24 03:14 Pulse Ox 99 05/04/24 03:14 O2 Del Method Room Air 05/04/24 03:14 BMI result Body Mass Index 21.5 Constitutional - Awake and Alert, No apparent distress Eyes - PERRLA, EOMI Cardiovascular - S1S2, RRR, No edema Respiratory - Normal lung expansion, Normal respiratory effort, No respiratory distress, CTA bilaterally Extremities - no calf tenderness bilaterally, no swelling Skin - Warm/Dry Neurological - Alert & oriented x3, decreased sensation around mouth and jaw otherwise CN II-XII in tact, 4/5 strength ble Objective Data Active Medications Acetaminophen (Acetaminophen 325 Mg Tablet) 650 mg PO Q6H PRN PRN Reason: Pain, Mild (Pain Scale 1-3), fever or headache Last Admin: 05/03/24 08:19 Dose: 650 mg Documented By: PEDRO PABLO Diazepam (Diazepam 2 Mg Tablet) 2 mg PO TID PRN PRN Reason: Anxiety Last Admin: 05/03/24 12:45 Dose: 2 mg Documented By: PEDRO PABLO Folic Acid (Folic Acid 1 Mg Tablet) 1 mg PO DAILY [facility] Last Admin: 05/03/24 08:19 Dose: 1 mg Documented By: PEDRO PABLO Gabapentin (Gabapentin 300 Mg Capsule) 300 mg PO BID [facility] Last Admin: 05/03/24 20:41 Dose: 300 mg Documented By: JHOANA Heparin Sodium (Porcine) (Heparin Sodium,Porcine 5,000 Unit/Ml Vial) 5,000 unit SUBCUT Q8H [facility] Last Admin: 05/04/24 05:49 Dose: 5,000 unit Documented By: JHOANA Levofloxacin (Levaquin) 500 mg in 100 mls @ 100 mls/hr IV Q24H [facility] Last Infusion: 05/03/24 11:41 Dose: Infused Documented By: PEDRO PABLO Dextrose/Lactated Ringer's (D5lr) 1,000 mls @ 80 mls/hr IVCONT .[id number] [facility] Last Admin: 05/04/24 03:26 Dose: 80 mls/hr Documented By: JHOANA Magnesium Oxide (Magnesium Oxide 400 Mg Tablet) 400 mg PO DAILY [facility] Last Admin: 05/03/24 08:19 Dose: 400 mg Documented By: PEDRO PABLO Methylprednisolone Sodium Succinate (Methylprednisolone Sod Succ 40 Mg/Ml Vial) 40 mg IVPUSH Q24H [facility] Last Admin: 05/03/24 16:16 Dose: 40 mg Documented By: PEDRO PABLO Morphine Sulfate (Morphine Sulfate Er 15 Mg Tablet.Er) 15 mg PO BEDTIME [facility] Last Admin: 05/03/24 20:40 Dose: 15 mg Documented By: JHOANA Multivitamins/Vitamin C (Multivitamin Tablet) 1 tab PO DAILY [facility] Last Admin: 05/03/24 08:19 Dose: 1 tab Documented By: PEDRO PABLO Ondansetron HCl (Ondansetron Hcl 4 Mg/2 Ml Vial) 4 mg IVPUSH Q8H PRN PRN Reason: Nausea and Vomiting Labs 05/04/24 06:10 05/04/24 06:10 Labs: Laboratory Results - last 24 hr 05/02/24 05/03/24 05/04/24 12:26 17:39 06:10 MCV 93.1 MCH 27.7 MCHC 29.8 L RDW 15.7 Plt Count 338 MPV 11.7 Absolute Nucleated RBC 0.000 Nucleated RBC % (auto) 0.0 Anion Gap 14 Estim Creat Clear Calc 99.8 Estimated GFR > 60 Random Glucose 95 Calcium 9.1 Total Creatine Kinase 19 L TSH 0.31 L Free T4 0.71 A.phagocytophil DNA PCR NOT DETECTED Babesia microti DNA PCR NOT DETECTED Borrelia sp DNA (PCR) NOT DETECTED Borrelia miyamotoi (PCR) NOT DETECTED E.chaffeensis DNA (PCR) NOT DETECTED Tick-borne Disease PCR SEE NOTE Microbiology Microbiology Results: Microbiology 05/02/24 17:29 Gram Stain - Final Cerebrospinal Fluid CSF Examination - Final Fluid Description - Final CSF Culture - Preliminary No growth after 1 day 05/02/24 12:26 Urine Culture - Final Urine clean catch - Clean Catch Midstream Staphylococcus epidermidis Assessment and Plan (1) Elevated LFTs: Status: Acute (2) Paresthesias: Status: Acute (3) UTI (urinary tract infection): Status: Acute Plan A 39 years old lady with PMH of CIDP, Alcohol use among others presenting the hospital with worsening bilateral lower extremity numbness/weakness and upper extremity weakness with jaw and tongue numbness. Weakness and numbness in UE and LE and jaw/mouth/tongue with athralgias Likely related to her prev hx of CIDP with exacerbation post viral illness or UTI, previously improved on IVIG CSF within normal, CT Head no acute findings Tick panel negative received one dose of IV Solumedrol 500 mg. MRI brain w\wo contrast with no acute findings Per neurology, stable peripheral neuropathy, mostly axonal without evidence of CIDP on multiple nerve testing study. The most recent one was in June 2023. There is no clear clinical evidence that she has an acute neuropathy superimposed on the pre-existing. No evidence of Guillain-Armendariz? syndrome and spinal fluid analysis. No elevated proteins to suggest that she has polyradiculopathy. 05/04- Pt is quite symptomatic. Neuro not recommending IVIG. Recommended steroids. Increased methylprednisolone to 40mg BID. Added tizanidine 4mg TID with some improvement. PRN ketorolac Continue MS contin 15mg bedtime (home dose) KIARRA reflex pending. Would benefit from outpt rheum follow up PT\OT recommending Acute rehab aspiration precautions. Given weakness/paresthesias mouth/tongue having difficulty with PO (no dysphagia, just difficulty with sensation especially pills). ADJUSTER eval entered. Use IV when possible Gentle hydration UTI No evidence of sepsis Urine growing Staph epi. DC abx Transaminities could be related to recent viral illness, medications or alcohol improving follow LFT Anxiety lorazepam prn DVT PPx Heparin The patient will need overnight hospital stay for ongoing pain management and optimatization of therapies and eventual placement to acute rehab Quality Stroke Does the patient have a stroke diagnosis?: No VTE Prior VTE?: No VTE Risk Level:: Medical - moderate - high VTE Device Contraindication: Treatment Not Indicated VTE Drug Contraindication: N/A - Med Ordered
--- NOTE | 2024-05-04 08:41 | MHC.CM.PN ---
Addendum entered by Cynthia Cortés RN 05/04/24 11:55: PT NOW ASKING FOR [facility] INSTEAD OF [facility], BOTH AR'S UPDATED. Addendum entered by Cynthia Cortés RN 05/04/24 10:48: [facility] OFFERING HOWEVER [facility] IS PT'S PREFERRED AR SHE HAS BEEN THERE BEFORE, CM WAITING FOR BED OFFER. Original Note: EMR REVIEWED, PT/OT RECOMMENDING ACUTE REHAB, REF UPDATED W/MRI PER REQUEST OF [facility] UNABLE TO OFFER HOWEVER CM AWAITING ON [facility], [facility]IC PT WILL REMAIN INPT FOR IV STEROIDS, CM WILL CONT TO FOLLOW REFERRAL AND DC NEEDS.
[2024-05-04] MEDS: Gabapentin 300 MG CAPSULE PO ×3 (09:11→23:05)
[2024-05-04] MEDS: Magnesium Oxide 400 MG TABLET PO (09:11)
[2024-05-04] MEDS: Multivitamin TABLET 1 TAB PO (09:11)
[2024-05-04] MEDS: Folic Acid 1 MG TABLET PO (09:12)
[2024-05-04] MEDS: levoFLOXacin/D5W 500 MG/100 ML PIGGYBACK 100 MG IV (09:13)
[2024-05-04] MEDS: Ketorolac Tromethamine 15 MG/ML VIAL IVPUSH (10:31)
[2024-05-04] MEDS: TiZANidine HCL 4 MG TABLET PO ×3 (10:32→23:04)
[2024-05-04] MEDS: LORazepam 0.5 MG TABLET PO (10:33)
[2024-05-04 14:24] LABS: Anti Nuclear Antibody Screen NEGATIVE (NEGATIVE)
[2024-05-04] MEDS: Morphine Sulfate 2 MG/ML CARTRIDGE IVPUSH (16:17)
[2024-05-04] MEDS: methylPREDNISolone Sod Succ 40 MG/ML VIAL IVPUSH (16:35)
[2024-05-04] MEDS: 0.9 % Sodium Chloride 1,000 ML 999 ML IV (20:29)
[2024-05-04] MEDS: Morphine Sulfate ER 15 MG TABLET.ER PO (23:02)
[2024-05-04] MEDS: Ketorolac Tromethamine 30 MG/ML VIAL IVPUSH (23:05)
[2024-05-05] VITALS (7 sets, daily range): BP systolic 110–143; BP diastolic 76–87; PULSE 51–94; RESP 14–18; TEMP 35.5–36.8; O2SAT 97–100
[2024-05-05] MEDS: methylPREDNISolone Sod Succ 40 MG/ML VIAL IVPUSH ×2 (02:49→14:22)
[2024-05-05] MEDS: Heparin Sodium,Porcine 5,000 UNIT/ML VIAL 5000 UNIT SUBCUT ×3 (06:30→21:20)
[2024-05-05] MEDS: Gabapentin 300 MG CAPSULE PO ×3 (08:44→21:18)
[2024-05-05] MEDS: TiZANidine HCL 4 MG TABLET PO ×2 (08:44→14:23)
[2024-05-05] MEDS: LORazepam 0.5 MG TABLET PO ×2 (08:44→21:20)
[2024-05-05] MEDS: Dextrose 5 % and Lactated Ring 1,000 ML 80 ML IVCONT (08:45)
[2024-05-05] MEDS: Ketorolac Tromethamine 15 MG/ML VIAL IVPUSH (10:16)
[2024-05-05] MEDS: Docusate Sodium 100 MG CAPSULE PO (10:16)
--- NOTE | 2024-05-05 11:25 | ECG_ITS ---
Test Reason : bradycardia Blood Pressure : / mmHG Vent. Rate : 052 BPM Atrial Rate : 052 BPM P-R Int : 116 ms QRS Dur : 070 ms QT Int : 476 ms P-R-T Axes : 041 021 031 degrees QTc Int : 442 ms Sinus bradycardia Possible Anterior infarct (cited on or before 02-MAY-2024) Abnormal ECG When compared with ECG of 02-MAY-2024 11:39, Vent. rate has decreased BY 49 BPM Nonspecific T wave abnormality no longer evident in Lateral leads Referred By: Cynthia Bonner Electronically Signed By:
--- NOTE | 2024-05-05 12:13 | P.PNIM_ITS ---
Subjective Subjective Date of Service: 05/05/24 Interval History: seen and examined this morning follow up for leg weakness continues with weakness, tongue numbness, joint pain, difficulty ambulating tearful this morning Review of Systems Review of Systems: Yes all other systems are reviewed and are negative Constitutional Constitutional: Denies fever(s) Cardiovascular Cardiovascular: Denies chest pain Gastrointestinal Gastrointestinal: Denies abdominal pain Physical Exam 2 Vital Signs: Vital Signs: Last Vital Signs Temp 97.3 F 05/05/24 08:00 Pulse 54 05/05/24 11:31 Resp 16 05/05/24 08:00 BP 115/76 05/05/24 11:31 Pulse Ox 99 05/05/24 08:00 O2 Del Method Room Air 05/05/24 08:00 BMI result Body Mass Index 21.5 Const: Other: tearful General: alert and awake Orientation/consciousness: patient oriented x3 Resp: Effort & Inspection: normal respiratory effort, able to speak in complete sentences, no respiratory distress and no use of accessory muscles A uscultation: clear to auscultation bilaterally Cardio: Rate: regular rate GI: Inspection: No distended Palpation (GI): Soft to palpation and nontender Neuro: Other: able to move all four extremities, b/l LE, can lift off bed but can't hold against resistance, reports decreased sensation lower jaw and tongue General: patient oriented x3 Extrem: General: Yes no pedal edema Objective Data Active Medications Acetaminophen (Acetaminophen 325 Mg Tablet) 650 mg PO Q6H PRN PRN Reason: Pain, Mild (Pain Scale 1-3), fever or headache Last Admin: 05/03/24 08:19 Dose: 650 mg Documented By: PEDRO PABLO Docusate Sodium (Docusate Sodium 100 Mg Capsule) 100 mg PO DAILY [facility] Last Admin: 05/05/24 10:16 Dose: 100 mg Documented By: SYMONE Folic Acid (Folic Acid 1 Mg Tablet) 1 mg PO DAILY [facility] Last Admin: 05/05/24 08:41 Dose: Not Given Documented By: SYMONE Non-Admin Reason: Physician Held Med Gabapentin (Gabapentin 300 Mg Capsule) 300 mg PO TID [facility] Last Admin: 05/05/24 08:44 Dose: 300 mg Documented By: SYMONE Heparin Sodium (Porcine) (Heparin Sodium,Porcine 5,000 Unit/Ml Vial) 5,000 unit SUBCUT Q8H [facility] Last Admin: 05/05/24 06:30 Dose: 5,000 unit Documented By: JOHN Dextrose/Lactated Ringer's (D5lr) 1,000 mls @ 80 mls/hr IVCONT .[id number] [facility] Last Admin: 05/05/24 08:45 Dose: 80 mls/hr Documented By: SYMONE Lorazepam (Lorazepam 0.5 Mg Tablet) 0.5 mg PO Q8H PRN PRN Reason: Anxiety Last Admin: 05/05/24 08:44 Dose: 0.5 mg Documented By: SYMONE Magnesium Oxide (Magnesium Oxide 400 Mg Tablet) 400 mg PO DAILY [facility] Last Admin: 05/05/24 08:41 Dose: Not Given Documented By: SYMONE Non-Admin Reason: Physician Held Med Methylprednisolone Sodium Succinate (Methylprednisolone Sod Succ 40 Mg/Ml Vial) 40 mg IVPUSH Q12H [facility] Last Admin: 05/05/24 02:49 Dose: 40 mg Documented By: JOHN Morphine Sulfate (Morphine Sulfate Er 15 Mg Tablet.Er) 15 mg PO BEDTIME [facility] Last Admin: 05/04/24 23:02 Dose: 15 mg Documented By: JOHN Multivitamins/Vitamin C (Multivitamin Tablet) 1 tab PO DAILY [facility] Last Admin: 05/05/24 08:42 Dose: Not Given Documented By: SYMONE Non-Admin Reason: Physician Held Med Ondansetron HCl (Ondansetron Hcl 4 Mg/2 Ml Vial) 4 mg IVPUSH Q8H PRN PRN Reason: Nausea and Vomiting Polyethylene Glycol (Polyethylene Glycol 3350 17 Gm Powd.Pack) 17 gm PO DAILY PRN PRN Reason: Constipation Tizanidine HCl (Tizanidine Hcl 4 Mg Tablet) 4 mg PO TID [facility] Last Admin: 05/05/24 08:44 Dose: 4 mg Documented By: SYMONE Labs 05/04/24 06:10 05/04/24 06:10 Labs: Laboratory Results - last 24 hr 05/03/24 17:39 KIARRA Screen NEGATIVE Microbiology Microbiology Results: Microbiology 05/02/24 17:29 Gram Stain - Final Cerebrospinal Fluid CSF Examination - Final Fluid Description - Final CSF Culture - Preliminary No growth after 2 days Assessment and Plan (1) Arthralgia: Status: Acute (2) Paresthesias: Status: Acute (3) Peripheral neuropathy: Status: Acute Plan A 39 years old lady with PMH of CIDP, Alcohol use among others presenting the hospital with worsening bilateral lower extremity numbness/weakness and upper extremity weakness with jaw and tongue numbness. Weakness and numbness in UE and LE and jaw/mouth/tongue with athralgias Likely related to her prev hx of CIDP with exacerbation post viral illness or UTI, previously improved on IVIG CSF within normal, CT Head no acute findings Tick panel negative received one dose of IV Solumedrol 500 mg. MRI brain w\wo contrast with no acute findings Per neurology, stable peripheral neuropathy, mostly axonal without evidence of CIDP on multiple nerve testing study. The most recent one was in June 2023. There is no clear clinical evidence that she has an acute neuropathy superimposed on the pre-existing. No evidence of Guillain-Armendariz? syndrome and spinal fluid analysis. No elevated proteins to suggest that she has polyradiculopathy. 05/04- Pt is quite symptomatic. Neuro not recommending IVIG. Recommended steroids. Increased methylprednisolone to 40mg BID. Added tizanidine 4mg TID with some improvement. Continue MS contin 15mg bedtime (home dose) KIARRA reflex pending. Would benefit from outpt rheum follow up PT\OT recommending Acute rehab aspiration precautions. seen by speech, no dysphagia, continue regular diet will reach out to neuro again, does not appear to be improving with steroids Gentle hydration UTI No evidence of sepsis Urine growing Staph epi. DC abx Transaminities could be related to recent viral illness, medications or alcohol improving follow LFT Anxiety lorazepam prn DVT PPx Heparin The patient will need overnight hospital stay for ongoing pain management and optimatization of therapies and eventual placement to acute rehab Quality Stroke Does the patient have a stroke diagnosis?: No VTE Prior VTE?: No VTE Risk Level:: Medical - moderate - high VTE Device Contraindication: Treatment Not Indicated VTE Drug Contraindication: N/A - Med Ordered
--- NOTE | 2024-05-05 18:17 | MHC.SL.SWA ---
Speech Pathologist Impression: Risk of Aspiration Due to: Neurological Condition Dysphasia Diet Status: Liquid Consistency and Strategies for Safe Swallow: Liquid Intake Recommendation: Thin Liquid Intake Strategies: Unrestricted Solid Food Consistency: Dietary Recommendations: Regular Additional Modifications to Solid Foods: Patient reports greater ease of mastication/coordination when eating softer, more cohesive foods. Patient prefers to stay on regular menu and select items that she feels comfortable eating. Oral Medication Intake: Whole with Liquid Please contact the pharmacy regarding appropriate crushable or liquid drug formulations that are available whenever modified delivery is recommended. Compensatory Strategies and Precautions to be Taken for Safe Swallow: Sitting Upright (90 deg) Liquids from Cup Liquids from Straw Small Bites and Sips Alternate Liquids/Solids Supervision While Eating and Drinking for Safe Swallow: None Needed Foods to Avoid: Hard difficult to chew solids, dry crunchy textures. Swallowing Recommended Treatments: Recommendation for Speech: Discharged with Instructions for Home Use Comment: Patient presents with oral/lingual numbness, reduced taste, mild issues with coordination of oral movement, however all other aspects of swallow WFL. Recommend patient continue on current diet of Regular with THIN liquids, pills whole with liquid. Recommended to patient to elect softer foods from the Regular menu, as she has expressed these foods are easier for her to eat. Recommended to patient to do contrasting trials of ice chips/cold and tea/hot water for thermal sensory therapy. No further Swallow tx indicated at this time, will D/C speech/dysphagia service. Please re-contact if additional concerns arise. [employer]OR[employer] COACH/RD aware of recommendation by secure text, RN in person. Frequency/Duration: Date Range for Service Req: Timeline to reassess: Wildlife Ecology Professor Clinican/Clinical Fellow: No Supervisory Statement: I have reviewed and agree with the student/clinical fellow's documentation: N/A Speech Language Pathologist: Cynthia Barger M.A., CCC-VIDEO ARCADE MANAGER
[2024-05-05] MEDS: HYDROmorphone HCl 0.5 MG/0.5 ML SYRINGE 0.25 MG IVPUSH ×2 (18:52→22:20)
[2024-05-05] MEDS: Morphine Sulfate ER 15 MG TABLET.ER PO (21:19)
[2024-05-06] VITALS (7 sets, daily range): BP systolic 141–177; BP diastolic 93–106; PULSE 77–105; RESP 18–20; TEMP 36.3–36.6; O2SAT 90–100
[2024-05-06] MEDS: methylPREDNISolone Sod Succ 40 MG/ML VIAL IVPUSH (02:57)
[2024-05-06] MEDS: HYDROmorphone HCl 0.5 MG/0.5 ML SYRINGE 0.25 MG IVPUSH ×3 (04:37→16:22)
[2024-05-06] MEDS: Heparin Sodium,Porcine 5,000 UNIT/ML VIAL 5000 UNIT SUBCUT ×2 (05:52→14:27)
[2024-05-06] MEDS: polyethylene glycoL 3350 17 GM POWD.PACK PO ×2 (05:55→17:26)
[2024-05-06] MEDS: Magnesium Oxide 400 MG TABLET PO (07:52)
[2024-05-06] MEDS: LORazepam 0.5 MG TABLET PO ×2 (07:52→16:22)
[2024-05-06] MEDS: Gabapentin 300 MG CAPSULE PO ×3 (07:52→20:11)
[2024-05-06] MEDS: Folic Acid 1 MG TABLET PO (07:52)
[2024-05-06] MEDS: Docusate Sodium 100 MG CAPSULE PO (07:52)
[2024-05-06] MEDS: Multivitamin TABLET 1 TAB PO (07:52)
--- NOTE | 2024-05-06 11:28 | MHC.CM.PN ---
Addendum entered by Cynthia Cortés RN 05/06/24 16:33: [facility] HAS RECEIVED AUTH FROM , PT WILL DC AT 7PM VIA [facility] Original Note: [facility] PT WILL DC TO [facility] PENDING UPDATED PT/OT NOTES [facility]IA [facility] FOR BLS TRANSPORT
--- NOTE | 2024-05-06 11:55 | P.CONCA_ITS ---
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 She is saying that she has been experiencing neurological issues for last 3 years. At 1 stage she received IV immunoglobulin which helped her symptoms but more recently she has not received any IVIG. We are consulted because she had some bradycardia yesterday. She was started on tizanidine for muscle relaxation and subsequently was noticed to be bradycardic. On review of telemetry has documented the 1 heart rate was 40 she was sleeping. Patient said that I was feeling tired and was dozing off. Tizanidine has been stopped. Her heart rates are in 70s. She also has been experiencing blood pressure elevation with activities. She clearly has some neuropathic process going on and autonomic issues are not unusual in that circumstance. [facility] Past Medical History Medical History (Updated 05/06/24 @ 12:17 by Mariusz Koch MD) UTI (urinary tract infection) Leg pain, bilateral Back pain IBS (irritable bowel syndrome) HTN (hypertension) Guillain-Mora syndrome Peripheral neuropathy Paresthesias Surgical History Surgical History No pertinent past surgical history Social History Social History Household Members: Family Housing: House Are you a primary career law clerk to a significant other at home: No Do you presently have visiting nurse or other home services: No Unable to assess alcohol history related to: Unknown Alcohol intake: current Alcohol intake frequency: holidays/special occasions only Alcohol type: hard liquor Comment: Bilateral leg weakness Patient Tobacco Use Status: Former Tobacco user e-Cigarette/Vaping Use: Currently Using Substance Use Type: Marijuana Advance Directives Date on File: 10/08/21 service: No Current occupational status: unemployed Meds Allergies Allergy/AdvReac Type Severity Reaction Status Date / Time ceftriaxone Allergy Intermediate Rash Verified 05/02/24 11:39 amoxicillin [AMOXICILLIN] Allergy Unknown [place] Verified 05/02/24 11:39 Active Medications: Current Medications Acetaminophen (Acetaminophen 325 Mg Tablet) 650 mg PO Q6H PRN PRN Reason: Pain, Mild (Pain Scale 1-3), fever or headache Last Admin: 05/03/24 08:19 Dose: 650 mg Cyclobenzaprine HCl (Cyclobenzaprine Hcl 5 Mg Tablet) 5 mg PO TID PRN PRN Reason: Muscle Spasm Docusate Sodium (Docusate Sodium 100 Mg Capsule) 100 mg PO DAILY [facility] Last Admin: 05/06/24 07:52 Dose: 100 mg Folic Acid (Folic Acid 1 Mg Tablet) 1 mg PO DAILY [facility] Last Admin: 05/06/24 07:52 Dose: 1 mg Gabapentin (Gabapentin 300 Mg Capsule) 300 mg PO TID [facility] Last Admin: 05/06/24 07:52 Dose: 300 mg Heparin Sodium (Porcine) (Heparin Sodium,Porcine 5,000 Unit/Ml Vial) 5,000 unit SUBCUT Q8H [facility] Last Admin: 05/06/24 05:52 Dose: 5,000 unit Hydromorphone HCl (Hydromorphone Hcl 0.5 Mg/0.5 Ml Syringe) 0.25 mg IVPUSH Q6H PRN; Protocol PRN Reason: Pain, Severe (Pain Scale 7-10) Last Admin: 05/06/24 10:14 Dose: 0.25 mg Lorazepam (Lorazepam 0.5 Mg Tablet) 0.5 mg PO Q8H PRN PRN Reason: Anxiety Last Admin: 05/06/24 07:52 Dose: 0.5 mg Magnesium Oxide (Magnesium Oxide 400 Mg Tablet) 400 mg PO DAILY [facility] Last Admin: 05/06/24 07:52 Dose: 400 mg Methylprednisolone Sodium Succinate (Methylprednisolone Sod Succ 40 Mg/Ml Vial) 40 mg IVPUSH Q12H [facility] Last Admin: 05/06/24 02:57 Dose: 40 mg Morphine Sulfate (Morphine Sulfate Er 15 Mg Tablet.Er) 15 mg PO BEDTIME [facility] Last Admin: 05/05/24 21:19 Dose: 15 mg Multivitamins/Vitamin C (Multivitamin Tablet) 1 tab PO DAILY [facility] Last Admin: 05/06/24 07:52 Dose: 1 tab Ondansetron HCl (Ondansetron Hcl 4 Mg/2 Ml Vial) 4 mg IVPUSH Q8H PRN PRN Reason: Nausea and Vomiting Polyethylene Glycol (Polyethylene Glycol 3350 17 Gm Powd.Pack) 17 gm PO DAILY PRN PRN Reason: Constipation Last Admin: 05/06/24 05:55 Dose: 17 gm Home Medications ?Medication ?Instructions ?Recorded ?Confirmed ?Last Taken ?Type multivitamin 1 tab PO DAILY 11/14/21 05/02/24 05/01/24 History morphine 15 mg tablet,extended 15 mg PO BEDTIME 05/08/23 05/02/24 05/01/24 History release gabapentin 300 mg capsule 300 mg PO BID 05/02/24 05/02/24 05/02/24 History hydrocortisone acetate 25 mg 25 mg MO BEDTIME PRN Hemorrhoids 05/02/24 05/02/24 05/01/24 History rectal suppository (Anusol-HC) magnesium oxide 400 mg PO DAILY 05/02/24 05/02/24 05/01/24 History Physical Exam 2 Vital Signs: Vital Signs: Last Vital Signs Temp 97.7 F 05/06/24 08:00 Pulse 77 05/06/24 08:00 Resp 18 05/06/24 08:00 BP 149/97 H 05/06/24 10:37 Pulse Ox 100 05/06/24 08:00 O2 Del Method Room Air 05/06/24 08:00 O2 Flow Rate 99 05/05/24 12:00 BMI result Body Mass Index 21.5 GENERAL APPEARANCE: Ill-appearing. NECK: no carotid bruit, no jugular venous distention. SKIN: no suspicious lesions, warm and dry. HEART: no murmurs, regular rate and rhythm. LUNGS: clear to auscultation bilaterally. ABDOMEN: soft, nontender. EXTREMITIES: no edema. PERIPHERAL PULSES: equal. Objective Labs and Meds 05/04/24 06:10 05/04/24 06:10 Lab results: Laboratory Results - last 24 hr 05/03/24 17:39 KIARRA Titer TNP KIARRA Titer 2 TNP KIARRA Titer 3 TNP KIARRA Pattern TNP KIARRA Pattern 2 TNP KIARRA Pattern 3 TNP Assessment and Plan (1) Bradycardia: Status: Acute Plan Pleasant 39-year-old female with significant neurological issues including chronic inflammatory demyelinating polyneuropathy who is admitted with joint and muscle pains and was noticed to be transiently bradycardic on telemetry. In her chart documented that she was sleeping at the time heart rate was 40. In her awake hours she does not have any bradycardia. EKG also does not have any conduction block, she has nonspecific T-wave changes. No chest discomfort or shortness of breath. She can be monitor on telemetry for now. Her bradycardic episode is not very concerning currently specially with happened during sleep. We are signing off for now. Please reconsult if there is any questions. Thank you for allowing me to participate in the care of your patient. Please feel free to contact me if you have any questions. Procedures Date of Service Date of Service: 05/06/24
--- NOTE | 2024-05-06 12:21 | P.PNIM_ITS ---
Subjective Subjective Date of Service: 05/06/24 Interval History: Seen and examined this morning Follow-up for low extremity weakness, joint pain Reporting widespread pain described as joint discomfort, deep bone pain , continues to have difficulty ambulating with ?knees and ankles giving out and generalized weakness frustrated with ongoing medical issues and lack of clarity regarding diagnosis, tearful Review of Systems lower and upper extremities weakness with numbness No chest pain, palpitation No shortness of breath or coughing No abdominal pain, nausea or vomiting No urinary symptoms No rash Review of Systems: Yes all other systems are reviewed and are negative Constitutional Constitutional: Denies chills and Denies fever(s) ENT Ears, Nose, Mouth, and Throat: Denies dizziness Cardiovascular Cardiovascular: Denies chest pain Gastrointestinal Gastrointestinal: Denies abdominal pain Neurologic Neurologic: Denies dizziness Physical Exam 2 Vital Signs: Vital Signs: Last Vital Signs Temp 97.7 F 05/06/24 08:00 Pulse 77 05/06/24 08:00 Resp 18 05/06/24 08:00 BP 149/97 H 05/06/24 10:37 Pulse Ox 100 05/06/24 08:00 O2 Del Method Room Air 05/06/24 08:00 O2 Flow Rate 99 05/05/24 12:00 BMI result Body Mass Index 21.5 Const: Other: tearful General: alert and awake Orientation/consciousness: patient oriented x3 Resp: Effort & Inspection: normal respiratory effort, able to speak in complete sentences, no respiratory distress and no use of accessory muscles A uscultation: clear to auscultation bilaterally Cardio: Rate: regular rate GI: Inspection: No distended Palpation (GI): Soft to palpation and nontender Neuro: Other: able to move all four extremities, LE strength symmetrical 3/5, reports decreased sensation lower jaw and tongue, no trouble swallowing General: patient oriented x3 Extrem: Other: no joint swelling, erythema or tenderness to palpation General: Yes no pedal edema Objective Data Active Medications Acetaminophen (Acetaminophen 325 Mg Tablet) 650 mg PO Q6H PRN PRN Reason: Pain, Mild (Pain Scale 1-3), fever or headache Last Admin: 05/03/24 08:19 Dose: 650 mg Documented By: PEDRO PABLO Cyclobenzaprine HCl (Cyclobenzaprine Hcl 5 Mg Tablet) 5 mg PO TID PRN PRN Reason: Muscle Spasm Docusate Sodium (Docusate Sodium 100 Mg Capsule) 100 mg PO DAILY [facility] Last Admin: 05/06/24 07:52 Dose: 100 mg Documented By: CRISTIANO Folic Acid (Folic Acid 1 Mg Tablet) 1 mg PO DAILY [facility] Last Admin: 05/06/24 07:52 Dose: 1 mg Documented By: CRISTIANO Gabapentin (Gabapentin 300 Mg Capsule) 300 mg PO TID [facility] Last Admin: 05/06/24 07:52 Dose: 300 mg Documented By: CRISTIANO Heparin Sodium (Porcine) (Heparin Sodium,Porcine 5,000 Unit/Ml Vial) 5,000 unit SUBCUT Q8H [facility] Last Admin: 05/06/24 05:52 Dose: 5,000 unit Documented By: JOHN Hydromorphone HCl (Hydromorphone Hcl 0.5 Mg/0.5 Ml Syringe) 0.25 mg IVPUSH Q6H PRN; Protocol PRN Reason: Pain, Severe (Pain Scale 7-10) Last Admin: 05/06/24 10:14 Dose: 0.25 mg Documented By: SYMONE Lorazepam (Lorazepam 0.5 Mg Tablet) 0.5 mg PO Q8H PRN PRN Reason: Anxiety Last Admin: 05/06/24 07:52 Dose: 0.5 mg Documented By: CRISTIANO Magnesium Oxide (Magnesium Oxide 400 Mg Tablet) 400 mg PO DAILY [facility] Last Admin: 05/06/24 07:52 Dose: 400 mg Documented By: CRISTIANO Methylprednisolone Sodium Succinate (Methylprednisolone Sod Succ 40 Mg/Ml Vial) 40 mg IVPUSH Q12H [facility] Last Admin: 05/06/24 02:57 Dose: 40 mg Documented By: JOHN Morphine Sulfate (Morphine Sulfate Er 15 Mg Tablet.Er) 15 mg PO BEDTIME [facility] Last Admin: 05/05/24 21:19 Dose: 15 mg Documented By: JOHN Multivitamins/Vitamin C (Multivitamin Tablet) 1 tab PO DAILY [facility] Last Admin: 05/06/24 07:52 Dose: 1 tab Documented By: CRISTIANO Ondansetron HCl (Ondansetron Hcl 4 Mg/2 Ml Vial) 4 mg IVPUSH Q8H PRN PRN Reason: Nausea and Vomiting Polyethylene Glycol (Polyethylene Glycol 3350 17 Gm Powd.Pack) 17 gm PO DAILY PRN PRN Reason: Constipation Last Admin: 05/06/24 05:55 Dose: 17 gm Documented By: JOHN Labs 05/04/24 06:10 05/04/24 06:10 Labs: Laboratory Results - last 24 hr 05/03/24 17:39 KIARRA Titer TNP KIARRA Titer 2 TNP KIARRA Titer 3 TNP KIARRA Pattern TNP KIARRA Pattern 2 TNP KIARRA Pattern 3 TNP Microbiology Microbiology Results: Microbiology 05/02/24 17:29 Gram Stain - Final Cerebrospinal Fluid CSF Examination - Final Fluid Description - Final CSF Culture - Final No growth after 3 days. Assessment and Plan (1) Arthralgia: Status: Acute Plan A 39 years old lady with PMH of CIDP, Alcohol use among others presenting the hospital with worsening bilateral lower extremity numbness/weakness and upper extremity weakness with jaw and tongue numbness. Weakness and numbness in UE and LE and jaw/mouth/tongue with athralgias previously given diagosis of CIDP but not supported with outpatient studies per neurology CSF within normal, CT Head, brain MRI Tick panel negative; Lyme IgG, IGM with reflex WB pending KIARRA negative; CPK, B12, folate, CRP, ESR wnl; TSH essential normal at 0.31, free T4 normal seen by neurology - stable peripheral neuropathy, mostly axonal without evidence of CIDP on multiple nerve testing study. The most recent one was in June 2023. There is no clear clinical evidence that she has an acute neuropathy superimposed on the pre-existing. No evidence of Guillain-Armendariz? syndrome on spinal fluid analysis. No elevated proteins to suggest that she has polyradiculopathy. Neuro not recommending IVIG. no improvement when steroids, we will discontinue had bradycardia with tizanidine, trial flexeril Continue MS contin 15mg bedtime (home dose) Would benefit from outpt rheum follow up PT\OT recommending Acute rehab aspiration precautions. seen by speech, no dysphagia, continue regular diet outpatient neurology follow up bradycardia asymptomatic Possibly due to Zanaflex Resolved UTI No evidence of sepsis Urine growing Staph epi. DC abx Transaminities could be related to recent viral illness, medications denies etoh intake except on special occasions improving Anxiety lorazepam prn DVT PPx Heparin ongoing hospital stay for ongoing pain management and optimatization of therapies and eventual placement to acute rehab Quality Stroke Does the patient have a stroke diagnosis?: No VTE Prior VTE?: No VTE Risk Level:: Medical - moderate - high VTE Device Contraindication: Treatment Not Indicated VTE Drug Contraindication: N/A - Med Ordered
[2024-05-06] MEDS: Cyclobenzaprine HCl 5 MG TABLET PO (16:27)
--- NOTE | 2024-05-06 16:35 | PM.DS ---
DS: Providers Provider Date of Service: 05/06/24 Date of admission: 05/02/24 18:38 Date of discharge: 05/06/24 Primary care physician: Kenan Cali MD Consults: 05/02/24 18:51 Consult to Neurology Routine Consulting Provider: [facility] Reason for consultation: Evaluation of weakness and numbness 05/05/24 15:41 Consult to Cardiology Routine Consulting Provider: [facility] Reason for consultation: bradycardia Has provider been notified: No Attending physician on discharge: Nathen Serna Discharging clinician: Cynthia Bnoner DS: Diagnosis Discharge Diagnosis (1) Arthralgia: Status: Acute (2) Peripheral neuropathy: Status: Acute (3) Bilateral leg weakness: Status: Acute DS: Summary Hospital Course Hospital Course: From H&P on the day of admission A 39 years old lady with PMH of CIDP, Alcohol use among others presenting the hospital with worsening bilateral lower extremity numbness/weakness and upper extremity weakness with jaw and tongue numbness. The patient reports that she was doing around her baseline walking and talking until last Thursday when she started to feel too weak to ambulate and walk. This morning she was not able to get up from the chair. She had longer than expeted period of 10 days and got sick to her stomach last week with chills, nausea and diarrhea that resolved but her weakness started directly after that. In ED CT head and CSF fluids did not show any acute findings. Admitted for further work up and treatment. Weakness and numbness in UE and LE and jaw/mouth/tongue with athralgias previously given diagosis of CIDP but not supported with outpatient studies per neurology CSF within normal, CT Head, brain MRI Tick panel negative; Lyme IgG, IGM with reflex WB pending KIARRA negative; CPK, B12, folate, CRP, ESR wnl; TSH essential normal at 0.31, free T4 normal seen by neurology - stable peripheral neuropathy, mostly axonal without evidence of CIDP on multiple nerve testing study. The most recent one was in June 2023. There is no clear clinical evidence that she has an acute neuropathy superimposed on the pre-existing. No evidence of Guillain-Armendariz? syndrome on spinal fluid analysis. No elevated proteins to suggest that she has polyradiculopathy. Neuro not recommending IVIG. no improvement when steroids, we will discontinue had bradycardia with tizanidine, trial flexeril Continue MS contin 15mg bedtime (home dose) May benefit from outpt rheumatology evaluaton and outpatient follow up with neurology PT\OT recommending Acute rehab aspiration precautions. seen by speech, no dysphagia, tolerating regular diet bradycardia asymptomatic Possibly due to Zanaflex Resolved UTI No evidence of sepsis Urine growing Staph epi. antibiotics stopped Transaminities could be related to recent viral illness, medications denies etoh intake except on special occasions improving Time Attestation Discharge Coordination Time (in mins): 40 Quality: Safe Use of Opioids Does Pt have an Active Cancer Diagnosis on the Problem List?: No Quality: Stroke Does the patient have a stroke diagnosis?: No Physical Exam Vital Signs: Vital Signs: Last Vital Signs Temp 97.3 F 05/06/24 16:00 Pulse 94 05/06/24 16:00 Resp 20 05/06/24 16:00 BP 161/99 H 05/06/24 16:00 Pulse Ox 99 05/06/24 16:00 O2 Del Method Room Air 05/06/24 16:00 O2 Flow Rate 99 05/05/24 12:00 BMI result Body Mass Index 21.5 Const: Other: tearful General: comfortable, alert and awake Orientation/consciousness: patient oriented x3 Resp: Effort & Inspection: normal respiratory effort, able to speak in complete sentences, no respiratory distress and no use of accessory muscles Auscultation: clear to auscultation bilaterally Cardio: Rate: regular rate GI: Inspection: No distended Palpation (GI): Soft to palpation and nontender Neuro: Other: able to move all four extremities, LE strength symmetrical 3/5, reports decreased sensation lower jaw and tongue, no trouble swallowing General: patient oriented x3 Extrem: Other: no joint swelling, erythema or tenderness to palpation General: Yes no pedal edema DS: Data Data Completed and Pending Completed studies during hospitalization [Text1]: Procedures Drainage of Spinal Canal, Percutaneous Approach, Diagnostic (11/14/21) Excision of Duodenum, Via Natural or Artificial Opening Endoscopic, Diagnostic (05/08/23) Excision of Esophagogastric Junction, Via Natural or Artificial Opening Endoscopic, Diagnostic (05/08/23) Excision of Lower Esophagus, Via Natural or Artificial Opening Endoscopic, Diagnostic (05/08/23) Excision of Stomach, Pylorus, Via Natural or Artificial Opening Endoscopic, Diagnostic (05/08/23) Fluoroscopy of Spinal Cord (11/14/21) Inspection of Lower Intestinal Tract, Via Natural or Artificial Opening Endoscopic (05/08/23) Transfusion of Nonautologous Red Blood Cells into Peripheral Vein, Percutaneous Approach (05/08/23) Discharge Plan Discharge Anticipated Discharge Date/Time: 05/06/24 19:00 Patient Disposition: Xfer Inpatient Rehab Fac Discharge Diagnosis: joint pain, leg weakness transaminitis Referrals: [facility] [Outside] - 1 Day (ACUTE REHAB) Kenan Cali MD [Primary Care Provider] - 1 Week Rossana Moreira MD [Physician] - 1 Month Discharge Medications: New lorazepam 0.5 mg Tablet 0.5 mg PO BID PRN (Reason: Anxiety) Qty: 7 0RF polyethylene glycol 3350 17 gram Powder In Packet 17 g PO DAILY Qty: 14 0RF cyclobenzaprine 5 mg Tablet 5 mg PO TID PRN (Reason: Muscle Spasm) Qty: 1 0RF docusate sodium 100 mg Capsule 100 mg PO DAILY Qty: 1 0RF Continued folic acid 1 mg tablet 1 mg PO DAILY Qty: 90 0RF multivitamin Tablet 1 tab PO DAILY gabapentin 300 mg capsule 300 mg PO BID magnesium oxide 400 mg magnesium Tablet 400 mg PO DAILY hydrocortisone acetate [Anusol-HC] 25 mg suppository 25 mg TX BEDTIME PRN (Reason: Hemorrhoids) morphine 15 mg tablet extended release 15 mg PO BEDTIME Qty: 7 0RF Discharge Orders: Discharge Order (Routine); Ordered 05/06/24 Ordered By: Cynthia Bonner Activity on Discharge: As tolerated Stand Alone Forms: Patient Portal Discharge page Print Language: Azerbaijani Care Plan Goals: See below Health Concerns: Arthralgia Peripheral neuropathy Leg weakness Bradycardia-resolved Plan of Treatment: to acute rehab for PT/OT outpatient follow up with PCP, neurology and rheumatology mild transaminitis - peridically check to ensure resolution Assessment: See discharge summary
[2024-05-06] MEDS: Morphine Sulfate ER 15 MG TABLET.ER PO (20:11)
[2024-05-09 12:08] LABS: Vitamin B1 <6 nmol/L (8-30)
--- NOTE | 2024-05-09 12:36 | PM.EVENT ---
Event Note Date of Service: 05/09/24 Event Note: Vitamin B1 level resulted this morning and is undetectable which could be responsible for patient's significant weakness and neuropathy. Discussed with neurology who is recommending 100mg IM thiamine to be administered at the facility x1 dose, then switch to 100mg PO daily. If unable to administer IM at facility, can give 100mg IV infusion in the ED x 1 dose then return to facility for PO. Call placed to [facility] and discussed with covering PA who will check formulary at facility with pharmacy. Time Spent With Patient Time: Total time managing care of this patient today ____ minutes.
[2024-05-09 21:44] LABS: Lyme Abs Screen <0.90 index
== END 2024-05-06 21:15 | DRG 43 ==
LOC: HO.ED 18:30 → HO.EDOVER 18:55 → HO.IMC 05-03 19:07
PROVIDERS: Physician Assistant; Physician Assistant Medical; Registered Nurse Emergency; Admitting Provider Student in an Organized Health Care Education/Training Program; Emergency Provider Emergency Medicine Emergency Medical Services; PCP Internal Medicine; Visit Provider Physician Assistant Medical
DX: G61.81 Chronic inflammatory demyelinating polyneuritis (principal); E51.9 Thiamine deficiency, unspecified; F41.9 Anxiety disorder, unspecified; M25.50 Pain in unspecified joint; G62.9 Polyneuropathy, unspecified; R00.1 Bradycardia, unspecified; T42.8X5A Adverse effect of antiparkinsonism drugs and other central muscle-tone depressants, initial encounter; Z87.891 Personal history of nicotine dependence; Z79.899 Other long term (current) drug therapy
CPT/HCPCS: 36415; 70450; 70553; 80048; 80053; 80076; 80307; 81001; 82550; 82607; 82746; 82945; 83735; 84157; 84425; 84439; 84443; 84484; 84702; 85025; 85027; 85610; 85652; 86038; 86140; 86617; 86618; 87015; 87070; 87086; 87088; 87186; 87205; 87468; 87469; 87478; 87484; 87798; 89051; 92610; 93005; 97112; 97116; 97163; 97167; 97530; 97535; 99285; A9585; J1170; J1644; J1885; J1956; J2060; J2270; J2405; J2919

== ENCOUNTER → 2024-05-02 18:38 | Outpatient (BNV) | payer MEDICAID, SELFPAY | PROVIDERS: Admitting Provider Student in an Organized Health Care Education/Training Program; Emergency Provider Emergency Medicine Emergency Medical Services; PCP Internal Medicine; Visit Provider Psychiatry & Neurology Neurology | DX: G62.9 Polyneuropathy, unspecified (principal); M25.50 Pain in unspecified joint | CPT/HCPCS: 99222 ==

== ENCOUNTER → 2024-05-02 18:38 | Outpatient (BNV) | payer MEDICAID, SELFPAY | PROVIDERS: Admitting Provider Student in an Organized Health Care Education/Training Program; Emergency Provider Emergency Medicine Emergency Medical Services; PCP Internal Medicine; Visit Provider Internal Medicine Cardiovascular Disease | DX: R00.1 Bradycardia, unspecified (principal) | CPT/HCPCS: 99222 ==

== ENCOUNTER → 2024-05-02 18:38 | Outpatient (BNV) | payer MEDICAID, SELFPAY | PROVIDERS: Admitting Provider Student in an Organized Health Care Education/Training Program; Emergency Provider Emergency Medicine Emergency Medical Services; PCP Internal Medicine; Visit Provider Student in an Organized Health Care Education/Training Program | DX: M25.50 Pain in unspecified joint (principal); G62.9 Polyneuropathy, unspecified; R29.898 Other symptoms and signs involving the musculoskeletal system | CPT/HCPCS: 99223; 99232; 99233; 99239; 99499 ==

== ENCOUNTER 2024-05-26 11:15 | Outpatient (AMB) | payer MEDICAID, SELFPAY ==
--- NOTE | 2024-05-26 11:20 | MHC.OFFVIS ---
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 No complaints. Last Pap/HPV was negative in 02/12 [facility] Medical History Leg pain, bilateral Back pain IBS (irritable bowel syndrome) HTN (hypertension) Guillain-Jasper syndrome Peripheral neuropathy Paresthesias Surgical History No pertinent past surgical history Social History Household Members: Family Housing: House Are you a primary personal care attendant to a significant other at home: No Do you presently have visiting nurse or other home services: No Unable to assess alcohol history related to: Unknown Alcohol intake: current Alcohol intake frequency: holidays/special occasions only Alcohol type: hard liquor Comment: Bilateral leg weakness Patient Tobacco Use Status: Former Tobacco user e-Cigarette/Vaping Use: Currently Using Substance Use Type: Marijuana Advance Directives Date on File: 10/08/21 service: No Current occupational status: unemployed Female Reproductive History Menstrual Age of Menarche: 18 Date of last menstrual period: 04/22/24 Total pregnancies: 2 Full term: 2 Number of Living Children: 2 Review of Systems Const All systems reviewed & are unremarkable except as noted in HPI and below Card Reports as per HPI Resp Reports as per HPI GI Reports as per HPI and Reports no additional complaints Reports as per HPI Physical Exam Vital Signs: Last Vital Signs BP 130/92 H 05/26/24 11:24 BMI result Body Mass Index 21.5 Const General: cooperative, healthy appearing and comfortable Chest Chest palpation & inspection: normal inspection of the chest and normal palpation of entire chest wall Breast/axilla inspection: normal inspection of the breasts and normal inspection of the axillae Breast/axilla palpation: normal palpation of the breasts, normal palpation of the axillae and no axillary lymphadenopathy Resp Effort & Inspection: normal respiratory effort Auscultation: clear to auscultation bilaterally Percussion: percussion normal Cardio Palpation: normal PMI Rate: regular rate Rhythm: regular rhythm Heart sounds: no murmurs and no rubs Peripheral pulses: Peripheral pulses 2+ throughout GI Inspection: Yes normal to inspection Palpation (GI): Soft to palpation, nontender, no guarding, not rigid and No hepatosplenomegaly present Percussion: Yes normal to percussion Auscultation: normal bowel sounds Rectal Exam - Female: deferred General: Yes bladder normal to palpation External Female Exam: No lesion Speculum Exam - Vagina: normal appearance of the vagina, normal palpation, normal vaginal discharge and not erythematous Speculum Exam - Cervix: normal appearance of the cervix and normal palpation Bimanual exam- vagina & uterus: normal bimanual exam, normal palpation, uterine size normal, bladder normal to palpation, consistency normal and normal palpation Bimanual Exam- Adnexa, other: normal adnexae, no masses and no tenderness Assessment & Plan Assessment & Plan (1) Well woman exam: Code(s): Z01.419 - Encounter for gynecological examination (general) (routine) without abnormal findings Category: Medical Plan: Cotesting not indicated this year. Counseled the patient about the recommended dietary allowance of 1000 mg of Calcium & 600 IU of vitamin D. The patient was instructed to perform monthly self-breast exams and to schedule an annual exam in a year; All questions answered and the patient verbalized understanding. Instructed the patient to schedule annual exam in a year Coding Level of Care Code Est Pt Prev Care 18-39y(76101) Diagnoses Well woman exam Z01.419
[2024-05-26 11:24] VITALS: BP 130/92; BMI 21.5
== END 2024-05-26 12:55 | disposition home or self-care (01) ==
PROVIDERS: PCP Internal Medicine; Visit Provider Obstetrics & Gynecology
DX: Z01.419 Encounter for gynecological examination (general) (routine) without abnormal findings (principal)
CPT/HCPCS: 99395

== ENCOUNTER → 2024-05-26 11:15 | Outpatient (BNVA) | payer MEDICAID, SELFPAY | PROVIDERS: PCP Internal Medicine; Visit Provider Obstetrics & Gynecology | DX: Z01.419 Encounter for gynecological examination (general) (routine) without abnormal findings (principal) | CPT/HCPCS: 99395 ==

== ENCOUNTER 2024-06-02 14:15 | Outpatient (REF) | payer MEDICAID, SELFPAY ==
[2024-06-02 16:30] LABS: Alanine Aminotransferase 11 U/L (0-31); Albumin Level 3.8 g/dL (3.5-5.0); Alkaline Phosphatase 71 U/L (39-117); Aspartate Amino Transferase 18 U/L (5-31); Bilirubin Direct 0.1 mg/dL (0.0-0.5); Bilirubin Total 0.3 mg/dL (0.0-1.0); C Reactive Protein < 0.10 mg/dL (< or = 0.50); Total Protein 7.3 g/dL (6.5-8.0); Uric Acid 4.5 mg/dL (2.4-5.7)
[2024-06-02 17:03] LABS: Rheumatoid Factor < 13.0 IU/mL (<15.0)
[2024-06-06 14:09] LABS: Anti Nuclear Antibody Screen NEGATIVE (NEGATIVE)
== END 2024-06-02 14:16 | disposition home or self-care (01) ==
LOC: HO.HHCL 14:15
PROVIDERS: Visit Provider Internal Medicine
DX: M25.531 Pain in right wrist (principal); M25.532 Pain in left wrist
CPT/HCPCS: 36415; 80076; 84550; 86038; 86140; 86431

== ENCOUNTER 2025-05-30 11:25 | Outpatient (AMB) | payer MEDICAID, SELFPAY ==
--- NOTE | 2025-05-30 11:35 | MHC.OFFVIS ---
Vital Signs 05/30/25 11:38 Height 5 ft 3.75 in Weight 146 lb BMI 25.3 BP 126/74 Blood Pressure Location Lt brachial Position Sitting Intake Visit Reasons: annual Intake Note: here for annual no concerns Director Of Academic Required: No Information Interpreted: non-clinical & clinical Accordion Repairer: Accordion Repairer Present (fay) Accompanied by: Self / Same As Patient Allergies ceftriaxone Allergy (Intermediate, Verified 05/30/25 11:40) Rash amoxicillin (AMOXICILLIN) Allergy (Unknown, Verified 05/30/25 11:40) UNKNWON Medication List - Last Reconciled 05/30/25 by Sanna Hernandez LPN gabapentin 300 mg PO BID hydrocortisone acetate (Anusol-HC) 25 mg ID BEDTIME PRN morphine ER 15 mg PO BEDTIME polyethylene glycol 3350 17 grams PO DAILY Is last menstrual period known: Yes Last menstrual period: 05/31/25 Post menopausal: No Patient : No Do you need a note to return to daycare/school/sports/work: No HPI Comments Details: Presenting for annual exam. No complaints. Last Pap/HPV was negative in 01/12 [facility] Medical History Leg pain, bilateral Back pain IBS (irritable bowel syndrome) HTN (hypertension) Guillain-Hohenwald syndrome Peripheral neuropathy Paresthesias Surgical History No pertinent past surgical history Family History (Updated 05/30/25 @ 11:45 by Sanna Hernandez LPN) Father Prostate cancer Cancer of skin of external nose Social History Household Members: Family Housing: House Are you a primary acute care certified nursing assistant to a significant other at home: No Do you presently have visiting nurse or other home services: No Unable to assess alcohol history related to: Unknown Alcohol intake: current Alcohol intake frequency: holidays/special occasions only Alcohol type: hard liquor Comment: Bilateral leg weakness Patient Tobacco Use Status: Former Tobacco user e-Cigarette/Vaping Use: Currently Using Substance Use Type: Marijuana Advance Directives Date on File: 10/08/21 Patient : No service: No Current occupational status: unemployed Female Reproductive History Menstrual Age of Menarche: 18 Date of last menstrual period: 05/31/25 control method: condoms Total pregnancies: 2 Number of Living Children: 2 Date of last pap smear: 02/05/22 History of abnormal pap smear: No Review of Systems Const All systems reviewed & are unremarkable except as noted in HPI and below Card Reports as per HPI Resp Reports as per HPI GI Reports as per HPI and Reports no additional complaints Reports as per HPI Physical Exam Vital Signs: Last Vital Signs BP 126/74 05/30/25 11:38 BMI result Body Mass Index 25.3 Const General: cooperative, healthy appearing and comfortable Chest Chest palpation & inspection: normal inspection of the chest and normal palpation of entire chest wall Breast/axilla inspection: normal inspection of the breasts and normal inspection of the axillae Breast/axilla palpation: normal palpation of the breasts, normal palpation of the axillae and no axillary lymphadenopathy Resp Effort & Inspection: normal respiratory effort Auscultation: clear to auscultation bilaterally Percussion: percussion normal Cardio Palpation: normal PMI Rate: regular rate Rhythm: regular rhythm Heart sounds: no murmurs and no rubs Peripheral pulses: Peripheral pulses 2+ throughout GI Inspection: Yes normal to inspection Palpation (GI): Soft to palpation, nontender, no guarding, not rigid and No hepatosplenomegaly present Percussion: Yes normal to percussion Auscultation: normal bowel sounds Rectal Exam - Female: deferred General: Yes bladder normal to palpation External Female Exam: No lesion Speculum Exam - Vagina: normal appearance of the vagina, normal palpation, normal vaginal discharge and not erythematous Speculum Exam - Cervix: normal appearance of the cervix and normal palpation Bimanual exam- vagina & uterus: normal bimanual exam, normal palpation, uterine size normal, bladder normal to palpation, consistency normal and normal palpation Bimanual Exam- Adnexa, other: normal adnexae, no masses and no tenderness Assessment & Plan Assessment & Plan (1) Well woman exam: Code(s): Z01.419 - Encounter for gynecological examination (general) (routine) without abnormal findings Category: Medical Plan: Cotesting not indicated this year Instructions given the patient to schedule a screening Mammogram in 02/16. Counseled the patient about the recommended dietary allowance of 1000 mg of Calcium & 600 IU of vitamin D. The patient was instructed to perform monthly self-breast exams and to schedule an annual exam in a year; All questions answered and the patient verbalized understanding. Instructed the patient to schedule annual exam in a year Coding Level of Care Code Est Pt Prev Care 18-39y(84155) Diagnoses Well woman exam Z01.419
[2025-05-30 11:38] VITALS: BP 126/74; BMI 25.3
--- OUTSIDE RECORDS SUMMARY | 2025-05-30 14:26 | XMS_ITS | Encounter Summary ---
Author Organization [employer] Address [address] [facility] 7 [place] [address] Care Team Providers Care Tire Shop Manager Name Role Phone Kenan Grier MD Primary Care Provide r Reason for Visit * Reason Onset Date Comments Nurse Triage 07/27/2023 Encounter Details Date Type Department Care Team ([facility] st Contact Info) Description 07/27/2023 Telephone [facility] MEDICINE [address] [place] [address] Kenan Grier MD [address] [place] [address] Nurse Triage Social History Tobacco Use Types Packs/Day Years Used Date Smoking Tobacco: Never Passive Smoke Exposure: Never Smokeless Tobacco: Never Comments:vapes Alcohol Use Standard Drinks/Week Comments Not Currently 0 (1 standard drink = 0.6 oz pur e alcohol) Socially Depression Answer Date Recorded Patient Health Questionnaire-9 Score 3 05/27/2023 Housing Stability Answer Date Recorded What is your housing situation today? I have ayakavandana conde 06/10/[address] you li ve. Do you have problems with any of the following? None of the above 06/10/2023 Food Insecurity Answer Date Recorded Within the past 12 months, y ou worried that your food would run out before you got money to buy more: Never True 06/10/2023 Within the past 12 months,th e food you bought just didn't last and you didn't have enough money to get more: Never True Transportation Answer Date Recorded In the past 12 months, has l ack of transportation kept you from medical appts, meetings, work or from getting things needed for daily living? No 06/10/2023 Utilities Answer Date Recorded In the past 12 months, has t he electric, gas, oil or water company threatened to shut off services in your home? No 06/10/2023 Depression Answer Date Recorded Patient Health Questionnaire-2 Score 0 05/27/2023 Comments Unknown Sex and Gender Information Value Date Recorded Sex Assigned at Female 06/23/2022 10:40 AM EDT Legal Sex Female 10:40 AM EDT Gender Identity Female 06/23/2022 10:40 AM EDT Sexual Orientation Straight 06/23/2022 10 :40 AM EDT documented as of this encounter Miscellaneous Notes * Telephone Encounter - Rebecca Lake RN - 07/27/2023 10:16 AM EST Triage call Pt reports cough for last two weeks. Pt reports started with fever 2 weeks ago, no fever today. Tested neg for Covid 4-5 days ago. Pt reports copious amts of mucous from productive cough and running nose. Greenish color. Chest and head congestion main symptoms with this cough. Pt will get nauseous due to the mucous and vomits at times. Pt urine is dark yellow though is trying to keep l iquids in adequate amounts. Pt is very tired and feels weakened. No available apts on teams. Advised to come to [facility] today open till 8pm. Pt agrees with disposition and home care reviewed. Protocol Used: Cough (Adult) Protocol-Based Disposition: See in Office or Video Visit Today or Tomorrow Video visit not offered Positive Triage Questions: * Continuous (nonstop) coughing interferes with work or school and no improvement using cough treatment per Care Advice * Patient wants to be seen * All higher-acuity triage questions were negative Care Advice Discussed: * Reassurance and Education - Cough * Cough Medicines * Coughing Spells * Prevent Dehydration * Humidifier * Reasons To Call Back - Difficulty breathing - Cough lasts more than 3 weeks - Fever lasts more than 3 days - You become worse * Telephone Encounter - Colton Laws - 07/27/2023 9:28 AM EST Symptoms: Chest Congestion, Headache, Lethargic (Tired), Vomiting Outcome: Schedule an urgent appointment (within 4 hours) or talk to a nurse or provider soon Reason: Getting worse The caller accepted this outcome documented in this encounter Plan of Treatment Not on file documented as of this encounter Visit Diagnoses Not on filedocumented in this encounter Additional Health Concerns Assessment Noted Time PHQ-9 Depression Total Score: 3 05/27/20 23 10:50 AM EDT documented as of this encounter Care Teams Tire Shop Manager Relationship Specialty Start Date End Date Kenan Grier MD [address] [place] [address] PCP - General Internal Medicine 11/28/21 documented as of this encounter
--- OUTSIDE RECORDS SUMMARY | 2025-05-30 14:26 | XMS_ITS | Encounter Summary ---
Author Organization [employer] Address [address] [facility] 7 [place] [address] Care Team Providers Care Ward Attendant Name Role Phone Kenan Grier MD Primary Care Provide r Reason for Visit * Reason Onset Date Comments Appointment Request 02/04/2024 Encounter Details Date Type Department Care Team ([facility] st Contact Info) Description 02/04/2024 Telephone [facility] MEDICINE [address] [place] [address] Kenan Grier MD [address] [place], [place] [phone] Appointment Request Social History Tobacco Use Types Packs/Day Years [...] encounter Miscellaneous Notes * Telephone Encounter - Russell Albert - 02/04/2024 11:17 AM EDT Tc from pt stating she does not feel well and wont be able to make it to today's follow up with pcp, she's requesting to change it to a telephone visit if possible. Please contact pt at [phone]. documented in this encounter Plan of Treatment Not on file documented as of this encounter Visit Diagnoses Not on filedocumented in this encounter Additional Health Concerns Assessment Noted Time PHQ-9 Depression Total Score: 3 05/27/20 23 10:50 AM EDT documented as of this encounter Care Teams Ward Attendant Relationship Specialty Start Date End Date Kenan Grier MD [address] [place] [id number] PCP - General Internal Medicine 11/28/21 documented as of this encounter
--- OUTSIDE RECORDS SUMMARY | 2025-05-30 14:26 | XMS_ITS | Encounter Summary ---
Author Organization [employer] Address [address] [place] [address] 7 [place] [address] Care Team Providers Care Home Health Lpn Name Role Phone Kenan Grier MD Primary Care Provide r Reason for Visit * Reason Comments Med Refill Encounter Details Date Type Department Care Team (Late st Contact Info) Description 05/14/2023 Refill [facility] MEDICINE [address] [place], [place] [phone] Em Choi MD [address] [place], [place] [phone] Severe pain Social History Tobacco Use Types Packs/Day Years Used Date Smoking Tobacco: Never Smokeless Tobacco: Never Alcohol Use Standard Drinks/Week Comments Not Currently 0 (1 standard drink = 0.6 oz pur e alcohol) Socially Comments Unknown Sex and Gender Information Value Date Recorded Sex Assigned at Female 06/23/2022 10:40 AM EDT Legal Sex Female 10:40 AM EDT Gender Identity Female 06/23/2022 10:40 AM EDT Sexual Orientation Straight 06/23/2022 10 :40 AM EDT documented as of this encounter Plan of Treatment Not on file documented as of this encounter Visit Diagnoses Diagnosis Severe pain documented in this encounter Additional Health Concerns Assessment Noted Time PHQ-9 Depression Total Score: 0 03/17/20 23 3:10 PM EDT documented as of this encounter Care Teams Home Health Lpn Relationship Specialty Start Date End Date Kenan Grier MD [address] [place] [id number] PCP - General Internal Medicine 11/28/21 documented as of this encounter
--- OUTSIDE RECORDS SUMMARY | 2025-05-30 14:26 | XMS_ITS | Encounter Summary ---
Author Organization [employer] Address [address] [facility] 7 [place] [address] Care Team Providers Care Bottle Filler Name Role Phone Kenan Grier MD Primary Care Provide r Reason for Visit * Reason Comments Med Refill Encounter Details Date Type Department Care Team ([facility] st Contact Info) Description 08/05/2023 Refill [facility] MEDICINE [address] [place], [place] [phone] Kenan Grier MD [address] [place], [place] [phone] Severe pain Social History Tobacco Use Types Packs/Day Years Used Date Smoking Tobacco: Never Passive Smoke Exposure: Never Smokeless Tobacco: Never Comments:vapes Alcohol Use Standard Drinks/Week Comments Not Currently 0 (1 standard drink = 0.6 oz pur e alcohol) Socially Depression Answer Date Recorded Patient Health Questionnaire-9 Score 3 05/27/2023 Housing Stability Answer Date Recorded What is your housing situation today? I have ayaka conde 06/10/[address] you [...] documented as of this encounter Care Teams Bottle Filler Relationship Specialty Start Date End Date Kenan Grier MD [address] [place] [id number] PCP - General Internal Medicine 11/28/21 documented as of this encounter
--- OUTSIDE RECORDS SUMMARY | 2025-05-30 14:26 | XMS_ITS | Encounter Summary ---
Author Organization [employer] Address [address] [facility] 7 [place] [address] Care Team Providers Care Movers Name Role Phone Kenan Grier MD Primary Care Provide r Reason for Visit * Reason Onset Date Comments Med Refill 06/12/2023 Encounter Details Date Type Department Care Team ([facility] st Contact Info) Description 06/12/2023 Telephone [facility] MEDICINE [address] [place] [address] Kenan Grier MD [address] [place] [address] Med Refill Social History Tobacco Use Types Packs/Day Years Used Date Smoking Tobacco: Never Passive Smoke Exposure: Never Smokeless Tobacco: Never Comments:vapes Alcohol Use Standard Drinks/Week Comments Not Currently 0 (1 standard drink = 0.6 oz pur e alcohol) Socially Depression Answer Date Recorded Patient Health Questionnaire-9 Score 3 05/27/2023 Housing Stability Answer Date Recorded What is your housing situation today? I have ayaka elton 06/10/[address] you li [...] encounter Miscellaneous Notes * Telephone Encounter - Alba Rutledge - 06/12/2023 11:43 AM EDT Tc from pt requesting med refill on morphine CR (MS Contin) 15 MG 12 hr tablet documented in this encounter Plan of Treatment Not on file documented as of this encounter Visit Diagnoses Not on filedocumented in this encounter Additional Health Concerns Assessment Noted Time PHQ-9 Depression Total Score: 3 05/27/20 23 10:50 AM EDT documented as of this encounter Care Teams Movers Relationship Specialty Start Date End Date Kenan Grier MD [address] [place] [address] PCP - General Internal Medicine 11/28/21 documented as of this encounter
--- OUTSIDE RECORDS SUMMARY | 2025-05-30 14:26 | XMS_ITS | Encounter Summary ---
Author Organization [employer] Address [address] [place] [address] 7 [place] [address] Care Team Providers Care Planisher Name Role Phone Kenan Grier MD Primary Care Provide r Reason for Visit * Reason Onset Date Comments Med Refill 03/07/2025 Encounter Details Date Type Department Care Team ([facility] st Contact Info) Description 03/07/2025 Telephone [facility] MEDICINE [address] [place] [address] Kenan Grier MD [address] [place] [address] Med Refill Social History Tobacco Use Types Packs/Day Years Used Date Smoking Tobacco: Never Passive Smoke Exposure: Never Smokeless Tobacco: Never Comments:vapes Alcohol Use Standard Drinks/Week Comments Not Currently 0 (1 standard drink = 0.6 oz pur e alcohol) Socially Depression Answer Date Recorded Patient Health Questionnaire-9 Score 8 06/02/2024 Patient Health Questionnaire-9 Score 8 06/02/2024 Last PHQ-9: Questionnaire Data Not on file 1 Housing Stability Answer Date Recorded What is your housing situation today? I have ayaka conde 09/22/[address] you li ve. Do you have problems with any of the following? Mold;I am not sure 09/22/2024 Food Insecurity Answer Date Recorded Within the past 12 months, y ou worried that your food would run out before you got money to buy more: Never True 09/22/2024 Within the past 12 months,th e food you bought just didn't last and you didn't have enough money to get more: Never True Transportation Answer Date Recorded In the past 12 months, has l ack of transportation kept you from medical appts, meetings, work or from getting things needed for daily living? No 09/22/2024 Utilities Answer Date Recorded In the past 12 months, has t he electric, gas, oil or water company threatened to shut off services in your home? No 09/22/2024 Depression Answer Date Recorded Patient Health Questionnaire-2 Score 2 06/02/2024 Internet Access Answer Date Recorded Internet Access Q1 Yes 09/22/2024 Internet Access Q2 Not on file 09/22/2024 Comments No Sex and Gender Information Value Date Recorded Sex Assigned at Female 06/23/2022 10:40 AM EDT Legal Sex Female 10:40 AM EDT Gender Identity Female 06/23/2022 10:40 AM EDT Sexual Orientation Straight 06/23/2022 10 :40 AM EDT documented as of this encounter Miscellaneous Notes * Telephone Encounter - Carolynn Rice - 03/07/2025 1:56 PM EDT TC from pt requesting medication refill. Medications needing refill : morphine CR (MS Contin) 15 MG 12 hr tablet To be sent to: [id number] - [address] [place] [address] documented in this encounter Plan of Treatment Not on file documented as of this encounter Visit Diagnoses Not on filedocumented in this encounter Additional Health Concerns Assessment Noted Time PHQ-9 Depression Total Score: 8 06/02/20 24 1:41 PM EDT documented as of this encounter Care Teams Planisher Relationship Specialty Start Date End Date Kenan Grier MD [address] [place] [address] [place] [id number] PCP - General Internal Medicine 11/28/21 documented as of this encounter
--- OUTSIDE RECORDS SUMMARY | 2025-05-30 14:26 | XMS_ITS | Encounter Summary ---
Author Organization [employer] Address [address] [facility] 7 [place] [address] Care Team Providers Care Marine Electronics Repairer Name Role Phone Kenan Grier MD Primary Care Provide r Reason for Visit * Reason Comments Med Refill Encounter Details Date Type Department Care Team ([facility] st Contact Info) Description 06/12/2023 Refill [facility] [address] [place], [place] [phone] Kenan Grier MD [address] [place] [address] Severe pain Social History Tobacco Use Types [...] encounter Miscellaneous Notes * Telephone Encounter - Maribel Woodard RN - 06/12/2023 4:04 PM EDT TC to pt. PHYSICAL EDUCATION DEPARTMENT CHAIR [place] scheduled for 08/05/23 @ 10am at [facility]. Pt verbalized understanding. * Telephone Encounter - Alba Rutledge - 06/12/2023 3:52 PM EDT TC from pt calling requesting a med refill on medication morphine CR (MS Contin) 15 MG 12 hr tablet. Pt calling stating need medication to be sent to [facility] Today due to pt will be out of town on Thursday. Training And Development Head contacted [facility] Pharm[facility] and pt is 3 days early today per Pharmacy insurance will not pay for medication unless Calls to approved medication early. Cleo From [facility] advised pt to try getting medication on another Pharmacy like [facility] or [email or web address] just in case Insurance will not pay early but pt refused to used another pharmacy that is not [facility] pharmacy. Pcp Dr. Parson documented in this encounter Plan of Treatment Not on file documented as of this encounter Visit Diagnoses Diagnosis Severe pain documented in this encounter Additional Health Concerns Assessment Noted Time PHQ-9 Depression Total Score: 3 05/27/20 10:50 AM EDT documented as of this encounter Care Teams Marine Electronics Repairer Relationship Specialty Start Date End Date Kenan Grier MD [address] [place] [address] PCP - General Internal Medicine 11/28/21 documented as of this encounter
--- OUTSIDE RECORDS SUMMARY | 2025-05-30 14:26 | XMS_ITS | Clinical Summary ---
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 Tobacco: Never Tobacco Cessation:Counseling Given: Not Answered Comments:vapes Alcohol Use Standard Drinks/Week Comments Not [...] Orientation Straight 06/23/2022 10 :40 AM EDT Last Filed Vital Signs Vital Sign Reading Time Taken Comments Blood Pressure 139/97 06/02/2024 1:33 PM EDT Pulse 100 06/02/2024 1:33 PM EDT Temperature 36.2 C (97.1 F) 06/02/2024 1:33 PM EDT Respiratory Rate 20 06/02/2024 1:33 PM EDT Oxygen Saturation 98% 06/02/2024 1:33 PM EDT Inhaled Oxygen Concentration - - Weight 60.3 kg (133 lb) 06/02/2024 1:33 PM EDT Height 162.6 cm (5' 4 ) 06/02/2024 1:33 PM EDT Body Mass Index 22.83 06/02/2024 1:33 PM EDT Plan of Treatment Health Maintenance Due Date Last Done Comments Disability Screening 1986 Alcohol/Substance Use Screening 1998 Family Planning (PISQ) 2001 HPV Vaccines (1 - 3-dose series) 2001 DTaP/Tdap/Td Vaccines (1 - Tdap) 2005 Hepatitis B Vaccines (1 of 3 - 19+ 3-dose series) 2005 Pneumococcal Vaccine: Pediatrics (0 to 5 Years) and At-Risk Patients (6 to 49) Years (1 of 2 - PCV) 2005 COVID-19 Vaccine ( - 2023-2 5 season) 2025 Influenza Vaccine (#1) 2025 Depression Screening 06/02/2025 06/02/2024, 06/02/2024 Tobacco Screening 06/02/2025 06/02/2024 SDOH Screening 09/22/2025 09/22/2024 Cervical Cancer Screening 02/04/2027 HPV/Cotest 02/04/2027 02/04/2022, 02/04/2022 Pap Smear 02/04/2027 02/04/2022 Zoster Vaccines (1 of 2) 01/22/2036 RSV Patients and Patients Aged 60 years or older (1 - 1-dose 75+ series) 2061 HIV Screening Completed 11/28/2021 Hepatitis C Screening Completed 11/28/2021 HIB Vaccines Aged Out No longer eligi ble based on patient's age to complete this topic Hepatitis A Vaccines Aged Out No long er eligible based on patient's age to complete this topic IPV Vaccines Aged Out No longer eligi ble based on patient's age to complete this topic Meningococcal B Vaccine Aged Out No l onger eligible based on patient's age to complete this topic Meningococcal Vaccine Aged Out No krystal marina eligible based on patient's age to complete this topic RSV under 20 months Aged Out No longe r eligible based on patient's age to complete this topic Rotavirus Vaccines Aged Out No longer eligible based on patient's age to complete this topic Procedures Procedure Name Priority Date/Time Associated Diagnosis Comments ZZZ HISTORICAL HPV E6/E7 RFLX SHAVONNE 16 18/45 Routine 02/04/2022 3:58 PM EDT HM PAP/HPV Routine 02/04/2022 ZZZ HISTORICAL HEPATITIS C AB W/REFL TO HCV RNA, QN, PCR Routine 11/28/2021 2:47 PM EDT HIV 1/2 ANTIGEN/ANTIBODY, FOURTH GENERATION W/RFL Routine 11/28/2021 2:47 PM EDT from Last 3 Months or Most Recently Relevant to Health Maintenance Results * HPV E6/E7 RFLX SHAVONNE 16 18/45 (02/04/2022 3:58 PM EDT) [facility] HPV mRNA E6/E7 rflx Not Detected Not Detected [facility] Comment: Methodology: Jacker Feeder-Mediated Amplification This assay detects E6/E7 viral messenger RNA (mRNA) from 14 high-risk HPV types (16,18,31,33,35,39,45,51,52,56,58,59,66,68). Cervical sources are required for HPV testing. If a vaginal source from a patient who has had a total hysterectomy with removal of cervix was submitted, please contact the testing laboratory for alternative testing options. For additional information, please refer to http://education.[facility]/faq/NSX231e7 (This link if provided for information/ educational purposes only.) THIS TEST WAS PERFORMED AT: [facility] [address] [place] [address],[place] [address] BLAINE BELLE MD 02/04/2022 3:58 PM EDT Jameson Bundy MD HISTORICAL/NON ORDERABLE LABS Fi nal Result Performing Organization Address [facility] de Phone Number [facility] [address] [place] [address], * Hm Pap Smear (02/04/2022) Historical Provider HEALTH MAINTENANCE Final Result * HEPATITIS C AB W/REFL TO HCV RNA, QN, PCR (11/28/2021 2:47 PM EDT) HEPATITIS C ANTIBODY NON-REACT DARRICK NON-REACT DARRICK [facility] INDEX 0.01 <1.00 [facility] Comment: HCV antibody was non-reactive. There is no laboratory evidence of HCV infection. In most cases, no further action is required. However, if recent HCV exposure is suspected, a test for HCV RNA (test code 93050) is suggested. For additional information please refer to http://[employer]/faq/GNB31u8 (This link is being provided for informational/ educational purposes only.) 11/28/2021 2:47 PM EDT Kenan Laws MD HISTORICAL/NON ORDERA BLE LABS Final Result Performing Organization Address [facility] de Phone Number [facility] [address] [place] [address], * HIV 1/2 ANTIGEN/ANTIBODY,FOURTH GENERATION W/RFL (11/28/2021 2:47 PM EDT) HIV-1/2 ANTIGEN AND ANTIBODIES, 4TH GENERATION W/ REFLEX NON-REACT DARRICK NON-REACT DARRICK [facility] Comment: HIV-1 antigen and HIV-1/HIV-2 antibodies were not detected. There is no laboratory evidence of HIV infection. PLEASE NOTE: This information has been disclosed to you from records whose confidentiality may be protected by state law. If your state requires such protection, then the state law prohibits you from making any further disclosure of the information without the specific written consent of the person to whom it pertains, or as otherwise permitted by law. A general authorization for the release of medical or other information is NOT sufficient for this purpose. For additional information please refer to http://education.[facility] [facility].[employer]/faq/DYU179 (This link is being provided for informational/ educational purposes only.) The performance of this assay has not been clinically validated in patients less than 2 years old. 11/28/2021 2:47 PM EDT Kenan Laws MD LAB BLOOD ORDERABLES Final Result [facility] [address] from Last 3 Months or Most Recently Relevant to Health Maintenance Insurance [address] [place], [place] [address]WHOOP C3 Care Teams Beating Machine Operator Relationship Specialty Start Date End Date Kenan Grier MD [address] [place] [id number] PCP - General Internal Medicine 11/28/21
--- OUTSIDE RECORDS SUMMARY | 2025-05-30 14:26 | XMS_ITS | Encounter Summary ---
Author Organization [employer] Address [address] [facility] 7 [place] [address] Care Team Providers Care Telegraph Editor Name Role Phone Kenan Grier MD Primary Care Provide r Reason for Visit * Reason Onset Date Comments Med Refill 11/24/2023 Encounter Details Date Type Department Care Team ([facility] st Contact Info) Description 11/24/2023 Telephone [facility] MEDICINE [address] [place] [address] Kenan Grier MD [address] [place] [address] Med Refill Social History Tobacco Use Types [...] Miscellaneous Notes * Telephone Encounter - Russell Price - 11/24/2023 3:35 PM EDT TC from pt requesting medication refill. Medications needing refill: morphine CR (MS Contin) 15 MG 12 hr tablet To be sent to: [facility]/pharmacy #[id number] documented in this encounter Plan of Treatment Not on file documented as of this encounter Visit Diagnoses Not on filedocumented in this encounter Additional Health Concerns Assessment Noted Time PHQ-9 Depression Total Score: 3 05/27/20 23 10:50 AM EDT documented as of this encounter Care Teams Telegraph Editor Relationship Specialty Start Date End Date Kenan Grier MD [address] [place] [id number] PCP - General Internal Medicine 11/28/21 documented as of this encounter
--- OUTSIDE RECORDS SUMMARY | 2025-05-30 14:26 | XMS_ITS | Encounter Summary ---
Author Organization [employer] Address [address] [place] [address] 7 [place] [address] Care Team Providers Care Service Secretary Name Role Phone Kenan Grier MD Primary Care Provide r Reason for Visit * Reason Onset Date Comments Med Refill 09/06/2024 Encounter Details Date Type Department Care Team ([facility] st Contact Info) Description 09/06/2024 Telephone [facility] MEDICINE [address] [place] [address] Kenan Grier MD [address] [place] [address] Med Refill Social History Tobacco Use Types [...] Recorded Patient Health Questionnaire-2 Score 2 06/02/2024 Comments No Sex and Gender Information Value Date Recorded Sex Assigned at Female 06/23/2022 10:40 AM EDT Legal Sex Female 10:40 AM EDT Gender Identity Female 06/23/2022 10:40 AM EDT Sexual Orientation Straight 06/23/2022 10 :40 AM EDT documented as of this encounter Miscellaneous Notes * Telephone Encounter - Danny Feliz - 09/06/2024 8:03 AM EST TC from pt requesting medication refill. Medications needing refill : morphine CR (MS Contin) 15 MG 12 hr tablet To be sent to: [facility]/pharmacy #[address] [place] [address] - [address] [place] [address] documented in this encounter Plan of Treatment Not on file documented as of this encounter Visit Diagnoses Not on filedocumented in this encounter Additional Health Concerns Assessment Noted Time PHQ-9 Depression Total Score: 8 06/02/20 24 1:41 PM EDT documented as of this encounter Care Teams Service Secretary Relationship Specialty Start Date End Date Kenan Grier MD [address] [place] [address] PCP - General Internal Medicine 11/28/21 documented as of this encounter
--- OUTSIDE RECORDS SUMMARY | 2025-05-30 14:26 | XMS_ITS | Encounter Summary ---
Author Organization [employer] Address [address] [place] [address] 7 [place] [address] Care Team Providers Care Petrol Tanker Driver Name Role Phone Kenan Grier MD Primary Care Provide r Reason for Visit * Reason Onset Date Comments Med Refill 12/06/2024 Encounter Details Date Type Department Care Team ([facility] st Contact Info) Description 12/06/2024 Telephone [facility] MEDICINE [address] [place] [address] Kenan Grier MD [address] [place] [address] Med Refill Social History Tobacco Use Types [...] encounter Miscellaneous Notes * Telephone Encounter - Connie Metcalf - 12/06/2024 1:43 PM EDT TC from pt requesting medication refill. Medications needing refill : morphine CR (MS Contin) 15 MG 12 hr tablet To be sent to: [facility]/pharmacy #[id number] documented in this encounter Plan of Treatment Not on file documented as of this encounter Visit Diagnoses Not on filedocumented in this encounter Additional Health Concerns Assessment Noted Time PHQ-9 Depression Total Score: 8 06/02/20 24 1:41 PM EDT documented as of this encounter Care Teams Petrol Tanker Driver Relationship Specialty Start Date End Date Kenan Grier MD [address] [place] [address] PCP - General Internal Medicine 11/28/21 documented as of this encounter
--- OUTSIDE RECORDS SUMMARY | 2025-05-30 14:26 | XMS_ITS | Encounter Summary ---
Author Organization [employer] Address [address] [place] [address] 7 [place] [address] Care Team Providers Care Geotechnicial Properties Technician Name Role Phone Kenan Grier MD Primary Care Provide r Encounter Details Date Type Department Care Team ([facility] st Contact Info) Description 05/14/2023 Orders Only [facility] MEDICINE [address] [place], [place] [phone] Provider, MD Brayan Social History Tobacco Use Types Packs/Day Years [...] on file documented as of this encounter Procedures Procedure Name Priority Date/Time Associated Diagnosis Comments HM PAP/HPV Routine 02/04/2022 documented in this encounter Results * Hm Pap Smear (02/04/2022) Historical Provider HEALTH MAINTENANCE Final Result documented in this encounter Visit Diagnoses Not on filedocumented in this encounter Additional Health Concerns Assessment Noted Time PHQ-9 Depression Total Score: 0 03/17/20 23 3:10 PM EDT documented as of this encounter Care Teams Geotechnicial Properties Technician Relationship Specialty Start Date End Date Kenan Grier MD [address] [place] [address] PCP - General Internal Medicine 11/28/21 documented as of this encounter
--- OUTSIDE RECORDS SUMMARY | 2025-05-30 14:26 | XMS_ITS | Encounter Summary ---
Author Organization [employer] Address [address] [place] [address] 7 [place] [address] Care Team Providers Care Electric Powerline Examiner Name Role Phone Kenan Grier MD Primary Care Provide r Reason for Visit * Reason Comments Med Refill Encounter Details Date Type Department Care Team ([facility] st Contact Info) Description 02/27/2023 Refill [facility] MEDICINE [address] [place] [address] Kenan Grier MD [address] [place] [address] Severe pain Social History Tobacco Use Types [...] encounter Miscellaneous Notes * Telephone Encounter - Analilia Carrera RN - 02/27/2023 9:25 AM EDT Already sent to covering provider documented in this encounter Plan of Treatment Not on file documented as of this encounter Visit Diagnoses Diagnosis Severe pain documented in this encounter Care Teams Electric Powerline Examiner Relationship Specialty Start Date End Date Kenan Grier MD [address] [place] [address] PCP - General Internal Medicine 11/28/21 documented as of this encounter
--- OUTSIDE RECORDS SUMMARY | 2025-05-30 14:26 | XMS_ITS | Encounter Summary ---
Author Organization [employer] Address [address] [facility] 7 [place] [address] Care Team Providers Care Manager Marketing Communication Name Role Phone Kenan Grier MD Primary Care Provide r Reason for Visit * Reason Onset Date Comments Med Refill 04/13/2024 Encounter Details Date Type Department Care Team ([facility] st Contact Info) Description 04/13/2024 Telephone [facility] MEDICINE [address] [place] [address] Kenan Grier MD [address] [place] [address] Med Refill Social History Tobacco Use Types [...] * Telephone Encounter - Russell Price - 04/13/2024 10:01 AM EDT TC from pt requesting medication refill. Medications needing refill: morphine CR (MS Contin) 15 MG 12 hr tablet To be sent to: [facility]/pharmacy #[id number] [place] [address] documented in this encounter Plan of Treatment Not on file documented as of this encounter Visit Diagnoses Not on filedocumented in this encounter Additional Health Concerns Assessment Noted Time PHQ-9 Depression Total Score: 3 05/27/20 23 10:50 AM EDT documented as of this encounter Care Teams Manager Marketing Communication Relationship Specialty Start Date End Date Kenan Grier MD [address] [place] [address] PCP - General Internal Medicine 11/28/21 documented as of this encounter
--- OUTSIDE RECORDS SUMMARY | 2025-05-30 14:26 | XMS_ITS | Encounter Summary ---
Author Organization [employer] Address [address] [place] [address] Care Team Providers Care Financial Advisor Trainee Name Role Phone Kenan Grier MD Primary Care Provide r Encounter Details Date Type Department Care Team ([facility] st Contact Info) Description 11/07/2024 Orders Only [facility] [address] [place], [place] [phone] Manisha Paul, JOSE [address] [place] [address] Social History Tobacco Use Types Packs/Day Years [...] documented as of this encounter Care Teams Financial Advisor Trainee Relationship Specialty Start Date End Date Kenan Grier MD [address] [place] [address] PCP - General Internal Medicine 11/28/21 documented as of this encounter
--- OUTSIDE RECORDS SUMMARY | 2025-05-30 14:26 | XMS_ITS | Encounter Summary ---
Author Organization [employer] Address [address] [facility] 7 [place] [address] Care Team Providers Care Window Machine Operator Name Role Phone Kenan Grier MD Primary Care Provide r Reason for Visit * Reason Comments Med Refill Encounter Details Date Type Department Care Team ([facility] st Contact Info) Description 06/12/2023 Refill [facility] [address] [place], [place] [phone] Kenan Grier MD [address] [place] [address] Severe pain Social History Tobacco Use Types [...] encounter Miscellaneous Notes * Telephone Encounter - Dimitri Zaldivar - 06/12/2023 5:09 PM EDT TC from pt 2nd time today , needing script for morphine . Pt states during last visit did express that she vomited 2 pills of medication. Pt states only has a dose for tomorrow and will be out of state this Thursday and has no one to pick them up for her. Pt states due to the fact that she is early insurance may need provider to due a override. documented in this encounter Plan of Treatment Not on file documented as of this encounter Visit Diagnoses Diagnosis Severe pain documented in this encounter Additional Health Concerns Assessment Noted Time PHQ-9 Depression Total Score: 3 05/27/20 23 10:50 AM EDT documented as of this encounter Care Teams Window Machine Operator Relationship Specialty Start Date End Date Kenan Grier MD [address] [place] [address] PCP - General Internal Medicine 11/28/21 documented as of this encounter
== END 2025-05-30 12:17 | disposition home or self-care (01) ==
LOC: HO.HWS 11:26
PROVIDERS: PCP Internal Medicine; Visit Provider Obstetrics & Gynecology
DX: Z01.419 Encounter for gynecological examination (general) (routine) without abnormal findings (principal)
CPT/HCPCS: 99395; 99459

== ENCOUNTER → 2025-05-30 11:25 | Outpatient (BNVA) | payer MEDICAID, SELFPAY | PROVIDERS: PCP Internal Medicine; Visit Provider Obstetrics & Gynecology | DX: Z01.419 Encounter for gynecological examination (general) (routine) without abnormal findings (principal) | CPT/HCPCS: 99395 ==